=== PATIENT | male | born 1940 | race Caucasian/White ===

== ENCOUNTER 2016-07-30 10:13 | Inpatient (IN) | payer MEDICARE ==
[2016-07-30 10:29] LABS: Glucose,Whole Blood 151 mg/dL (75-99)
[2016-07-30] MEDS ORDERED: SODIUM CHLORIDE 0.9% 1,000 ML IV STA (10:33)
[2016-07-30] MEDS ORDERED: DILTIAZEM 125 MG in SODIUM CHLORIDE 0.9% 100 ML IV ONE (10:34)
[2016-07-30] MEDS ORDERED: DILTIAZEM 5 MG/ML 5 ML VIAL IVP STA (10:34)
--- NOTE | 2016-07-30 10:39 | ED ---
General Adult HPI - General Chief complaint: Neuro Symptoms/Deficit Stated complaint: TIA symptoms Time Seen by Provider: 07/30/16 10:22 Source: patient, family, RN notes reviewed Mode of arrival: ambulatory Limitations: no limitations - History of Present Illness Initial comments: Patient is a pleasant 76-year-old male presenting to the emergency department with concerns for slurred speech. Last known well was around 9:53 PM last night. noticed patient around 7 AM this morning with slurred speech. Patient complains his right side feels funny. No complaints of headache. Patient does have a history of one episode of atrial fibrillation in the past. also feels patient is acting somewhat confused. Patient did have some difficulty with walking and seemed off balance. - Related Data Home Medications Medication Instructions Recorded Confirmed ALPRAZolam [Xanax] 0.5 mg PO QID 09/19/15 07/30/16 Escitalopram [Lexapro] 10 mg PO DAILY 09/19/15 07/30/16 Multivitamins, Thera [Multivitamin 1 tab PO DAILY 09/19/15 07/30/16 (formulary)] risperiDONE 1 mg PO HS 09/19/15 07/30/16 Aspirin 325 mg PO HS 04/04/16 07/30/16 Cholecalciferol [Vitamin D3] 1,000 unit PO DAILY 04/04/16 07/30/16 Allergies Allergy/AdvReac Type Severity Reaction Status Date / Time No Known Allergies Allergy Verified 07/30/16 11:30 Review of Systems ROS Statement: Those systems with pertinent positive or pertinent negative responses have been documented in the HPI. ROS Other: All systems not noted in ROS Statement are negative. Constitutional: Denies: fever Eyes: Denies: eye pain ENT: Denies: ear pain Respiratory: Denies: cough, dyspnea Cardiovascular: Denies: chest pain, palpitations Endocrine: Denies: fatigue Gastrointestinal: Denies: abdominal pain Genitourinary: Denies: dysuria Musculoskeletal: Denies: back pain Skin: Denies: rash Neurological: Reports: weakness, paresthesias, confusion. Denies: headache Psychiatric: Reports: anxiety Past Medical History Past Medical History: Atrial Fibrillation Additional Past Medical History / Comment(s): diverticulitis, dry eyes bilaterally History of Any Multi-Drug Resistant Organisms: None Reported Past Surgical History: No Surgical Hx Reported Additional Past Surgical History / Comment(s): 03/01/16 colonoscopy Past Anesthesia/Blood Transfusion Reactions: No Reported Reaction Past Psychological History: Depression Additional Psychological History / Comment(s): Pt has depression and is on medication which he states is working well. He has no thoughts or plans of suicide. He has had previous attempts at suicide by asphyxia, cutting wrist, jumping in river and overdosing on sleeping pills. He uses no assistive device. He drives. Smoking Status: Former smoker Past Alcohol Use History: Daily Additional Past Alcohol Use History / Comment(s): Pt states he started smoking in 1961 and quit December 2015. He likes to drink 2 beers a day. Past Drug Use History: None Reported - Past Family History Father Family Medical History: Dementia Additional Family Medical History / Comment(s): Father of dementia at the age of 62 yrs. Mother Additional Family Medical History / Comment(s): Mother had heart problems. General Exam Limitations: no limitations General appearance: alert, anxious Head exam: Present: atraumatic Eye exam: Present: normal appearance, PERRL ENT exam: Present: normal oropharynx Neck exam: Present: normal inspection Respiratory exam: Present: normal lung sounds bilaterally Cardiovascular Exam: Present: tachycardia, irregular rhythm GI/Abdominal exam: Present: soft. Absent: tenderness Extremities exam: Present: normal inspection Neurological exam: Present: alert, oriented X3, CN II-XII intact Expanded Patient oriented to: Present: person, place, time Speech: Present: expressive aphasia Cranial nerves: EOM's Intact: Normal Cerebellar function: Finger to Nose: Abnormal Right Sensory exam: Upper Extremity Light Touch: Abnormal Right, Lower Extremity Light Touch: Normal Motor strength exam: RUE: 5, LUE: 5, RLE: 5, LLE: 5 Eye Response: (4) open spontaneously Motor Response: (6) obeys commands Verbal Response: (5) oriented Psychiatric exam: Present: normal affect, normal mood Skin exam: Present: normal color Course Vital Signs 07/30/16 07/30/16 07/30/16 10:17 10:30 10:45 Temperature 96.0 F L Pulse Rate 125 H 152 H 146 H Respiratory 20 26 H 26 H Rate Blood Pressure 163/75 159/107 162/107 O2 Sat by Pulse 98 98 98 Oximetry 07/30/16 07/30/16 07/30/16 11:00 11:15 11:30 Temperature Pulse Rate 140 H 153 H 111 H Respiratory 26 H 26 H 26 H Rate Blood Pressure 175/99 185/84 146/93 O2 Sat by Pulse 99 99 100 Oximetry 07/30/16 07/30/16 07/30/16 12:00 12:30 13:00 Temperature Pulse Rate 107 H 130 H 98 Respiratory 26 H 24 24 Rate Blood Pressure 166/86 159/103 168/82 O2 Sat by Pulse 99 94 L 98 Oximetry 07/30/16 07/30/16 13:30 14:26 Temperature Pulse Rate 108 H 104 H Respiratory 24 22 Rate Blood Pressure 186/81 178/72 O2 Sat by Pulse 98 98 Oximetry - Reevaluation(s) Reevaluation #1: 07/30/16 15:44 Repeat computed tomography scan shows no evidence of hemorrhage. Stable appearing subcutaneous nodule posteriorly. EKG Findings - EKG Comments: EKG Findings:: A. fib with RVR, rate 155. QRS 78. QT 32. QTC 453. Normal axis. Normal QRS. Normal ST-T. Medical Decision Making - Medical Decision Making Patient reevaluated. Case was discussed in detail with Dr. Low, who will admit for Dr. Dominique. Case was also discussed in detail with Dr. Villanueva, who will consult. He recommends no aggressive anticoagulation at this time. - Lab Data Result diagrams: 07/30/16 10:33 07/30/16 10:33 Lab Results 07/30/16 07/30/16 07/30/16 Range/Units 10:27 10:33 10:33 WBC 13.1 H (3.8-10.6) k/uL RBC 5.01 (4.30-5.90) m/uL Hgb 16.0 (13.0-17.5) gm/dL Hct 50.8 (39.0-53.0) % MCV 101.5 H (80.0-100.0) fL MCH 31.9 (25.0-35.0) pg MCHC 31.4 (31.0-37.0) g/dL RDW 13.8 (11.5-15.5) % Plt Count 232 (150-450) k/uL Neutrophils % 87 % Lymphocytes % 6 % Monocytes % 5 % Eosinophils % 0 % Basophils % 0 % Neutrophils # 11.5 H (1.3-7.7) k/uL Lymphocytes # 0.8 L (1.0-4.8) k/uL Monocytes # 0.6 (0-1.0) k/uL Eosinophils # 0.0 (0-0.7) k/uL Basophils # 0.1 (0-0.2) k/uL Hypochromasia Slight Macrocytosis Slight PT (9.0-12.0) sec INR (<1.1) APTT (22.0-30.0) sec Sodium (137-145) mmol/L Potassium (3.5-5.1) mmol/L Chloride (98-107) mmol/L Carbon Dioxide (22-30) mmol/L Anion Gap mmol/L BUN (9-20) mg/dL Creatinine (0.66-1.25) mg/dL Est GFR (MDRD) Af Amer (>60 ml/min/1.73 sqM) Est GFR (MDRD) Non-Af (>60 ml/min/1.73 sqM) Glucose (74-99) mg/dL POC Glucose (mg/dL) 151 H (75-99) mg/dL POC Glu [employer] ID Sharp, Kelsey Calcium (8.4-10.2) mg/dL Total Bilirubin (0.2-1.3) mg/dL AST (17-59) U/L ALT (21-72) U/L Alkaline Phosphatase (38-126) U/L Total Creatine Kinase 38 L (55-170) U/L CK-MB (CK-2) 0.4 (0.0-2.4) ng/mL CK-MB (CK-2) Rel Index 1.1 Troponin I <0.012 (0.000-0.034) ng/mL NT-Pro-B Natriuret Pep pg/mL Total Protein (6.3-8.2) g/dL Albumin (3.5-5.0) g/dL 07/30/16 07/30/16 07/30/16 Range/Units 10:33 10:33 10:33 WBC (3.8-10.6) k/uL RBC (4.30-5.90) m/uL Hgb (13.0-17.5) gm/dL Hct (39.0-53.0) % MCV (80.0-100.0) fL MCH (25.0-35.0) pg MCHC (31.0-37.0) g/dL RDW (11.5-15.5) % Plt Count (150-450) k/uL Neutrophils % % Lymphocytes % % Monocytes % % Eosinophils % % Basophils % % Neutrophils # (1.3-7.7) k/uL Lymphocytes # (1.0-4.8) k/uL Monocytes # (0-1.0) k/uL Eosinophils # (0-0.7) k/uL Basophils # (0-0.2) k/uL Hypochromasia Macrocytosis PT 10.1 (9.0-12.0) sec INR 1.0 (<1.1) APTT 22.0 (22.0-30.0) sec Sodium 149 H (137-145) mmol/L Potassium 5.3 H (3.5-5.1) mmol/L Chloride 115 H (98-107) mmol/L Carbon Dioxide 7 L* (22-30) mmol/L Anion Gap 27 mmol/L BUN 15 (9-20) mg/dL Creatinine 1.50 H (0.66-1.25) mg/dL Est GFR (MDRD) Af Amer 55 (>60 ml/min/1.73 sqM) Est GFR (MDRD) Non-Af 46 (>60 ml/min/1.73 sqM) Glucose 168 H (74-99) mg/dL POC Glucose (mg/dL) (75-99) mg/dL POC Glu [employer] ID Calcium 10.9 H (8.4-10.2) mg/dL Total Bilirubin 0.3 (0.2-1.3) mg/dL AST 18 (17-59) U/L ALT 37 (21-72) U/L Alkaline Phosphatase 97 (38-126) U/L Total Creatine Kinase (55-170) U/L CK-MB (CK-2) (0.0-2.4) ng/mL CK-MB (CK-2) Rel Index Troponin I (0.000-0.034) ng/mL NT-Pro-B Natriuret Pep 94 pg/mL Total Protein 7.9 (6.3-8.2) g/dL Albumin 4.7 (3.5-5.0) g/dL Critical Care Time Critical Care Time: Yes Total Critical Care Time: 36 Disposition Clinical Impression: Atrial fibrillation with RVR, Cerebrovascular accident Disposition: ADMITTED IP TO THIS HOSP Condition: Serious
[2016-07-30 11:03] LABS: Basophils # (A) 0.1 k/uL (0-0.2); Basophils % (A) 0 %; CH 31.5; CHCM 31.3; Eosinophils % (A) 0 %; HCT 50.8 % (39.0-53.0); Hypochromasia Slight; Luc # (Auto) 0.16; Luc % (Auto) 1; Lymphocytes # (A) 0.8 k/uL (1.0-4.8); Lymphocytes % (A) 6 %; MCH 31.9 pg (25.0-35.0); MCHC 31.4 g/dL (31.0-37.0); MCV 101.5 fL (80.0-100.0); Macrocytosis Slight; Mean Platelet Volume 7.5; Monocytes # (A) 0.6 k/uL (0-1.0); Monocytes % (A) 5 %; Neutrophils # (A) 11.5 k/uL (1.3-7.7); Neutrophils % (A) 87 %; RBC 5.01 m/uL (4.30-5.90); RDW 13.8 % (11.5-15.5); WBC 13.1 k/uL (3.8-10.6); WBC (Perox) 12.67
[2016-07-30 11:17] LABS: Calcium 10.9 mg/dL (8.4-10.2); Potassium 5.3 mmol/L (3.5-5.1); Total Bilirubin 0.3 mg/dL (0.2-1.3); Total Protein 7.9 g/dL (6.3-8.2)
--- NOTE | 2016-07-30 11:18 | CT ---
EXAMINATION TYPE: CT brain wo con DATE OF EXAM: 07/30/2016 11:08 AM COMPARISON: 12/28/2012 HISTORY: weakness today. History of CVA CT DLP: 1207 mGycm Automated exposure control for dose reduction was used. FINDINGS: Artifact limits the exam. There is no acute intracranial hemorrhage, mass effect, or midline shift identified. The ventricles and sulci are within normal limits in size. The globes are intact and the visualized sinuses are britni ar. IMPRESSION: Limited exam for hemorrhage due to artifact demonstrates no obvious gross acute intracranial hemorrh age or mass effect.
[2016-07-30 11:25] LABS: Prothrombin Time 10.1 sec (9.0-12.0)
[2016-07-30 11:30] LABS: Creatine Kinase 38 U/L (55-170)
--- NOTE | 2016-07-30 11:39 | XR ---
EXAMINATION TYPE: XR chest 1V portable DATE OF EXAM: 07/30/2016 11:18 AM COMPARISON: Chest x-ray April 04, 2016. HISTORY: Altered mental status and weakness. TECHNIQUE: Single AP portable frontal upright view of the chest is obtained. FINDINGS: There is chronic parenchymal change without suspicious focal air space opacity, pleural ef fusion, or pneumothorax seen. The cardiac silhouette size is upper limits of normal. Atherosclerotic change in aortic knob is redemonstrated. The osseous structures are demineralized. Old fracture def ormity right mid clavicle is noted. There is old fracture posterior left eighth rib redemonstrated. IMPRESSION: No acute pulmonary process.
[2016-07-30 11:44] LABS: Creatine Kinase MB 0.4 ng/mL (0.0-2.4); Troponin I <0.012 ng/mL (0.000-0.034)
[2016-07-30] MEDS ORDERED: LORazepam 2 MG/ML SYRINGE IV STA (12:33)
--- NOTE | 2016-07-30 14:25 | CT ---
EXAMINATION TYPE: CT brain wo con DATE OF EXAM: 07/30/2016 2:19 PM COMPARISON: NONE HISTORY: possible hemorrhage CT DLP: 1012.7 mGycm Automated exposure control for dose reduction was used. FINDINGS: There is no acute intracranial hemorrhage, mass effect, or midline shift identified. There is a 1.3 cm subcutaneous nodule posterior to the craniocervical junction. Stable from previous exam. Atherosclerotic changes are noted. [id number] generalized degenerative change. Periventri cular low-attenuation nonspecific but suggestive of remote microvascular ischemia. IMPRESSION: 1. Degenerative and suspected remote ischemic white matter change. 2. Stable appearing subcutaneous nodule within the soft tissues posteriorly from the previous recent exam. However, this is new from the exam of 8 12/28/2012. Correlate clinically for soft tissue nodule at the craniocervical junction posteriorly.
[2016-07-30] MEDS ORDERED: ASPIRIN 325 MG TAB PO STA (15:46)
[2016-07-30] MEDS ORDERED: SODIUM CHLORIDE 0.9% 1,000 ML IV SCH (16:00)
--- NOTE | 2016-07-30 19:55 | XR ---
EXAMINATION TYPE: XR chest 1V portable DATE OF EXAM: 07/30/2016 7:49 PM COMPARISON: Today HISTORY: Short of breath TECHNIQUE: Single frontal view of the chest is obtained. FINDINGS: There is no heart failure nor confluent pneumonic infiltrate. There are chest leads. Thora cic aorta is atheromatous. There is no pleural effusion. There are no hilar masses. IMPRESSION: No active cardiopulmonary disease. No change.
[2016-07-30] MEDS ORDERED: FUROSEMIDE 10 MG/ML 2 ML VIAL IV ONE (20:33)
[2016-07-30] MEDS ORDERED: LEVOFLOXACIN 500MG-D5W PMX 500 MG in DEXTROSE/WATER 1 100ML.BAG IVPB SCH (21:00)
--- NOTE | 2016-07-30 21:31 | US ---
EXAMINATION TYPE: US carotid duplex BILAT DATE OF EXAM: 07/30/2016 9:16 PM COMPARISON: NONE CLINICAL HISTORY: Stenosis. Slurred speech. Very difficult/limited exam. The patient was confused, un able to follow direction to turn his head for the test. Patient breathing deeply/snoring making the v essels move during the exam EXAM MEASUREMENTS: RIGHT: Peak Systolic Velocity (PSV) cm/sec ----- Right CCA: 103.1 ----- Right ICA: 135.7 ----- Right ECA: 60.7 ICA/CCA ratio: 1.3 RIGHT: End Diastole cm/sec ----- Right CCA: 15.9 ----- Right ICA: 17.5 ----- Right ECA: 7.6 LEFT: Peak Systolic Velocity (PSV) cm/sec ----- Left CCA: 67.7 ----- Left ICA: 93.5 ----- Left ECA: 49.4 ICA/CCA ratio: 1.4 LEFT: End Diastole cm/sec ----- Left CCA: 7.9 ----- Left ICA: 14.4 ----- Left ECA: 6.5 VERTEBRALS (direction of flow): Right Vertebral: Antegrade Left Vertebral: Antegrade TECHNOLOGIST IMPRESSION: Arrythmia noted throughout exam. Moderate amount of plaque visualized in bi lateral bulbs. Elevated velocity noted at the right distal ICA IMPRESSION: There is antegrade flow in the vertebral arteries. The images and measurements suggest 5 0-70% stenosis in the right internal carotid artery there is significant bilateral plaque. There is p robably at least 50% stenosis in the left internal carotid artery. Exam is limited due to the calcifi ed plaque. Criteria for Assigning % of Stenosis / Diameter reduction (Estimation based on the indirect measurements of the internal carotid artery velocities (ICA PSV). 1. Normal (no stenosis)=ICA PSV < 125 cm/s: ratio < 2.0: ICA EDV<40 cm/s. 2. Less than 50% stenosis=ICA PSV < 125 cm/s: ratio < 2.0: ICA EDV<40 cm/s. 3. 50 to 69% stenosis=ICA PSV of 125 to 230 cm/s: ration 2.0 ? 4.0: ICA EDV 40-100 cm/s. 4. Greater than 70% stenosis to near occlusion= ICA PSV > 230 cm/s: ratio > 4.0: ICA EDV > 100 cm/s. 5. Near occlusion= ICA PSV velocities may be low or undetectable: variable ratio and ICA EDV. 6. Total occlusion=unable to detect flow.
[2016-07-30 21:42] LABS: Glucose,Whole Blood 229 mg/dL (75-99)
[2016-07-30 21:42] LABS: ABG PH 7.01 (7.35-7.45)
[2016-07-30 21:43] LABS: ABG Base Excess -25.2 mmol/L; ABG HCO3 4 mmol/L (21-25); ABG PCO2 16 mmHg (35-45); ABG PO2 106 mmHg (83-108); ABG TCO2 4 mmol/L (19-24)
[2016-07-30] MEDS ORDERED: SODIUM BICARB 8.4% 50 ML SYR (1 MEQ/ML) ONE (22:05)
[2016-07-30] MEDS ORDERED: SODIUM BICARB 8.4% 50 ML SYR (1 MEQ/ML) IV STA ×2 (22:06→23:48)
[2016-07-30] MEDS ORDERED: PROPOFOL 50 ML IV ONE (22:16)
[2016-07-30] MEDS: PROPOFOL 500 MG in EMPTY BAG 1 BAG IV SCH (22:30)
[2016-07-30] MEDS ORDERED: PROPOFOL 10 MG/ML 20 ML VIAL IV ONE (22:32)
[2016-07-30] MEDS ORDERED: PHENYLEPHRINE-0.9% NACL SYG 1 MG/10 ML SYRINGE ONE (22:32)
[2016-07-30] MEDS ORDERED: IV VANCOMYCIN PER PHARMACY 1 EACH MISC MISCELLANE PRN (22:40)
--- NOTE | 2016-07-30 22:44 | XR ---
EXAMINATION TYPE: XR chest 1V portable DATE OF EXAM: 07/30/2016 10:36 PM COMPARISON: Today HISTORY: Tube placement TECHNIQUE: Single frontal view of the chest is obtained. FINDINGS: Heart and mediastinum are within normal limits. Lungs are clear of infiltrate. Endotrachea l tube is 2 cm from the livia. There is nasogastric tube that appears in good position. There are ch est leads. IMPRESSION: No active cardiopulmonary disease. Endotracheal tube is somewhat low and could be pulled back 2 cm.
[2016-07-30] MEDS ORDERED: ONDANSETRON 4 MG/2 ML VIAL IVP PRN (22:56)
[2016-07-30] MEDS ORDERED: PIPERACILLIN-TAZOBACTAM 3.375 GM in DEXTROSE/WATER 1 50ML.BAG IVPB ONE (23:00)
[2016-07-30] MEDS ORDERED: PIPERACILLIN-TAZOBACTAM 3.375 GM in DEXTROSE/WATER 1 50ML.BAG IVPB SCH (23:00)
[2016-07-30] MEDS ORDERED: VANCOMYCIN 1,500 MG in SODIUM CHLORIDE 0.9% 250 ML IVPB ONE (23:00)
[2016-07-30] MEDS ORDERED: INSULIN REGULAR 100 UNIT in SODIUM CHLORIDE 0.9% 100 ML IV SCH (23:15)
[2016-07-30 23:21] LABS: Basophils % (A) 0 %; CH 30.6; CHCM 29.9; Eosinophils % (A) 0 %; HCT 48.3 % (39.0-53.0); HDW 2.52; HGB 14.8 gm/dL (13.0-17.5); Hypochromasia Marked; Luc # (Auto) 0.11; Luc % (Auto) 0; Lymphocytes # (A) 0.6 k/uL (1.0-4.8); Lymphocytes % (A) 2 %; MCH 31.5 pg (25.0-35.0); MCHC 30.6 g/dL (31.0-37.0); Macrocytosis Slight; Monocytes # (A) 1.4 k/uL (0-1.0); Monocytes % (A) 5 %; Neutrophils # (A) 25.9 k/uL (1.3-7.7); Neutrophils % (A) 93 %; RBC 4.69 m/uL (4.30-5.90); RDW 13.7 % (11.5-15.5); WBC (Perox) 28.76
[2016-07-30 23:28] LABS: Partial Thromboplastin Time 24.3 sec (22.0-30.0); Prothrombin Time 10.1 sec (9.0-12.0)
[2016-07-30 23:28] LABS: ALT 29 U/L (21-72); AST 29 U/L (17-59); Alcohol <10 mg/dL; Alkaline Phosphatase 84 U/L (38-126); Anion Gap 32 mmol/L; Blood Urea Nitrogen 23 mg/dL (9-20); Calcium 9.8 mg/dL (8.4-10.2); Chloride 112 mmol/L (98-107); Glucose 258 mg/dL (74-99); Non-African American GFR(MDRD) 20 (>60 ml/min/1.73 sqM); Sodium 149 mmol/L (137-145); Total Bilirubin 0.4 mg/dL (0.2-1.3); Total Protein 7.2 g/dL (6.3-8.2)
[2016-07-30 23:31] LABS: ABG Base Excess -21.6 mmol/L; ABG HCO3 8 mmol/L (21-25); ABG PCO2 38 mmHg (35-45); ABG PH <7.00 (7.35-7.45); ABG PO2 337 mmHg (83-108); ABG TCO2 9 mmol/L (19-24)
[2016-07-30 23:35] LABS: Creatine Kinase 48 U/L (55-170)
[2016-07-30 23:49] LABS: Creatine Kinase MB 1.4 ng/mL (0.0-2.4); Troponin I <0.012 ng/mL (0.000-0.034)
[2016-07-30] MEDS: DEXTROSE 5% IN WATER 1,000 ML with SODIUM BICARB (1 MEQ/ML) 150 ML IV SCH (23:54)
[2016-07-30] MEDS: PANTOPRAZOLE 40 MG/10 ML VIAL IVP SCH (23:55)
[2016-07-31] MEDS ORDERED: HEPARIN SODIUM,PORCINE 5,000 UNIT/ML 1 ML VIAL SQ SCH
[2016-07-31 00:19] LABS: Appearance,Urine Clear (Clear); Bilirubin,Urine Negative (Negative); Glucose,Urine (UA) Negative (Negative); Ketones,Urine Negative (Negative); Leukocyte Esterase,Urine Negative (Negative); Nitrite,Urine Negative (Negative); Particle Count 1176; Protein,Urine 1+ (Negative); RBC,Urine 2 /hpf (0-5); Specific Gravity,Urine 1.007 (1.001-1.035); UA Billing (MACRO vs. MICRO) MICRO; Urobilinogen,Urine <2.0 mg/dL (<2.0)
[2016-07-31] MEDS ORDERED: RX INFO: IV CONTRAST WAS GIVEN 1 EACH MISC MISCELLANE PRN (00:22)
[2016-07-31 00:25] LABS: ABG Base Excess -17.9 mmol/L; ABG HCO3 10 mmol/L (21-25); ABG PCO2 36 mmHg (35-45); ABG PH 7.08 (7.35-7.45); ABG PO2 213 mmHg (83-108); ABG TCO2 11 mmol/L (19-24)
[2016-07-31 00:25] LABS: Glucose,Whole Blood 302 mg/dL (75-99)
[2016-07-31 00:28] LABS: Potassium 6.5 mmol/L (3.5-5.1)
[2016-07-31 00:29] LABS: Carbon Dioxide <5 mmol/L (22-30)
[2016-07-31] MEDS: PROPOFOL 500 MG in EMPTY BAG 1 BAG IV SCH ×6 (01:02→22:02)
[2016-07-31] MEDS: IOHEXOL 350 MG/ML 25 ML BOTTLE (ORAL USE) PO PRN ×2 (01:04→01:25)
[2016-07-31 01:37] LABS: Glucose,Whole Blood 283 mg/dL (75-99)
[2016-07-31] MEDS: LACTATED RINGERS 1,000 ML IV SCH ×7 (02:00→04:26)
[2016-07-31 02:08] LABS: Glucose,Whole Blood 254 mg/dL (75-99)
[2016-07-31] MEDS ORDERED: NALOXONE 0.4 MG/ML 1 ML VIAL IV PRN (02:34)
[2016-07-31 03:05] LABS: Glucose,Whole Blood 231 mg/dL (75-99)
--- NOTE | 2016-07-31 03:10 | CT ---
EXAM: CT Abdomen and Pelvis Without Intravenous Contrast. CLINICAL HISTORY: Reason: Possible ischemic bowel TECHNIQUE: Axial computed tomography images of the abdomen and pelvis without intravenous contrast. CTDI is 22.30 mGy and DLP is 1174.80 mGy-cm Coronal and sagittal reformatted images were created and reviewed. COMPARISON: CT abdomen and pelvis 09/17/14 FINDINGS: Lower thorax: Bibasilar lung atelectasis/consolidations and airspace disease may be worrisome for pneumonia. ABDOMEN: Liver: Unremarkable. Gallbladder and bile ducts: Unremarkable. No calcified stones. No ductal dilation. Pancreas: Unremarkable. No ductal dilation. Spleen: Unremarkable. No splenomegaly. Adrenals: Unremarkable. No mass. Kidneys and ureters: Bilateral perinephric stranding and small retroperitoneal fluid. No renal, ureteral, or bladder stone. 5.7 cm left renal cyst, larger than prior study which was 5 cm. Stomach and bowel: Colonic diverticulosis without acute diverticulitis. No bowel obstruction. No free air or abscess. No pneumatosis. No CT evidence of bowel ischemia. Appendix: No findings to suggest acute appendicitis. PELVIS: Bladder: Brody catheter in decompressed urinary bladder. Reproductive: Prominent prostate. ABDOMEN and PELVIS: Intraperitoneal space: See above. Bones/joints: No acute fracture. No dislocation. Soft tissues: Bilateral fat-containing inguinal hernias. Vasculature: Unremarkable. No abdominal aortic aneurysm. Lymph nodes: Unremarkable. No enlarged lymph nodes. IMPRESSION: 1. Bilateral perinephric stranding and small retroperitoneal fluid. No renal obstruction or stones. Consider infection. 2. Colonic diverticulosis without acute diverticulitis. 3. Bibasilar lung atelectasis/consolidation and airspace disease, possible infection. 4. Slightly increased size of left renal cyst. Prominent prostate.
[2016-07-31] MEDS: LEVALBUTEROL NEB (CONC) 1.25 MG/0.5 ML AMP INHALATION PRN ×6 (03:24→23:11)
[2016-07-31] MEDS: IPRATROPIUM 0.5 MG/2.5 ML NEBU INHALATION PRN ×6 (03:24→23:11)
[2016-07-31 03:26] LABS: Basophils % (A) 0 %; CH 30.9; CHCM 30.7; Eosinophils # (A) 0.1 k/uL (0-0.7); Eosinophils % (A) 0 %; HCT 40.7 % (39.0-53.0); HDW 2.54; HGB 12.8 gm/dL (13.0-17.5); Hypochromasia Moderate; Luc # (Auto) 0.05; Luc % (Auto) 0; Lymphocytes # (A) 0.6 k/uL (1.0-4.8); Lymphocytes % (A) 3 %; MCH 31.7 pg (25.0-35.0); MCHC 31.3 g/dL (31.0-37.0); MCV 101.2 fL (80.0-100.0); Macrocytosis Slight; Mean Platelet Volume 6.7; Monocytes # (A) 0.6 k/uL (0-1.0); Monocytes % (A) 4 %; Neutrophils # (A) 15.7 k/uL (1.3-7.7); Neutrophils % (A) 92 %; RBC 4.02 m/uL (4.30-5.90); RDW 13.8 % (11.5-15.5); WBC (Perox) 18.23
[2016-07-31 03:32] LABS: Calcium 8.7 mg/dL (8.4-10.2); Magnesium 2.1 mg/dL (1.6-2.3); Phosphorous 5.1 mg/dL (2.5-4.5); Potassium 4.9 mmol/L (3.5-5.1)
[2016-07-31 04:06] LABS: Glucose,Whole Blood 190 mg/dL (75-99)
[2016-07-31] MEDS ORDERED: FUROSEMIDE 10 MG/ML 4 ML VIAL IV STA (04:21)
[2016-07-31 05:02] LABS: Glucose,Whole Blood 169 mg/dL (75-99)
[2016-07-31 05:52] LABS: ABG HCO3 13 mmol/L (21-25); ABG PCO2 27 mmHg (35-45); ABG PH 7.29 (7.35-7.45); ABG PO2 109 mmHg (83-108); ABG TCO2 13 mmol/L (19-24)
[2016-07-31 05:53] LABS: ABG Base Excess -12.7 mmol/L
[2016-07-31 06:06] LABS: Glucose,Whole Blood 151 mg/dL (75-99)
[2016-07-31 07:08] LABS: Glucose,Whole Blood 149 mg/dL (75-99)
--- NOTE | 2016-07-31 07:11 | XR ---
EXAMINATION TYPE: XR chest 1V portable DATE OF EXAM: 07/31/2016 6:53 AM Comparison: 07/30/2016 Clinical History: 76 year-old male tube placement Findings: Heart is normal size. ET tube satisfactory with tip at the level of the medial clavicular heads. NG t ube courses below the diaphragm. The distal aspect is outside the field of view. There is some interv al increase in retrocardiac opacity and blunting of the left costophrenic angle. Mild interstitial pr ominence is noted. Impression: 1. Satisfactory ET tube. 2. Mild interstitial prominence and some new blunting of the left costophrenic angle could represent trace effusion. Correlate to exclude mild pulmonary vascular congestion. 3. New retrocardiac atelectasis or infiltrate.
--- NOTE | 2016-07-31 07:20 | P.GSCN ---
History of Present Illness Consult date: 07/31/16 Reason for Consult: Sepsis rule out ischemic bowel Requesting physician: Roger Aceves History of present illness: Thank you very much for asking us to see Mr. Cyr. He is a 76-year-old white male was admitted with change in mental status with some mild confusion vision changes weakness and slurred speech. CT of the head showed no significant abnormalities. He was admitted for further management. He however last night had a large or coffee-ground emesis. Developed respiratory failure had to be intubated. NG tube was placed. There continued to have some coffee-ground material in it. Had evidence of acidosis with high lactic acidosis and question of bowel ischemia was entertained. He was also found to have atrial fibrillation with rapid rate CT of the abdomen and pelvis with the oral contrast revealed the no evidence of bowel ischemia no dilated loops of bowel no evidence of ileus. No free air. There was some stranding in both kidneys indicating possible infection. Urinalysis was unremarkable. His abdominal exam when admitted through the emergency room was benign with no tenderness. Continues to have acidosis although this appears to be improving. Does have the oliguria through the night the WBC was elevated to 27,000 last night hemoglobin is 12 g percent. Past history: Positive for the colitis in the past. Had a colonoscopy about a year ago. History of depression. Social history quit smoking several years ago. Drinks about 2 beers a day. at home with his . Systems review. Not obtainable. Patient is intubated. On examination patient is a intubated sedated. PVCs now. Blood pressure has been stable through the night. Not particularly pale. No neck masses. Abdomen is very soft and benign at this time. Of course he is sedated and intubated. No palpable mass. No significant tenderness on deep palpation. No hernias noted. Has hypoactive bowel sounds. WBCs better the this morning. Hemoglobin 12.2 g percent. Urinalysis was normal. Lactic acid level last night was 2.7. ABGs were noted. Impression sepsis. Acidosis. A. fib with rapid prep and ventricular rate improved with Cardizem drip. Coffee-ground emesis probably from acute gastritis. Possible small bowel ischemia although not evident on computed tomography scan now. Recommendation continued close monitoring. Antiulcer regimen. IV antibiotics. We will discuss with Dr. Yuen. Past Medical History Past Medical History: Atrial Fibrillation Additional Past Medical History / Comment(s): diverticulitis, dry eyes bilaterally, ANXIETY/DEPRESSION History of Any Multi-Drug Resistant Organisms: None Reported Past Surgical History: No Surgical Hx Reported Additional Past Surgical History / Comment(s): 03/01/16 colonoscopy Past Anesthesia/Blood Transfusion Reactions: No Reported Reaction Past Psychological History: Depression Additional Psychological History / Comment(s): previousl charting stated" Pt has hx of depression. He has had previous attempts at suicide by asphyxia, cutting wrist, jumping in river and overdosing on sleeping pills" .at time of this admit was unable to obtain depression screen answers from pt (pt had resp distress). pt lives with his in home that has 4 steps into home, no outside services, no medical equipment. pt served in the [employer] and worked at [employer]. Smoking Status: Former smoker Past Alcohol Use History: Daily Additional Past Alcohol Use History / Comment(s): Pt states he started smoking in 1961 and quit December 2015. He likes to drink 2 beers a day. Past Drug Use History: None Reported - Past Family History Father Family Medical History: Dementia Additional Family Medical History / Comment(s): Father of dementia at the age of 62 yrs. Mother Additional Family Medical History / Comment(s): Mother had heart problems. Medications and Allergies Home Medications Medication Instructions Recorded Confirmed Type ALPRAZolam [Xanax] 0.5 mg PO QID 09/19/15 07/30/16 History Escitalopram [Lexapro] 10 mg PO DAILY 09/19/15 07/30/16 History Multivitamins, Thera [Multivitamin 1 tab PO DAILY 09/19/15 07/30/16 History (formulary)] risperiDONE 1 mg PO HS 09/19/15 07/30/16 History Aspirin 325 mg PO HS 04/04/16 07/30/16 History Cholecalciferol [Vitamin D3] 1,000 unit PO DAILY 04/04/16 07/30/16 History Allergies Allergy/AdvReac Type Severity Reaction Status Date / Time No Known Allergies Allergy Verified 07/30/16 11:30 Surgical - Exam Vital Signs Temp Pulse Resp BP Pulse Ox 96.0 F L 125 H 20 163/75 98 07/30/16 10:17 07/30/16 10:17 07/30/16 10:17 07/30/16 10:17 07/30/16 10:17 Results - Labs 07/31/16 03:06 07/31/16 03:06 Abnormal Lab Results - Last 24 Hours (Table) 07/30/16 07/30/16 07/30/16 Range/Units 16:13 21:34 21:39 WBC (3.8-10.6) k/uL RBC (4.30-5.90) m/uL Hgb (13.0-17.5) gm/dL MCV (80.0-100.0) fL MCHC (31.0-37.0) g/dL Neutrophils # (1.3-7.7) k/uL Lymphocytes # (1.0-4.8) k/uL Monocytes # (0-1.0) k/uL D-Dimer 0.99 H (<0.60) mg/L FEU ABG pH 7.01 L* (7.35-7.45) ABG pCO2 16 L* (35-45) mmHg ABG pO2 (83-108) mmHg ABG HCO3 4 L* (21-25) mmol/L ABG Total CO2 4 L (19-24) mmol/L ABG O2 Saturation (94-97) % Sodium (137-145) mmol/L Potassium (3.5-5.1) mmol/L Chloride (98-107) mmol/L Carbon Dioxide (22-30) mmol/L BUN (9-20) mg/dL Creatinine (0.66-1.25) mg/dL Glucose (74-99) mg/dL POC Glucose (mg/dL) 229 H (75-99) mg/dL Plasma Lactic Acid Brandon (0.7-2.0) mmol/L Phosphorus (2.5-4.5) mg/dL Total Creatine Kinase (55-170) U/L Urine Protein (Negative) Urine Blood (Negative) 07/30/16 07/30/16 07/30/16 Range/Units 22:38 22:50 22:50 WBC 28.0 H* (3.8-10.6) k/uL RBC (4.30-5.90) m/uL Hgb (13.0-17.5) gm/dL MCV 103.0 H (80.0-100.0) fL MCHC 30.6 L (31.0-37.0) g/dL Neutrophils # 25.9 H (1.3-7.7) k/uL Lymphocytes # 0.6 L (1.0-4.8) k/uL Monocytes # 1.4 H (0-1.0) k/uL D-Dimer (<0.60) mg/L FEU ABG pH (7.35-7.45) ABG pCO2 (35-45) mmHg ABG pO2 (83-108) mmHg ABG HCO3 (21-25) mmol/L ABG Total CO2 (19-24) mmol/L ABG O2 Saturation (94-97) % Sodium 149 H (137-145) mmol/L Potassium 6.5 H* (3.5-5.1) mmol/L Chloride 112 H (98-107) mmol/L Carbon Dioxide <5 L* (22-30) mmol/L BUN 23 H (9-20) mg/dL Creatinine 3.10 H (0.66-1.25) mg/dL Glucose 258 H (74-99) mg/dL POC Glucose (mg/dL) (75-99) mg/dL Plasma Lactic Acid Brandon 8.1 H* (0.7-2.0) mmol/L Phosphorus (2.5-4.5) mg/dL Total Creatine Kinase (55-170) U/L Urine Protein (Negative) Urine Blood (Negative) 07/30/16 07/30/16 07/30/16 Range/Units 22:50 23:25 23:50 WBC (3.8-10.6) k/uL RBC (4.30-5.90) m/uL Hgb (13.0-17.5) gm/dL MCV (80.0-100.0) fL MCHC (31.0-37.0) g/dL Neutrophils # (1.3-7.7) k/uL Lymphocytes # (1.0-4.8) k/uL Monocytes # (0-1.0) k/uL D-Dimer (<0.60) mg/L FEU ABG pH <7.00 L* (7.35-7.45) ABG pCO2 (35-45) mmHg ABG pO2 337 H (83-108) mmHg ABG HCO3 8 L* (21-25) mmol/L ABG Total CO2 9 L (19-24) mmol/L ABG O2 Saturation 100.0 H (94-97) % Sodium (137-145) mmol/L Potassium (3.5-5.1) mmol/L Chloride (98-107) mmol/L Carbon Dioxide (22-30) mmol/L BUN (9-20) mg/dL Creatinine (0.66-1.25) mg/dL Glucose (74-99) mg/dL POC Glucose (mg/dL) (75-99) mg/dL Plasma Lactic Acid Brandon (0.7-2.0) mmol/L Phosphorus (2.5-4.5) mg/dL Total Creatine Kinase 48 L (55-170) U/L Urine Protein 1+ H (Negative) Urine Blood Trace H (Negative) 07/31/16 07/31/16 07/31/16 Range/Units 00:21 00:23 01:36 WBC (3.8-10.6) k/uL RBC (4.30-5.90) m/uL Hgb (13.0-17.5) gm/dL MCV (80.0-100.0) fL MCHC (31.0-37.0) g/dL Neutrophils # (1.3-7.7) k/uL Lymphocytes # (1.0-4.8) k/uL Monocytes # (0-1.0) k/uL D-Dimer (<0.60) mg/L FEU ABG pH 7.08 L* (7.35-7.45) ABG pCO2 (35-45) mmHg ABG pO2 213 H (83-108) mmHg ABG HCO3 10 L* (21-25) mmol/L ABG Total CO2 11 L (19-24) mmol/L ABG O2 Saturation 99.0 H (94-97) % Sodium (137-145) mmol/L Potassium (3.5-5.1) mmol/L Chloride (98-107) mmol/L Carbon Dioxide (22-30) mmol/L BUN (9-20) mg/dL Creatinine (0.66-1.25) mg/dL Glucose (74-99) mg/dL POC Glucose (mg/dL) 302 H 283 H (75-99) mg/dL Plasma Lactic Acid Brandon (0.7-2.0) mmol/L Phosphorus (2.5-4.5) mg/dL Total Creatine Kinase (55-170) U/L Urine Protein (Negative) Urine Blood (Negative) 07/31/16 07/31/16 07/31/16 Range/Units 02:07 03:04 03:06 WBC (3.8-10.6) k/uL RBC (4.30-5.90) m/uL Hgb (13.0-17.5) gm/dL MCV (80.0-100.0) fL MCHC (31.0-37.0) g/dL Neutrophils # (1.3-7.7) k/uL Lymphocytes # (1.0-4.8) k/uL Monocytes # (0-1.0) k/uL D-Dimer (<0.60) mg/L FEU ABG pH (7.35-7.45) ABG pCO2 (35-45) mmHg ABG pO2 (83-108) mmHg ABG HCO3 (21-25) mmol/L ABG Total CO2 (19-24) mmol/L ABG O2 Saturation (94-97) % Sodium (137-145) mmol/L Potassium (3.5-5.1) mmol/L Chloride (98-107) mmol/L Carbon Dioxide (22-30) mmol/L BUN (9-20) mg/dL Creatinine (0.66-1.25) mg/dL Glucose (74-99) mg/dL POC Glucose (mg/dL) 254 H 231 H (75-99) mg/dL Plasma Lactic Acid Brandon 10.0 H* (0.7-2.0) mmol/L Phosphorus (2.5-4.5) mg/dL Total Creatine Kinase (55-170) U/L Urine Protein (Negative) Urine Blood (Negative) 07/31/16 07/31/16 07/31/16 Range/Units 03:06 03:06 04:05 WBC 17.0 H (3.8-10.6) k/uL RBC 4.02 L (4.30-5.90) m/uL Hgb 12.8 L (13.0-17.5) gm/dL MCV 101.2 H (80.0-100.0) fL MCHC (31.0-37.0) g/dL Neutrophils # 15.7 H (1.3-7.7) k/uL Lymphocytes # 0.6 L (1.0-4.8) k/uL Monocytes # (0-1.0) k/uL D-Dimer (<0.60) mg/L FEU ABG pH (7.35-7.45) ABG pCO2 (35-45) mmHg ABG pO2 (83-108) mmHg ABG HCO3 (21-25) mmol/L ABG Total CO2 (19-24) mmol/L ABG O2 Saturation (94-97) % Sodium 147 H (137-145) mmol/L Potassium (3.5-5.1) mmol/L Chloride 111 H (98-107) mmol/L Carbon Dioxide 7 L* (22-30) mmol/L BUN 27 H (9-20) mg/dL Creatinine 3.20 H (0.66-1.25) mg/dL Glucose 226 H (74-99) mg/dL POC Glucose (mg/dL) 190 H (75-99) mg/dL Plasma Lactic Acid Brandon (0.7-2.0) mmol/L Phosphorus 5.1 H (2.5-4.5) mg/dL Total Creatine Kinase (55-170) U/L Urine Protein (Negative) Urine Blood (Negative) 07/31/16 07/31/16 07/31/16 Range/Units 05:01 05:48 06:04 WBC (3.8-10.6) k/uL RBC (4.30-5.90) m/uL Hgb (13.0-17.5) gm/dL MCV (80.0-100.0) fL MCHC (31.0-37.0) g/dL Neutrophils # (1.3-7.7) k/uL Lymphocytes # (1.0-4.8) k/uL Monocytes # (0-1.0) k/uL D-Dimer (<0.60) mg/L FEU ABG pH 7.29 L (7.35-7.45) ABG pCO2 27 L (35-45) mmHg ABG pO2 109 H (83-108) mmHg ABG HCO3 13 L (21-25) mmol/L ABG Total CO2 13 L (19-24) mmol/L ABG O2 Saturation 98.0 H (94-97) % Sodium (137-145) mmol/L Potassium (3.5-5.1) mmol/L Chloride (98-107) mmol/L Carbon Dioxide (22-30) mmol/L BUN (9-20) mg/dL Creatinine (0.66-1.25) mg/dL Glucose (74-99) mg/dL POC Glucose (mg/dL) 169 H 151 H (75-99) mg/dL Plasma Lactic Acid Brandon (0.7-2.0) mmol/L Phosphorus (2.5-4.5) mg/dL Total Creatine Kinase (55-170) U/L Urine Protein (Negative) Urine Blood (Negative) 07/31/16 Range/Units 07:07 WBC (3.8-10.6) k/uL RBC (4.30-5.90) m/uL Hgb (13.0-17.5) gm/dL MCV (80.0-100.0) fL MCHC (31.0-37.0) g/dL Neutrophils # (1.3-7.7) k/uL Lymphocytes # (1.0-4.8) k/uL Monocytes # (0-1.0) k/uL D-Dimer (<0.60) mg/L FEU ABG pH (7.35-7.45) ABG pCO2 (35-45) mmHg ABG pO2 (83-108) mmHg ABG HCO3 (21-25) mmol/L ABG Total CO2 (19-24) mmol/L ABG O2 Saturation (94-97) % Sodium (137-145) mmol/L Potassium (3.5-5.1) mmol/L Chloride (98-107) mmol/L Carbon Dioxide (22-30) mmol/L BUN (9-20) mg/dL Creatinine (0.66-1.25) mg/dL Glucose (74-99) mg/dL POC Glucose (mg/dL) 149 H (75-99) mg/dL Plasma Lactic Acid Brandon (0.7-2.0) mmol/L Phosphorus (2.5-4.5) mg/dL Total Creatine Kinase (55-170) U/L Urine Protein (Negative) Urine Blood (Negative) Diabetes panel 07/30/16 07/31/16 Range/Units 22:38 03:06 Sodium 149 H 147 H (137-145) mmol/L Potassium 6.5 H* 4.9 (3.5-5.1) mmol/L Chloride 112 H 111 H (98-107) mmol/L Carbon Dioxide <5 L* 7 L* (22-30) mmol/L BUN 23 H 27 H (9-20) mg/dL Creatinine 3.10 H 3.20 H (0.66-1.25) mg/dL Glucose 258 H 226 H (74-99) mg/dL Calcium 9.8 8.7 (8.4-10.2) mg/dL AST 29 (17-59) U/L ALT 29 (21-72) U/L Alkaline Phosphatase 84 (38-126) U/L Total Protein 7.2 (6.3-8.2) g/dL Albumin 4.3 (3.5-5.0) g/dL Calcium panel 07/30/16 07/31/16 Range/Units 22:38 03:06 Calcium 9.8 8.7 (8.4-10.2) mg/dL Phosphorus 5.1 H (2.5-4.5) mg/dL Albumin 4.3 (3.5-5.0) g/dL Pituitary panel 07/30/16 07/31/16 Range/Units 22:38 03:06 Sodium 149 H 147 H (137-145) mmol/L Potassium 6.5 H* 4.9 (3.5-5.1) mmol/L Chloride 112 H 111 H (98-107) mmol/L Carbon Dioxide <5 L* 7 L* (22-30) mmol/L BUN 23 H 27 H (9-20) mg/dL Creatinine 3.10 H 3.20 H (0.66-1.25) mg/dL Glucose 258 H 226 H (74-99) mg/dL Calcium 9.8 8.7 (8.4-10.2) mg/dL Adrenal panel 07/30/16 07/31/16 Range/Units 22:38 03:06 Sodium 149 H 147 H (137-145) mmol/L Potassium 6.5 H* 4.9 (3.5-5.1) mmol/L Chloride 112 H 111 H (98-107) mmol/L Carbon Dioxide <5 L* 7 L* (22-30) mmol/L BUN 23 H 27 H (9-20) mg/dL Creatinine 3.10 H 3.20 H (0.66-1.25) mg/dL Glucose 258 H 226 H (74-99) mg/dL Calcium 9.8 8.7 (8.4-10.2) mg/dL Total Bilirubin 0.4 (0.2-1.3) mg/dL AST 29 (17-59) U/L ALT 29 (21-72) U/L Alkaline Phosphatase 84 (38-126) U/L Total Protein 7.2 (6.3-8.2) g/dL Albumin 4.3 (3.5-5.0) g/dL
[2016-07-31] MEDS ORDERED: PANTOPRAZOLE 40 MG TABLET PO SCH (07:30)
[2016-07-31 08:22] LABS: Hemoglobin A1C 5.3 % (4.2-6.1)
[2016-07-31 08:27] LABS: Glucose,Whole Blood 148 mg/dL (75-99)
[2016-07-31 08:30] LABS: Salicylate <1.0 mg/dL
--- NOTE | 2016-07-31 08:57 | P.CONS ---
History of Present Illness - Reason for Consult Consult date: 07/31/16 sepsis - History of Present Illness this is a 76-year-old male with past history of atrial fibrillation, diverticulitis, anxiety and depression. Patient apparently has had previous attempts at suicide by [address], cutting wrists, jumping and [place] and overdosing on sleeping pills. Patient was brought in to the emergency center due to slurred speech, right side feeling funny, Phalen's off and confusion. Patient was found to be afebrile. Pulse was 125-152 with atrial fibrillation with rapid ventricular response, hypertensive, tachypneic, leukocytosis initially at 13 and then eros to 28 and repeat was 17, acute renal failure with BUN of 23 and creatinine 3.1, severe lactic acidosis with lactic acid of 8.1 with repeat of 10. Electrolyte abnormalities with hypernatremia, hyperchloremia and hyperkalemia. Anion gap was 32. Troponin 2 was negative. Urine drug screen was negative and alcohol level was less than 10. Patient underwent initial chest x-ray that showed no acute process. CAT scan of the brain was done 2 which did show remote ischemic white matter changes, soft tissue nodule. Carotid ultrasound showed 50-70% right internal carotid stenosis and 50% on the left. CAT scan of the abdomen and pelvis without contrast showed bilateral perinephric stranding and small retroperitoneal fluid. No renal obstruction or stones. Consider infection. Diverticulosis without acute diverticulitis. Bibasilar lung atelectasis or consolidation with air space disease and possible infection. Last evening patient had a large coffee ground emesis and developed respiratory failure requiring intubation. He has been oliguric. He has been seen by Dr. Aceves for possible bowel ischemia or acute gastritis. NG tube is in place. Other consultants are neurology, cardiology, business line controller, nephrology. Echocardiogram is pending. Sputum, urine and blood cultures are all status received. At this time, Dr. Allen spoke with the family regarding reason for the severe acidosis and family are going home to check grouch for items that he could have taken before arrival. According to the patient's , he does not talk about depression but just plain does not talk and can go weeks without talking to her in the same home. Review of Systems ROS unobtainable: due to endotracheal tube Past Medical History Past Medical History: Atrial Fibrillation Additional Past Medical History / Comment(s): diverticulitis, dry eyes bilaterally, ANXIETY/DEPRESSION History of Any Multi-Drug Resistant Organisms: None Reported Past Surgical History: No Surgical Hx Reported Additional Past Surgical History / Comment(s): 03/01/16 colonoscopy Past Anesthesia/Blood Transfusion Reactions: No Reported Reaction Past Psychological History: Depression Additional Psychological History / Comment(s): previousl charting stated" Pt has hx of depression. He has had previous attempts at suicide by asphyxia, cutting wrist, jumping [place] and overdosing on sleeping pills" .at time of this admit was unable to obtain depression screen answers from pt (pt had resp distress). pt lives with his in home that has 4 steps into home, no outside services, no medical equipment. pt served in the [employer] and worked at [employer]. Smoking Status: Former smoker Past Alcohol Use History: Daily Additional Past Alcohol Use History / Comment(s): Pt states he started smoking in 1961 and quit December 2015. He likes to drink 2 beers a day. Past Drug Use History: None Reported - Past Family History Father Family Medical History: Dementia Additional Family Medical History / Comment(s): Father of dementia at the age of 62 yrs. Mother Additional Family Medical History / Comment(s): Mother had heart problems. Medications and Allergies Home Medications Medication Instructions Recorded Confirmed Type ALPRAZolam [Xanax] 0.5 mg PO QID 09/19/15 07/30/16 History Escitalopram [Lexapro] 10 mg PO DAILY 09/19/15 07/30/16 History Multivitamins, Thera [Multivitamin 1 tab PO DAILY 09/19/15 07/30/16 History (formulary)] risperiDONE 1 mg PO HS 09/19/15 07/30/16 History Aspirin 325 mg PO HS 04/04/16 07/30/16 History Cholecalciferol [Vitamin D3] 1,000 unit PO DAILY 04/04/16 07/30/16 History Allergies Allergy/AdvReac Type Severity Reaction Status Date / Time No Known Allergies Allergy Verified 07/30/16 11:30 Physical Exam Vitals: Vital Signs Temp Pulse Pulse Resp BP BP Pulse Ox 07/31/16 08:35 74 07/31/16 07:00 76 29 H 119/65 100 07/31/16 06:30 85 30 H 105/62 100 07/31/16 06:00 76 26 H 125/65 98 07/31/16 05:30 79 27 H 122/67 98 07/31/16 05:00 73 24 114/58 99 07/31/16 04:30 71 22 109/60 99 07/31/16 04:00 97.7 F 73 17 107/60 99 07/31/16 03:39 73 07/31/16 03:30 75 21 120/58 100 07/31/16 03:28 75 07/31/16 03:00 78 24 128/58 99 07/31/16 02:30 80 26 H 118/53 100 07/31/16 02:00 77 25 H 115/49 100 07/31/16 01:30 82 23 115/57 99 07/31/16 01:00 88 23 129/58 99 07/31/16 00:30 90 25 H 113/55 99 07/31/16 00:00 97.6 F 95 23 118/58 99 07/30/16 23:30 87 20 149/63 98 07/30/16 23:00 92 22 148/57 99 07/30/16 22:30 80 25 H 103/56 98 07/30/16 22:00 97.5 F L 101 H 32 H 133/59 99 07/30/16 21:30 95 28 H 99 07/30/16 21:25 96 07/30/16 20:00 100 20 07/30/16 19:59 100 20 156/74 95 07/30/16 18:51 97.1 F L 102 H 26 H 160/75 98 07/30/16 17:30 108 H 26 H 154/67 98 07/30/16 16:43 85 24 153/97 97 07/30/16 16:00 88 24 165/71 97 Intake and Output 07/30/16 07/31/16 07/31/16 22:59 06:59 14:59 Intake Total 361.457 8981.039 Output Total 700 1032 Balance -323.331 3440.039 Intake: Amount of Fluid Infused ( 50 ml) Intake, IV Titration 646.656 0450.039 Amount Dextrose 5% in Water 1, 650 000 ml @ 75 mls/hr IV . [id number] [id number] with Sodium Bicarb (1 Meq/ml) 150 ml Rx#:[id number] Diltiazem 125 mg In 42.333 Sodium Chloride 0.9% 100 ml @ 5 MG/HR 5 mls/hr IV .Q24H ONE Rx#:[id number] Insulin Regular 100 unit 31.411 In Sodium Chloride 0.9% 100 ml @ Per Protocol IV .Q0M [facility] Rx#:[id number] Lactated Ringers 1,000 ml 2000 @ 999 mls/hr IV .Q1H1M [facility] Rx#:[id number] Levofloxacin 500Mg-D5w 100 Pmx 500 mg In Dextrose/ Water 1 100ml.bag @ 100 mls/hr IVPB Q24H [facility] Rx#: [id number] Piperacillin-Tazobactam 3 50.0 .375 gm In Dextrose/Water 1 50ml.bag @ 12.5 mls/hr IVPB ONCE ONE Rx#: [id number] Propofol 500 mg In Empty 54.628 Bag 1 bag @ Titrate IV . Q0M [facility] Rx#:[id number] Sodium Chloride 0.9% 1, 100 000 ml @ 100 mls/hr IV . Q10H [facility] Rx#:[id number] Vancomycin 1,500 mg In 250 Sodium Chloride 0.9% 250 ml @ 125 mls/hr IVPB ONCE ONE Rx#:[id number] Output: Gastric Drainage 800 Urine 700 132 Emesis 100 Other: Voiding Method Indwelling Catheter Indwelling Catheter Weight 86.2 kg Gen: This is a 76-year-old male. He is intubated and on mechanical ventilation. He appears comfortable and in no acute distress. HEENT: Head is atraumatic, normocephalic. Pupils equal, round. Sclerae is anicteric. oral mucous membranes are moist. ET tube is placed orally as well as gastric tube. NECK: Supple. No JVD. No lymphadenopathy. No thyromegaly. LUNGS: Clear to auscultation but diminished bilaterally. No intercostal retractions. HEART: irregular rate and rhythm. No murmur. ABDOMEN: Soft. Bowel sounds are present. No masses. No tenderness. Brody catheter in place with small amount of urine output. EXTREMITIES: No pedal edema. SCDs in place bilaterally. NEUROLOGICAL: Patient is sedated. Results Results: Laboratory Results WBC 17.0 k/uL (3.8-10.6) H 07/31/16 03:06 RBC 4.02 m/uL (4.30-5.90) L 07/31/16 03:06 Hgb 12.8 gm/dL (13.0-17.5) L 07/31/16 03:06 Hct 40.7 % (39.0-53.0) 07/31/16 03:06 MCV 101.2 fL (80.0-100.0) H 07/31/16 03:06 MCH 31.7 pg (25.0-35.0) 07/31/16 03:06 MCHC 31.3 g/dL (31.0-37.0) 07/31/16 03:06 RDW 13.8 % (11.5-15.5) 07/31/16 03:06 Plt Count 190 k/uL (150-450) 07/31/16 03:06 Neutrophils % 92 % 07/31/16 03:06 Lymphocytes % 3 % 07/31/16 03:06 Monocytes % 4 % 07/31/16 03:06 Eosinophils % 0 % 07/31/16 03:06 Basophils % 0 % 07/31/16 03:06 Neutrophils # 15.7 k/uL (1.3-7.7) H 07/31/16 03:06 Lymphocytes # 0.6 k/uL (1.0-4.8) L 07/31/16 03:06 Monocytes # 0.6 k/uL (0-1.0) 07/31/16 03:06 Eosinophils # 0.1 k/uL (0-0.7) 07/31/16 03:06 Basophils # 0.0 k/uL (0-0.2) 07/31/16 03:06 Hypochromasia Moderate 07/31/16 03:06 Macrocytosis Slight 07/31/16 03:06 PT 10.1 sec (9.0-12.0) 07/30/16 22:50 INR 1.0 (<1.1) 07/30/16 22:50 APTT 24.3 sec (22.0-30.0) 07/30/16 22:50 D-Dimer 0.99 mg/L FEU (<0.60) H 07/30/16 16:13 Sample Site [facility] 07/31/16 05:48 ABG pH 7.29 (7.35-7.45) L 07/31/16 05:48 ABG pCO2 27 mmHg (35-45) L 07/31/16 05:48 ABG pO2 109 mmHg (83-108) H 07/31/16 05:48 ABG HCO3 13 mmol/L (21-25) L 07/31/16 05:48 ABG Total CO2 13 mmol/L (19-24) L 07/31/16 05:48 ABG O2 Saturation 98.0 % (94-97) H 07/31/16 05:48 ABG Base Excess -12.7 mmol/L 07/31/16 05:48 FiO2 60 % 07/31/16 05:48 Sodium 147 mmol/L (137-145) H 07/31/16 03:06 Potassium 4.9 mmol/L (3.5-5.1) 07/31/16 03:06 Chloride 111 mmol/L (98-107) H 07/31/16 03:06 Carbon Dioxide 7 mmol/L (22-30) L* 07/31/16 03:06 Anion Gap 29 mmol/L 07/31/16 03:06 BUN 27 mg/dL (9-20) H 07/31/16 03:06 Creatinine 3.20 mg/dL (0.66-1.25) H 07/31/16 03:06 Est GFR (MDRD) Af Amer 23 (>60 ml/min/1.73 sqM) 07/31/16 03:06 Est GFR (MDRD) Non-Af 19 (>60 ml/min/1.73 sqM) 07/31/16 03:06 Glucose 226 mg/dL (74-99) H 07/31/16 03:06 POC Glucose (mg/dL) 148 mg/dL (75-99) H 07/31/16 08:22 POC Glu Editorial Writer ID Katalina Segal 07/31/16 08:[address] Glu mg/dL 105 mg/dL 07/31/16 03:06 Hemoglobin A1c 5.3 % (4.2-6.1) 07/31/16 03:06 Plasma Lactic Acid Brandon 10.0 mmol/L (0.7-2.0) H* 07/31/16 03:06 Calcium 8.7 mg/dL (8.4-10.2) 07/31/16 03:06 Phosphorus 5.1 mg/dL (2.5-4.5) H 07/31/16 03:06 Magnesium 2.1 mg/dL (1.6-2.3) 07/31/16 03:06 Total Bilirubin 0.4 mg/dL (0.2-1.3) 07/30/16 22:38 AST 29 U/L (17-59) 07/30/16 22:38 ALT 29 U/L (21-72) 07/30/16 22:38 Alkaline Phosphatase 84 U/L (38-126) 07/30/16 22:38 Total Creatine Kinase 48 U/L (55-170) L 07/30/16 22:50 CK-MB (CK-2) 1.4 ng/mL (0.0-2.4) 07/30/16 22:50 CK-MB (CK-2) Rel Index 2.9 07/30/16 22:50 Troponin I <0.012 ng/mL (0.000-0.034) 07/30/16 22:50 NT-Pro-B Natriuret Pep 94 pg/mL 07/30/16 10:33 Total Protein 7.2 g/dL (6.3-8.2) 07/30/16 22:38 Albumin 4.3 g/dL (3.5-5.0) 07/30/16 22:38 Cortisol 82 ug/dL 07/30/16 22:38 Urine Color Light Yellow 07/30/16 23:50 Urine Appearance Clear (Clear) 07/30/16 23:50 Urine pH 5.0 (5.0-8.0) 07/30/16 23:50 Ur Specific [place] 1.007 (1.001-1.035) 07/30/16 23:50 Urine Protein 1+ (Negative) H 07/30/16 23:50 Urine Glucose (UA) Negative (Negative) 07/30/16 23:50 Urine Ketones Negative (Negative) 07/30/16 23:50 Urine Blood Trace (Negative) H 07/30/16 23:50 Urine Nitrite Negative (Negative) 07/30/16 23:50 Urine Bilirubin Negative (Negative) 07/30/16 23:50 Urine Urobilinogen <2.0 mg/dL (<2.0) 07/30/16 23:50 Ur Leukocyte Esterase Negative (Negative) 07/30/16 23:50 Urine RBC 2 /hpf (0-5) 07/30/16 23:50 Salicylates <1.0 mg/dL 07/31/16 03:06 Urine Opiates Screen Not Detected (NotDetected) 07/30/16 23:50 Ur Oxycodone Screen Not Detected (NotDetected) 07/30/16 23:50 Urine Methadone Screen Not Detected (NotDetected) 07/30/16 23:50 Ur Propoxyphene Screen Not Detected (NotDetected) 07/30/16 23:50 Ur Barbiturates Screen Not Detected (NotDetected) 07/30/16 23:50 U Tricyclic Antidepress Not Detected (NotDetected) 07/30/16 23:50 Ur Phencyclidine Scrn Not Detected (NotDetected) 07/30/16 23:50 Ur Amphetamines Screen Not Detected (NotDetected) 07/30/16 23:50 U Methamphetamines Scrn Not Detected (NotDetected) 07/30/16 23:50 U Benzodiazepines Scrn Not Detected (NotDetected) 07/30/16 23:50 Urine Cocaine Screen Not Detected (NotDetected) 07/30/16 23:50 U Marijuana (THC) Screen Not Detected (NotDetected) 07/30/16 23:50 Serum Alcohol <10 mg/dL 07/30/16 22:38 Blood Type O Positive 07/31/16 03:06 Blood Type Recheck No 07/31/16 03:06 Antibody Screen NEGATIVE 07/31/16 03:06 Spec Expiration Date 08/03/2016230507/31/16 03:06 CBC & Chem 7: 07/31/16 03:06 07/31/16 03:06 Labs: Abnormal Lab Results - Last 24 Hours (Table) 07/30/16 07/30/16 07/30/16 Range/Units 16:13 21:34 21:39 WBC (3.8-10.6) k/uL RBC (4.30-5.90) m/uL Hgb (13.0-17.5) gm/dL MCV (80.0-100.0) fL MCHC (31.0-37.0) g/dL Neutrophils # (1.3-7.7) k/uL Lymphocytes # (1.0-4.8) k/uL Monocytes # (0-1.0) k/uL D-Dimer 0.99 H (<0.60) mg/L FEU ABG pH 7.01 L* (7.35-7.45) ABG pCO2 16 L* (35-45) mmHg ABG pO2 (83-108) mmHg ABG HCO3 4 L* (21-25) mmol/L ABG Total CO2 4 L (19-24) mmol/L ABG O2 Saturation (94-97) % Sodium (137-145) mmol/L Potassium (3.5-5.1) mmol/L Chloride (98-107) mmol/L Carbon Dioxide (22-30) mmol/L BUN (9-20) mg/dL Creatinine (0.66-1.25) mg/dL Glucose (74-99) mg/dL POC Glucose (mg/dL) 229 H (75-99) mg/dL Plasma Lactic Acid Brandon (0.7-2.0) mmol/L Phosphorus (2.5-4.5) mg/dL Total Creatine Kinase (55-170) U/L Urine Protein (Negative) Urine Blood (Negative) 07/30/16 07/30/16 07/30/16 Range/Units 22:38 22:50 22:50 WBC 28.0 H* (3.8-10.6) k/uL RBC (4.30-5.90) m/uL Hgb (13.0-17.5) gm/dL MCV 103.0 H (80.0-100.0) fL MCHC 30.6 L (31.0-37.0) g/dL Neutrophils # 25.9 H (1.3-7.7) k/uL Lymphocytes # 0.6 L (1.0-4.8) k/uL Monocytes # 1.4 H (0-1.0) k/uL D-Dimer (<0.60) mg/L FEU ABG pH (7.35-7.45) ABG pCO2 (35-45) mmHg ABG pO2 (83-108) mmHg ABG HCO3 (21-25) mmol/L ABG Total CO2 (19-24) mmol/L ABG O2 Saturation (94-97) % Sodium 149 H (137-145) mmol/L Potassium 6.5 H* (3.5-5.1) mmol/L Chloride 112 H (98-107) mmol/L Carbon Dioxide <5 L* (22-30) mmol/L BUN 23 H (9-20) mg/dL Creatinine 3.10 H (0.66-1.25) mg/dL Glucose 258 H (74-99) mg/dL POC Glucose (mg/dL) (75-99) mg/dL Plasma Lactic Acid Brandon 8.1 H* (0.7-2.0) mmol/L Phosphorus (2.5-4.5) mg/dL Total Creatine Kinase (55-170) U/L Urine Protein (Negative) Urine Blood (Negative) 07/30/16 07/30/16 07/30/16 Range/Units 22:50 23:25 23:50 WBC (3.8-10.6) k/uL RBC (4.30-5.90) m/uL Hgb (13.0-17.5) gm/dL MCV (80.0-100.0) fL MCHC (31.0-37.0) g/dL Neutrophils # (1.3-7.7) k/uL Lymphocytes # (1.0-4.8) k/uL Monocytes # (0-1.0) k/uL D-Dimer (<0.60) mg/L FEU ABG pH <7.00 L* (7.35-7.45) ABG pCO2 (35-45) mmHg ABG pO2 337 H (83-108) mmHg ABG HCO3 8 L* (21-25) mmol/L ABG Total CO2 9 L (19-24) mmol/L ABG O2 Saturation 100.0 H (94-97) % Sodium (137-145) mmol/L Potassium (3.5-5.1) mmol/L Chloride (98-107) mmol/L Carbon Dioxide (22-30) mmol/L BUN (9-20) mg/dL Creatinine (0.66-1.25) mg/dL Glucose (74-99) mg/dL POC Glucose (mg/dL) (75-99) mg/dL Plasma Lactic Acid Brandon (0.7-2.0) mmol/L Phosphorus (2.5-4.5) mg/dL Total Creatine Kinase 48 L (55-170) U/L Urine Protein 1+ H (Negative) Urine Blood Trace H (Negative) 07/31/16 07/31/16 07/31/16 Range/Units 00:21 00:23 01:36 WBC (3.8-10.6) k/uL RBC (4.30-5.90) m/uL Hgb (13.0-17.5) gm/dL MCV (80.0-100.0) fL MCHC (31.0-37.0) g/dL Neutrophils # (1.3-7.7) k/uL Lymphocytes # (1.0-4.8) k/uL Monocytes # (0-1.0) k/uL D-Dimer (<0.60) mg/L FEU ABG pH 7.08 L* (7.35-7.45) ABG pCO2 (35-45) mmHg ABG pO2 213 H (83-108) mmHg ABG HCO3 10 L* (21-25) mmol/L ABG Total CO2 11 L (19-24) mmol/L ABG O2 Saturation 99.0 H (94-97) % Sodium (137-145) mmol/L Potassium (3.5-5.1) mmol/L Chloride (98-107) mmol/L Carbon Dioxide (22-30) mmol/L BUN (9-20) mg/dL Creatinine (0.66-1.25) mg/dL Glucose (74-99) mg/dL POC Glucose (mg/dL) 302 H 283 H (75-99) mg/dL Plasma Lactic Acid Brandno (0.7-2.0) mmol/L Phosphorus (2.5-4.5) mg/dL Total Creatine Kinase (55-170) U/L Urine Protein (Negative) Urine Blood (Negative) 07/31/16 07/31/16 07/31/16 Range/Units 02:07 03:04 03:06 WBC (3.8-10.6) k/uL RBC (4.30-5.90) m/uL Hgb (13.0-17.5) gm/dL MCV (80.0-100.0) fL MCHC (31.0-37.0) g/dL Neutrophils # (1.3-7.7) k/uL Lymphocytes # (1.0-4.8) k/uL Monocytes # (0-1.0) k/uL D-Dimer (<0.60) mg/L FEU ABG pH (7.35-7.45) ABG pCO2 (35-45) mmHg ABG pO2 (83-108) mmHg ABG HCO3 (21-25) mmol/L ABG Total CO2 (19-24) mmol/L ABG O2 Saturation (94-97) % Sodium (137-145) mmol/L Potassium (3.5-5.1) mmol/L Chloride (98-107) mmol/L Carbon Dioxide (22-30) mmol/L BUN (9-20) mg/dL Creatinine (0.66-1.25) mg/dL Glucose (74-99) mg/dL POC Glucose (mg/dL) 254 H 231 H (75-99) mg/dL Plasma Lactic Acid Brandon 10.0 H* (0.7-2.0) mmol/L Phosphorus (2.5-4.5) mg/dL Total Creatine Kinase (55-170) U/L Urine Protein (Negative) Urine Blood (Negative) 07/31/16 07/31/16 07/31/16 Range/Units 03:06 03:06 04:05 WBC 17.0 H (3.8-10.6) k/uL RBC 4.02 L (4.30-5.90) m/uL Hgb 12.8 L (13.0-17.5) gm/dL MCV 101.2 H (80.0-100.0) fL MCHC (31.0-37.0) g/dL Neutrophils # 15.7 H (1.3-7.7) k/uL Lymphocytes # 0.6 L (1.0-4.8) k/uL Monocytes # (0-1.0) k/uL D-Dimer (<0.60) mg/L FEU ABG pH (7.35-7.45) ABG pCO2 (35-45) mmHg ABG pO2 (83-108) mmHg ABG HCO3 (21-25) mmol/L ABG Total CO2 (19-24) mmol/L ABG O2 Saturation (94-97) % Sodium 147 H (137-145) mmol/L Potassium (3.5-5.1) mmol/L Chloride 111 H (98-107) mmol/L Carbon Dioxide 7 L* (22-30) mmol/L BUN 27 H (9-20) mg/dL Creatinine 3.20 H (0.66-1.25) mg/dL Glucose 226 H (74-99) mg/dL POC Glucose (mg/dL) 190 H (75-99) mg/dL Plasma Lactic Acid Brandon (0.7-2.0) mmol/L Phosphorus 5.1 H (2.5-4.5) mg/dL Total Creatine Kinase (55-170) U/L Urine Protein (Negative) Urine Blood (Negative) 07/31/16 07/31/16 07/31/16 Range/Units 05:01 05:48 06:04 WBC (3.8-10.6) k/uL RBC (4.30-5.90) m/uL Hgb (13.0-17.5) gm/dL MCV (80.0-100.0) fL MCHC (31.0-37.0) g/dL Neutrophils # (1.3-7.7) k/uL Lymphocytes # (1.0-4.8) k/uL Monocytes # (0-1.0) k/uL D-Dimer (<0.60) mg/L FEU ABG pH 7.29 L (7.35-7.45) ABG pCO2 27 L (35-45) mmHg ABG pO2 109 H (83-108) mmHg ABG HCO3 13 L (21-25) mmol/L ABG Total CO2 13 L (19-24) mmol/L ABG O2 Saturation 98.0 H (94-97) % Sodium (137-145) mmol/L Potassium (3.5-5.1) mmol/L Chloride (98-107) mmol/L Carbon Dioxide (22-30) mmol/L BUN (9-20) mg/dL Creatinine (0.66-1.25) mg/dL Glucose (74-99) mg/dL POC Glucose (mg/dL) 169 H 151 H (75-99) mg/dL Plasma Lactic Acid Brandon (0.7-2.0) mmol/L Phosphorus (2.5-4.5) mg/dL Total Creatine Kinase (55-170) U/L Urine Protein (Negative) Urine Blood (Negative) 07/31/16 07/31/16 Range/Units 07:07 08:22 WBC (3.8-10.6) k/uL RBC (4.30-5.90) m/uL Hgb (13.0-17.5) gm/dL MCV (80.0-100.0) fL MCHC (31.0-37.0) g/dL Neutrophils # (1.3-7.7) k/uL Lymphocytes # (1.0-4.8) k/uL Monocytes # (0-1.0) k/uL D-Dimer (<0.60) mg/L FEU ABG pH (7.35-7.45) ABG pCO2 (35-45) mmHg ABG pO2 (83-108) mmHg ABG HCO3 (21-25) mmol/L ABG Total CO2 (19-24) mmol/L ABG O2 Saturation (94-97) % Sodium (137-145) mmol/L Potassium (3.5-5.1) mmol/L Chloride (98-107) mmol/L Carbon Dioxide (22-30) mmol/L BUN (9-20) mg/dL Creatinine (0.66-1.25) mg/dL Glucose (74-99) mg/dL POC Glucose (mg/dL) 149 H 148 H (75-99) mg/dL Plasma Lactic Acid Brandon (0.7-2.0) mmol/L Phosphorus (2.5-4.5) mg/dL Total Creatine Kinase (55-170) U/L Urine Protein (Negative) Urine Blood (Negative) Assessment and Plan Plan: this is a 76-year-old male who presented to the hospital with signs of SIRS and /or sepsis due to aspiration pneumonia due to metabolic encephalopathy but with severe acidosis of unclear etiology. He also presents with acute renal failure, atrial fibrillation with rapid ventricular response, acute GI bleed. There is concern that this is due to patient ingesting substance for suicidal ideation with previous history of the same. He is currently on Levaquin, Zosyn and vancomycin. patient has no history of MRSA and vancomycin will be discontinued for now. Sputum, urine and blood cultures are status received. Continue supportive care. Further recommendations as patient progresses. The above dictated assessment and findings were discussed with Dr. Fitzgerald. The impression and plan of care have been directed as dictated. Lina Marquez nurse practitioner acting as scribe for Dr. Fitzgerald. Time with Patient: Greater than 30
[2016-07-31] MEDS ORDERED: SODIUM CHLORIDE 0.9% 500 ML IV ONE (10:02)
[2016-07-31] MEDS ORDERED: FUROSEMIDE 10 MG/ML 10 ML VIAL IV STA ×2 (10:02→15:53)
[2016-07-31 10:10] LABS: Glucose,Whole Blood 122 mg/dL (75-99)
--- NOTE | 2016-07-31 10:21 | XR ---
EXAMINATION TYPE: XR chest 1V portable DATE OF EXAM: 07/31/2016 10:12 AM Comparison: 07/31/2016 Clinical History: 76 year-old male right IJ central line placement. Findings: ET tube is satisfactory. NG tube courses below the diaphragm. Right IJ CVC tip is in the upper right atrium. Heart remains upper limits of normal in size with mild interstitial prominence and patchy lef t basilar and retrocardiac opacity persisting. Impression: 1. Right IJ CVC tip in the upper right atrium. 2. Stable patchy left basilar and retrocardiac atelectasis or infiltrate. Possible mild pulmonary vas cular congestion possible trace left effusion.
--- NOTE | 2016-07-31 10:42 | P.NPCON ---
History of Present Illness - Reason for Consult acute renal failure - History of Present Illness Reason for consultation: Acute kidney injury History of present illness: Patient is a 76-year-old male seen in renal consultation for acute kidney injury. His baseline creatinine is near 1 from March 2016 and was elevated at 1.5 on admission yesterday. It is up at 3.2 this morning. Patient presented to the hospital with generalized weakness as well as slurred speech. According to the family he hasn't been feeling well the last few days. He was in atrial fibrillation with RVR and was started on a Cardizem drip. Subsequently his heart rate decreased and Cardizem has now been discontinued. He is noted to have coffee-ground emesis for which she has an OG tube in place. He is extremely acidotic with lactic acid at 10 and now down to 5.7. He's also extremely acidotic with bicarb level of less than 5 on admission and a pH of less than 7. There was concern for bowel ischemia however computed tomography scan of the abdomen and pelvis revealed bilateral perinephric stranding as well as diverticulosis. He is currently maintained on a bicarb drip. He is intubated and sedated. Hemodynamically he's been relatively stable with no severe hypotensive episodes. He is oliguric with urine output about 5 mL an hour for the last few hours. Vital signs are stable. General: The patient appeared well nourished and normally developed. Intubated and sedated. HEENT: Head exam is unremarkable. Neck is without jugular venous distension. LUNGS: Diffuse rhonchi. Breath sounds decreased. HEART: Rate and Rhythm are regular. First and second heart sounds normal. No murmurs, rubs or gallops. ABDOMEN: Abdominal exam reveals normal bowel sounds. Non-tender and non- distended. No evidence of peritonitis. EXTREMITITES: No clubbing, cyanosis, or edema. Past Medical History Past Medical History: Atrial Fibrillation Additional Past Medical History / Comment(s): diverticulitis, dry eyes bilaterally, ANXIETY/DEPRESSION History of Any Multi-Drug Resistant Organisms: None Reported Past Surgical History: No Surgical Hx Reported Additional Past Surgical History / Comment(s): 03/01/16 colonoscopy Past Anesthesia/Blood Transfusion Reactions: No Reported Reaction Past Psychological History: Depression Additional Psychological History / Comment(s): previousl charting stated" Pt has hx of depression. He has had previous attempts at suicide by asphyxia, cutting wrist, jumping in river and overdosing on sleeping pills" .at time of this admit was unable to obtain depression screen answers from pt (pt had resp distress). pt lives with his in home that has 4 steps into home, no outside services, no medical equipment. pt served in the [employer] and worked at [employer]. Smoking Status: Former smoker Past Alcohol Use History: Daily Additional Past Alcohol Use History / Comment(s): Pt states he started smoking in 1961 and quit December 2015. He likes to drink 2 beers a day. Past Drug Use History: None Reported - Past Family History Father Family Medical History: Dementia Additional Family Medical History / Comment(s): Father of dementia at the age of 62 yrs. Mother Additional Family Medical History / Comment(s): Mother had heart problems. Medications and Allergies Home Medications Medication Instructions Recorded Confirmed Type ALPRAZolam [Xanax] 0.5 mg PO QID 09/19/15 07/30/16 History Escitalopram [Lexapro] 10 mg PO DAILY 09/19/15 07/30/16 History Multivitamins, Thera [Multivitamin 1 tab PO DAILY 09/19/15 07/30/16 History (formulary)] risperiDONE 1 mg PO HS 09/19/15 07/30/16 History Aspirin 325 mg PO HS 04/04/16 07/30/16 History Cholecalciferol [Vitamin D3] 1,000 unit PO DAILY 04/04/16 07/30/16 History Allergies Allergy/AdvReac Type Severity Reaction Status Date / Time No Known Allergies Allergy Verified 07/30/16 11:30 Physical Exam Vitals: Vital Signs Temp Pulse Pulse Resp BP BP Pulse Ox 07/31/16 08:55 72 07/31/16 08:35 74 07/31/16 07:00 76 29 H 119/65 100 07/31/16 06:30 85 30 H 105/62 100 07/31/16 06:00 76 26 H 125/65 98 07/31/16 05:30 79 27 H 122/67 98 07/31/16 05:00 73 24 114/58 99 07/31/16 04:30 71 22 109/60 99 07/31/16 04:00 97.7 F 73 17 107/60 99 07/31/16 03:39 73 07/31/16 03:30 75 21 120/58 100 07/31/16 03:28 75 07/31/16 03:00 78 24 128/58 99 07/31/16 02:30 80 26 H 118/53 100 07/31/16 02:00 77 25 H 115/49 100 07/31/16 01:30 82 23 115/57 99 07/31/16 01:00 88 23 129/58 99 07/31/16 00:30 90 25 H 113/55 99 07/31/16 00:00 97.6 F 95 23 118/58 99 07/30/16 23:30 87 20 149/63 98 07/30/16 23:00 92 22 148/57 99 07/30/16 22:30 80 25 H 103/56 98 07/30/16 22:00 97.5 F L 101 H 32 H 133/59 99 07/30/16 21:30 95 28 H 99 07/30/16 21:25 96 07/30/16 20:00 100 20 07/30/16 19:59 100 20 156/74 95 07/30/16 18:51 97.1 F L 102 H 26 H 160/75 98 07/30/16 17:30 108 H 26 H 154/67 98 07/30/16 16:43 85 24 153/97 97 07/30/16 16:00 88 24 165/71 97 Intake and Output 07/30/16 07/31/16 07/31/16 22:59 06:59 14:59 Intake Total 065.495 2572.039 50 Output Total 700 1032 Balance -533.253 0326.039 50 Intake: Amount of Fluid Infused ( 50 ml) Intake, IV Titration 610.818 6375.039 50 Amount Dextrose 5% in Water 1, 650 000 ml @ 75 mls/hr IV . [id number] [facility] with Sodium Bicarb (1 Meq/ml) 150 ml Rx#:[id number] Diltiazem 125 mg In 42.333 Sodium Chloride 0.9% 100 ml @ 5 MG/HR 5 mls/hr IV .Q24H [facility] Rx#:[id number] Insulin Regular 100 unit 31.411 In Sodium Chloride 0.9% 100 ml @ Per Protocol IV .Q0M [facility] Rx#:[id number] Lactated Ringers 1,000 ml 2000 @ 999 mls/hr IV .Q1H1M [facility] Rx#:[id number] Levofloxacin 500Mg-D5w 100 Pmx 500 mg In Dextrose/ Water 1 100ml.bag @ 100 mls/hr IVPB Q24H [facility] Rx#: [id number] Piperacillin-Tazobactam 3 50.0 .375 gm In Dextrose/Water 1 50ml.bag @ 12.5 mls/hr IVPB ONCE ONE Rx#: [id number] Propofol 500 mg In Empty 54.628 50 Bag 1 bag @ Titrate IV . Q0M [facility] Rx#:[id number] Sodium Chloride 0.9% 1, 100 000 ml @ 100 mls/hr IV . Q10H [facility] Rx#:[id number] Vancomycin 1,500 mg In 250 Sodium Chloride 0.9% 250 ml @ 125 mls/hr IVPB ONCE ONE Rx#:[id number] Output: Gastric Drainage 800 Urine 700 132 Emesis 100 Other: Voiding Method Indwelling Catheter Indwelling Catheter Weight 86.2 kg Results - Lab Results Most recent lab results ABG pH 7.29 (7.35-7.45) L 07/31/16 05:48 ABG pCO2 27 mmHg (35-45) L 07/31/16 05:48 ABG pO2 109 mmHg (83-108) H 07/31/16 05:48 ABG HCO3 13 mmol/L (21-25) L 07/31/16 05:48 ABG O2 Saturation 98.0 % (94-97) H 07/31/16 05:48 Calcium 8.7 mg/dL (8.4-10.2) 07/31/16 03:06 Phosphorus 5.1 mg/dL (2.5-4.5) H 07/31/16 03:06 Magnesium 2.1 mg/dL (1.6-2.3) 07/31/16 03:06 07/31/16 03:06 07/31/16 03:06 Assessment and Plan Plan: Assessment: #1. Oliguric acute kidney injury secondary to ischemic ATN secondary to hemodynamic instability as well as emesis. Baseline creatinine is 1 and elevated at 3.2 today. Urinalysis is quite benign and there is no evidence of hydronephrosis noted on CAT scan. #2. Severe metabolic acidosis secondary to acute kidney injury and lactic acidosis. Blood sugars are stable. No evidence of alcohol toxicities. #3. Atrial fibrillation. Now rate controlled. #4. Lactic acidosis most likely due to hypoperfusion. No evidence of hypoxia or ischemic bowel findings on CAT scan. #5. Hyperkalemia secondary to acute kidney injury and metabolic acidosis. Improved. #6. Hypernatremia secondary to lack of oral water intake and dehydration. Plan: Increase rate of isotonic sodium bicarbonate drip to be run at 125 mL an hour. Bolus with 0.9 saline as needed to avoid hypotension. Follow-up echocardiogram results. Lasix 80 mg IV once today. Strict I's and O's. Maintain Brody catheter. Follow-up cultures. If no improvement in renal function in the next 24-48 hours, will require renal replacement therapy. Thank you for the consultation. I will continue to follow the patient with you during his hospital stay.
--- NOTE | 2016-07-31 10:44 | P.CONS ---
History of Present Illness - Reason for Consult Consult date: 07/31/16 Coffee-ground emesis Requesting physician: Luis Low - History of Present Illness 76-year-old gentleman patient of Dr. Dominique with a past medical history of multiple suicide attempts, atrial fibrillation, diverticulosis, anxiety, depression, and remote nicotine cigarette dependency. Consultation requested for GI bleed coffee-ground emesis. History obtained from nursing staff cook tortilla and medical records this patient is intubated and sedated. Admitted with reports of confusion slurred speech with increased irregular heart rate/ atrial fibrillation with RVR, acute kidney injury, and leukocytosis. There was concern for possible ischemic bowel secondary to elevated lactic acid and metabolic acidosis. Computed tomography scan abdomen pelvis without IV contrast secondary to elevated creatinine reported no evidence of ischemic bowel. Upon insertion of gastric tube with there was evidence of coffee-ground gastric fluid however no reports of gross hematochezia or melena. Currently sedated not on pressors receiving poly- antimicrobial therapy and intravenous bicarbonate. Lactic acid increased to 10 today. Urine output low. Hemoglobin 12.8. White count 13 increased to 28 currently 17. MCV 101. Platelet 190. INR 1.0. No history of peptic ulcer disease or GI bleeding. 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 Laboratory studies for evaluation of ethylene glycol and salicylate overdose is being evaluated. Review of Systems Unable to obtain secondary to intubated sedated status. Medical records reviewed for ROS. Constitutional: Denies fever, chills, sweats, weight gain, or loss. HEENT: Negative for migraines, blurred vision or loss, earaches, drainage, tinnitus, oral mucosal lesions, dysphagia, or odynophagia. Cardiac: Atrial fibrillation. Respiratory: Negative for shortness of breath, hemoptysis, cough, or sputum production. Gastrointestinal: See HPI for pertinent findings. Genitourinary: Negative for hematuria, urgency, frequency, polyuria, dysuria, or penile discharge. Musculoskeletal: Negative for muscle aches, swelling, arthritis, and arthralgias. Neurologic: Negative for stroke or TIA. Endocrine: Negative for thyroid problems. Skin: Negative for rash or itching. Psychiatric: Anxiety depression suicide attempts. ROS unobtainable: due to endotracheal tube All systems: negative (See HPI) Past Medical History Past Medical History: Atrial Fibrillation Additional Past Medical History / Comment(s): diverticulitis, dry eyes bilaterally, ANXIETY/DEPRESSION History of Any Multi-Drug Resistant Organisms: None Reported Past Surgical History: No Surgical Hx Reported Additional Past Surgical History / Comment(s): 03/01/16 colonoscopy Past Anesthesia/Blood Transfusion Reactions: No Reported Reaction Past Psychological History: Depression Additional Psychological History / Comment(s): previousl charting stated" Pt has hx of depression. He has had previous attempts at suicide by asphyxia, cutting wrist, jumping in river and overdosing on sleeping pills" .at time of this admit was unable to obtain depression screen answers from pt (pt had resp distress). pt lives with his in home that has 4 steps into home, no outside services, no medical equipment. pt served in the [employer] and worked at [employer]. Smoking Status: Former smoker Past Alcohol Use History: Daily Additional Past Alcohol Use History / Comment(s): Pt states he started smoking in 1961 and quit December 2015. He likes to drink 2 beers a day. Past Drug Use History: None Reported - Past Family History Father Family Medical History: Dementia Additional Family Medical History / Comment(s): Father of dementia at the age of 62 yrs. Mother Additional Family Medical History / Comment(s): Mother had heart problems. Medications and Allergies Home Medications Medication Instructions Recorded Confirmed Type ALPRAZolam [Xanax] 0.5 mg PO QID 09/19/15 07/30/16 History Escitalopram [Lexapro] 10 mg PO DAILY 09/19/15 07/30/16 History Multivitamins, Thera [Multivitamin 1 tab PO DAILY 09/19/15 07/30/16 History (formulary)] risperiDONE 1 mg PO HS 09/19/15 07/30/16 History Aspirin 325 mg PO HS 04/04/16 07/30/16 History Cholecalciferol [Vitamin D3] 1,000 unit PO DAILY 04/04/16 07/30/16 History Allergies Allergy/AdvReac Type Severity Reaction Status Date / Time No Known Allergies Allergy Verified 07/30/16 11:30 Physical Exam Vitals: Vital Signs Temp Pulse Pulse Resp BP BP Pulse Ox 07/31/16 08:55 72 07/31/16 08:35 74 07/31/16 07:00 76 29 H 119/65 100 07/31/16 06:30 85 30 H 105/62 100 07/31/16 06:00 76 26 H 125/65 98 07/31/16 05:30 79 27 H 122/67 98 07/31/16 05:00 73 24 114/58 99 07/31/16 04:30 71 22 109/60 99 07/31/16 04:00 97.7 F 73 17 107/60 99 07/31/16 03:39 73 07/31/16 03:30 75 21 120/58 100 07/31/16 03:28 75 07/31/16 03:00 78 24 128/58 99 07/31/16 02:30 80 26 H 118/53 100 07/31/16 02:00 77 25 H 115/49 100 07/31/16 01:30 82 23 115/57 99 07/31/16 01:00 88 23 129/58 99 07/31/16 00:30 90 25 H 113/55 99 07/31/16 00:00 97.6 F 95 23 118/58 99 07/30/16 23:30 87 20 149/63 98 07/30/16 23:00 92 22 148/57 99 07/30/16 22:30 80 25 H 103/56 98 07/30/16 22:00 97.5 F L 101 H 32 H 133/59 99 07/30/16 21:30 95 28 H 99 07/30/16 21:25 96 07/30/16 20:00 100 20 07/30/16 19:59 100 20 156/74 95 07/30/16 18:51 97.1 F L 102 H 26 H 160/75 98 07/30/16 17:30 108 H 26 H 154/67 98 07/30/16 16:43 85 24 153/97 97 07/30/16 16:00 88 24 165/71 97 Intake and Output 07/30/16 07/31/16 07/31/16 22:59 06:59 14:59 Intake Total 791.736 0747.039 50 Output Total 700 1032 Balance -104.268 5949.039 50 Intake: Amount of Fluid Infused ( 50 ml) Intake, IV Titration 145.119 0311.039 50 Amount Dextrose 5% in Water 1, 650 000 ml @ 75 mls/hr IV . [id number] KOKO with Sodium Bicarb (1 Meq/ml) 150 ml Rx#:[id number] Diltiazem 125 mg In 42.333 Sodium Chloride 0.9% 100 ml @ 5 MG/HR 5 mls/hr IV .Q24H ONE Rx#:[id number] Insulin Regular 100 unit 31.411 In Sodium Chloride 0.9% 100 ml @ Per Protocol IV .Q0M [facility] Rx#:[id number] Lactated Ringers 1,000 ml 2000 @ 999 mls/hr IV .Q1H1M [facility] Rx#:[id number] Levofloxacin 500Mg-D5w 100 Pmx 500 mg In Dextrose/ Water 1 100ml.bag @ 100 mls/hr IVPB Q24H [facility] Rx#: [id number] Piperacillin-Tazobactam 3 50.0 .375 gm In Dextrose/Water 1 50ml.bag @ 12.5 mls/hr IVPB ONCE ONE Rx#: [id number] Propofol 500 mg In Empty 54.628 50 Bag 1 bag @ Titrate IV . Q0M [facility] Rx#:[id number] Sodium Chloride 0.9% 1, 100 000 ml @ 100 mls/hr IV . Q10H [facility] Rx#:[id number] Vancomycin 1,500 mg In 250 Sodium Chloride 0.9% 250 ml @ 125 mls/hr IVPB ONCE ONE Rx#:[id number] Output: Gastric Drainage 800 Urine 700 132 Emesis 100 Other: Voiding Method Indwelling Catheter Indwelling Catheter Weight 86.2 kg General appearance: The intubated sedated. HET: Head is normocephalic and atraumatic. Pupils are equal and reactive. Oropharynx is clear without lesions. Gastric tube with dark bilious fluid. Neck: Supple without lymphadenopathy. Trachea midline. Heart: S1 S2. Lungs: No crackles or wheezes are heard. Abdomen: Soft, nontender, nondistended with bowel sounds. No peritoneal signs. No palpable organomegaly or masses. Extremities: Normal skin color and turgor. No cyanosis, rash, ulceration, clubbing, or edema. Radial and pedal pulses are 2/4 bilaterally. Brody with dom urine. Neurological: Sedated. Results CBC & Chem 7: 07/31/16 03:06 07/31/16 03:06 Labs: Abnormal Lab Results - Last 24 Hours (Table) 07/30/16 07/30/16 07/30/16 Range/Units 16:13 21:34 21:39 WBC (3.8-10.6) k/uL RBC (4.30-5.90) m/uL Hgb (13.0-17.5) gm/dL MCV (80.0-100.0) fL MCHC (31.0-37.0) g/dL Neutrophils # (1.3-7.7) k/uL Lymphocytes # (1.0-4.8) k/uL Monocytes # (0-1.0) k/uL D-Dimer 0.99 H (<0.60) mg/L FEU ABG pH 7.01 L* (7.35-7.45) ABG pCO2 16 L* (35-45) mmHg ABG pO2 (83-108) mmHg ABG HCO3 4 L* (21-25) mmol/L ABG Total CO2 4 L (19-24) mmol/L ABG O2 Saturation (94-97) % Sodium (137-145) mmol/L Potassium (3.5-5.1) mmol/L Chloride (98-107) mmol/L Carbon Dioxide (22-30) mmol/L BUN (9-20) mg/dL Creatinine (0.66-1.25) mg/dL Glucose (74-99) mg/dL POC Glucose (mg/dL) 229 H (75-99) mg/dL Osmolality (280-301) mosm/kg Plasma Lactic Acid Brandon (0.7-2.0) mmol/L Phosphorus (2.5-4.5) mg/dL Total Creatine Kinase (55-170) U/L Urine Protein (Negative) Urine Blood (Negative) 07/30/16 07/30/16 07/30/16 Range/Units 22:38 22:50 22:50 WBC 28.0 H* (3.8-10.6) k/uL RBC (4.30-5.90) m/uL Hgb (13.0-17.5) gm/dL MCV 103.0 H (80.0-100.0) fL MCHC 30.6 L (31.0-37.0) g/dL Neutrophils # 25.9 H (1.3-7.7) k/uL Lymphocytes # 0.6 L (1.0-4.8) k/uL Monocytes # 1.4 H (0-1.0) k/uL D-Dimer (<0.60) mg/L FEU ABG pH (7.35-7.45) ABG pCO2 (35-45) mmHg ABG pO2 (83-108) mmHg ABG HCO3 (21-25) mmol/L ABG Total CO2 (19-24) mmol/L ABG O2 Saturation (94-97) % Sodium 149 H (137-145) mmol/L Potassium 6.5 H* (3.5-5.1) mmol/L Chloride 112 H (98-107) mmol/L Carbon Dioxide <5 L* (22-30) mmol/L BUN 23 H (9-20) mg/dL Creatinine 3.10 H (0.66-1.25) mg/dL Glucose 258 H (74-99) mg/dL POC Glucose (mg/dL) (75-99) mg/dL Osmolality (280-301) mosm/kg Plasma Lactic Acid Brandon 8.1 H* (0.7-2.0) mmol/L Phosphorus (2.5-4.5) mg/dL Total Creatine Kinase (55-170) U/L Urine Protein (Negative) Urine Blood (Negative) 07/30/16 07/30/16 07/30/16 Range/Units 22:50 23:25 23:50 WBC (3.8-10.6) k/uL RBC (4.30-5.90) m/uL Hgb (13.0-17.5) gm/dL MCV (80.0-100.0) fL MCHC (31.0-37.0) g/dL Neutrophils # (1.3-7.7) k/uL Lymphocytes # (1.0-4.8) k/uL Monocytes # (0-1.0) k/uL D-Dimer (<0.60) mg/L FEU ABG pH <7.00 L* (7.35-7.45) ABG pCO2 (35-45) mmHg ABG pO2 337 H (83-108) mmHg ABG HCO3 8 L* (21-25) mmol/L ABG Total CO2 9 L (19-24) mmol/L ABG O2 Saturation 100.0 H (94-97) % Sodium (137-145) mmol/L Potassium (3.5-5.1) mmol/L Chloride (98-107) mmol/L Carbon Dioxide (22-30) mmol/L BUN (9-20) mg/dL Creatinine (0.66-1.25) mg/dL Glucose (74-99) mg/dL POC Glucose (mg/dL) (75-99) mg/dL Osmolality (280-301) mosm/kg Plasma Lactic Acid Brandon (0.7-2.0) mmol/L Phosphorus (2.5-4.5) mg/dL Total Creatine Kinase 48 L (55-170) U/L Urine Protein 1+ H (Negative) Urine Blood Trace H (Negative) 07/31/16 07/31/16 07/31/16 Range/Units 00:21 00:23 01:36 WBC (3.8-10.6) k/uL RBC (4.30-5.90) m/uL Hgb (13.0-17.5) gm/dL MCV (80.0-100.0) fL MCHC (31.0-37.0) g/dL Neutrophils # (1.3-7.7) k/uL Lymphocytes # (1.0-4.8) k/uL Monocytes # (0-1.0) k/uL D-Dimer (<0.60) mg/L FEU ABG pH 7.08 L* (7.35-7.45) ABG pCO2 (35-45) mmHg ABG pO2 213 H (83-108) mmHg ABG HCO3 10 L* (21-25) mmol/L ABG Total CO2 11 L (19-24) mmol/L ABG O2 Saturation 99.0 H (94-97) % Sodium (137-145) mmol/L Potassium (3.5-5.1) mmol/L Chloride (98-107) mmol/L Carbon Dioxide (22-30) mmol/L BUN (9-20) mg/dL Creatinine (0.66-1.25) mg/dL Glucose (74-99) mg/dL POC Glucose (mg/dL) 302 H 283 H (75-99) mg/dL Osmolality (280-301) mosm/kg Plasma Lactic Acid Brandon (0.7-2.0) mmol/L Phosphorus (2.5-4.5) mg/dL Total Creatine Kinase (55-170) U/L Urine Protein (Negative) Urine Blood (Negative) 07/31/16 07/31/16 07/31/16 Range/Units 02:07 03:04 03:06 WBC (3.8-10.6) k/uL RBC (4.30-5.90) m/uL Hgb (13.0-17.5) gm/dL MCV (80.0-100.0) fL MCHC (31.0-37.0) g/dL Neutrophils # (1.3-7.7) k/uL Lymphocytes # (1.0-4.8) k/uL Monocytes # (0-1.0) k/uL D-Dimer (<0.60) mg/L FEU ABG pH (7.35-7.45) ABG pCO2 (35-45) mmHg ABG pO2 (83-108) mmHg ABG HCO3 (21-25) mmol/L ABG Total CO2 (19-24) mmol/L ABG O2 Saturation (94-97) % Sodium (137-145) mmol/L Potassium (3.5-5.1) mmol/L Chloride (98-107) mmol/L Carbon Dioxide (22-30) mmol/L BUN (9-20) mg/dL Creatinine (0.66-1.25) mg/dL Glucose (74-99) mg/dL POC Glucose (mg/dL) 254 H 231 H (75-99) mg/dL Osmolality (280-301) mosm/kg Plasma Lactic Acid Brandon 10.0 H* (0.7-2.0) mmol/L Phosphorus (2.5-4.5) mg/dL Total Creatine Kinase (55-170) U/L Urine Protein (Negative) Urine Blood (Negative) 07/31/16 07/31/16 07/31/16 Range/Units 03:06 03:06 03:06 WBC 17.0 H (3.8-10.6) k/uL RBC 4.02 L (4.30-5.90) m/uL Hgb 12.8 L (13.0-17.5) gm/dL MCV 101.2 H (80.0-100.0) fL MCHC (31.0-37.0) g/dL Neutrophils # 15.7 H (1.3-7.7) k/uL Lymphocytes # 0.6 L (1.0-4.8) k/uL Monocytes # (0-1.0) k/uL D-Dimer (<0.60) mg/L FEU ABG pH (7.35-7.45) ABG pCO2 (35-45) mmHg ABG pO2 (83-108) mmHg ABG HCO3 (21-25) mmol/L ABG Total CO2 (19-24) mmol/L ABG O2 Saturation (94-97) % Sodium 147 H (137-145) mmol/L Potassium (3.5-5.1) mmol/L Chloride 111 H (98-107) mmol/L Carbon Dioxide 7 L* (22-30) mmol/L BUN 27 H (9-20) mg/dL Creatinine 3.20 H (0.66-1.25) mg/dL Glucose 226 H (74-99) mg/dL POC Glucose (mg/dL) (75-99) mg/dL Osmolality 320 H (280-301) mosm/kg Plasma Lactic Acid Brandon (0.7-2.0) mmol/L Phosphorus 5.1 H (2.5-4.5) mg/dL Total Creatine Kinase (55-170) U/L Urine Protein (Negative) Urine Blood (Negative) 07/31/16 07/31/16 07/31/16 Range/Units 04:05 05:01 05:48 WBC (3.8-10.6) k/uL RBC (4.30-5.90) m/uL Hgb (13.0-17.5) gm/dL MCV (80.0-100.0) fL MCHC (31.0-37.0) g/dL Neutrophils # (1.3-7.7) k/uL Lymphocytes # (1.0-4.8) k/uL Monocytes # (0-1.0) k/uL D-Dimer (<0.60) mg/L FEU ABG pH 7.29 L (7.35-7.45) ABG pCO2 27 L (35-45) mmHg ABG pO2 109 H (83-108) mmHg ABG HCO3 13 L (21-25) mmol/L ABG Total CO2 13 L (19-24) mmol/L ABG O2 Saturation 98.0 H (94-97) % Sodium (137-145) mmol/L Potassium (3.5-5.1) mmol/L Chloride (98-107) mmol/L Carbon Dioxide (22-30) mmol/L BUN (9-20) mg/dL Creatinine (0.66-1.25) mg/dL Glucose (74-99) mg/dL POC Glucose (mg/dL) 190 H 169 H (75-99) mg/dL Osmolality (280-301) mosm/kg Plasma Lactic Acid Brandon (0.7-2.0) mmol/L Phosphorus (2.5-4.5) mg/dL Total Creatine Kinase (55-170) U/L Urine Protein (Negative) Urine Blood (Negative) 07/31/16 07/31/16 07/31/16 Range/Units 06:04 07:07 08:22 WBC (3.8-10.6) k/uL RBC (4.30-5.90) m/uL Hgb (13.0-17.5) gm/dL MCV (80.0-100.0) fL MCHC (31.0-37.0) g/dL Neutrophils # (1.3-7.7) k/uL Lymphocytes # (1.0-4.8) k/uL Monocytes # (0-1.0) k/uL D-Dimer (<0.60) mg/L FEU ABG pH (7.35-7.45) ABG pCO2 (35-45) mmHg ABG pO2 (83-108) mmHg ABG HCO3 (21-25) mmol/L ABG Total CO2 (19-24) mmol/L ABG O2 Saturation (94-97) % Sodium (137-145) mmol/L Potassium (3.5-5.1) mmol/L Chloride (98-107) mmol/L Carbon Dioxide (22-30) mmol/L BUN (9-20) mg/dL Creatinine (0.66-1.25) mg/dL Glucose (74-99) mg/dL POC Glucose (mg/dL) 151 H 149 H 148 H (75-99) mg/dL Osmolality (280-301) mosm/kg Plasma Lactic Acid Brandon (0.7-2.0) mmol/L Phosphorus (2.5-4.5) mg/dL Total Creatine Kinase (55-170) U/L Urine Protein (Negative) Urine Blood (Negative) 07/31/16 07/31/16 Range/Units 08:25 10:08 WBC (3.8-10.6) k/uL RBC (4.30-5.90) m/uL Hgb (13.0-17.5) gm/dL MCV (80.0-100.0) fL MCHC (31.0-37.0) g/dL Neutrophils # (1.3-7.7) k/uL Lymphocytes # (1.0-4.8) k/uL Monocytes # (0-1.0) k/uL D-Dimer (<0.60) mg/L FEU ABG pH (7.35-7.45) ABG pCO2 (35-45) mmHg ABG pO2 (83-108) mmHg ABG HCO3 (21-25) mmol/L ABG Total CO2 (19-24) mmol/L ABG O2 Saturation (94-97) % Sodium (137-145) mmol/L Potassium (3.5-5.1) mmol/L Chloride (98-107) mmol/L Carbon Dioxide (22-30) mmol/L BUN (9-20) mg/dL Creatinine (0.66-1.25) mg/dL Glucose (74-99) mg/dL POC Glucose (mg/dL) 122 H (75-99) mg/dL Osmolality (280-301) mosm/kg Plasma Lactic Acid Brandon 5.7 H* (0.7-2.0) mmol/L Phosphorus (2.5-4.5) mg/dL Total Creatine Kinase (55-170) U/L Urine Protein (Negative) Urine Blood (Negative) CT scan - abdomen: report reviewed (Reviewed by Dr. Ray) CT scan - pelvis: report reviewed (Reviewed by Dr. Ray) Assessment and Plan Plan: 1. Acute upper GI bleed with coffee-ground gastric fluid possible gastritis possible peptic ulcer disease possible ischemia. 2. Possible Sepsis with leukocytosis, metabolic acidosis possible ischemic bowel. 3. Atrial fibrillation with RVR. 4. History of multiple suicide attempts. 5. Acute kidney injury. 6. Elevated lactic acid. IV Protonix 40 mg twice daily. Case was discussed with Dr. Allen, cook tortilla no plans to proceed with EGD at this time, he agrees. General surgery following closely. Continue to monitor CBC closely and for any signs of active GI bleeding. Will follow with you. Thank you for this kind referral and the opportunity to participate in the care of your patient. This consultation was discussed with Dr. Ray. The impression and plan of care have been directed as dictated.
--- NOTE | 2016-07-31 10:49 | ECHOF ---
Referral Reason:Thrombus MEASUREMENTS -------- HEIGHT: 175.3 cm WEIGHT: 89.4 kg BP: 165/71 RVIDd: 2.5 cm (< 3.3) IVSd: 1.0 cm (0.6 - 1.1) LVIDd: 4.7 cm (3.9 - 5.3) LVPWd: 1.0 cm (0.6 - 1.1) IVSs: 1.6 cm LVIDs: 3.0 cm LVPWs: 1.5 cm LA Diam: 3.3 cm (2.7 - 3.8) Ao Diam: 4.5 cm (2.0 - 3.7) AV Cusp: 1.8 cm (1.5 - 2.6) MV E Gregory: 0.61 m/s MV DecT: 217 ms MV A Gregory: 0.78 m/s MV E/A Ratio: 0.79 FINDINGS -------- Sinus rhythm. This was a technically difficult study with suboptimal views. The left ventricular size is normal. Left ventricular wall thickness is normal. Overall left ventricular systolic function is normal with, an EF between 55 - 60 %. The right ventricle is normal in size and function. The left atrial size is normal. The right atrium was not well visualized. Aortic valve is trileaflet and is mildly thickened. The mitral valve is normal. There is trace mitral regurgitation. The tricuspid valve was not well visualized. The pulmonic valve was not well visualized. 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 There is no pericardial effusion. CONCLUSIONS -------- 1. Sinus rhythm. 2. 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 3. There is no pericardial effusion. 4. This was a technically difficult study with suboptimal views. 5. Left ventricular wall thickness is normal. 6. Overall left ventricular systolic function is normal with, an EF between 55 - 60 %. 7. The left atrial size is normal. 8. Aortic valve is trileaflet and is mildly thickened. 9. There is trace mitral regurgitation. 10. The tricuspid valve was not well visualized. 11. The pulmonic valve was not well visualized. P[employer] C[employer]TER: Awa Vasquez [facility]
[2016-07-31] MEDS: DEXTROSE 5% IN WATER 1,000 ML with SODIUM BICARB (1 MEQ/ML) 150 ML IV SCH ×2 (11:15→21:49)
[2016-07-31] MEDS: PIPERACILLIN-TAZOBACTAM 3.375 GM in DEXTROSE/WATER 1 50ML.BAG IVPB SCH ×2 (11:16→22:50)
--- NOTE | 2016-07-31 11:16 | P.CNPUL ---
History of Present Illness Consult date: 07/31/16 Requesting physician: Luis Low Chief complaint: Mental status change and slurred speech History of present illness: This is a 76-year-old white male with history of multiple medical problems including severe depression, previous multiple suicidal attempts, chronic atrial fibrillation, diverticulosis, anxiety, patient presented to the ER yesterday with mostly symptoms of acute slurred speech and dizziness. His was concerned, and she brought him into the ER. CT of the brain was unremarkable. Echocardiogram was done and results are pending. However shortly after the patient arrived to the cardiac floor, he was noted to have increased shortness of breath, and he was showing significant metabolic acidosis /lactic acidosis based on his ABG. Patient was transferred to the ICU, and a genny You was notified about his ABG, I recommended immediate intubation of the patient. Patient was intubated, placed on mechanical ventilation, and he went on to develop worsening metabolic lactic acidosis. Hence I raised the possibility of ischemic bowel, abdominal sepsis, salicylate overdose, ethylene glycol toxicity, however I was mostly concerned about the possibility of bowel ischemia and abdominal sepsis. Patient had a CT of the abdomen and pelvis yesterday, and this was done with oral contrast, it showed some perinephric stranding, but no evidence of changes in the bowel to suggest ischemia. Upon arrival to the ICU, a nasogastric tube was placed because his abdomen was distended, and there was a significant amount of coffee-ground material suctioned from the stomach. Hemoglobin was noted to be 12.8, 2 g lower compared to admission hemoglobin. His lactic acid was as high as 10 yesterday, but it is 5.7 today. Patient was given multiple fluid boluses he received almost 5 L of fluids overnight. Patient was placed on a sodium bicarb drip, broad-spectrum antibiotics, urine was sent for calcium oxalate crystals, ethylene glycol level was ordered, salicylate level was ordered, however his osmolar gap was noted to be minimal, hence that practically rules out the possibility of ethylene glycol toxicity. In the meantime the patient remains on antibiotics, bronchodilators, sodium bicarb drip, and fluids. He was seen by nephrology on consultation, general surgery on consultation, and he is to be seen by infectious disease on consultation. Cultures at this point remain negative. And workup is still pending. Patient did not demonstrate any hemodynamic instability throughout the whole process, he never demonstrated any hypoxia during this process, urine output is very poor, hoping it will improve as we correct his metabolic acidosis. And I will suggest possibly a Lasix challenge was acidosis improves. Labs this morning were reviewed WBC count is down from 28-17.0. His ABG showed significant improvement with a pO2 of 109 pCO2 of 27 pH of 7.29 remind you his pH was less than 7 before intubation. Bicarb level this morning was 7 BUN is 27 creatinine is 3.20 blood sugar is 226. Measured serum osmolality was 320, calculated serum osmolality was 316. Lactic acid is down this morning to 5.7. Salicylate level was less than 1.0, and drug screen was negative. The urinalysis is relatively unremarkable and no evidence of pyuria or bacteriuria. The echocardiogram was also unremarkable, no evidence of thrombus. CT of the brain was unremarkable carotid Doppler was also unremarkable. Review of Systems ROS unobtainable: due to endotracheal tube Past Medical History Past Medical History: Atrial Fibrillation Additional Past Medical History / Comment(s): diverticulitis, dry eyes bilaterally, ANXIETY/DEPRESSION History of Any Multi-Drug Resistant Organisms: None Reported Past Surgical History: No Surgical Hx Reported Additional Past Surgical History / Comment(s): 03/01/16 colonoscopy Past Anesthesia/Blood Transfusion Reactions: No Reported Reaction Past Psychological History: Depression Additional Psychological History / Comment(s): previousl charting stated" Pt has hx of depression. He has had previous attempts at suicide by asphyxia, cutting wrist, jumping in river and overdosing on sleeping pills" .at time of this admit was unable to obtain depression screen answers from pt (pt had resp distress). pt lives with his in home that has 4 steps into home, no outside services, no medical equipment. pt served in the [employer] and worked at [employer]. Smoking Status: Former smoker Past Alcohol Use History: Daily Additional Past Alcohol Use History / Comment(s): Pt states he started smoking in 1961 and quit December 2015. He likes to drink 2 beers a day. Past Drug Use History: None Reported - Past Family History Father Family Medical History: Dementia Additional Family Medical History / Comment(s): Father of dementia at the age of 62 yrs. Mother Additional Family Medical History / Comment(s): Mother had heart problems. Medications and Allergies Home Medications Medication Instructions Recorded Confirmed Type ALPRAZolam [Xanax] 0.5 mg PO QID 09/19/15 07/30/16 History Escitalopram [Lexapro] 10 mg PO DAILY 09/19/15 07/30/16 History Multivitamins, Thera [Multivitamin 1 tab PO DAILY 09/19/15 07/30/16 History (formulary)] risperiDONE 1 mg PO HS 09/19/15 07/30/16 History Aspirin 325 mg PO HS 04/04/16 07/30/16 History Cholecalciferol [Vitamin D3] 1,000 unit PO DAILY 04/04/16 07/30/16 History Allergies Allergy/AdvReac Type Severity Reaction Status Date / Time No Known Allergies Allergy Verified 07/30/16 11:30 Physical Exam Vitals: Vital Signs Temp Pulse Pulse Resp BP BP Pulse Ox 07/31/16 08:55 72 07/31/16 08:35 74 07/31/16 07:00 76 29 H 119/65 100 07/31/16 06:30 85 30 H 105/62 100 07/31/16 06:00 76 26 H 125/65 98 07/31/16 05:30 79 27 H 122/67 98 07/31/16 05:00 73 24 114/58 99 07/31/16 04:30 71 22 109/60 99 07/31/16 04:00 97.7 F 73 17 107/60 99 07/31/16 03:39 73 07/31/16 03:30 75 21 120/58 100 07/31/16 03:28 75 07/31/16 03:00 78 24 128/58 99 07/31/16 02:30 80 26 H 118/53 100 07/31/16 02:00 77 25 H 115/49 100 07/31/16 01:30 82 23 115/57 99 07/31/16 01:00 88 23 129/58 99 07/31/16 00:30 90 25 H 113/55 99 07/31/16 00:00 97.6 F 95 23 118/58 99 07/30/16 23:30 87 20 149/63 98 07/30/16 23:00 92 22 148/57 99 07/30/16 22:30 80 25 H 103/56 98 07/30/16 22:00 97.5 F L 101 H 32 H 133/59 99 07/30/16 21:30 95 28 H 99 07/30/16 21:25 96 07/30/16 20:00 100 20 07/30/16 19:59 100 20 156/74 95 07/30/16 18:51 97.1 F L 102 H 26 H 160/75 98 07/30/16 17:30 108 H 26 H 154/67 98 07/30/16 16:43 85 24 153/97 97 07/30/16 16:00 88 24 165/71 97 Intake and Output 07/30/16 07/31/16 07/31/16 22:59 06:59 14:59 Intake Total 784.389 9733.039 50 Output Total 700 1032 Balance -689.745 2858.039 50 Intake: Amount of Fluid Infused ( 50 ml) Intake, IV Titration 389.172 0725.039 50 Amount Dextrose 5% in Water 1, 650 000 ml @ 75 mls/hr IV . [id number] [id number] with Sodium Bicarb (1 Meq/ml) 150 ml Rx#:[id number] Diltiazem 125 mg In 42.333 Sodium Chloride 0.9% 100 ml @ 5 MG/HR 5 mls/hr IV .Q24H ONE Rx#:[id number] Insulin Regular 100 unit 31.411 In Sodium Chloride 0.9% 100 ml @ Per Protocol IV .Q0M [facility] Rx#:[id number] Lactated Ringers 1,000 ml 2000 @ 999 mls/hr IV .Q1H1M [facility] Rx#:[id number] Levofloxacin 500Mg-D5w 100 Pmx 500 mg In Dextrose/ Water 1 100ml.bag @ 100 mls/hr IVPB Q24H [facility] Rx#: [id number] Piperacillin-Tazobactam 3 50.0 .375 gm In Dextrose/Water 1 50ml.bag @ 12.5 mls/hr IVPB ONCE ONE Rx#: [id number] Propofol 500 mg In Empty 54.628 50 Bag 1 bag @ Titrate IV . Q0M [facility] Rx#:[id number] Sodium Chloride 0.9% 1, 100 000 ml @ 100 mls/hr IV . Q10H [facility] Rx#:[id number] Vancomycin 1,500 mg In 250 Sodium Chloride 0.9% 250 ml @ 125 mls/hr IVPB ONCE ONE Rx#:[id number] Output: Gastric Drainage 800 Urine 700 132 Emesis 100 Other: Voiding Method Indwelling Catheter Indwelling Catheter Weight 86.2 kg eneral appearance: The intubated sedated. Endotracheal tube is intact. Nasogastric tube is also intact. HET: Head is normocephalic and atraumatic. Pupils are equal and reactive. Oropharynx is clear without lesions. Gastric tube with dark bilious fluid. Neck: Supple without lymphadenopathy. Trachea midline. Heart: S1 S2. Lungs: No crackles or wheezes are heard. Abdomen: Soft, nontender, nondistended with bowel sounds. No peritoneal signs. No palpable organomegaly or masses. Extremities: Normal skin color and turgor. No cyanosis, rash, ulceration, clubbing, or edema. Radial and pedal pulses are 2/4 bilaterally. Brody with dom urine. Neurological: Sedated. Results - Laboratory Findings CBC and BMP: 07/31/16 03:06 07/31/16 03:06 ABG ABG pH 7.29 (7.35-7.45) L 07/31/16 05:48 ABG pCO2 27 mmHg (35-45) L 07/31/16 05:48 ABG pO2 109 mmHg (83-108) H 07/31/16 05:48 ABG O2 Saturation 98.0 % (94-97) H 07/31/16 05:48 PT/INR, D-dimer PT 10.1 sec (9.0-12.0) 07/30/16 22:50 INR 1.0 (<1.1) 07/30/16 22:50 D-Dimer 0.99 mg/L FEU (<0.60) H 07/30/16 16:13 Abnormal lab findings: Abnormal Labs 07/30/16 07/30/16 07/30/16 16:13 21:34 21:39 WBC RBC Hgb MCV MCHC Neutrophils # Lymphocytes # Monocytes # D-Dimer 0.99 H ABG pH 7.01 L* ABG pCO2 16 L* ABG pO2 ABG HCO3 4 L* ABG Total CO2 4 L ABG O2 Saturation Sodium Potassium Chloride Carbon Dioxide BUN Creatinine Glucose POC Glucose (mg/dL) 229 H Osmolality Plasma Lactic Acid Brandon Phosphorus Total Creatine Kinase Urine Protein Urine Blood 07/30/16 07/30/16 07/30/16 22:38 22:50 22:50 WBC 28.0 H* RBC Hgb MCV 103.0 H MCHC 30.6 L Neutrophils # 25.9 H Lymphocytes # 0.6 L Monocytes # 1.4 H D-Dimer ABG pH ABG pCO2 ABG pO2 ABG HCO3 ABG Total CO2 ABG O2 Saturation Sodium 149 H Potassium 6.5 H* Chloride 112 H Carbon Dioxide <5 L* BUN 23 H Creatinine 3.10 H Glucose 258 H POC Glucose (mg/dL) Osmolality Plasma Lactic Acid Brandon 8.1 H* Phosphorus Total Creatine Kinase Urine Protein Urine Blood 07/30/16 07/30/16 07/30/16 22:50 23:25 23:50 WBC RBC Hgb MCV MCHC Neutrophils # Lymphocytes # Monocytes # D-Dimer ABG pH <7.00 L* ABG pCO2 ABG pO2 337 H ABG HCO3 8 L* ABG Total CO2 9 L ABG O2 Saturation 100.0 H Sodium Potassium Chloride Carbon Dioxide BUN Creatinine Glucose POC Glucose (mg/dL) Osmolality Plasma Lactic Acid Brandon Phosphorus Total Creatine Kinase 48 L Urine Protein 1+ H Urine Blood Trace H 07/31/16 07/31/16 07/31/16 00:21 00:23 01:36 WBC RBC Hgb MCV MCHC Neutrophils # Lymphocytes # Monocytes # D-Dimer ABG pH 7.08 L* ABG pCO2 ABG pO2 213 H ABG HCO3 10 L* ABG Total CO2 11 L ABG O2 Saturation 99.0 H Sodium Potassium Chloride Carbon Dioxide BUN Creatinine Glucose POC Glucose (mg/dL) 302 H 283 H Osmolality Plasma Lactic Acid Brandon Phosphorus Total Creatine Kinase Urine Protein Urine Blood 07/31/16 07/31/16 07/31/16 02:07 03:04 03:06 WBC RBC Hgb MCV MCHC Neutrophils # Lymphocytes # Monocytes # D-Dimer ABG pH ABG pCO2 ABG pO2 ABG HCO3 ABG Total CO2 ABG O2 Saturation Sodium Potassium Chloride Carbon Dioxide BUN Creatinine Glucose POC Glucose (mg/dL) 254 H 231 H Osmolality Plasma Lactic Acid Brandon 10.0 H* Phosphorus Total Creatine Kinase Urine Protein Urine Blood 07/31/16 07/31/16 07/31/16 03:06 03:06 03:06 WBC 17.0 H RBC 4.02 L Hgb 12.8 L MCV 101.2 H MCHC Neutrophils # 15.7 H Lymphocytes # 0.6 L Monocytes # D-Dimer ABG pH ABG pCO2 ABG pO2 ABG HCO3 ABG Total CO2 ABG O2 Saturation Sodium 147 H Potassium Chloride 111 H Carbon Dioxide 7 L* BUN 27 H Creatinine 3.20 H Glucose 226 H POC Glucose (mg/dL) Osmolality 320 H Plasma Lactic Acid Brandon Phosphorus 5.1 H Total Creatine Kinase Urine Protein Urine Blood 07/31/16 07/31/16 07/31/16 04:05 05:01 05:48 WBC RBC Hgb MCV MCHC Neutrophils # Lymphocytes # Monocytes # D-Dimer ABG pH 7.29 L ABG pCO2 27 L ABG pO2 109 H ABG HCO3 13 L ABG Total CO2 13 L ABG O2 Saturation 98.0 H Sodium Potassium Chloride Carbon Dioxide BUN Creatinine Glucose POC Glucose (mg/dL) 190 H 169 H Osmolality Plasma Lactic Acid Brandon Phosphorus Total Creatine Kinase Urine Protein Urine Blood 07/31/16 07/31/16 07/31/16 06:04 07:07 08:22 WBC RBC Hgb MCV MCHC Neutrophils # Lymphocytes # Monocytes # D-Dimer ABG pH ABG pCO2 ABG pO2 ABG HCO3 ABG Total CO2 ABG O2 Saturation Sodium Potassium Chloride Carbon Dioxide BUN Creatinine Glucose POC Glucose (mg/dL) 151 H 149 H 148 H Osmolality Plasma Lactic Acid Brandon Phosphorus Total Creatine Kinase Urine Protein Urine Blood 07/31/16 07/31/16 08:25 10:08 WBC RBC Hgb MCV MCHC Neutrophils # Lymphocytes # Monocytes # D-Dimer ABG pH ABG pCO2 ABG pO2 ABG HCO3 ABG Total CO2 ABG O2 Saturation Sodium Potassium Chloride Carbon Dioxide BUN Creatinine Glucose POC Glucose (mg/dL) 122 H Osmolality Plasma Lactic Acid Brandon 5.7 H* Phosphorus Total Creatine Kinase Urine Protein Urine Blood - Diagnostic Findings Chest x-ray: image reviewed Assessment and Plan Plan: Impression: 1 acute respiratory failure secondary to severe metabolic, lactic acidosis, exact etiology is not clear, but still suspect ischemic bowel or abdominal sepsis. Salicylate poisoning and ethylene glycol poisoning is practically ruled out based on the initial studies done. 2 chronic atrial fibrillation, presently rate seems to be well-controlled. 3 acute presentation of TIA/CVA with negative workup upon presentation. 4 severe lactic acidosis, most likely secondary to sepsis or transient bowel ischemia. 5 acute kidney injury secondary to sepsis. This is also associated with oliguria 6 history of depression and previous suicidal attempts. 7 coffee-ground material via nasogastric tube most likely secondary to erosive gastritis and upper GI bleeding. Recommendation: Continue present supportive care measures, mechanical ventilations, empiric antibiotics, sodium bicarb drip, close monitoring of the renal status and decide whether the patient may eventually need to be dialyzed. Blood cultures are pending at the time of my dictation. All workup and different no sputum different consultants were reviewed. Prognosis is definitely poor and guarded. Discussed his condition with all his family members at bedside. We'll address nutritional support in the next 24 hours. Continue GI and DVT prophylaxis. I'm a bit reluctant to start the patient on IV heparin for his atrial fibrillation because of his coffee-ground material noted in the nasogastric tube. However will place the patient on subcu Lovenox. Critical care time is over 1 hour not including the time spent on procedures. Time with Patient: Greater than 30
[2016-07-31] MEDS: PANTOPRAZOLE 40 MG/10 ML VIAL IVP SCH ×2 (11:17→21:50)
[2016-07-31] MEDS: CHLORHEXIDINE GLUCONATE 15 ML CUP MUCOUS MEM SCH ×2 (11:21→21:49)
[2016-07-31 11:35] LABS: Glucose,Whole Blood 116 mg/dL (75-99)
--- NOTE | 2016-07-31 11:48 | HP ---
DATE OF ADMISSION: CHIEF COMPLAINT: Change in mental status and right side weakness. HISTORY OF PRESENT ILLNESS: This 76-year-old gentleman with a past medical history of multiple medical problems including atrial fibrillation, history of diverticulitis, history of depression being followed by Dr. Paula Dominique in the outpatient setting apparently with the family. The family that last night the patient was okay, but this morning patient woke up with slurring of speech and some weakness on the right side. The patient was taken to [facility] and admitted for further evaluation and treatment. The patient was confused and a coherent history could not be taken from the patient. Past history per my discussion with ER physician as well as staff also. The CT scan of the brain was limited because of artifacts but there is no major deficiency noted. A repeat CAT scan of the brain was also done, which showed remote ischemic white matter changes and stable appearing subcutaneous nodule in the soft tissue posteriorly was also noted on the CAT scan. Neurology evaluation in progress. Otherwise, patient also had significant congestion of the lungs. Chest x-ray showed no acute changes. PAST MEDICAL HISTORY: History of atrial fibrillation, history of diverticulitis, history of dry eyes bilaterally, history of depression, not otherwise specified. Medications are: 1. Risperdal 1 mg q.h.s. 2. Multivitamin 1 p.o. daily. 3. Lexapro 10 mg. 4. Vitamin D3, 1000 daily. 5. Aspirin 325 mg q.h.s. 6. Xanax 0.5 mg p.o. q.i.d. ALLERGIES: None. FAMILY HISTORY, SOCIAL HISTORY and REVIEW OF SYSTEMS: Could not be taken at length because of change in mental status. Previous history of smoking, occasional alcohol intake per chart. FAMILY HISTORY: Dementia. PHYSICAL EXAMINATION: Patient is conscious, but confused, short of breath. Pulse is 100, blood pressure 156/74, respirations 20, temperature 97.1, pulse ox 95% on 2 L. HEENT: Conjunctivae normal. Oral mucosa moist. NECK: No jugular venous distention. No carotid bruit. No lymph node enlargement. CARDIOVASCULAR: S1 and S2, muffled. No S3, no S4. RESPIRATORY: Breath sounds diminished at the bases. Bilateral scattered rhonchi and crackles. Expiratory wheezing also present. ABDOMEN: Soft, nontender. No mass palpable. LEGS: No edema, no swelling. NERVOUS SYSTEM: The patient is unable to cooperate with the exam. Diffuse weakness both sides. Eye movements also limited. SKIN: No ulcer, rash or bleeding. LYMPHATICS: No lymphadenopathy of neck, axillae or groin. LABS: WBC 13.1, MCV 101.5. Sodium 149, potassium 5.3, CO2 is 7 and creatinine is 1.5. Calcium is 10.9. Troponin is less than 0.012. ASSESSMENT: 1. Change in mental status, metabolic encephalopathy, rule out acute stroke. 2. Hypernatremia. 3. Severe acidosis. 4. Hyperchloremia. 5. Increased creatinine with possible acute renal failure, possibly secondary dehydration. 6. Chronic obstructive pulmonary disease, acute exacerbation, with acute purulent tracheobronchitis. 7. Rule out aspiration. 8. Increased WBC. 9. Increased MCV. 10. Rule out EtOH. 11. History of atrial fibrillation. 12. History of diverticulitis. 13. History of depression, not otherwise specified. 14. Remote history of nicotine dependence. 15. FULL CODE. RECOMMENDATIONS AND DISCUSSION: This 76-year-old gentleman presented with multiple complex medical issues, we will monitor the patient closely. Continue the current medications. Patient had multiple complex medical issues as listed above. We recommend the patient to be transferred to ICU and consult Dr. Allen. Did receive bronchodilator treatment. Closely follow with Dr. Villanueva and neurovascular check. The patient also had ABG on room air. Otherwise, continue to monitor. Will check EtOH and obtain cultures, empiric antibiotics. Guarded prognosis. Further recommendations to follow. Will also check a lactic acid also. Prognosis once again is extremely guarded. Further recommendations to follow. A copy of this dictation is being forwarded to Dr. Paula Dominique who is the primary physician. [facility], [place]
[2016-07-31] MEDS ORDERED: ASPIRIN 325 MG TAB PO SCH (12:00)
[2016-07-31 12:12] LABS: Glucose,Whole Blood 127 mg/dL (75-99)
[2016-07-31 12:32] LABS: ABG PCO2 26 mmHg (35-45); ABG PH 7.46 (7.35-7.45); ABG PO2 89 mmHg (83-108)
[2016-07-31 12:33] LABS: ABG Base Excess -4.8 mmol/L; ABG HCO3 18 mmol/L (21-25); ABG TCO2 19 mmol/L (19-24)
[2016-07-31 13:21] LABS: Glucose,Whole Blood 112 mg/dL (75-99)
--- NOTE | 2016-07-31 13:22 | CONS ---
DATE OF CONSULTATION: CHIEF COMPLAINT: Atrial fibrillation. Mr. Cyr is a 76-year-old gentleman who is currently intubated on vent and in the ICU that had been consulted for atrial fibrillation. The patient was initially admitted to the sixth floor with mental status changes and slurred speech, has multiple medical problems including depression, suicidal ideation, atrial fibrillation, diverticulosis, and anxiety. He was on the floor and developed shortness of breath and developed metabolic acidosis and had to be intubated and was transferred to ICU. There is now a question of possible GI bleed. Patient was in A. fib with RVR and converted to sinus rhythm after being on intravenous Cardizem which had since been stopped. The patient has a history of paroxysmal atrial fibrillation, but does not take an anticoagulant or any other medications at the moment. Past medical history is significant for atrial fibrillation. Medications include Xanax, Lexapro, risperidone, aspirin, vitamin D3. ALLERGIES: There are no known drug allergies. FAMILY HISTORY: Negative for premature coronary artery disease. SOCIAL HISTORY: Negative for current smoking. Significant for drinking. REVIEW OF SYSTEMS: I am unable to obtain a patient who is intubated on vent. On exam he is in sinus rhythm, heart rate is 80 beats per minute, blood pressure is 120/70, respiratory rate is 18. Chest exam reveals diminished air entry at the bases. Heart exam reveals first and second heart sounds. No gallop. Abdomen is soft. Examination of the extremities did not reveal any edema. Peripheral pulses are palpable. Three sets of cardiac enzymes are negative. Rhythm strip show that he is in sinus rhythm now. BUN and creatinine are elevated at 27 and 3.2. AST, ALT are within normal limits. An echocardiogram showed normal LV function. Initial EKG showed atrial fibrillation with rapid ventricular rate, currently is in sinus rhythm. ASSESSMENT: 1. Paroxysmal atrial fibrillation. 2. Renal failure. 3. History of suicidal ideation. PLAN: Patient is not a candidate for long-term anticoagulation. I am going to put him on amiodarone. I reviewed the echo results and reviewed the rest of his documentation.
[2016-07-31 14:25] LABS: Glucose,Whole Blood 118 mg/dL (75-99)
[2016-07-31] MEDS: AMIODARONE 200 MG TAB PO SCH ×2 (16:00→22:50)
[2016-07-31] MEDS: ENOXAPARIN 30 MG/0.3 ML SYRINGE SQ SCH (16:07)
[2016-07-31 16:38] LABS: Glucose,Whole Blood 142 mg/dL (75-99)
[2016-07-31 18:39] LABS: Calcium 7.7 mg/dL (8.4-10.2); Potassium 4.7 mmol/L (3.5-5.1)
--- NOTE | 2016-07-31 20:02 | P.CON ---
Consult Note - . Consult date: 07/31/16 Assessment/Plan:: this is a 76-year-old male with past history of atrial fibrillation, diverticulitis, anxiety and depression. Patient apparently has had previous attempts at suicide by [address], cutting wrists, jumping and [place] and overdosing on sleeping pills. Patient was brought in to the emergency center due to slurred speech, right side feeling funny, Phalen's off and confusion. Patient was found to be afebrile. Pulse was 125-152 with atrial fibrillation with rapid ventricular response, hypertensive, tachypneic, leukocytosis initially at 13 and then eros to 28 and repeat was 17, acute renal failure with BUN of 23 and creatinine 3.1, severe lactic acidosis with lactic acid of 8.1 with repeat of 10. Electrolyte abnormalities with hypernatremia, hyperchloremia and hyperkalemia. Anion gap was 32. Troponin 2 was negative. Urine drug screen was negative and alcohol level was less than 10. Patient underwent initial chest x-ray that showed no acute process. CAT scan of the brain was done 2 which did show remote ischemic white matter changes, soft tissue nodule. Carotid ultrasound showed 50-70% right internal carotid stenosis and 50% on the left. CAT scan of the abdomen and pelvis without contrast showed bilateral perinephric stranding and small retroperitoneal fluid. No renal obstruction or stones. Consider infection. Diverticulosis without acute diverticulitis. Bibasilar lung atelectasis or consolidation with air space disease and possible infection. Last evening patient had a large coffee ground emesis and developed respiratory failure requiring intubation. He has been oliguric. He has been seen by Dr. Aceves for possible bowel ischemia or acute gastritis. NG tube is in place. Other consultants are neurology, cardiology, audiology technician, nephrology. Echocardiogram is pending. Sputum, urine and blood cultures are all status received. At this time, Dr. Allen spoke with the family regarding reason for the severe acidosis and family are going home to check grouch for items that he could have taken before arrival. According to the patient's , he does not talk about depression but just plain does not talk and can go weeks without talking to her in the same home. Please see the consult note as dictated by nurse practitioner Mrs. Lina Marquez. His others evidence of the patient being intubated sedated and mechanically ventilated. His profound acidosis is starting to improve. Evaluation of the etiology isn't process. Concerns to sepsis as well as the potential of ingesting of agents that may have resulted in acidosis. This is of concern given his history. No substances have been somewhat found to date The patient however now has evidence of respiratory failure and evidence of pneumonia by his imaging studies. Concern that this was an aspiration event in the outpatient setting. In giving his history intravenous antibiotic therapy with Zosyn is being utilized as well as Levaquin until there is further data. He does not have a history of MRSA in counseling no further vancomycin will be given at this time. However with his renal failure the current dose will give us coverage until he has some culture data back in the next short period of time. The profound leukocytosis is multifactorial including the sepsis and the severe acidosis with D margination. Is being monitored As noted multiple cultures are process. Drug screens are negative. Ethylene glycol serum level was negative. Acetone is negative. Calcium oxalate crystals were seen on a concentrated urine specimen. the patient is critically ill and prognosis is poor. I agree with evaluation, assessment and plan as dictated by nurse practitioner Mrs. Lina Marquez.
[2016-07-31] MEDS: INSULIN LISPRO (humaLOG) 300 UNIT/3 ML VIAL SQ SCH ×2 (20:11→22:00)
[2016-07-31 20:15] LABS: Magnesium 1.7 mg/dL (1.6-2.3); Phosphorous 3.2 mg/dL (2.5-4.5)
[2016-07-31] MEDS ORDERED: FOMEPIZOLE 1 GM/ML 1.5 ML VIAL IV ONE (20:28)
[2016-07-31] MEDS ORDERED: FOMEPIZOLE IV ONE (20:45)
[2016-07-31] MEDS ORDERED: SODIUM CHLORIDE 0.9% IV ONE (20:45)
--- NOTE | 2016-07-31 21:09 | PN ---
DATE OF SERVICE: 07/31/2016 This 76-year-old gentleman admitted with change in mental status and weakness on the right side was initially thought to have acute stroke. The patient subsequently developed change in mental status and features of aspiration, acute respiratory failure. The patient was severely acidotic. The patient had features of acute respiratory failure; pH was only 7.11. Patient was mechanically intubated and transferred to ICU. Dr. Allen is following the patient closely. Currently patient is mechanically ventilated and sedated. The vent settings are 500, tidal volume 55% and 18 rate, 5 of PEEP. The patient also has uncontrolled blood sugars. He is on IV insulin drip also. The patient also had atrial fibrillation with rapid ventricular response. Currently the patient has PACs. Multiple consultants, including Dr. Allen, Dr. Aceves, Dr. Fitzgerald, are following the patient closely. Concern about ischemic colitis was also noted. The possibility of poison was also suspected, but the baseline drug screen was negative, even though the patient had multiple episodes of suicide attempts in the past. The patient also had Cardizem drip. He also had coffee-ground emesis. Patient also has an NG tube in place. Dr. Allen has seen the patient. Cardiology is also following the patient closely. Patient also had combination metabolic, lactic acidosis. Salicylate poisoning ethylene glycol poisoning has been ruled out. The patient is being closely monitored at this time. Past medical history reviewed. Review of systems could not be taken; the patient is mechanically ventilated and sedated. CURRENT MEDICATIONS: 1. Cordarone 200 mg p.o. t.i.d. 2. Peridex. 3. Lovenox 30 mg subcutaneously daily. 4. Humalog. 5. Xopenex 1.25 q.i.d. 6. Levaquin 250 mg q.24 hours. 7. Narcan p.r.n. 8. Protonix 40 mg IV daily. 9. Zosyn 3.375 IV b.i.d. 10. Propofol drip. 11. P.r.n. medication. PHYSICAL EXAMINATION: Patient is mechanically ventilated and sedated. Vent settings are noted as before. Pulse is 84, blood pressure 126/48, respiration 20, temperature normal, pulse ox 99% on mechanical ventilation. HEENT: Conjunctivae normal. Oral mucosa moist. NECK: No jugular venous distention. No carotid bruit. No lymph node enlargement. CARDIOVASCULAR SYSTEM: S1, S2 muffled. No S3. No S4. RESPIRATORY SYSTEM: Breath sounds diminished at the bases. Bilateral scattered rhonchi and crackles. ABDOMEN: Soft, nontender. No mass palpable. LEGS: No edema. No swelling. NERVOUS SYSTEM: Higher functions as mentioned earlier. Moves all 4 limbs. No focal motor or sensory deficit. LYMPHATICS: No lymph node palpable in neck, axillae or groin. SKIN: No ulcer, rash, bleeding. LABS: WBC 17, hemoglobin 12.8; pH of 7.4 is improved to pH of 7.46. Otherwise. CO2 has improved to 7 at this time. Patient is receiving D5 water with bicarb drip also. Ethanol is negative; less than 10. ASSESSMENT: 1. Acute metabolic and lactic acidosis with acute hypoxic respiratory failure, possibly secondary to sepsis of undetermined etiology. 2. Rule out aspiration. 3. Chronic obstructive pulmonary disease, acute exacerbation. 4. Change in mental status, metabolic encephalopathy. 5. Possible transient ischemic attack, acute stroke, involving the left hemisphere causing right-sided weakness. 6. Hypernatremia on admission. 7. Severe metabolic acidosis as well as lactic acidosis, present on admission. 8. Hyperchloremia. 9. Increased creatinine with possible acute renal failure, possibly secondary to dehydration and prerenal factors. 10. Increased white count. 11. Increased mean corpuscular volume. 12. History of atrial fibrillation. 13. History of diverticulitis. 14. History of depression not otherwise specified. 15. Remote history of nicotine dependence. 16. FULL CODE. RECOMMENDATIONS AND DISCUSSION: In this 76-year-old gentleman who presented with multiple complex medical issues, we will monitor the patient closely, continue the current medications, continue with symptomatic treatment. Otherwise, continue the broad-spectrum IV antibiotics, monitor fluid/electrolyte balance closely. continue to control the acidosis. Continue with mechanical ventilation per Dr. Allen. The prognosis is guarded because of multiple complex medical issues. Further recommendations to follow. See orders for further details. MTDD
--- NOTE | 2016-07-31 21:17 | OP ---
DATE OF SERVICE: 07/31/2016 SURGEON: DEEDEE PATTON MD PREOPERATIVE DIAGNOSIS: Acute respiratory failure. POSTOPERATIVE DIAGNOSIS: Acute respiratory failure. PROCEDURE: Placement of right radial arterial line. ANESTHESIA: None deployed. DESCRIPTION OF PROCEDURE: The patient was placed in a supine position. The right arm was placed over the table and the wrist was extended. The area of the wrist was prepared in a sterile fashion and drapes were applied. The right radial artery was palpated, cannulated, and a guidewire was placed. A Cook catheter was placed over the guidewire, and the guidewire was removed. Good blood flow and good waveform were noted. No evidence of any immediate complications. Line was secured using 3-0 silk sutures.
--- NOTE | 2016-07-31 21:31 | P.PN ---
Progress Note - Text patient was seen this morning by Dr. Aceves on consultation while covering for me. He was reevaluated this evening. He remains on the ventilator. He has little to no urine output. He is not hypotensive.he appears afebrile. As per Dr. Paul consultation the patient presented to the ER confused and off balance. Questionable stroke on presentation. He denied abdominal pain and apparently his abdominal examination was benign. He was found to be unresponsive. He was intubated and found to be profoundly acidotic. He does have paroxysmal atrial fibrillation. He is not on anticoagulation. A CAT scan of the abdomen and pelvis was performed without IV contrast. No evidence of inflammatory changes of the bowel was noted. The mesenteric vasculature however could not be fully evaluated. He has responded thus far to the treatment of his acidosis. Apparently per the family the patient smelled of gasoline and he has had multiple suicide attempts in the past. They are treating him currently for possible suicide attempt by poisoning. His abdominal examination is soft and nontender however he is on the ventilator and sedatives have been utilized. I discussed the case with the primary service. We'll continue to reevaluate this patient closely. We discussed the options of a CT angiogram or mesenteric angiogram but given his response thus far along with his presentation complaints a small bowel embolic event seems to be less likely. We'll follow closely with you.
--- NOTE | 2016-07-31 21:37 | OP ---
DATE OF SERVICE: 07/31/2016 SURGEON: DEEDEE PATTON MD PREOPERATIVE DIAGNOSIS: Acute respiratory failure. POSTOPERATIVE DIAGNOSIS: Acute respiratory failure. OPERATION: Placement of right internal jugular triple lumen catheter. ANESTHESIA: 2 mL of 1% lidocaine. DESCRIPTION OF PROCEDURE: The patient was placed in a Trendelenburg position. The area of the right cervical region was prepared in a sterile fashion and drapes were applied. The area was locally anesthetized. Using a posterior approach, the needle was inserted at the same site just posterior to the posterior belly of the sternocleidomastoid, and advanced until the right IJ was cannulated. Then a standard needle was used, the right IJ was cannulated again and a guidewire was placed. The needle was removed. Then the area was dilated using a dilator. A triple lumen catheter was inserted over the guidewire, and the guidewire was removed. Good blood flow was noted in the 3 different ports of the triple-lumen catheter. Line was secured using 3-0 silk sutures. No evidence of any immediate complications. Blood loss less than 2 mL. An x-ray was ordered postoperatively.
[2016-07-31] MEDS: LEVOFLOXACIN 250MG-D5W PMX 250 MG in DEXTROSE/WATER 1 50ML.BAG IVPB SCH (21:49)
[2016-07-31] MEDS ORDERED: VANCOMYCIN 1,500 MG in SODIUM CHLORIDE 0.9% 250 ML IVPB SCH (22:00)
[2016-07-31 22:01] LABS: Glucose,Whole Blood 140 mg/dL (75-99)
[2016-07-31] MEDS ORDERED: MAGNESIUM SULFATE-D5W PMX 1 GM in DEXTROSE/WATER 1 100ML.BAG IVPB ONE (22:48)
[2016-07-31] MEDS: LACTATED RINGERS 500 ML IV SCH ×2 (22:51→22:52)
[2016-07-31 23:31] LABS: Ethanol Negative (Negative); Isopropanol Negative (Negative)
[2016-08-01] MEDS: PROPOFOL 500 MG in EMPTY BAG 1 BAG IV SCH ×10 (00:19→22:28)
[2016-08-01] MEDS: DEXTROSE 5% IN WATER 1,000 ML with SODIUM BICARB (1 MEQ/ML) 150 ML IV SCH ×2 (00:20→20:55)
[2016-08-01] MEDS: INSULIN LISPRO (humaLOG) 300 UNIT/3 ML VIAL SQ SCH ×7 (02:11→23:12)
[2016-08-01] MEDS: IPRATROPIUM 0.5 MG/2.5 ML NEBU INHALATION PRN ×4 (03:33→15:44)
[2016-08-01] MEDS: LEVALBUTEROL NEB (CONC) 1.25 MG/0.5 ML AMP INHALATION PRN ×4 (03:33→15:44)
[2016-08-01 03:48] LABS: Glucose,Whole Blood 121 mg/dL (75-99)
[2016-08-01 05:02] LABS: INR 1.2 (<1.1); Partial Thromboplastin Time 25.1 sec (22.0-30.0); Prothrombin Time 11.8 sec (9.0-12.0)
[2016-08-01 05:03] LABS: Phosphorous 4.2 mg/dL (2.5-4.5); Potassium 3.9 mmol/L (3.5-5.1); Total Protein 4.9 g/dL (6.3-8.2)
[2016-08-01 05:04] LABS: Calcium 7.4 mg/dL (8.4-10.2); Total Bilirubin 0.4 mg/dL (0.2-1.3)
[2016-08-01 05:27] LABS: Basophils % (A) 0 %; CHCM 34.7; Eosinophils % (A) 0 %; HCT 32.5 % (39.0-53.0); HDW 2.41; Luc # (Auto) 0.12; Luc % (Auto) 1; Lymphocytes # (A) 0.8 k/uL (1.0-4.8); Lymphocytes % (A) 9 %; MCH 31.4 pg (25.0-35.0); MCHC 33.9 g/dL (31.0-37.0); Monocytes # (A) 0.5 k/uL (0-1.0); Monocytes % (A) 5 %; Neutrophils # (A) 7.1 k/uL (1.3-7.7); Neutrophils % (A) 84 %; RBC 3.51 m/uL (4.30-5.90); RDW 14.3 % (11.5-15.5); WBC 8.5 k/uL (3.8-10.6); WBC (Perox) 8.95
[2016-08-01 05:35] LABS: MCV 92.7 fL (80.0-100.0)
--- NOTE | 2016-08-01 07:10 | XR ---
EXAMINATION TYPE: XR chest 1V portable DATE OF EXAM: 08/01/2016 6:56 AM COMPARISON: Prior chest x-ray 31 July 2016 HISTORY: Intubated TECHNIQUE: Single frontal view of the chest is obtained. FINDINGS: Endotracheal tube, NG tube, right jugular central venous catheter are overlying appropriat e positions. Retrocardiac density, bibasilar patchy density persists, there is no evident pneumothora x. There are overlying cardiac leads. Interstitium mildly increased. Cardiomediastinal silhouette, pu lmonary vascularity and delfino not significantly changed. IMPRESSION: Stable exam. There may be basilar atelectasis, correlate to exclude pneumonia, edema, fo llow-up recommended
[2016-08-01 08:10] LABS: ABG Base Excess 2.3 mmol/L; ABG HCO3 25 mmol/L (21-25); ABG PCO2 33 mmHg (35-45); ABG PO2 95 mmHg (83-108); ABG TCO2 26 mmol/L (19-24)
[2016-08-01 08:57] LABS: Glucose,Whole Blood 133 mg/dL (75-99)
[2016-08-01] MEDS: ENOXAPARIN 30 MG/0.3 ML SYRINGE SQ SCH (08:58)
[2016-08-01] MEDS: PANTOPRAZOLE 40 MG/10 ML VIAL IVP SCH ×2 (08:58→23:03)
[2016-08-01] MEDS: AMIODARONE 200 MG TAB PO SCH ×3 (08:58→22:56)
[2016-08-01] MEDS: CHLORHEXIDINE GLUCONATE 15 ML CUP MUCOUS MEM SCH ×2 (08:58→22:57)
[2016-08-01] MEDS: PIPERACILLIN-TAZOBACTAM 3.375 GM in DEXTROSE/WATER 1 50ML.BAG IVPB SCH ×2 (08:58→21:59)
[2016-08-01] MEDS ORDERED: FOMEPIZOLE 1 GM/ML 1.5 ML VIAL IV SCH (09:00)
[2016-08-01] MEDS ORDERED: FOMEPIZOLE IV SCH (09:00)
[2016-08-01] MEDS ORDERED: SODIUM CHLORIDE 0.9% IV SCH (09:00)
--- NOTE | 2016-08-01 09:50 | CONS ---
DATE OF CONSULTATION: 07/31/2016 CHIEF COMPLAINT: Altered mental status. HISTORY OF PRESENT ILLNESS: Mr. Cyr is a 76-year-old male who is being evaluated today on 07/31/2016 by the neurology service per the request of Dr. Low for altered mental status. The patient was brought into [facility] emergency room yesterday afternoon with a chief complaint of confusion and slurred speech. Initially, there was concerns for a stroke and neurology consultation was obtained. His CT scan of the brain showed no acute intracranial abnormalities, but there was significant motion artifacts. A repeat CT scan of the brain was done, which showed only small vessel ischemic changes. A carotid Doppler was done, which showed 50% to 69% stenosis in the right ICA and approximately 50% stenosis in the left ICA. His CBC showed leukocytosis at 17.0. His basic metabolic profile showed renal failure with a BUN of 39 and creatinine of 4.29 and his bicarb was quite low at 7. He was initially admitted to the medical floor but he quickly deteriorated from a respiratory standpoint and was transferred to the intensive care unit and intubated. He did not have any nuchal rigidity and he continues to have a supple neck. Infectious disease is following the patient and he is currently on antibiotics. There was also concerns for toxic ingestion as the patient has a previous history of suicide attempts. The patient is also being worked up for possible ischemic bowel. He continues to have severe metabolic acidosis, and he is being treated for this as well. Throughout the process, prior to respiratory failure and intubation, the patient did not exhibit any lateralizing weakness. At the time of my evaluation, he is intubated and sedated in the intensive care unit. His lactic acid level was 10 yesterday and is 3.6 today. His urine drug screen and urinalysis were normal. His CBC did show leukocytosis at 17.0 and infectious disease is following the patient as mentioned above, and he is on antibiotics. PAST MEDICAL HISTORY: Atrial fibrillation, diverticulitis, depression with previous suicide attempts at multiple times. SOCIAL HISTORY: The patient drinks alcohol daily. He quit smoking approximately 8 months ago. There is no history of any IV drug use. FAMILY HISTORY: Positive for dementia and heart disease. HOME MEDICATIONS: Reviewed in the chart. ALLERGIES: No known drug allergies. REVIEW OF SYSTEMS: Unable to obtain as the patient is intubated and sedated. PHYSICAL EXAM: Vital signs show a temperature of 98.6, pulse 81, respirations 25, blood pressure 129/42. GENERAL APPEARANCE: The patient is a well-developed, elderly male who is intubated and sedated. HEENT: Normocephalic, atraumatic. No obvious facial asymmetry is seen. Endotracheal tube is intact. Neck is supple with no masses felt. CARDIOVASCULAR: Irregularly irregular rhythm with a normal rate. ABDOMEN: Appears to be mildly distended. EXTREMITIES: Showed trace edema with no clubbing seen. NEUROLOGICAL EXAM: The patient is sedated at this time. He does not respond to any verbal or painful stimuli. Plantar reflex showed downgoing toes bilaterally. No seizure-like activity is seen. No obvious facial asymmetry is noticed on cranial nerve testing. Brainstem reflexes are intact. IMPRESSION: 1. Altered mental status. 2. Respiratory failure. 3. Severe metabolic acidosis. 4. Possible sepsis. 5. Acute renal failure. RECOMMENDATIONS: The patient's initial presentation with altered mental status and dysarthria is not felt to be due to any ischemic events as these were probably early symptoms of his current state with possible sepsis and severe metabolic acidosis and renal failure. Infectious disease is following the patient and he is currently on antibiotic therapy. The patient's neck is pretty supple and I doubt any meningitis. Nephrology is following the patient for his renal failure. It is still unclear on whether we are dealing with any ischemic bowel disease or if the patient did just something as a suicide attempt as he does have history of depression with multiple previous suicide attempts. Continue supportive care. I will order an EEG and will attempt to hold sedation for EEG. Prognosis is guarded. I will continue to follow with you. Further recommendations patience to follow. Thank you for allowing me to participate in the care of your patient. If you have any questions, please feel free to contact me.
--- NOTE | 2016-08-01 10:23 | P.PN ---
Subjective Patient seen in follow-up for acute kidney injury. Renal function continues to worsen with creatinine at 5.5 today. He is oliguric. He received heavy doses of diuretics without any response. He is still intubated and sedated. Metabolic acidosis has resolved and he slightly alkalotic this morning. He does respond to verbal commands. Vital signs are stable. General: The patient appeared well nourished and normally developed. HEENT: Head exam is unremarkable. Neck is without jugular venous distension. LUNGS: Rhonchi at bases Breath sounds decreased. HEART: Rate and Rhythm are regular. First and second heart sounds normal. No murmurs, rubs or gallops. ABDOMEN: Abdominal exam reveals normal bowel sounds. Non-tender and non- distended. No evidence of peritonitis. EXTREMITITES: No clubbing, cyanosis, or edema. Objective - Vital Signs Vital signs: Vital Signs Temp 99.1 F 08/01/16 08:00 Pulse 111 H 08/01/16 08:30 Resp 21 08/01/16 08:00 BP 128/49 08/01/16 08:00 Pulse Ox 98 08/01/16 08:00 Intake & Output 07/31/16 08/01/16 08/01/16 18:59 06:59 18:59 Intake Total 1682.687 372.717 Output Total 192 380 10 Balance 6345.065 0741.687 362.717 Weight 94 kg Intake: IV 100 Dextrose 5% in Water 1, 100 000 ml @ 100 mls/hr IV . [id number] [facility] with Sodium Bicarb (1 Meq/ml) 150 ml Rx#:[id number] Intake, IV Titration 1682.687 272.717 Amount Dextrose 5% in Water 1, 1175 1200 100 000 ml @ 100 mls/hr IV . [id number] [facility] with Sodium Bicarb (1 Meq/ml) 150 ml Rx#:[id number] Fomepizole 1.3 gm In 100 Sodium Chloride 0.9% 100 ml @ 200 mls/hr IV ONCE ONE Rx#:[id number] Levofloxacin 250Mg-D5w 50 Pmx 250 mg In Dextrose/ Water 1 50ml.bag @ 50 mls /hr IVPB Q24H [facility] Rx#: [id number] Magnesium Sulfate-D5w Pmx 100 1 gm In Dextrose/Water 1 100ml.bag @ 100 mls/hr IVPB ONCE ONE Rx#: [id number] Piperacillin-Tazobactam 3 75.0 50 .375 gm In Dextrose/Water 1 50ml.bag @ 12.5 mls/hr IVPB Q12HR [facility] Rx#: [id number] Propofol 500 mg In Empty 113.936 182.687 72.717 Bag 1 bag @ Titrate IV . Q0M [facility] Rx#:[id number] Sodium Chloride 0.9% 1, 140 000 ml @ 100 mls/hr IV . Q10H [facility] Rx#:[id number] Sodium Chloride 0.9% 1, 100 000 ml @ 50 mls/hr IV . Q20H [facility] Rx#:[id number] Sodium Chloride 0.9% 500 500 ml @ 999 mls/hr IV .Q31M ONE Rx#:[id number] Output: Gastric Drainage 150 350 Urine 42 30 10 Other: Voiding Method Indwelling Catheter Indwelling Catheter ABP, PAP, CO, CI - Last Documented Arterial Blood Pressure 173/63 - Labs CBC & Chem 7: 08/01/16 04:40 08/01/16 04:40 Labs: Abnormal Lab Results - Last 24 Hours (Table) 07/30/16 07/31/16 07/31/16 Range/Units 23:50 11:31 12:08 RBC (4.30-5.90) m/uL Hgb (13.0-17.5) gm/dL Hct (39.0-53.0) % Lymphocytes # (1.0-4.8) k/uL ABG pH 7.46 H (7.35-7.45) ABG pCO2 26 L (35-45) mmHg ABG HCO3 18 L (21-25) mmol/L ABG Total CO2 (19-24) mmol/L ABG O2 Saturation 98.0 H (94-97) % BUN (9-20) mg/dL Creatinine (0.66-1.25) mg/dL Glucose (74-99) mg/dL POC Glucose (mg/dL) 116 H (75-99) mg/dL Plasma Lactic Acid Brandon (0.7-2.0) mmol/L Calcium (8.4-10.2) mg/dL Total Protein (6.3-8.2) g/dL Albumin (3.5-5.0) g/dL Urine Protein 1+ H (Negative) Urine Blood Trace H (Negative) 07/31/16 07/31/16 07/31/16 Range/Units 12:09 13:20 14:22 RBC (4.30-5.90) m/uL Hgb (13.0-17.5) gm/dL Hct (39.0-53.0) % Lymphocytes # (1.0-4.8) k/uL ABG pH (7.35-7.45) ABG pCO2 (35-45) mmHg ABG HCO3 (21-25) mmol/L ABG Total CO2 (19-24) mmol/L ABG O2 Saturation (94-97) % BUN (9-20) mg/dL Creatinine (0.66-1.25) mg/dL Glucose (74-99) mg/dL POC Glucose (mg/dL) 127 H 112 H 118 H (75-99) mg/dL Plasma Lactic Acid Brandon (0.7-2.0) mmol/L Calcium (8.4-10.2) mg/dL Total Protein (6.3-8.2) g/dL Albumin (3.5-5.0) g/dL Urine Protein (Negative) Urine Blood (Negative) 07/31/16 07/31/16 07/31/16 Range/Units 16:34 18:19 18:19 RBC (4.30-5.90) m/uL Hgb (13.0-17.5) gm/dL Hct (39.0-53.0) % Lymphocytes # (1.0-4.8) k/uL ABG pH (7.35-7.45) ABG pCO2 (35-45) mmHg ABG HCO3 (21-25) mmol/L ABG Total CO2 (19-24) mmol/L ABG O2 Saturation (94-97) % BUN 39 H (9-20) mg/dL Creatinine 4.29 H (0.66-1.25) mg/dL Glucose 149 H (74-99) mg/dL POC Glucose (mg/dL) 142 H (75-99) mg/dL Plasma Lactic Acid Brandon 3.6 H* (0.7-2.0) mmol/L Calcium 7.7 L (8.4-10.2) mg/dL Total Protein (6.3-8.2) g/dL Albumin (3.5-5.0) g/dL Urine Protein (Negative) Urine Blood (Negative) 07/31/16 07/31/16 08/01/16 Range/Units 21:37 21:59 03:46 RBC (4.30-5.90) m/uL Hgb (13.0-17.5) gm/dL Hct (39.0-53.0) % Lymphocytes # (1.0-4.8) k/uL ABG pH (7.35-7.45) ABG pCO2 (35-45) mmHg ABG HCO3 (21-25) mmol/L ABG Total CO2 (19-24) mmol/L ABG O2 Saturation (94-97) % BUN (9-20) mg/dL Creatinine (0.66-1.25) mg/dL Glucose (74-99) mg/dL POC Glucose (mg/dL) 140 H 121 H (75-99) mg/dL Plasma Lactic Acid Brandon 4.1 H* (0.7-2.0) mmol/L Calcium (8.4-10.2) mg/dL Total Protein (6.3-8.2) g/dL Albumin (3.5-5.0) g/dL Urine Protein (Negative) Urine Blood (Negative) 08/01/16 08/01/16 08/01/16 Range/Units 04:40 04:40 08:04 RBC 3.51 L (4.30-5.90) m/uL Hgb 11.0 L (13.0-17.5) gm/dL Hct 32.5 L (39.0-53.0) % Lymphocytes # 0.8 L (1.0-4.8) k/uL ABG pH 7.50 H (7.35-7.45) ABG pCO2 33 L (35-45) mmHg ABG HCO3 (21-25) mmol/L ABG Total CO2 26 H (19-24) mmol/L ABG O2 Saturation 98.0 H (94-97) % BUN 46 H (9-20) mg/dL Creatinine 5.53 H* (0.66-1.25) mg/dL Glucose 122 H (74-99) mg/dL POC Glucose (mg/dL) (75-99) mg/dL Plasma Lactic Acid Brandon (0.7-2.0) mmol/L Calcium 7.4 L (8.4-10.2) mg/dL Total Protein 4.9 L (6.3-8.2) g/dL Albumin 2.6 L (3.5-5.0) g/dL Urine Protein (Negative) Urine Blood (Negative) 08/01/16 Range/Units 08:54 RBC (4.30-5.90) m/uL Hgb (13.0-17.5) gm/dL Hct (39.0-53.0) % Lymphocytes # (1.0-4.8) k/uL ABG pH (7.35-7.45) ABG pCO2 (35-45) mmHg ABG HCO3 (21-25) mmol/L ABG Total CO2 (19-24) mmol/L ABG O2 Saturation (94-97) % BUN (9-20) mg/dL Creatinine (0.66-1.25) mg/dL Glucose (74-99) mg/dL POC Glucose (mg/dL) 133 H (75-99) mg/dL Plasma Lactic Acid Brandon (0.7-2.0) mmol/L Calcium (8.4-10.2) mg/dL Total Protein (6.3-8.2) g/dL Albumin (3.5-5.0) g/dL Urine Protein (Negative) Urine Blood (Negative) Microbiology - Last 24 Hours (Table) 07/30/16 22:38 Blood Culture - Preliminary Blood No Growth after 24 hours 07/31/16 05:00 Gram Stain - Preliminary Sputum Sputum Culture - Preliminary 07/30/16 23:50 Urine Culture - Preliminary Urine,Catheterized Assessment and Plan Plan: Assessment: #1. Oliguric acute kidney injury secondary to ischemic ATN secondary to hemodynamic instability as well as emesis. Baseline creatinine is 1 and elevated at 5.5 today. Urinalysis is quite benign and there is no evidence of hydronephrosis noted on CAT scan. Alcohol levels noted to be negative. #2. Severe metabolic acidosis secondary to acute kidney injury and lactic acidosis. Blood sugars are stable. No evidence of alcohol toxicities. #3. Atrial fibrillation. Now rate controlled. #4. Lactic acidosis most likely due to hypoperfusion. No evidence of hypoxia or ischemic bowel findings on CAT scan. #5. Hyperkalemia secondary to acute kidney injury and metabolic acidosis. Improved. #6. Hypernatremia secondary to lack of oral water intake and dehydration. Resolved. Plan: Discontinue sodium bicarbonate drip. Start 0.9 saline to be run at 50 mL an hour for maintenance fluids. Tube feeds to be started today. Bolus with 0.9 saline as needed Strict I's and O's. Maintain Brody catheter. Follow-up cultures. Recommend holding off on diuretics for now as it may worsen the tubular injury. Consult vascular surgery for dialysis access - will schedule for first treatment of hemodialysis today.
--- NOTE | 2016-08-01 10:48 | P.PN ---
Subjective Principal diagnosis: sepsis possible ischemic bowel GI bleed renal failure 76-year-old male admitted with confusion, A. fib with RVR, and acidosis requiring intubation. Questionable suicide attempt. History of suicide attempts. Reevaluated today in regards to coffee-ground emesis on admission. Hemoglobin 11.0. Nurse reports no episodes of hematemesis, hematochezia, or melena. NG tube with bilious fluid. Creatinine worsening with minimal urine output. Dialysis catheter insertion scheduled today. Objective - Vital Signs Vital signs: Vital Signs Temp 99.1 F 08/01/16 08:00 Pulse 111 H 08/01/16 08:30 Resp 21 08/01/16 08:00 BP 128/49 08/01/16 08:00 Pulse Ox 98 08/01/16 08:00 Intake & Output 07/31/16 08/01/16 08/01/16 18:59 06:59 18:59 Intake Total 93 1682.687 372.717 Output Total 192 380 10 Balance 1955.581 3042.687 362.717 Weight 94 kg Intake: IV 100 Dextrose 5% in Water 1, 100 000 ml @ 100 mls/hr IV . [id number] [facility] with Sodium Bicarb (1 Meq/ml) 150 ml Rx#:[id number] Intake, IV Titration 1682.687 272.717 Amount Dextrose 5% in Water 1, 1175 1200 100 000 ml @ 100 mls/hr IV . [id number] [facility] with Sodium Bicarb (1 Meq/ml) 150 ml Rx#:[id number] Fomepizole 1.3 gm In 100 Sodium Chloride 0.9% 100 ml @ 200 mls/hr IV ONCE ONE Rx#:[id number] Levofloxacin 250Mg-D5w 50 Pmx 250 mg In Dextrose/ Water 1 50ml.bag @ 50 mls /hr IVPB Q24H [facility] Rx#: [id number] Magnesium Sulfate-D5w Pmx 100 1 gm In Dextrose/Water 1 100ml.bag @ 100 mls/hr IVPB ONCE ONE Rx#: [id number] Piperacillin-Tazobactam 3 75.0 50 .375 gm In Dextrose/Water 1 50ml.bag @ 12.5 mls/hr IVPB Q12HR [facility] Rx#: [id number] Propofol 500 mg In Empty 113.936 182.687 72.717 Bag 1 bag @ Titrate IV . Q0M [facility] Rx#:[id number] Sodium Chloride 0.9% 1, 140 000 ml @ 100 mls/hr IV . Q10H [facility] Rx#:[id number] Sodium Chloride 0.9% 1, 100 000 ml @ 50 mls/hr IV . Q20H [facility] Rx#:[id number] Sodium Chloride 0.9% 500 500 ml @ 999 mls/hr IV .Q31M [facility] Rx#:[id number] Output: Gastric Drainage 150 350 Urine 42 30 10 Other: Voiding Method Indwelling Catheter Indwelling Catheter ABP, PAP, CO, CI - Last Documented Arterial Blood Pressure 173/63 - Exam General appearance: Sedated intubated HET: Head is normocephalic and atraumatic. Pupils are equal and reactive. Oropharynx is clear without lesions. Endotracheal tube intact. Gastric tube with bilious fluid. Neck: Supple without lymphadenopathy. Trachea midline. Heart: S1 S2. Lungs: No crackles or wheezes are heard. Abdomen: Soft, mildly bloated with hypoactive bowel sounds. No peritoneal signs. No palpable organomegaly or masses. Extremities: Normal skin color and turgor. No cyanosis, rash, ulceration, clubbing, or edema. Radial and pedal pulses are 2/4 bilaterally. Brody with minimal dom urine. Neurological: Sedated. - Labs CBC & Chem 7: 08/01/16 04:40 08/01/16 04:40 Labs: Abnormal Lab Results - Last 24 Hours (Table) 07/30/16 07/31/16 07/31/16 Range/Units 23:50 11:31 12:08 RBC (4.30-5.90) m/uL Hgb (13.0-17.5) gm/dL Hct (39.0-53.0) % Lymphocytes # (1.0-4.8) k/uL ABG pH 7.46 H (7.35-7.45) ABG pCO2 26 L (35-45) mmHg ABG HCO3 18 L (21-25) mmol/L ABG Total CO2 (19-24) mmol/L ABG O2 Saturation 98.0 H (94-97) % BUN (9-20) mg/dL Creatinine (0.66-1.25) mg/dL Glucose (74-99) mg/dL POC Glucose (mg/dL) 116 H (75-99) mg/dL Plasma Lactic Acid Brandon (0.7-2.0) mmol/L Calcium (8.4-10.2) mg/dL Total Protein (6.3-8.2) g/dL Albumin (3.5-5.0) g/dL Urine Protein 1+ H (Negative) Urine Blood Trace H (Negative) 07/31/16 07/31/16 07/31/16 Range/Units 12:09 13:20 14:22 RBC (4.30-5.90) m/uL Hgb (13.0-17.5) gm/dL Hct (39.0-53.0) % Lymphocytes # (1.0-4.8) k/uL ABG pH (7.35-7.45) ABG pCO2 (35-45) mmHg ABG HCO3 (21-25) mmol/L ABG Total CO2 (19-24) mmol/L ABG O2 Saturation (94-97) % BUN (9-20) mg/dL Creatinine (0.66-1.25) mg/dL Glucose (74-99) mg/dL POC Glucose (mg/dL) 127 H 112 H 118 H (75-99) mg/dL Plasma Lactic Acid Brandon (0.7-2.0) mmol/L Calcium (8.4-10.2) mg/dL Total Protein (6.3-8.2) g/dL Albumin (3.5-5.0) g/dL Urine Protein (Negative) Urine Blood (Negative) 07/31/16 07/31/16 07/31/16 Range/Units 16:34 18:19 18:19 RBC (4.30-5.90) m/uL Hgb (13.0-17.5) gm/dL Hct (39.0-53.0) % Lymphocytes # (1.0-4.8) k/uL ABG pH (7.35-7.45) ABG pCO2 (35-45) mmHg ABG HCO3 (21-25) mmol/L ABG Total CO2 (19-24) mmol/L ABG O2 Saturation (94-97) % BUN 39 H (9-20) mg/dL Creatinine 4.29 H (0.66-1.25) mg/dL Glucose 149 H (74-99) mg/dL POC Glucose (mg/dL) 142 H (75-99) mg/dL Plasma Lactic Acid Brandon 3.6 H* (0.7-2.0) mmol/L Calcium 7.7 L (8.4-10.2) mg/dL Total Protein (6.3-8.2) g/dL Albumin (3.5-5.0) g/dL Urine Protein (Negative) Urine Blood (Negative) 07/31/16 07/31/16 08/01/16 Range/Units 21:37 21:59 03:46 RBC (4.30-5.90) m/uL Hgb (13.0-17.5) gm/dL Hct (39.0-53.0) % Lymphocytes # (1.0-4.8) k/uL ABG pH (7.35-7.45) ABG pCO2 (35-45) mmHg ABG HCO3 (21-25) mmol/L ABG Total CO2 (19-24) mmol/L ABG O2 Saturation (94-97) % BUN (9-20) mg/dL Creatinine (0.66-1.25) mg/dL Glucose (74-99) mg/dL POC Glucose (mg/dL) 140 H 121 H (75-99) mg/dL Plasma Lactic Acid Brandon 4.1 H* (0.7-2.0) mmol/L Calcium (8.4-10.2) mg/dL Total Protein (6.3-8.2) g/dL Albumin (3.5-5.0) g/dL Urine Protein (Negative) Urine Blood (Negative) 08/01/16 08/01/16 08/01/16 Range/Units 04:40 04:40 08:04 RBC 3.51 L (4.30-5.90) m/uL Hgb 11.0 L (13.0-17.5) gm/dL Hct 32.5 L (39.0-53.0) % Lymphocytes # 0.8 L (1.0-4.8) k/uL ABG pH 7.50 H (7.35-7.45) ABG pCO2 33 L (35-45) mmHg ABG HCO3 (21-25) mmol/L ABG Total CO2 26 H (19-24) mmol/L ABG O2 Saturation 98.0 H (94-97) % BUN 46 H (9-20) mg/dL Creatinine 5.53 H* (0.66-1.25) mg/dL Glucose 122 H (74-99) mg/dL POC Glucose (mg/dL) (75-99) mg/dL Plasma Lactic Acid Brandon (0.7-2.0) mmol/L Calcium 7.4 L (8.4-10.2) mg/dL Total Protein 4.9 L (6.3-8.2) g/dL Albumin 2.6 L (3.5-5.0) g/dL Urine Protein (Negative) Urine Blood (Negative) 08/01/16 Range/Units 08:54 RBC (4.30-5.90) m/uL Hgb (13.0-17.5) gm/dL Hct (39.0-53.0) % Lymphocytes # (1.0-4.8) k/uL ABG pH (7.35-7.45) ABG pCO2 (35-45) mmHg ABG HCO3 (21-25) mmol/L ABG Total CO2 (19-24) mmol/L ABG O2 Saturation (94-97) % BUN (9-20) mg/dL Creatinine (0.66-1.25) mg/dL Glucose (74-99) mg/dL POC Glucose (mg/dL) 133 H (75-99) mg/dL Plasma Lactic Acid Brandon (0.7-2.0) mmol/L Calcium (8.4-10.2) mg/dL Total Protein (6.3-8.2) g/dL Albumin (3.5-5.0) g/dL Urine Protein (Negative) Urine Blood (Negative) Microbiology - Last 24 Hours (Table) 07/30/16 22:38 Blood Culture - Preliminary Blood No Growth after 24 hours 07/31/16 05:00 Gram Stain - Preliminary Sputum Sputum Culture - Preliminary 07/30/16 23:50 Urine Culture - Preliminary Urine,Catheterized Assessment and Plan Plan: 1. Acute upper GI bleed with coffee-ground gastric fluid possible gastritis possible peptic ulcer disease possible ischemia. 2. Possible Sepsis with leukocytosis, metabolic acidosis possible ischemic bowel. 3. Atrial fibrillation with RVR. 4. History of multiple suicide attempts. 5. Acute kidney injury. 6. Elevated lactic acid. Continue IV Protonix 40 mg twice daily. Case was discussed with surgery Dr. Yuen this morning no plans to proceed with EGD at this time. General surgery following closely. Continue to monitor CBC. Supportive measures. We'll follow as needed. Assessment and plan a care discussed with Dr. Ray
[2016-08-01] MEDS: SODIUM CHLORIDE 0.9% 1,000 ML IV SCH (11:02)
[2016-08-01] MEDS ORDERED: PROPOFOL 150 ML IV ONE (11:02)
--- NOTE | 2016-08-01 11:40 | P.PN ---
Subjective Principal diagnosis: Bowel ischemia Patient doing much better on the ventilator at this time. His sedation was held and the patient was arousable. He denied abdominal pain. Urine function is still poor and they are discussing possible dialysis today. His lactic acidosis is much improved. Toxicology workup remains negative at this time. Objective - Vital Signs Vital signs: Vital Signs Temp 100.4 F H 08/01/16 11:00 Pulse 107 H 08/01/16 11:31 Resp 28 H 08/01/16 11:00 BP 144/63 08/01/16 11:00 Pulse Ox 95 08/01/16 11:00 Intake & Output 07/31/16 08/01/16 08/01/16 18:59 06:59 18:59 Intake Total 1682.687 373.789 Output Total 192 380 110 Balance 1515.217 1958.687 263.789 Weight 94 kg 94 kg Intake: IV 100 Dextrose 5% in Water 1, 100 000 ml @ 100 mls/hr IV . [id number] [facility] with Sodium Bicarb (1 Meq/ml) 150 ml Rx#:[id number] Intake, IV Titration 1682.687 273.789 Amount Dextrose 5% in Water 1, 1175 1200 100 000 ml @ 100 mls/hr IV . [id number] [facility] with Sodium Bicarb (1 Meq/ml) 150 ml Rx#:[id number] Fomepizole 1.3 gm In 100 Sodium Chloride 0.9% 100 ml @ 200 mls/hr IV ONCE ONE Rx#:[id number] Levofloxacin 250Mg-D5w 50 Pmx 250 mg In Dextrose/ Water 1 50ml.bag @ 50 mls /hr IVPB Q24H [facility] Rx#: [id number] Magnesium Sulfate-D5w Pmx 100 1 gm In Dextrose/Water 1 100ml.bag @ 100 mls/hr IVPB ONCE ONE Rx#: [id number] Piperacillin-Tazobactam 3 75.0 50 .375 gm In Dextrose/Water 1 50ml.bag @ 12.5 mls/hr IVPB Q12HR [facility] Rx#: [id number] Propofol 500 mg In Empty 113.936 182.687 73.789 Bag 1 bag @ Titrate IV . Q0M [facility] Rx#:[id number] Sodium Chloride 0.9% 1, 140 000 ml @ 100 mls/hr IV . Q10H [facility] Rx#:[id number] Sodium Chloride 0.9% 1, 100 000 ml @ 50 mls/hr IV . Q20H [facility] Rx#:[id number] Sodium Chloride 0.9% 500 500 ml @ 999 mls/hr IV .Q31M [facility] Rx#:[id number] Output: Gastric Drainage 150 350 Urine 42 30 10 Emesis 100 Other: Voiding Method Indwelling Catheter Indwelling Catheter ABP, PAP, CO, CI - Last Documented Arterial Blood Pressure 159/64 - Exam Abdomen: Soft, nondistended, no appreciable tenderness, bowel sounds slightly diminished - Labs CBC & Chem 7: 08/01/16 04:40 08/01/16 04:40 Labs: Abnormal Lab Results - Last 24 Hours (Table) 07/30/16 07/31/16 07/31/16 Range/Units 23:50 12:08 12:09 RBC (4.30-5.90) m/uL Hgb (13.0-17.5) gm/dL Hct (39.0-53.0) % Lymphocytes # (1.0-4.8) k/uL ABG pH 7.46 H (7.35-7.45) ABG pCO2 26 L (35-45) mmHg ABG HCO3 18 L (21-25) mmol/L ABG Total CO2 (19-24) mmol/L ABG O2 Saturation 98.0 H (94-97) % BUN (9-20) mg/dL Creatinine (0.66-1.25) mg/dL Glucose (74-99) mg/dL POC Glucose (mg/dL) 127 H (75-99) mg/dL Plasma Lactic Acid Brandon (0.7-2.0) mmol/L Calcium (8.4-10.2) mg/dL Total Protein (6.3-8.2) g/dL Albumin (3.5-5.0) g/dL Urine Protein 1+ H (Negative) Urine Blood Trace H (Negative) 07/31/16 07/31/16 07/31/16 Range/Units 13:20 14:22 16:34 RBC (4.30-5.90) m/uL Hgb (13.0-17.5) gm/dL Hct (39.0-53.0) % Lymphocytes # (1.0-4.8) k/uL ABG pH (7.35-7.45) ABG pCO2 (35-45) mmHg ABG HCO3 (21-25) mmol/L ABG Total CO2 (19-24) mmol/L ABG O2 Saturation (94-97) % BUN (9-20) mg/dL Creatinine (0.66-1.25) mg/dL Glucose (74-99) mg/dL POC Glucose (mg/dL) 112 H 118 H 142 H (75-99) mg/dL Plasma Lactic Acid Brandon (0.7-2.0) mmol/L Calcium (8.4-10.2) mg/dL Total Protein (6.3-8.2) g/dL Albumin (3.5-5.0) g/dL Urine Protein (Negative) Urine Blood (Negative) 07/31/16 07/31/16 07/31/16 Range/Units 18:19 18:19 21:37 RBC (4.30-5.90) m/uL Hgb (13.0-17.5) gm/dL Hct (39.0-53.0) % Lymphocytes # (1.0-4.8) k/uL ABG pH (7.35-7.45) ABG pCO2 (35-45) mmHg ABG HCO3 (21-25) mmol/L ABG Total CO2 (19-24) mmol/L ABG O2 Saturation (94-97) % BUN 39 H (9-20) mg/dL Creatinine 4.29 H (0.66-1.25) mg/dL Glucose 149 H (74-99) mg/dL POC Glucose (mg/dL) (75-99) mg/dL Plasma Lactic Acid Brandon 3.6 H* 4.1 H* (0.7-2.0) mmol/L Calcium 7.7 L (8.4-10.2) mg/dL Total Protein (6.3-8.2) g/dL Albumin (3.5-5.0) g/dL Urine Protein (Negative) Urine Blood (Negative) 07/31/16 08/01/16 08/01/16 Range/Units 21:59 03:46 04:40 RBC 3.51 L (4.30-5.90) m/uL Hgb 11.0 L (13.0-17.5) gm/dL Hct 32.5 L (39.0-53.0) % Lymphocytes # 0.8 L (1.0-4.8) k/uL ABG pH (7.35-7.45) ABG pCO2 (35-45) mmHg ABG HCO3 (21-25) mmol/L ABG Total CO2 (19-24) mmol/L ABG O2 Saturation (94-97) % BUN (9-20) mg/dL Creatinine (0.66-1.25) mg/dL Glucose (74-99) mg/dL POC Glucose (mg/dL) 140 H 121 H (75-99) mg/dL Plasma Lactic Acid Brandon (0.7-2.0) mmol/L Calcium (8.4-10.2) mg/dL Total Protein (6.3-8.2) g/dL Albumin (3.5-5.0) g/dL Urine Protein (Negative) Urine Blood (Negative) 08/01/16 08/01/16 08/01/16 Range/Units 04:40 08:04 08:54 RBC (4.30-5.90) m/uL Hgb (13.0-17.5) gm/dL Hct (39.0-53.0) % Lymphocytes # (1.0-4.8) k/uL ABG pH 7.50 H (7.35-7.45) ABG pCO2 33 L (35-45) mmHg ABG HCO3 (21-25) mmol/L ABG Total CO2 26 H (19-24) mmol/L ABG O2 Saturation 98.0 H (94-97) % BUN 46 H (9-20) mg/dL Creatinine 5.53 H* (0.66-1.25) mg/dL Glucose 122 H (74-99) mg/dL POC Glucose (mg/dL) 133 H (75-99) mg/dL Plasma Lactic Acid Brandon (0.7-2.0) mmol/L Calcium 7.4 L (8.4-10.2) mg/dL Total Protein 4.9 L (6.3-8.2) g/dL Albumin 2.6 L (3.5-5.0) g/dL Urine Protein (Negative) Urine Blood (Negative) [facility] - Last 24 Hours (Table) 07/30/16 22:38 Blood Culture - Preliminary Blood No Growth after 24 hours 07/31/16 05:00 Gram Stain - Preliminary Sputum Sputum Culture - Preliminary 07/30/16 23:50 Urine Culture - Preliminary Urine,Catheterized Assessment and Plan (1) Ischemia, bowel Narrative/Plan: Case discussed with pulmonary. Agree that shower emboli may be a reasonable explanation for the patient's presentation. Clinically the patient seems to have responded quite well. His abdominal exam is benign. We discussed the options of a mesenteric angiogram but with the kidney function would like to avoid any nephrotoxicity. Also discussed the options of a diagnostic laparoscopy however given the patient's rapid improvement Will continue to follow his abdomen with clinical exam. We'll follow closely with you. Status: Acute
--- NOTE | 2016-08-01 12:25 | P.PN ---
Subjective Principal diagnosis: Acute respiratory failure and acute metabolic lactic acidosis. This is a 76-year-old white male with history of multiple medical problems including severe depression, previous multiple suicidal attempts, chronic atrial fibrillation, diverticulosis, anxiety, patient presented to the ER yesterday with mostly symptoms of acute slurred speech and dizziness. His was concerned, and she brought him into the ER. CT of the brain was unremarkable. Echocardiogram was done and results are pending. However shortly after the patient arrived to the cardiac floor, he was noted to have increased shortness of breath, and he was showing significant metabolic acidosis /lactic acidosis based on his ABG. Patient was transferred to the ICU, and a genny You was notified about his ABG, I recommended immediate intubation of the patient. Patient was intubated, placed on mechanical ventilation, and he went on to develop worsening metabolic lactic acidosis. Hence I raised the possibility of ischemic bowel, abdominal sepsis, salicylate overdose, ethylene glycol toxicity, however I was mostly concerned about the possibility of bowel ischemia and abdominal sepsis. Patient had a CT of the abdomen and pelvis yesterday, and this was done with oral contrast, it showed some perinephric stranding, but no evidence of changes in the bowel to suggest ischemia. Upon arrival to the ICU, a nasogastric tube was placed because his abdomen was distended, and there was a significant amount of coffee-ground material suctioned from the stomach. Hemoglobin was noted to be 12.8, 2 g lower compared to admission hemoglobin. His lactic acid was as high as 10 yesterday, but it is 5.7 today. Patient was given multiple fluid boluses he received almost 5 L of fluids overnight. Patient was placed on a sodium bicarb drip, broad-spectrum antibiotics, urine was sent for calcium oxalate crystals, ethylene glycol level was ordered, salicylate level was ordered, however his osmolar gap was noted to be minimal, hence that practically rules out the possibility of ethylene glycol toxicity. In the meantime the patient remains on antibiotics, bronchodilators, sodium bicarb drip, and fluids. He was seen by nephrology on consultation, general surgery on consultation, and he is to be seen by infectious disease on consultation. Cultures at this point remain negative. And workup is still pending. Patient did not demonstrate any hemodynamic instability throughout the whole process, he never demonstrated any hypoxia during this process, urine output is very poor, hoping it will improve as we correct his metabolic acidosis. And I will suggest possibly a Lasix challenge was acidosis improves. Labs this morning were reviewed WBC count is down from 28-17.0. His ABG showed significant improvement with a pO2 of 109 pCO2 of 27 pH of 7.29 remind you his pH was less than 7 before intubation. Bicarb level this morning was 7 BUN is 27 creatinine is 3.20 blood sugar is 226. Measured serum osmolality was 320, calculated serum osmolality was 316. Lactic acid is down this morning to 5.7. Salicylate level was less than 1.0, and drug screen was negative. The urinalysis is relatively unremarkable and no evidence of pyuria or bacteriuria. The echocardiogram was also unremarkable, no evidence of thrombus. CT of the brain was unremarkable carotid Doppler was also unremarkable. Patient was reevaluated today on 08/01/2016, he remains hemodynamically stable, not requiring any pressors. Remains on mechanical ventilation, his rate was cut down to 14, tidal volume remains at 500, FiO2 is down to 50%. PEEP is at 5. ABG this morning showed a pO2 of 95 pCO2 of 33 pH of 7.50 hence the patient will be off bicarb drip today. And this was discontinued. CBC is relatively unremarkable hemoglobin is 11.0. His renal profile shows significant worsening with a BUN up to 46 and creatinine is 5.53. Patient remains oliguric and no response to Lasix challenges. Hence he is being considered for dialysis as per nephrology on the case. Briefly, the patient was given a sedation holiday, and he seemed to be very appropriate, and no focal neurologic deficit was noted while he was off propofol. I plan to eventually weaned and extubated the patient, however I would like his renal status to be addressed prior to any extubation trial since the patient is oliguric. Cultures remain negative. Sputum only showed some Jerilyn. But cultures are negative so far. I am still convinced that the patient must have had an episode of ischemic bowel related to his atrial fibrillation, may have also showered his kidneys with small tiny emboli. Patient is now on Lovenox, at a modified dose because of his renal status and because of his episode of upper GI bleeding. Could not fully heparinize the patient. Objective - Vital Signs Vital signs: Vital Signs Temp 100.4 F H 08/01/16 11:00 Pulse 112 H 08/01/16 12:00 Resp 26 H 08/01/16 12:00 BP 129/54 08/01/16 12:00 Pulse Ox 97 08/01/16 12:00 Intake & Output 07/31/16 08/01/16 08/01/16 18:59 06:59 18:59 Intake Total 1682.687 473.789 Output Total 192 380 110 Balance 5877.333 9166.687 363.789 Weight 94 kg 94 kg Intake: IV 100 Dextrose 5% in Water 1, 100 000 ml @ 100 mls/hr IV . [id number] [facility] with Sodium Bicarb (1 Meq/ml) 150 ml Rx#:[id number] Intake, IV Titration 1682.687 373.789 Amount Dextrose 5% in Water 1, 1175 1200 100 000 ml @ 100 mls/hr IV . [id number] [facility] with Sodium Bicarb (1 Meq/ml) 150 ml Rx#:[id number] Fomepizole 1.3 gm In 100 Sodium Chloride 0.9% 100 ml @ 200 mls/hr IV ONCE ONE Rx#:[id number] Levofloxacin 250Mg-D5w 50 Pmx 250 mg In Dextrose/ Water 1 50ml.bag @ 50 mls /hr IVPB Q24H [facility] Rx#: [id number] Magnesium Sulfate-D5w Pmx 100 1 gm In Dextrose/Water 1 100ml.bag @ 100 mls/hr IVPB ONCE ONE Rx#: [id number] Piperacillin-Tazobactam 3 75.0 50 .375 gm In Dextrose/Water 1 50ml.bag @ 12.5 mls/hr IVPB Q12HR [facility] Rx#: [id number] Propofol 500 mg In Empty 113.936 182.687 73.789 Bag 1 bag @ Titrate IV . Q0M [facility] Rx#:[id number] Sodium Chloride 0.9% 1, 140 000 ml @ 100 mls/hr IV . Q10H [facility] Rx#:[id number] Sodium Chloride 0.9% 1, 200 000 ml @ 50 mls/hr IV . Q20H [facility] Rx#:[id number] Sodium Chloride 0.9% 500 500 ml @ 999 mls/hr IV .Q31M [facility] Rx#:[id number] Output: Gastric Drainage 150 350 Urine 42 30 10 Emesis 100 Other: Voiding Method Indwelling Catheter Indwelling Catheter Indwelling Catheter ABP, PAP, CO, CI - Last Documented Arterial Blood Pressure 156/63 - Exam eneral appearance: The intubated sedated. Endotracheal tube is intact. Nasogastric tube is also intact. HET: Head is normocephalic and atraumatic. Pupils are equal and reactive. Oropharynx is clear without lesions. Gastric tube with dark bilious fluid. Neck: Supple without lymphadenopathy. Trachea midline. Heart: S1 S2. Lungs: No crackles or wheezes are heard. Abdomen: Soft, nontender, nondistended with bowel sounds. No peritoneal signs. No palpable organomegaly or masses. Extremities: Normal skin color and turgor. No cyanosis, rash, ulceration, clubbing, or edema. Radial and pedal pulses are 2/4 bilaterally. Brody with dom urine. Neurological: Sedated., But when the sedation was placed on hold, patient was neurologically intact and appropriate according to the nurse taking care of him. - Labs CBC & Chem 7: 08/01/16 04:40 08/01/16 04:40 Labs: Abnormal Lab Results - Last 24 Hours (Table) 07/31/16 07/31/16 07/31/16 Range/Units 12:08 13:20 14:22 RBC (4.30-5.90) m/uL Hgb (13.0-17.5) gm/dL Hct (39.0-53.0) % Lymphocytes # (1.0-4.8) k/uL ABG pH 7.46 H (7.35-7.45) ABG pCO2 26 L (35-45) mmHg ABG HCO3 18 L (21-25) mmol/L ABG Total CO2 (19-24) mmol/L ABG O2 Saturation 98.0 H (94-97) % BUN (9-20) mg/dL Creatinine (0.66-1.25) mg/dL Glucose (74-99) mg/dL POC Glucose (mg/dL) 112 H 118 H (75-99) mg/dL Plasma Lactic Acid Brandon (0.7-2.0) mmol/L Calcium (8.4-10.2) mg/dL Total Protein (6.3-8.2) g/dL Albumin (3.5-5.0) g/dL 07/31/16 07/31/16 07/31/16 Range/Units 16:34 18:19 18:19 RBC (4.30-5.90) m/uL Hgb (13.0-17.5) gm/dL Hct (39.0-53.0) % Lymphocytes # (1.0-4.8) k/uL ABG pH (7.35-7.45) ABG pCO2 (35-45) mmHg ABG HCO3 (21-25) mmol/L ABG Total CO2 (19-24) mmol/L ABG O2 Saturation (94-97) % BUN 39 H (9-20) mg/dL Creatinine 4.29 H (0.66-1.25) mg/dL Glucose 149 H (74-99) mg/dL POC Glucose (mg/dL) 142 H (75-99) mg/dL Plasma Lactic Acid Brandon 3.6 H* (0.7-2.0) mmol/L Calcium 7.7 L (8.4-10.2) mg/dL Total Protein (6.3-8.2) g/dL Albumin (3.5-5.0) g/dL 07/31/16 07/31/16 08/01/16 Range/Units 21:37 21:59 03:46 RBC (4.30-5.90) m/uL Hgb (13.0-17.5) gm/dL Hct (39.0-53.0) % Lymphocytes # (1.0-4.8) k/uL ABG pH (7.35-7.45) ABG pCO2 (35-45) mmHg ABG HCO3 (21-25) mmol/L ABG Total CO2 (19-24) mmol/L ABG O2 Saturation (94-97) % BUN (9-20) mg/dL Creatinine (0.66-1.25) mg/dL Glucose (74-99) mg/dL POC Glucose (mg/dL) 140 H 121 H (75-99) mg/dL Plasma Lactic Acid Brandon 4.1 H* (0.7-2.0) mmol/L Calcium (8.4-10.2) mg/dL Total Protein (6.3-8.2) g/dL Albumin (3.5-5.0) g/dL 0308/01/16 08/01/16 Range/Units 04:40 04:40 08:04 RBC 3.51 L (4.30-5.90) m/uL Hgb 11.0 L (13.0-17.5) gm/dL Hct 32.5 L (39.0-53.0) % Lymphocytes # 0.8 L (1.0-4.8) k/uL ABG pH 7.50 H (7.35-7.45) ABG pCO2 33 L (35-45) mmHg ABG HCO3 (21-25) mmol/L ABG Total CO2 26 H (19-24) mmol/L ABG O2 Saturation 98.0 H (94-97) % BUN 46 H (9-20) mg/dL Creatinine 5.53 H* (0.66-1.25) mg/dL Glucose 122 H (74-99) mg/dL POC Glucose (mg/dL) (75-99) mg/dL Plasma Lactic Acid Brandon (0.7-2.0) mmol/L Calcium 7.4 L (8.4-10.2) mg/dL Total Protein 4.9 L (6.3-8.2) g/dL Albumin 2.6 L (3.5-5.0) g/dL 08/01/16 Range/Units 08:54 RBC (4.30-5.90) m/uL Hgb (13.0-17.5) gm/dL Hct (39.0-53.0) % Lymphocytes # (1.0-4.8) k/uL ABG pH (7.35-7.45) ABG pCO2 (35-45) mmHg ABG HCO3 (21-25) mmol/L ABG Total CO2 (19-24) mmol/L ABG O2 Saturation (94-97) % BUN (9-20) mg/dL Creatinine (0.66-1.25) mg/dL Glucose (74-99) mg/dL POC Glucose (mg/dL) 133 H (75-99) mg/dL Plasma Lactic Acid Brandon (0.7-2.0) mmol/L Calcium (8.4-10.2) mg/dL Total Protein (6.3-8.2) g/dL Albumin (3.5-5.0) g/dL Microbiology - Last 24 Hours (Table) 07/31/16 05:00 Gram Stain - Preliminary Sputum Sputum Culture - Preliminary Jerilyn albicans 07/30/16 22:38 Blood Culture - Preliminary Blood No Growth after 24 hours 07/30/16 23:50 Urine Culture - Preliminary Urine,Catheterized Assessment and Plan Plan: Impression: 1 acute respiratory failure secondary to severe metabolic, lactic acidosis, exact etiology is not clear, but still suspect ischemic bowel or abdominal sepsis. Salicylate poisoning and ethylene glycol poisoning is practically ruled out based on the initial studies done. 2 chronic atrial fibrillation, presently rate seems to be well-controlled. 3 acute presentation of TIA/CVA with negative workup upon presentation. 4 severe lactic acidosis, most likely secondary to sepsis or transient bowel ischemia. 5 acute kidney injury secondary to sepsis. This is also associated with oliguria 6 history of depression and previous suicidal attempts. 7 coffee-ground material via nasogastric tube most likely secondary to erosive gastritis and upper GI bleeding. Recommendation: Continue present supportive care measures, mechanical ventilations, empiric antibiotics, sodium bicarb drip, close monitoring of the renal status. Patient would likely be dialyzed. Blood cultures are negative so far. All workup and different no sputum different consultants were reviewed. Prognosis is definitely poor and guarded. Discussed his condition with all his family members at bedside. We'll address nutritional support today via enteral feeding. Continue GI and DVT prophylaxis. I'm a bit reluctant to start the patient on IV heparin for his atrial fibrillation because of his coffee-ground material noted in the nasogastric tube. However will place the patient on subcu Lovenox. Critical care time is 40 minutes Time with Patient: Greater than 30
[2016-08-01 12:48] LABS: Glucose,Whole Blood 133 mg/dL (75-99)
--- NOTE | 2016-08-01 14:02 | PN ---
Dirk is a 76-year-old gentleman who is admitted to intensive care unit because of mental status changes and slurred speech. He remains in sinus rhythm and is free of symptoms. He is not a candidate for anticoagulation. On exam today he is intubated on vent. Vital signs are stable. Chest exam reveals diminished air entry at the bases. Heart exam reveals first and second heart sounds. No gallop. Exam of extremities reveals trace edema. Labs show a BUN of 56, creatinine of 5.5. Patient will have a dialysis catheter placed. ASSESSMENT: 1. Paroxysmal atrial fibrillation. 2. End-stage renal disease. PLAN: Patient will continue with the current care including amiodarone.
[2016-08-01] MEDS: METOPROLOL TARTRATE 25 MG TAB PO SCH ×2 (14:38→21:57)
[2016-08-01 16:33] LABS: Glucose,Whole Blood 103 mg/dL (75-99)
--- NOTE | 2016-08-01 17:07 | P.PN ---
Subjective Principal diagnosis: Metabolic encephalopathy This is 76-year-old male continue be evaluated by the neurology service for altered mental status. He was brought to [facility] emergency room after a complaint of confusion and slurred speech.. Patient is so CT of the brain showed no acute intracranial abnormalities. A repeat CT was done and showed some small vessel ischemic changes. The, there was no acute abnormality. Carotid Doppler showed 50-69% stenosis in the right internal carotid artery and 50% stenosis of the left internal carotid artery. He was initially admitted to the medical floor but his respiratory condition deteriorated quickly. He is currently in the intensive care unit intubated and sedated. There was some concern over toxic ingestion due to the patient's previous history of suicide attempts. He is currently being evaluated for ischemic bowel disease. He has severe metabolic acidosis. Dialysis has been ordered. Earlier today he was taken off sedation and did fairly well but because of some extreme agitation in some respiratory problems he was recently dated and remains intubated. Thus far as blood in urine culture show no infectious process. There was some jerilyn found in sputum. Objective - Vital Signs Vital signs: Vital Signs Temp 100 F H 08/01/16 14:00 Pulse 98 08/01/16 16:07 Resp 23 08/01/16 15:00 BP 137/51 08/01/16 15:00 Pulse Ox 97 08/01/16 15:00 Intake & Output 07/31/16 08/01/16 08/01/16 18:59 06:59 18:59 Intake Total 1682.687 783.789 Output Total 192 380 125 Balance 4742.521 4168.687 658.789 Weight 94 kg 94 kg Intake: IV 100 Dextrose 5% in Water 1, 100 000 ml @ 100 mls/hr IV . [id number] [facility] with Sodium Bicarb (1 Meq/ml) 150 ml Rx#:[id number] Intake, IV Titration 1682.687 623.789 Amount Dextrose 5% in Water 1, 1175 1200 100 000 ml @ 100 mls/hr IV . [id number] [facility] with Sodium Bicarb (1 Meq/ml) 150 ml Rx#:[id number] Fomepizole 1.3 gm In 100 Sodium Chloride 0.9% 100 ml @ 200 mls/hr IV ONCE ONE Rx#:[id number] Levofloxacin 250Mg-D5w 50 Pmx 250 mg In Dextrose/ Water 1 50ml.bag @ 50 mls /hr IVPB Q24H [facility] Rx#: [id number] Magnesium Sulfate-D5w Pmx 100 1 gm In Dextrose/Water 1 100ml.bag @ 100 mls/hr IVPB ONCE ONE Rx#: [id number] Piperacillin-Tazobactam 3 75.0 50 .375 gm In Dextrose/Water 1 50ml.bag @ 12.5 mls/hr IVPB Q12HR [facility] Rx#: [id number] Propofol 500 mg In Empty 113.936 182.687 123.789 Bag 1 bag @ Titrate IV . Q0M [facility] Rx#:[id number] Sodium Chloride 0.9% 1, 140 000 ml @ 100 mls/hr IV . Q10H [facility] Rx#:[id number] Sodium Chloride 0.9% 1, 400 000 ml @ 50 mls/hr IV . Q20H [facility] Rx#:[id number] Sodium Chloride 0.9% 500 500 ml @ 999 mls/hr IV .Q31M [facility] Rx#:[id number] Tube Feeding 30 Other 30 Output: Gastric Drainage 150 350 Urine 42 30 25 Emesis 100 Other: Voiding Method Indwelling Catheter Indwelling Catheter Indwelling Catheter ABP, PAP, CO, CI - Last Documented Arterial Blood Pressure 134/68 - Constitutional Constitutional Comment(s): Intubated and sedated General appearance: Present: obese - EENT Eyes: Absent: abnormal pupil, ptosis - Neck Neck: Absent: rigidity - Respiratory Respiratory: negative: prolonged expiration, prolonged inspiration - Cardiovascular Rhythm: regular - Gastrointestinal General gastrointestinal: Absent: distended - Neurologic Neurologic Comment(s): The patient is sedated in his ICU bed. Smaller amount of spontaneous movement. No lateralizing weakness was noticed. Plantar reflexes are downgoing bilaterally. No tremor or seizure-like activity seen. There is no obvious facial asymmetry. Brainstem reflexes are intact. - Labs CBC & Chem 7: 08/01/16 04:40 08/01/16 04:40 Labs: Abnormal Lab Results - Last 24 Hours (Table) 07/31/16 07/31/16 07/31/16 Range/Units 18:19 18:19 21:37 RBC (4.30-5.90) m/uL Hgb (13.0-17.5) gm/dL Hct (39.0-53.0) % Lymphocytes # (1.0-4.8) k/uL ABG pH (7.35-7.45) ABG pCO2 (35-45) mmHg ABG Total CO2 (19-24) mmol/L ABG O2 Saturation (94-97) % BUN 39 H (9-20) mg/dL Creatinine 4.29 H (0.66-1.25) mg/dL Glucose 149 H (74-99) mg/dL POC Glucose (mg/dL) (75-99) mg/dL Plasma Lactic Acid Brandon 3.6 H* 4.1 H* (0.7-2.0) mmol/L Calcium 7.7 L (8.4-10.2) mg/dL Total Protein (6.3-8.2) g/dL Albumin (3.5-5.0) g/dL 07/31/16 08/01/16 08/01/16 Range/Units 21:59 03:46 04:40 RBC 3.51 L (4.30-5.90) m/uL Hgb 11.0 L (13.0-17.5) gm/dL Hct 32.5 L (39.0-53.0) % Lymphocytes # 0.8 L (1.0-4.8) k/uL ABG pH (7.35-7.45) ABG pCO2 (35-45) mmHg ABG Total CO2 (19-24) mmol/L ABG O2 Saturation (94-97) % BUN (9-20) mg/dL Creatinine (0.66-1.25) mg/dL Glucose (74-99) mg/dL POC Glucose (mg/dL) 140 H 121 H (75-99) mg/dL Plasma Lactic Acid Brandon (0.7-2.0) mmol/L Calcium (8.4-10.2) mg/dL Total Protein (6.3-8.2) g/dL Albumin (3.5-5.0) g/dL 08/01/16 08/01/16 08/01/16 Range/Units 04:40 08:04 08:54 RBC (4.30-5.90) m/uL Hgb (13.0-17.5) gm/dL Hct (39.0-53.0) % Lymphocytes # (1.0-4.8) k/uL ABG pH 7.50 H (7.35-7.45) ABG pCO2 33 L (35-45) mmHg ABG Total CO2 26 H (19-24) mmol/L ABG O2 Saturation 98.0 H (94-97) % BUN 46 H (9-20) mg/dL Creatinine 5.53 H* (0.66-1.25) mg/dL Glucose 122 H (74-99) mg/dL POC Glucose (mg/dL) 133 H (75-99) mg/dL Plasma Lactic Acid Brandon (0.7-2.0) mmol/L Calcium 7.4 L (8.4-10.2) mg/dL Total Protein 4.9 L (6.3-8.2) g/dL Albumin 2.6 L (3.5-5.0) g/dL 08/01/16 08/01/16 Range/Units 12:47 16:21 RBC (4.30-5.90) m/uL Hgb (13.0-17.5) gm/dL Hct (39.0-53.0) % Lymphocytes # (1.0-4.8) k/uL ABG pH (7.35-7.45) ABG pCO2 (35-45) mmHg ABG Total CO2 (19-24) mmol/L ABG O2 Saturation (94-97) % BUN (9-20) mg/dL Creatinine (0.66-1.25) mg/dL Glucose (74-99) mg/dL POC Glucose (mg/dL) 133 H 103 H (75-99) mg/dL Plasma Lactic Acid Brandon (0.7-2.0) mmol/L Calcium (8.4-10.2) mg/dL Total Protein (6.3-8.2) g/dL Albumin (3.5-5.0) g/dL Microbiology - Last 24 Hours (Table) 07/30/16 23:50 Urine Culture - Final Urine,Catheterized 07/31/16 05:00 Gram Stain - Preliminary Sputum Sputum Culture - Preliminary Jerilyn albicans 07/30/16 22:38 Blood Culture - Preliminary Blood No Growth after 24 hours Assessment and Plan (1) Respiratory failure Status: Acute (2) Acute metabolic encephalopathy Status: Acute (3) Acute renal failure Status: Acute Plan: There is no reason to believe that his initial presentation is due to any ischemic event.continue supportive care and neurological checks. An EEG was done off sedation and we will make further recommendations based on the results. We will continue to follow and evaluate. Continue to evaluate and treat his underlying renal failure.
[2016-08-01 20:52] LABS: Glucose,Whole Blood 90 mg/dL (75-99)
[2016-08-01] MEDS ORDERED: HEPARIN SODIUM,PORCINE 5,000 UNIT/ML 1 ML VIAL ONE (21:00)
[2016-08-01] MEDS: LEVOFLOXACIN 250MG-D5W PMX 250 MG in DEXTROSE/WATER 1 50ML.BAG IVPB SCH (21:59)
--- NOTE | 2016-08-01 22:41 | PN ---
DATE OF SERVICE: 08/01/2016 76-year-old gentleman who was admitted with multiple medical problems and change in mental status and severe acidosis. The patient admitted with possible sepsis, at this time. The cultures are negative so far. Sputum cultures showing Jerilyn albicans. Otherwise negative so far. Acidosis improving because of mechanical ventilation, bicarb drip at this time. The patient is suspected to have mesenteric ischemia at one point but; however, seems to be unlikely per Dr. Yuen's determinations. Otherwise, pH 7.50. The patient is mechanically intubated. Patient also had worsening renal failure, 5.53, dialysis being initiated for the severe acute renal failure, multifactorial in nature. Past medical history reviewed. Review of systems could not be taken, the patient is mechanically intubated. Current Medications are reviewed and include: 1. Cordarone 200 mg p.o. b.i.d. 2. Peridex 15 mL p.o. b.i.d. 3. Lovenox . 4. Humalog scale. 5. Atrovent q.i.d. p.r.n. 6. Xopenex q.i.d. 7. Levaquin 250 mg daily. 8. Lopressor 25 mg p.o. b.i.d. 9. Narcan 0.2 q.2 p.r.n. 10. Zofran 4 mg IV q6h. 11. Protonix 40 mg IV b.i.d. 12. Zosyn 3.375 IV b.i.d. 13. Propofol drip. PHYSICAL EXAMINATION: The patient is a mechanically sedated. Pulse 120, blood pressure 130/71. Respiratory rate 20. Temperature 98.3, pulse ox 97% on 50% mechanical ventilation. HEENT: Conjunctivae normal. NECK: No jugular venous distention. CARDIOVASCULAR SYSTEM: S1, S2 muffled. RESPIRATORY: Breath sounds diminished at the bases. Bilateral scattered rhonchi and crackles. ABDOMEN: Soft, nontender. LEGS: No edema. No swelling. CENTRAL NERVOUS SYSTEM: No focal deficits. Labs are WBC 8.1, Hemoglobin 11. ABGs noted. Creatinine is 5.53. ASSESSMENT: 1. Acute metabolic and lactic acidosis with acute hypoxic respiratory failure, possibly secondary from sepsis undetermined etiology. 2. Rule out aspiration. 3. Chronic obstructive pulmonary disease, acute exacerbation. 4. Change in mental status, toxic metabolic encephalopathy, acute, multifactorial. 5. Acute renal failure with acute tubular necrosis, multifactorial. 6. Possible transient ischemic attack, acute stroke involving the left hemisphere, causing right sided weakness, present on admission. 7. Hypernatremia present on admission. 8. History of severe metabolic acidosis, as well as lactic acidosis present on admission. 9. Hyperchloremia. 10. Increased WBC. 11. Increased MCV. 12. History of atrial fibrillation paroxysmal. 13. History of diverticulitis. 14. History of depression, not otherwise specified. 15. Remote history nicotine dependence. 16. FULL CODE. RECOMMENDATIONS AND DISCUSSION: Recommend to continue the current medications, continue with monitoring, continue symptomatic treatment, continue with empiric antibiotics. Follow cultures further. The patient's antibiotics. Repeat labs. Closely follow with multiple consultants. We will continue mechanical ventilation per Dr. Allen. Discussed with Dr. Yuen and hold off surgical procedure by Dr. Yuen for now and continue to monitor. Otherwise, I would also initiate hemodialysis. Prognosis is extremely guarded because of multiple complex medical issues. Discussed with staff. Further recommendations to follow. MTDD
--- NOTE | 2016-08-01 22:45 | P.PN ---
Subjective Principal diagnosis: Sepsis this is a 76-year-old male with past history of atrial fibrillation, diverticulitis, anxiety and depression. Patient apparently has had previous attempts at suicide by [address], cutting wrists, jumping and [place] and overdosing on sleeping pills. Patient was brought in to the emergency center due to slurred speech, right side feeling funny, Phalen's off and confusion. Patient was found to be afebrile. Pulse was 125-152 with atrial fibrillation with rapid ventricular response, hypertensive, tachypneic, leukocytosis initially at 13 and then eros to 28 and repeat was 17, acute renal failure with BUN of 23 and creatinine 3.1, severe lactic acidosis with lactic acid of 8.1 with repeat of 10. Electrolyte abnormalities with hypernatremia, hyperchloremia and hyperkalemia. Anion gap was 32. Troponin 2 was negative. Urine drug screen was negative and alcohol level was less than 10. Patient underwent initial chest x-ray that showed no acute process. CAT scan of the brain was done 2 which did show remote ischemic white matter changes, soft tissue nodule. Carotid ultrasound showed 50-70% right internal carotid stenosis and 50% on the left. CAT scan of the abdomen and pelvis without contrast showed bilateral perinephric stranding and small retroperitoneal fluid. No renal obstruction or stones. Consider infection. Diverticulosis without acute diverticulitis. Bibasilar lung atelectasis or consolidation with air space disease and possible infection. Last evening patient had a large coffee ground emesis and developed respiratory failure requiring intubation. He has been oliguric. He has been seen by Dr. Aceves for possible bowel ischemia or acute gastritis. NG tube is in place. Other consultants are neurology, cardiology, microelectronics assembler, nephrology. Echocardiogram is pending. Sputum, urine and blood cultures are all status received. At this time, Dr. Allen spoke with the family regarding reason for the severe acidosis and family are going home to check grouch for items that he could have taken before arrival. According to the patient's , he does not talk about depression but just plain does not talk and can go weeks without talking to her in the same home. Patient is not receiving hemodialysis. Tolerating that well. Not having significant hypotension. Acidosis is improved. Objective - Vital Signs Vital signs: Vital Signs Temp 100.6 F H 08/01/16 17:00 Pulse 92 08/01/16 19:00 Resp 23 08/01/16 18:00 BP 137/51 08/01/16 15:00 Pulse Ox 97 08/01/16 19:00 Intake & Output 08/01/16 08/01/16 08/02/16 06:59 18:59 06:59 Intake Total 1682.687 993.789 70 Output Total 380 130 Balance 1302.687 863.789 70 Weight 94 kg 94 kg Intake: IV 100 Dextrose 5% in Water 1, 100 000 ml @ 100 mls/hr IV . [id number] [facility] with Sodium Bicarb (1 Meq/ml) 150 ml Rx#:[id number] Intake, IV Titration 1682.687 773.789 50 Amount Dextrose 5% in Water 1, 1200 100 000 ml @ 100 mls/hr IV . [id number] [facility] with Sodium Bicarb (1 Meq/ml) 150 ml Rx#:[id number] Fomepizole 1.3 gm In 100 Sodium Chloride 0.9% 100 ml @ 200 mls/hr IV ONCE ONE Rx#:[id number] Levofloxacin 250Mg-D5w 50 Pmx 250 mg In Dextrose/ Water 1 50ml.bag @ 50 mls /hr IVPB Q24H [facility] Rx#: [id number] Magnesium Sulfate-D5w Pmx 100 1 gm In Dextrose/Water 1 100ml.bag @ 100 mls/hr IVPB ONCE ONE Rx#: [id number] Piperacillin-Tazobactam 3 50 .375 gm In Dextrose/Water 1 50ml.bag @ 12.5 mls/hr IVPB Q12HR [facility] Rx#: [id number] Propofol 500 mg In Empty 182.687 173.789 Bag 1 bag @ Titrate IV . Q0M [facility] Rx#:[id number] Sodium Chloride 0.9% 1, 500 50 000 ml @ 50 mls/hr IV . Q20H [facility] Rx#:[id number] Tube Feeding 60 20 Other 60 Output: Gastric Drainage 350 Urine 30 30 Emesis 100 Other: Voiding Method Indwelling Catheter Indwelling Catheter ABP, PAP, CO, CI - Last Documented Arterial Blood Pressure 130/49 - Exam Gen: This is a 76-year-old male. He is intubated and on mechanical ventilation. He appears comfortable and in no acute distress. Receiving hemodialysis without hypotension HEENT: Head is atraumatic, normocephalic. Pupils equal, round. Sclerae is anicteric. oral mucous membranes are moist. ET tube is placed orally as well as gastric tube. NECK: Supple. No JVD. No lymphadenopathy. No thyromegaly. LUNGS: Clear to auscultation but diminished bilaterally. No intercostal retractions. HEART: irregular rate and rhythm. No murmur. ABDOMEN: Soft. Bowel sounds are present. No masses. No tenderness. Brody catheter in place with small amount of urine output. EXTREMITIES: No pedal edema. SCDs in place bilaterally. NEUROLOGICAL: Patient is sedated. - Labs CBC & Chem 7: 08/01/16 04:40 08/01/16 04:40 Labs: Abnormal Lab Results - Last 24 Hours (Table) 08/01/16 08/01/16 08/01/16 Range/Units 03:46 04:40 04:40 RBC 3.51 L (4.30-5.90) m/uL Hgb 11.0 L (13.0-17.5) gm/dL Hct 32.5 L (39.0-53.0) % Lymphocytes # 0.8 L (1.0-4.8) k/uL ABG pH (7.35-7.45) ABG pCO2 (35-45) mmHg ABG Total CO2 (19-24) mmol/L ABG O2 Saturation (94-97) % BUN 46 H (9-20) mg/dL Creatinine 5.53 H* (0.66-1.25) mg/dL Glucose 122 H (74-99) mg/dL POC Glucose (mg/dL) 121 H (75-99) mg/dL Calcium 7.4 L (8.4-10.2) mg/dL Total Protein 4.9 L (6.3-8.2) g/dL Albumin 2.6 L (3.5-5.0) g/dL 08/01/16 08/01/16 08/01/16 Range/Units 08:04 08:54 12:47 RBC (4.30-5.90) m/uL Hgb (13.0-17.5) gm/dL Hct (39.0-53.0) % Lymphocytes # (1.0-4.8) k/uL ABG pH 7.50 H (7.35-7.45) ABG pCO2 33 L (35-45) mmHg ABG Total CO2 26 H (19-24) mmol/L ABG O2 Saturation 98.0 H (94-97) % BUN (9-20) mg/dL Creatinine (0.66-1.25) mg/dL Glucose (74-99) mg/dL POC Glucose (mg/dL) 133 H 133 H (75-99) mg/dL Calcium (8.4-10.2) mg/dL Total Protein (6.3-8.2) g/dL Albumin (3.5-5.0) g/dL 08/01/16 Range/Units 16:21 RBC (4.30-5.90) m/uL Hgb (13.0-17.5) gm/dL Hct (39.0-53.0) % Lymphocytes # (1.0-4.8) k/uL ABG pH (7.35-7.45) ABG pCO2 (35-45) mmHg ABG Total CO2 (19-24) mmol/L ABG O2 Saturation (94-97) % BUN (9-20) mg/dL Creatinine (0.66-1.25) mg/dL Glucose (74-99) mg/dL POC Glucose (mg/dL) 103 H (75-99) mg/dL Calcium (8.4-10.2) mg/dL Total Protein (6.3-8.2) g/dL Albumin (3.5-5.0) g/dL Microbiology - Last 24 Hours (Table) 07/30/16 23:50 Urine Culture - Final Urine,Catheterized 07/31/16 05:00 Gram Stain - Preliminary Sputum Sputum Culture - Preliminary Jerilyn albicans 07/30/16 22:38 Blood Culture - Preliminary Blood No Growth after 24 hours Laboratory Results WBC 8.5 k/uL (3.8-10.6) 08/01/16 04:40 RBC 3.51 m/uL (4.30-5.90) L 08/01/16 04:40 Hgb 11.0 gm/dL (13.0-17.5) L 08/01/16 04:40 Hct 32.5 % (39.0-53.0) L 08/01/16 04:40 MCV 92.7 fL (80.0-100.0) D 08/01/16 04:40 MCH 31.4 pg (25.0-35.0) 08/01/16 04:40 MCHC 33.9 g/dL (31.0-37.0) 08/01/16 04:40 RDW 14.3 % (11.5-15.5) 08/01/16 04:40 Plt Count 150 k/uL (150-450) 08/01/16 04:40 Neutrophils % 84 % 08/01/16 04:40 Lymphocytes % 9 % 08/01/16 04:40 Monocytes % 5 % 08/01/16 04:40 Eosinophils % 0 % 08/01/16 04:40 Basophils % 0 % 08/01/16 04:40 Neutrophils # 7.1 k/uL (1.3-7.7) 08/01/16 04:40 Lymphocytes # 0.8 k/uL (1.0-4.8) L 08/01/16 04:40 Monocytes # 0.5 k/uL (0-1.0) 08/01/16 04:40 Eosinophils # 0.0 k/uL (0-0.7) 08/01/16 04:40 Basophils # 0.0 k/uL (0-0.2) 08/01/16 04:40 Hypochromasia Moderate 07/31/16 03:06 Macrocytosis Slight 07/31/16 03:06 PT 11.8 sec (9.0-12.0) 08/01/16 04:40 INR 1.2 (<1.1) 08/01/16 04:40 APTT 25.1 sec (22.0-30.0) 08/01/16 04:40 D-Dimer 0.99 mg/L FEU (<0.60) H 07/30/16 16:13 Sample Site [place] 08/01/16 08:04 ABG pH 7.50 (7.35-7.45) H 08/01/16 08:04 ABG pCO2 33 mmHg (35-45) L 08/01/16 08:04 ABG pO2 95 mmHg (83-108) 08/01/16 08:04 ABG HCO3 25 mmol/L (21-25) 08/01/16 08:04 ABG Total CO2 26 mmol/L (19-24) H 08/01/16 08:04 ABG O2 Saturation 98.0 % (94-97) H 08/01/16 08:04 ABG Base Excess 2.3 mmol/L 08/01/16 08:04 FiO2 55 % 08/01/16 08:04 Sodium 141 mmol/L (137-145) 08/01/16 04:40 Potassium 3.9 mmol/L (3.5-5.1) 08/01/16 04:40 Chloride 101 mmol/L (98-107) 08/01/16 04:40 Carbon Dioxide 26 mmol/L (22-30) 08/01/16 04:40 Anion Gap 14 mmol/L 08/01/16 04:40 BUN 46 mg/dL (9-20) H 08/01/16 04:40 Creatinine 5.53 mg/dL (0.66-1.25) H* 08/01/16 04:40 Est GFR (MDRD) Af Amer 12 (>60 ml/min/1.73 sqM) 08/01/16 04:40 Est GFR (MDRD) Non-Af 10 (>60 ml/min/1.73 sqM) 08/01/16 04:40 Glucose 122 mg/dL (74-99) H 08/01/16 04:40 POC Glucose (mg/dL) 90 mg/dL (75-99) 08/01/16 20:49 POC Glu Music Therapy Teacher Cleo Antunez 08/01/16 20:[address] Glu mg/dL 105 mg/dL 07/31/16 03:06 Hemoglobin A1c 5.3 % (4.2-6.1) 07/31/16 03:06 Osmolality 320 mosm/kg (280-301) H 07/31/16 03:06 Plasma Lactic Acid Brandon 4.1 mmol/L (0.7-2.0) H* 07/31/16 21:37 Calcium 7.4 mg/dL (8.4-10.2) L 08/01/16 04:40 Phosphorus 4.2 mg/dL (2.5-4.5) 08/01/16 04:40 Magnesium 2.0 mg/dL (1.6-2.3) 08/01/16 04:40 Total Bilirubin 0.4 mg/dL (0.2-1.3) 08/01/16 04:40 AST 24 U/L (17-59) 08/01/16 04:40 ALT 29 U/L (21-72) 08/01/16 04:40 Alkaline Phosphatase 49 U/L (38-126) 08/01/16 04:40 Total Creatine Kinase 48 U/L (55-170) L 07/30/16 22:50 CK-MB (CK-2) 1.4 ng/mL (0.0-2.4) 07/30/16 22:50 CK-MB (CK-2) Rel Index 2.9 07/30/16 22:50 Troponin I 0.027 ng/mL (0.000-0.034) 07/31/16 08:25 NT-Pro-B Natriuret Pep 94 pg/mL 07/30/16 10:33 Total Protein 4.9 g/dL (6.3-8.2) L 08/01/16 04:40 Albumin 2.6 g/dL (3.5-5.0) L 08/01/16 04:40 Cortisol 82 ug/dL 07/30/16 22:38 Urine Color Light Yellow 07/30/16 23:50 Urine Appearance Clear (Clear) 07/30/16 23:50 Urine pH 5.0 (5.0-8.0) 07/30/16 23:50 Ur Specific [place] 1.007 (1.001-1.035) 07/30/16 23:50 Urine Protein 1+ (Negative) H 07/30/16 23:50 Urine Glucose (UA) Negative (Negative) 07/30/16 23:50 Urine Ketones Negative (Negative) 07/30/16 23:50 Urine Blood Trace (Negative) H 07/30/16 23:50 Urine Nitrite Negative (Negative) 07/30/16 23:50 Urine Bilirubin Negative (Negative) 07/30/16 23:50 Urine Urobilinogen <2.0 mg/dL (<2.0) 07/30/16 23:50 Ur Leukocyte Esterase Negative (Negative) 07/30/16 23:50 Urine RBC 2 /hpf (0-5) 07/30/16 23:50 Calcium Oxalate Crystal /hpf (None) 07/30/16 23:50 Salicylates <1.0 mg/dL 07/31/16 03:06 Urine Opiates Screen Not Detected (NotDetected) 07/30/16 23:50 Ur Oxycodone Screen Not Detected (NotDetected) 07/30/16 23:50 Urine Methadone Screen Not Detected (NotDetected) 07/30/16 23:50 Ur Propoxyphene Screen Not Detected (NotDetected) 07/30/16 23:50 Ur Barbiturates Screen Not Detected (NotDetected) 07/30/16 23:50 U Tricyclic Antidepress Not Detected (NotDetected) 07/30/16 23:50 Ur Phencyclidine Scrn Not Detected (NotDetected) 07/30/16 23:50 Ur Amphetamines Screen Not Detected (NotDetected) 07/30/16 23:50 U Methamphetamines Scrn Not Detected (NotDetected) 07/30/16 23:50 U Benzodiazepines Scrn Not Detected (NotDetected) 07/30/16 23:50 Urine Cocaine Screen Not Detected (NotDetected) 07/30/16 23:50 U Marijuana (THC) Screen Not Detected (NotDetected) 07/30/16 23:50 Ethylene Glycol Negative mg/dL (Negative) 07/31/16 08:25 Serum Alcohol <10 mg/dL 07/30/16 22:38 Ethyl Alcohol Screen Negative mg/dL (Negative) 07/31/16 18:45 Methyl Alcohol, Qual Negative mg/dL (Negative) 07/31/16 18:45 Isopropyl Alc, Qual Negative mg/dL (Negative) 07/31/16 18:45 Acetone, Qual Negative mg/dL (Negative) 07/31/16 18:45 Blood Type O Positive 07/31/16 03:06 Blood Type Recheck No 07/31/16 03:06 Antibody Screen NEGATIVE 07/31/16 03:06 Spec Expiration Date 08/03/2016230507/31/16 03:06 Microbiology 07/30/16 23:50 Urine,Catheterized Urine Culture - Final 07/31/16 05:00 Sputum Gram Stain - Preliminary 07/31/16 05:00 Sputum Sputum Culture - Preliminary Jerilyn albicans 07/30/16 22:38 Blood Blood Culture - Preliminary No Growth after 24 hours Assessment and Plan (1) Ischemia, bowel Narrative/Plan: 76-year-old male presents to Hospital with altered mental status. A profound acidosis that is now improved. Is receiving dialysis today for his acute renal failure. Etiology of the profound acidosis is thought to be organ dysfunction to his bowel with transient ischemic event that is improved. No evidence of any bloody stools are noted at this time. Patient has had some improvement but does have the acute renal failure receiving renal replacement therapy at this time Antibiotic therapy has been directed for treatment of ischemic colitis and potential pneumonia while cultures are process. The sputum for Jerilyn reveals evidence of oropharyngeal contamination. Status: Acute (2) Acute renal failure Status: Acute (3) Metabolic acidosis Status: Acute
[2016-08-01 23:10] LABS: Glucose,Whole Blood 96 mg/dL (75-99)
[2016-08-02] MEDS: PROPOFOL 500 MG in EMPTY BAG 1 BAG IV SCH ×5 (00:33→07:32)
[2016-08-02 04:21] LABS: Glucose,Whole Blood 108 mg/dL (75-99)
[2016-08-02] MEDS: INSULIN LISPRO (humaLOG) 300 UNIT/3 ML VIAL SQ SCH ×5 (04:25→20:40)
[2016-08-02 04:52] LABS: Basophils % (A) 0 %; CH 32.3; CHCM 34.9; Eosinophils # (A) 0.1 k/uL (0-0.7); Eosinophils % (A) 1 %; HCT 31.7 % (39.0-53.0); HGB 10.8 gm/dL (13.0-17.5); Luc # (Auto) 0.11; Luc % (Auto) 1; Lymphocytes # (A) 0.7 k/uL (1.0-4.8); Lymphocytes % (A) 8 %; MCH 31.7 pg (25.0-35.0); MCV 93.2 fL (80.0-100.0); Mean Platelet Volume 8.3; Monocytes # (A) 0.4 k/uL (0-1.0); Monocytes % (A) 4 %; Neutrophils % (A) 85 %; RBC 3.41 m/uL (4.30-5.90); RDW 14.3 % (11.5-15.5); WBC 8.2 k/uL (3.8-10.6); WBC (Perox) 8.63
[2016-08-02 05:04] LABS: INR 1.1 (<1.1); Partial Thromboplastin Time 27.3 sec (22.0-30.0)
[2016-08-02 05:16] LABS: Calcium 7.7 mg/dL (8.4-10.2); Magnesium 2.1 mg/dL (1.6-2.3); Phosphorous 5.2 mg/dL (2.5-4.5); Potassium 4.6 mmol/L (3.5-5.1); Total Bilirubin 0.5 mg/dL (0.2-1.3); Total Protein 4.8 g/dL (6.3-8.2)
[2016-08-02] MEDS: SODIUM CHLORIDE 0.9% 1,000 ML IV SCH (06:45)
[2016-08-02] MEDS: IPRATROPIUM 0.5 MG/2.5 ML NEBU INHALATION PRN ×3 (07:20→14:59)
[2016-08-02] MEDS: LEVALBUTEROL NEB (CONC) 1.25 MG/0.5 ML AMP INHALATION PRN ×3 (07:20→14:59)
--- NOTE | 2016-08-02 07:46 | XR ---
EXAMINATION TYPE: XR chest 1V portable DATE OF EXAM: 08/02/2016 6:53 AM CLINICAL HISTORY: Difficulty breathing progress study. TECHNIQUE: Single AP portable upright view of the chest is obtained. COMPARISON: Chest x-ray from one day earlier FINDINGS: An endotracheal tube, orogastric tube, and right internal jugular central venous catheter is stable in appearance. There is persistent cardiomegaly with tiny bilateral pleural effusions and a therosclerotic thoracic aorta. There is some patchy bibasilar atelectasis and/or infiltrate. Upper kashif ngs remain clear without pneumothorax. Osseous structures are intact. IMPRESSION: Overall stable findings, cardiomegaly with tiny bilateral pleural effusions and associa arelis patchy bibasilar atelectasis and/or infiltrate all redemonstrated.
[2016-08-02 08:27] LABS: Glucose,Whole Blood 103 mg/dL (75-99)
[2016-08-02] MEDS: PANTOPRAZOLE 40 MG/10 ML VIAL IVP SCH ×2 (08:29→20:41)
[2016-08-02] MEDS: AMIODARONE 200 MG TAB PO SCH ×2 (08:29→17:20)
[2016-08-02] MEDS: METOPROLOL TARTRATE 25 MG TAB PO SCH (08:29)
[2016-08-02] MEDS: ENOXAPARIN 30 MG/0.3 ML SYRINGE SQ SCH (08:29)
[2016-08-02] MEDS: CHLORHEXIDINE GLUCONATE 15 ML CUP MUCOUS MEM SCH ×2 (08:29→20:40)
[2016-08-02 08:51] LABS: ABG PCO2 27 mmHg (35-45); ABG PH 7.51 (7.35-7.45)
[2016-08-02 08:52] LABS: ABG Base Excess -1.1 mmol/L; ABG HCO3 22 mmol/L (21-25); ABG PO2 83 mmHg (83-108); ABG TCO2 22 mmol/L (19-24)
--- NOTE | 2016-08-02 10:57 | EEG ---
DATE OF SERVICE: 08/01/2016 REASON FOR TESTING: Altered mental status. AGE: 76Y DESCRIPTION OF THE EXAMINATION: This EEG was performed using a 21-channel digital electroencephalograph, following the international 10 - 20 system. DESCRIPTION OF THE RECORDING: From the beginning of the tracing, and with the patient's eyes closed, the background rhythm was mostly consisting of 5 to 6 Hz theta frequency in the posterior occipital leads. No obvious asymmetry is seen. Photic stimulation was performed with no driving response seen. No pathological waves were elicited. Hyperventilation was not performed. No movement artifacts are seen. No epileptiform discharges were noticed. His EKG lead showed an irregularly irregular rhythm with a tachycardic rate. INTERPRETATION: This awake EEG is abnormal due to the presence of generalized slowing of the background rhythm, mostly in the theta range. This is consistent with moderate encephalopathy. No epileptiform discharges were seen. Of note, his EKG lead showed an irregularly irregular rhythm. Clinical correlation is recommended.
[2016-08-02] MEDS: PIPERACILLIN-TAZOBACTAM 3.375 GM in DEXTROSE/WATER 1 50ML.BAG IVPB SCH ×2 (11:01→20:40)
--- NOTE | 2016-08-02 11:10 | P.PN ---
Subjective Patient seen in follow-up for acute kidney injury. His baseline creatinine is near 1 and was elevated at 1.5 on admission. It was up to 5.5 yesterday and he underwent first treatment of hemodialysis yesterday as well. He remains oliguric. He received heavy doses of diuretics without any response. He is still intubated and sedated. Metabolic acidosis has resolved and he slightly alkalotic this morning. He does respond to verbal commands. Vital signs are stable. General: The patient appeared well nourished and normally developed. HEENT: Head exam is unremarkable. Neck is without jugular venous distension. LUNGS: Rhonchi at bases Breath sounds decreased. HEART: Rate and Rhythm are regular. First and second heart sounds normal. No murmurs, rubs or gallops. ABDOMEN: Abdominal exam reveals normal bowel sounds. Non-tender and non- distended. No evidence of peritonitis. EXTREMITITES: No clubbing, cyanosis, or edema. Objective - Vital Signs Vital signs: Vital Signs Temp 99.4 F 08/02/16 08:00 Pulse 93 08/02/16 11:06 Resp 20 08/02/16 08:00 BP 137/51 08/01/16 15:00 Pulse Ox 95 08/02/16 08:00 Intake & Output 08/01/16 08/02/16 08/02/16 18:59 06:59 18:59 Intake Total 996.541 7790.096 206.795 Output Total 130 5 0 Balance 253.872 0070.096 206.795 Weight 94 kg Intake: IV 100 Dextrose 5% in Water 1, 100 000 ml @ 100 mls/hr IV . [id number] [facility] with Sodium Bicarb (1 Meq/ml) 150 ml Rx#:[id number] Intake, IV Titration 773.789 946.096 166.795 Amount Dextrose 5% in Water 1, 100 000 ml @ 100 mls/hr IV . [id number] [facility] with Sodium Bicarb (1 Meq/ml) 150 ml Rx#:[id number] Levofloxacin 250Mg-D5w 50 Pmx 250 mg In Dextrose/ Water 1 50ml.bag @ 50 mls /hr IVPB Q24H [facility] Rx#: [id number] Piperacillin-Tazobactam 3 50 .375 gm In Dextrose/Water 1 50ml.bag @ 12.5 mls/hr IVPB Q12HR [facility] Rx#: [id number] Propofol 500 mg In Empty 173.789 246.096 16.795 Bag 1 bag @ Titrate IV . Q0M [facility] Rx#:[id number] Sodium Chloride 0.9% 1, 500 600 150 000 ml @ 50 mls/hr IV . Q20H [facility] Rx#:[id number] Tube Feeding 60 290 40 Other 60 120 Output: Urine 30 5 0 Emesis 100 Other: Voiding Method Indwelling Catheter Indwelling Catheter Indwelling Catheter # Bowel Movements 0 ABP, PAP, CO, CI - Last Documented Arterial Blood Pressure 121/50 - Labs CBC & Chem 7: 08/02/16 04:15 08/02/16 04:15 Labs: Abnormal Lab Results - Last 24 Hours (Table) 08/01/16 08/01/16 08/02/16 Range/Units 12:47 16:21 04:15 RBC 3.41 L (4.30-5.90) m/uL Hgb 10.8 L (13.0-17.5) gm/dL Hct 31.7 L (39.0-53.0) % Plt Count 137 L (150-450) k/uL Lymphocytes # 0.7 L (1.0-4.8) k/uL ABG pH (7.35-7.45) ABG pCO2 (35-45) mmHg BUN (9-20) mg/dL Creatinine (0.66-1.25) mg/dL Glucose (74-99) mg/dL POC Glucose (mg/dL) 133 H 103 H (75-99) mg/dL Calcium (8.4-10.2) mg/dL Phosphorus (2.5-4.5) mg/dL Total Protein (6.3-8.2) g/dL Albumin (3.5-5.0) g/dL 08/02/16 08/02/16 08/02/16 Range/Units 04:15 04:20 08:10 RBC (4.30-5.90) m/uL Hgb (13.0-17.5) gm/dL Hct (39.0-53.0) % Plt Count (150-450) k/uL Lymphocytes # (1.0-4.8) k/uL ABG pH 7.51 H (7.35-7.45) ABG pCO2 27 L (35-45) mmHg BUN 47 H (9-20) mg/dL Creatinine 6.00 H* (0.66-1.25) mg/dL Glucose 105 H (74-99) mg/dL POC Glucose (mg/dL) 108 H (75-99) mg/dL Calcium 7.7 L (8.4-10.2) mg/dL Phosphorus 5.2 H (2.5-4.5) mg/dL Total Protein 4.8 L (6.3-8.2) g/dL Albumin 2.5 L (3.5-5.0) g/dL 08/02/16 Range/Units 08:26 RBC (4.30-5.90) m/uL Hgb (13.0-17.5) gm/dL Hct (39.0-53.0) % Plt Count (150-450) k/uL Lymphocytes # (1.0-4.8) k/uL ABG pH (7.35-7.45) ABG pCO2 (35-45) mmHg BUN (9-20) mg/dL Creatinine (0.66-1.25) mg/dL Glucose (74-99) mg/dL POC Glucose (mg/dL) 103 H (75-99) mg/dL Calcium (8.4-10.2) mg/dL Phosphorus (2.5-4.5) mg/dL Total Protein (6.3-8.2) g/dL Albumin (3.5-5.0) g/dL Microbiology - Last 24 Hours (Table) 07/31/16 05:00 Gram Stain - Final Sputum Sputum Culture - Final Jerilyn albicans 07/30/16 22:38 Blood Culture - Preliminary Blood No Growth after 48 hours 07/30/16 23:50 Urine Culture - Final Urine,Catheterized Assessment and Plan Plan: Assessment: #1. Oliguric acute kidney injury secondary to ischemic ATN secondary to hemodynamic instability as well as emesis. Baseline creatinine is 1 and elevated at 5.5 as of yesterday. Urinalysis is quite benign and there is no evidence of hydronephrosis noted on CAT scan. Alcohol levels noted to be negative. Underwent first treatment of hemodialysis on 08/01. #2. Severe metabolic acidosis secondary to acute kidney injury and lactic acidosis. Blood sugars are stable. No evidence of alcohol toxicities. #3. Atrial fibrillation. Now rate controlled. #4. Lactic acidosis most likely due to hypoperfusion. No evidence of hypoxia or ischemic bowel findings on CAT scan. #5. Hyperkalemia secondary to acute kidney injury and metabolic acidosis. Improved. #6. Hypernatremia secondary to lack of oral water intake and dehydration. Resolved. Plan: Continue 0.9 saline to be run at 50 mL an hour for maintenance fluids. Weaning trial today. Strict I's and O's. Maintain Brody catheter. Follow-up cultures. Recommend holding off on diuretics for now as it may worsen the tubular injury. Hemodialysis today - this will be his second treatment.
--- NOTE | 2016-08-02 12:30 | P.PN ---
Subjective Principal diagnosis: Acute respiratory failure and acute metabolic lactic acidosis. This is a 76-year-old white male with history of multiple medical problems including severe depression, previous multiple suicidal attempts, chronic atrial fibrillation, diverticulosis, anxiety, patient presented to the ER yesterday with mostly symptoms of acute slurred speech and dizziness. His was concerned, and she brought him into the ER. CT of the brain was unremarkable. Echocardiogram was done and results are pending. However shortly after the patient arrived to the cardiac floor, he was noted to have increased shortness of breath, and he was showing significant metabolic acidosis /lactic acidosis based on his ABG. Patient was transferred to the ICU, and a genny You was notified about his ABG, I recommended immediate intubation of the patient. Patient was intubated, placed on mechanical ventilation, and he went on to develop worsening metabolic lactic acidosis. Hence I raised the possibility of ischemic bowel, abdominal sepsis, salicylate overdose, ethylene glycol toxicity, however I was mostly concerned about the possibility of bowel ischemia and abdominal sepsis. Patient had a CT of the abdomen and pelvis yesterday, and this was done with oral contrast, it showed some perinephric stranding, but no evidence of changes in the bowel to suggest ischemia. Upon arrival to the ICU, a nasogastric tube was placed because his abdomen was distended, and there was a significant amount of coffee-ground material suctioned from the stomach. Hemoglobin was noted to be 12.8, 2 g lower compared to admission hemoglobin. His lactic acid was as high as 10 yesterday, but it is 5.7 today. Patient was given multiple fluid boluses he received almost 5 L of fluids overnight. Patient was placed on a sodium bicarb drip, broad-spectrum antibiotics, urine was sent for calcium oxalate crystals, ethylene glycol level was ordered, salicylate level was ordered, however his osmolar gap was noted to be minimal, hence that practically rules out the possibility of ethylene glycol toxicity. In the meantime the patient remains on antibiotics, bronchodilators, sodium bicarb drip, and fluids. He was seen by nephrology on consultation, general surgery on consultation, and he is to be seen by infectious disease on consultation. Cultures at this point remain negative. And workup is still pending. Patient did not demonstrate any hemodynamic instability throughout the whole process, he never demonstrated any hypoxia during this process, urine output is very poor, hoping it will improve as we correct his metabolic acidosis. And I will suggest possibly a Lasix challenge was acidosis improves. Labs this morning were reviewed WBC count is down from 28-17.0. His ABG showed significant improvement with a pO2 of 109 pCO2 of 27 pH of 7.29 remind you his pH was less than 7 before intubation. Bicarb level this morning was 7 BUN is 27 creatinine is 3.20 blood sugar is 226. Measured serum osmolality was 320, calculated serum osmolality was 316. Lactic acid is down this morning to 5.7. Salicylate level was less than 1.0, and drug screen was negative. The urinalysis is relatively unremarkable and no evidence of pyuria or bacteriuria. The echocardiogram was also unremarkable, no evidence of thrombus. CT of the brain was unremarkable carotid Doppler was also unremarkable. Patient was reevaluated today on 08/01/2016, he remains hemodynamically stable, not requiring any pressors. Remains on mechanical ventilation, his rate was cut down to 14, tidal volume remains at 500, FiO2 is down to 50%. PEEP is at 5. ABG this morning showed a pO2 of 95 pCO2 of 33 pH of 7.50 hence the patient will be off bicarb drip today. And this was discontinued. CBC is relatively unremarkable hemoglobin is 11.0. His renal profile shows significant worsening with a BUN up to 46 and creatinine is 5.53. Patient remains oliguric and no response to Lasix challenges. Hence he is being considered for dialysis as per nephrology on the case. Briefly, the patient was given a sedation holiday, and he seemed to be very appropriate, and no focal neurologic deficit was noted while he was off propofol. I plan to eventually weaned and extubated the patient, however I would like his renal status to be addressed prior to any extubation trial since the patient is oliguric. Cultures remain negative. Sputum only showed some Jerilyn. But cultures are negative so far. I am still convinced that the patient must have had an episode of ischemic bowel related to his atrial fibrillation, may have also showered his kidneys with small tiny emboli. Patient is now on Lovenox, at a modified dose because of his renal status and because of his episode of upper GI bleeding. Could not fully heparinize the patient. Reevaluated today on 08/02/2016, patient remains on mechanical ventilation, hemodynamically stable, not requiring any pressors, ventilator settings remained the same, he is on 50% FiO2 with a PEEP of 5,ABG showed a pO2 of 83 pCO2 of 27 pH of 7.51. Chest x-ray showed minimal interstitial edema and atelectasis. CBC is relatively unremarkable, hemoglobin is 10.8.renal profile is worsening BUN is 47 creatinine is 6.0, patient received one hemodialysis yesterday.only 500 mL of fluid were removed. Patient remains sedated on propofol, however I plan to discontinue propofol, wake of the patient, given a weaning trial, and possibly extubate. Objective - Vital Signs Vital signs: Vital Signs Temp 99.4 F 08/02/16 08:00 Pulse 96 08/02/16 11:37 Resp 35 H 08/02/16 11:00 BP 137/51 08/01/16 15:00 Pulse Ox 94 L 08/02/16 11:00 Intake & Output 08/01/16 08/02/16 08/02/16 18:59 06:59 18:59 Intake Total 300.677 5160.096 326.795 Output Total 130 5 0 Balance 012.337 5870.096 326.795 Weight 94 kg Intake: IV 100 Dextrose 5% in Water 1, 100 000 ml @ 100 mls/hr IV . [id number] [facility] with Sodium Bicarb (1 Meq/ml) 150 ml Rx#:[id number] Intake, IV Titration 773.789 946.096 266.795 Amount Dextrose 5% in Water 1, 100 000 ml @ 100 mls/hr IV . [id number] [facility] with Sodium Bicarb (1 Meq/ml) 150 ml Rx#:[id number] Levofloxacin 250Mg-D5w 50 Pmx 250 mg In Dextrose/ Water 1 50ml.bag @ 50 mls /hr IVPB Q24H [facility] Rx#: [id number] Piperacillin-Tazobactam 3 50 .375 gm In Dextrose/Water 1 50ml.bag @ 12.5 mls/hr IVPB Q12HR [facility] Rx#: [id number] Propofol 500 mg In Empty 173.789 246.096 16.795 Bag 1 bag @ Titrate IV . Q0M [facility] Rx#:[id number] Sodium Chloride 0.9% 1, 500 600 250 000 ml @ 50 mls/hr IV . Q20H [facility] Rx#:[id number] Tube Feeding 60 290 60 Other 60 120 Output: Urine 30 5 0 Emesis 100 Other: Voiding Method Indwelling Catheter Indwelling Catheter Indwelling Catheter # Bowel Movements 0 ABP, PAP, CO, CI - Last Documented Arterial Blood Pressure 120/53 - Exam eneral appearance: The intubated sedated. Endotracheal tube is intact. Nasogastric tube is also intact. HET: Head is normocephalic and atraumatic. Pupils are equal and reactive. Oropharynx is clear without lesions. Gastric tube with dark bilious fluid. Neck: Supple without lymphadenopathy. Trachea midline. Heart: S1 S2. Lungs: No crackles or wheezes are heard. Abdomen: Soft, nontender, nondistended with bowel sounds. No peritoneal signs. No palpable organomegaly or masses. Extremities: Normal skin color and turgor. No cyanosis, rash, ulceration, clubbing, or edema. Radial and pedal pulses are 2/4 bilaterally. Brody with dom urine. Neurological: Sedated., on propofol drip. - Labs CBC & Chem 7: 08/02/16 04:15 08/02/16 04:15 Labs: Abnormal Lab Results - Last 24 Hours (Table) 08/01/16 08/01/16 08/02/16 Range/Units 12:47 16:21 04:15 RBC 3.41 L (4.30-5.90) m/uL Hgb 10.8 L (13.0-17.5) gm/dL Hct 31.7 L (39.0-53.0) % Plt Count 137 L (150-450) k/uL Lymphocytes # 0.7 L (1.0-4.8) k/uL ABG pH (7.35-7.45) ABG pCO2 (35-45) mmHg BUN (9-20) mg/dL Creatinine (0.66-1.25) mg/dL Glucose (74-99) mg/dL POC Glucose (mg/dL) 133 H 103 H (75-99) mg/dL Calcium (8.4-10.2) mg/dL Phosphorus (2.5-4.5) mg/dL Total Protein (6.3-8.2) g/dL Albumin (3.5-5.0) g/dL 08/02/16 08/02/16 08/02/16 Range/Units 04:15 04:20 08:10 RBC (4.30-5.90) m/uL Hgb (13.0-17.5) gm/dL Hct (39.0-53.0) % Plt Count (150-450) k/uL Lymphocytes # (1.0-4.8) k/uL ABG pH 7.51 H (7.35-7.45) ABG pCO2 27 L (35-45) mmHg BUN 47 H (9-20) mg/dL Creatinine 6.00 H* (0.66-1.25) mg/dL Glucose 105 H (74-99) mg/dL POC Glucose (mg/dL) 108 H (75-99) mg/dL Calcium 7.7 L (8.4-10.2) mg/dL Phosphorus 5.2 H (2.5-4.5) mg/dL Total Protein 4.8 L (6.3-8.2) g/dL Albumin 2.5 L (3.5-5.0) g/dL 08/02/16 Range/Units 08:26 RBC (4.30-5.90) m/uL Hgb (13.0-17.5) gm/dL Hct (39.0-53.0) % Plt Count (150-450) k/uL Lymphocytes # (1.0-4.8) k/uL ABG pH (7.35-7.45) ABG pCO2 (35-45) mmHg BUN (9-20) mg/dL Creatinine (0.66-1.25) mg/dL Glucose (74-99) mg/dL POC Glucose (mg/dL) 103 H (75-99) mg/dL Calcium (8.4-10.2) mg/dL Phosphorus (2.5-4.5) mg/dL Total Protein (6.3-8.2) g/dL Albumin (3.5-5.0) g/dL Microbiology - Last 24 Hours (Table) 07/31/16 05:00 Gram Stain - Final Sputum Sputum Culture - Final Jerilyn albicans 07/30/16 22:38 Blood Culture - Preliminary Blood No Growth after 48 hours 07/30/16 23:50 Urine Culture - Final Urine,Catheterized Assessment and Plan Plan: Impression: 1 acute respiratory failure secondary to severe metabolic, lactic acidosis, exact etiology is not clear, but still suspect ischemic bowel or abdominal sepsis. Salicylate poisoning and ethylene glycol poisoning is practically ruled out based on the initial studies done. 2 chronic atrial fibrillation, presently rate seems to be well-controlled. 3 acute presentation of TIA/CVA with negative workup upon presentation. 4 severe lactic acidosis, most likely secondary to sepsis or transient bowel ischemia. 5 acute kidney injury secondary to sepsis. This is also associated with oliguria 6 history of depression and previous suicidal attempts. 7 coffee-ground material via nasogastric tube most likely secondary to erosive gastritis and upper GI bleeding. Recommendation: Continue present supportive care measures, mechanical ventilations, empiric antibiotics, close monitoring of the renal status. patient will be dialyzed again today according to the salvage inspector on the case, I plan to discontinue propofol, given the patient a weaning trial, and if tolerated will likely extubate today. Discussed his condition with family at bedside. I believe the is considering re-discussing the CODE STATUS and making him DO NOT RESUSCITATE, but no decision has been made at this point yet. Critical care time is 35 minutes. Time with Patient: Greater than 30
[2016-08-02 12:36] LABS: Glucose,Whole Blood 99 mg/dL (75-99)
--- NOTE | 2016-08-02 14:32 | P.PN ---
Subjective Principal diagnosis: Metabolic encephalopathy This is 76-year-old male continue be evaluated by the neurology service for altered mental status. He was brought to [facility] emergency room after a complaint of confusion and slurred speech.. Patients CT of the brain showed no acute intracranial abnormalities. A repeat CT was done and showed some small vessel ischemic changes. There was no acute abnormality. Carotid Doppler showed 50-69% stenosis in the right internal carotid artery and 50% stenosis of the left internal carotid artery. He was initially admitted to the medical floor but his respiratory condition deteriorated quickly. He is currently in the intensive care unit , and has just been extubated. There was some concern over toxic ingestion due to the patient's previous history of suicide attempts. He is currently being evaluated for ischemic bowel disease. He has severe metabolic acidosis. Dialysis has been ordered, and he is undergoing his second treatment at the time my evaluation. Earlier today he was taken off sedation and is doing fairly well. Thus far as blood in urine culture show no infectious process. There was some jerilyn found in sputum, which was from oral contamination. Objective - Vital Signs Vital signs: Vital Signs Temp 99.4 F 08/02/16 08:00 Pulse 155 H 08/02/16 13:00 Resp 35 H 08/02/16 11:00 BP 137/51 08/01/16 15:00 Pulse Ox 95 08/02/16 13:00 Intake & Output 08/01/16 08/02/16 08/02/16 18:59 06:59 18:59 Intake Total 830.313 2846.096 526.795 Output Total 130 5 10 Balance 316.253 6257.096 516.795 Weight 94 kg Intake: IV 100 Dextrose 5% in Water 1, 100 000 ml @ 100 mls/hr IV . [id number] [facility] with Sodium Bicarb (1 Meq/ml) 150 ml Rx#:[id number] Intake, IV Titration 773.789 946.096 466.795 Amount Dextrose 5% in Water 1, 100 000 ml @ 100 mls/hr IV . [id number] [facility] with Sodium Bicarb (1 Meq/ml) 150 ml Rx#:[id number] Levofloxacin 250Mg-D5w 50 Pmx 250 mg In Dextrose/ Water 1 50ml.bag @ 50 mls /hr IVPB Q24H [facility] Rx#: [id number] Piperacillin-Tazobactam 3 50 50.0 .375 gm In Dextrose/Water 1 50ml.bag @ 12.5 mls/hr IVPB Q12HR [facility] Rx#: [id number] Propofol 500 mg In Empty 173.789 246.096 16.795 Bag 1 bag @ Titrate IV . Q0M [facility] Rx#:[id number] Sodium Chloride 0.9% 1, 500 600 400 000 ml @ 50 mls/hr IV . Q20H [facility] Rx#:[id number] Tube Feeding 60 290 60 Other 60 120 Output: Urine 30 5 10 Emesis 100 Other: Voiding Method Indwelling Catheter Indwelling Catheter Indwelling Catheter # Bowel Movements 0 ABP, PAP, CO, CI - Last Documented Arterial Blood Pressure 134/62 - Constitutional General appearance: Present: average body habitus, mild distress - EENT Eyes: Present: EOMI, PERRLA. Absent: abnormal pupil, ptosis - Neck Neck: Present: normal ROM. Absent: rigidity - Respiratory Details: Labored and sonorous Respiratory: bilateral: prolonged expiration - Cardiovascular Rhythm: regular - Gastrointestinal General gastrointestinal: Absent: distended - Neurologic Neurologic Comment(s): The patient was awake and oriented to self, but exam was difficult due to his agitation. There is no lateralizing weakness seen. There is no facial asymmetry. There is no dysarthria. No tremors or seizure-like activities are seen. - Labs CBC & Chem 7: 08/02/16 04:15 08/02/16 04:15 Labs: Abnormal Lab Results - Last 24 Hours (Table) 08/01/16 08/02/16 08/02/16 Range/Units 16:21 04:15 04:15 RBC 3.41 L (4.30-5.90) m/uL Hgb 10.8 L (13.0-17.5) gm/dL Hct 31.7 L (39.0-53.0) % Plt Count 137 L (150-450) k/uL Lymphocytes # 0.7 L (1.0-4.8) k/uL ABG pH (7.35-7.45) ABG pCO2 (35-45) mmHg BUN 47 H (9-20) mg/dL Creatinine 6.00 H* (0.66-1.25) mg/dL Glucose 105 H (74-99) mg/dL POC Glucose (mg/dL) 103 H (75-99) mg/dL Calcium 7.7 L (8.4-10.2) mg/dL Phosphorus 5.2 H (2.5-4.5) mg/dL Total Protein 4.8 L (6.3-8.2) g/dL Albumin 2.5 L (3.5-5.0) g/dL 08/02/16 08/02/16 08/02/16 Range/Units 04:20 08:10 08:26 RBC (4.30-5.90) m/uL Hgb (13.0-17.5) gm/dL Hct (39.0-53.0) % Plt Count (150-450) k/uL Lymphocytes # (1.0-4.8) k/uL ABG pH 7.51 H (7.35-7.45) ABG pCO2 27 L (35-45) mmHg BUN (9-20) mg/dL Creatinine (0.66-1.25) mg/dL Glucose (74-99) mg/dL POC Glucose (mg/dL) 108 H 103 H (75-99) mg/dL Calcium (8.4-10.2) mg/dL Phosphorus (2.5-4.5) mg/dL Total Protein (6.3-8.2) g/dL Albumin (3.5-5.0) g/dL Microbiology - Last 24 Hours (Table) 07/31/16 05:00 Gram Stain - Final Sputum Sputum Culture - Final Jerilyn albicans 07/30/16 22:38 Blood Culture - Preliminary Blood No Growth after 48 hours 07/30/16 23:50 Urine Culture - Final Urine,Catheterized Assessment and Plan (1) Respiratory failure Status: Acute (2) Acute metabolic encephalopathy Status: Acute (3) Acute renal failure Status: Acute Plan: There is no reason to believe that his initial presentation is due to any ischemic event.continue supportive care and neurological checks. An EEG was done off sedation and was consistent with moderate encephalopathy. We will continue to follow and evaluate. Continue to evaluate and treat his underlying renal failure. Continue neurological checks. If any focal neurological symptoms arise, we will consider repeating a CT of the brain. I have performed a history and physical on the above patient. I have reviewed the above note, and agree.
[2016-08-02] MEDS ORDERED: HEPARIN SODIUM,PORCINE 5,000 UNIT/ML 1 ML VIAL ONE (15:20)
[2016-08-02 15:41] LABS: Glucose,Whole Blood 80 mg/dL (75-99)
--- NOTE | 2016-08-02 16:16 | P.PN ---
Subjective Principal diagnosis: Bowel ischemia Patient was extubated earlier today. He denies abdominal pain presently. He remains somewhat short of breath and tachycardic. I did ask him if he knew what started this illness for him and whether he ingested anything at home but may have started this and he stated no. He did have a low-grade fever of 100.6. White blood cell count is normal. Acidosis resolved. He was tolerating tube feeds prior to extubation. Objective - Vital Signs Vital signs: Vital Signs Temp 99.4 F 08/02/16 08:00 Pulse 143 H 08/02/16 15:11 Resp 35 H 08/02/16 11:00 BP 137/51 08/01/16 15:00 Pulse Ox 95 08/02/16 13:00 Intake & Output 08/01/16 08/02/16 08/02/16 18:59 06:59 18:59 Intake Total 607.664 4248.096 526.795 Output Total 130 5 10 Balance 846.474 3446.096 516.795 Weight 94 kg Intake: IV 100 Dextrose 5% in Water 1, 100 000 ml @ 100 mls/hr IV . [id number] [facility] with Sodium Bicarb (1 Meq/ml) 150 ml Rx#:[id number] Intake, IV Titration 773.789 946.096 466.795 Amount Dextrose 5% in Water 1, 100 000 ml @ 100 mls/hr IV . [id number] [facility] with Sodium Bicarb (1 Meq/ml) 150 ml Rx#:[id number] Levofloxacin 250Mg-D5w 50 Pmx 250 mg In Dextrose/ Water 1 50ml.bag @ 50 mls /hr IVPB Q24H [facility] Rx#: [id number] Piperacillin-Tazobactam 3 50 50.0 .375 gm In Dextrose/Water 1 50ml.bag @ 12.5 mls/hr IVPB Q12HR [facility] Rx#: [id number] Propofol 500 mg In Empty 173.789 246.096 16.795 Bag 1 bag @ Titrate IV . Q0M [facility] Rx#:[id number] Sodium Chloride 0.9% 1, 500 600 400 000 ml @ 50 mls/hr IV . Q20H [facility] Rx#:[id number] Tube Feeding 60 290 60 Other 60 120 Output: Urine 30 5 10 Emesis 100 Other: Voiding Method Indwelling Catheter Indwelling Catheter Indwelling Catheter # Bowel Movements 0 ABP, PAP, CO, CI - Last Documented Arterial Blood Pressure 134/62 - Exam Abdomen: Soft, minimally distended, nontender - Labs CBC & Chem 7: 08/02/16 04:15 08/02/16 04:15 Labs: Abnormal Lab Results - Last 24 Hours (Table) 08/01/16 08/02/16 08/02/16 Range/Units 16:21 04:15 04:15 RBC 3.41 L (4.30-5.90) m/uL Hgb 10.8 L (13.0-17.5) gm/dL Hct 31.7 L (39.0-53.0) % Plt Count 137 L (150-450) k/uL Lymphocytes # 0.7 L (1.0-4.8) k/uL ABG pH (7.35-7.45) ABG pCO2 (35-45) mmHg BUN 47 H (9-20) mg/dL Creatinine 6.00 H* (0.66-1.25) mg/dL Glucose 105 H (74-99) mg/dL POC Glucose (mg/dL) 103 H (75-99) mg/dL Calcium 7.7 L (8.4-10.2) mg/dL Phosphorus 5.2 H (2.5-4.5) mg/dL Total Protein 4.8 L (6.3-8.2) g/dL Albumin 2.5 L (3.5-5.0) g/dL 08/02/16 08/02/16 08/02/16 Range/Units 04:20 08:10 08:26 RBC (4.30-5.90) m/uL Hgb (13.0-17.5) gm/dL Hct (39.0-53.0) % Plt Count (150-450) k/uL Lymphocytes # (1.0-4.8) k/uL ABG pH 7.51 H (7.35-7.45) ABG pCO2 27 L (35-45) mmHg BUN (9-20) mg/dL Creatinine (0.66-1.25) mg/dL Glucose (74-99) mg/dL POC Glucose (mg/dL) 108 H 103 H (75-99) mg/dL Calcium (8.4-10.2) mg/dL Phosphorus (2.5-4.5) mg/dL Total Protein (6.3-8.2) g/dL Albumin (3.5-5.0) g/dL Microbiology - Last 24 Hours (Table) 07/31/16 05:00 Gram Stain - Final Sputum Sputum Culture - Final Jerilyn albicans 07/30/16 22:38 Blood Culture - Preliminary Blood No Growth after 48 hours 07/30/16 23:50 Urine Culture - Final Urine,Catheterized Assessment and Plan (1) Ischemia, bowel Narrative/Plan: Resume diet as the patient's respiratory status is improved. Patient's examination remains benign. Continue anticoagulation and workup for possible embolic disease. Status: Acute
[2016-08-02] MEDS: DILTIAZEM 125 MG in SODIUM CHLORIDE 0.9% 100 ML IV SCH (19:57)
--- NOTE | 2016-08-02 20:12 | PN ---
DATE OF SERVICE: 08/02/2016 This 76-year-old gentleman admitted with multiple medical problems, including acute metabolic lactic acidosis, acute hypoxic respiratory failure, also had possible aspiration. Patient with COPD. Patient with change in mental status and significant history of alcohol, also. The patient was closely monitored. The creatinine was into 6. Hemodialysis being initiated at this time. Patient's mechanical weaning parameters are being sought by Dr. Allen. PAST MEDICAL HISTORY: Reviewed. Review of systems could not be obtained, as the patient is mechanically ventilated and sedated. Current medications are reviewed and include: 1. Cordarone 200 mg p.o. daily. 2. Peridex 15 mL p.r.n. 3. Cardizem drip. 4. Lovenox 30 mg subcu. 5. Humalog. 6. Atrovent. 7. Xopenex 1.5 q.i.d. 8. Levaquin 250 mg daily. 9. Lopressor 25 mg p.o. b.i.d. 10. Narcan. 11. Zofran 4 mg IV every 6 hours. 12. Protonix 40 mg b.i.d. 13. Zosyn 3.375 IV b.i.d. 14. Propofol solution. PHYSICAL EXAM: Patient is mechanically ventilated and sedated. Pulse 155, blood pressure 130/60, respirations 20, temperature normal, pulse ox 95% on 100% nonrebreather. HEENT: Conjunctivae normal. Oral mucosa moist. NECK: No jugular venous distension. No carotid bruits. No lymph node enlargement. CARDIOVASCULAR SYSTEM: S1, S2 muffled. No S3. No S4. RESPIRATORY: Breath sounds diminished at the bases. A few scattered rhonchi. No crackles. ABDOMEN: Soft, nontender. LEGS: No edema. No swelling. NERVOUS SYSTEM: No focal deficits. LABS: Hemoglobin os 10.8. ABG: pH of 7.5. ASSESSMENT: 1. Acute metabolic and lactic acidosis with acute hypoxic respiratory failure, possibly secondary to sepsis from undetermined etiology. 2. Rule out aspiration. 3. Chronic obstructive pulmonary disease acute exacerbation. 4. Change in mental status, toxic metabolic encephalopathy; acute, multifactorial. 5. Acute renal failure with acute tubular necrosis, multifactorial, on hemodialysis, new onset. 6. Possible transient ischemic attack, acute stroke involving the left hemisphere, causing right-sided weakness, present on admission. 7. Hypernatremia, present on admission. 8. History of severe metabolic acidosis as well as lactic acidosis, present on admission. 9. Hyperchloremia. 10. Increased WBC. 11. Increased MCV. 12. History of atrial fibrillation, paroxysmal. 13. History of diverticulitis. 14. History of depression, not otherwise specified. 15. Remote history nicotine dependence. 16. FULL CODE. 17. Metabolic alkalosis currently. RECOMMENDATIONS AND DISCUSSION: Recommend to continue the current medications, continue with monitoring, symptomatic treatment. Otherwise, continue with empiric antibiotics, bronchodilators. Closely monitor with multiple consultants. Guarded prognosis. Further weaning per Dr. Allen. Further recommendations to follow.
[2016-08-02] MEDS: LEVOFLOXACIN 250MG-D5W PMX 250 MG in DEXTROSE/WATER 1 50ML.BAG IVPB SCH (20:40)
[2016-08-02 20:41] LABS: Glucose,Whole Blood 84 mg/dL (75-99)
--- NOTE | 2016-08-02 22:13 | P.PN ---
Subjective Principal diagnosis: Sepsis this is a 76-year-old male with past history of atrial fibrillation, diverticulitis, anxiety and depression. Patient apparently has had previous attempts at suicide by [address] Chin, cutting wrists, jumping and [place] and overdosing on sleeping pills. Patient was brought in to the emergency center due to slurred speech, right side feeling funny, Phalen's off and confusion. Patient was found to be afebrile. Pulse was 125-152 with atrial fibrillation with rapid ventricular response, hypertensive, tachypneic, leukocytosis initially at 13 and then eros to 28 and repeat was 17, acute renal failure with BUN of 23 and creatinine 3.1, severe lactic acidosis with lactic acid of 8.1 with repeat of 10. Electrolyte abnormalities with hypernatremia, hyperchloremia and hyperkalemia. Anion gap was 32. Troponin 2 was negative. Urine drug screen was negative and alcohol level was less than 10. Patient underwent initial chest x-ray that showed no acute process. CAT scan of the brain was done 2 which did show remote ischemic white matter changes, soft tissue nodule. Carotid ultrasound showed 50-70% right internal carotid stenosis and 50% on the left. CAT scan of the abdomen and pelvis without contrast showed bilateral perinephric stranding and small retroperitoneal fluid. No renal obstruction or stones. Consider infection. Diverticulosis without acute diverticulitis. Bibasilar lung atelectasis or consolidation with air space disease and possible infection. Last evening patient had a large coffee ground emesis and developed respiratory failure requiring intubation. He has been oliguric. He has been seen by Dr. Aceves for possible bowel ischemia or acute gastritis. NG tube is in place. Other consultants are neurology, cardiology, raveler, nephrology. Echocardiogram is pending. Sputum, urine and blood cultures are all status received. At this time, Dr. Allen spoke with the family regarding reason for the severe acidosis and family are going home to check grouch for items that he could have taken before arrival. According to the patient's , he does not talk about depression but just plain does not talk and can go weeks without talking to her in the same home. Patient has hemodialysis. Tolerating that well. Not having significant hypotension. Acidosis is improved. With the patient's improvement he has been extubated this afternoon. Appears to be tolerating that well. Has been able to swallow a few sips of water without difficulty. Objective - Vital Signs Vital signs: Vital Signs Temp 98.9 F 08/02/16 16:00 Pulse 93 08/02/16 19:00 Resp 35 H 08/02/16 11:00 BP 137/51 08/01/16 15:00 Pulse Ox 92 L 08/02/16 19:00 Intake & Output 08/02/16 08/02/16 08/03/16 06:59 18:59 06:59 Intake Total 1356.096 726.795 55 Output Total 5 10 0 Balance 1351.096 716.795 55 Intake: Intake, IV Titration 946.096 666.795 55 Amount Diltiazem 125 mg In 5 Sodium Chloride 0.9% 100 ml @ Titrate IV .Q0M [facility] Rx#:[id number] Levofloxacin 250Mg-D5w 50 Pmx 250 mg In Dextrose/ Water 1 50ml.bag @ 50 mls /hr IVPB Q24H [facility] Rx#: [id number] Piperacillin-Tazobactam 3 50 50.0 .375 gm In Dextrose/Water 1 50ml.bag @ 12.5 mls/hr IVPB Q12HR [facility] Rx#: [id number] Propofol 500 mg In Empty 246.096 16.795 Bag 1 bag @ Titrate IV . Q0M [facility] Rx#:[id number] Sodium Chloride 0.9% 1, 600 600 50 000 ml @ 50 mls/hr IV . Q20H [facility] Rx#:[id number] Tube Feeding 290 60 Other 120 Output: Urine 5 10 0 Other: Voiding Method Indwelling Catheter Indwelling Catheter # Bowel Movements 0 ABP, PAP, CO, CI - Last Documented Arterial Blood Pressure 108/40 - Exam Gen: This is a 76-year-old male. He has been extubated seems to be comfortable HEENT: Head is atraumatic, normocephalic. Pupils equal, round. Sclerae is anicteric. oral mucous membranes are moist. No oral lesions are seen NECK: Supple. No JVD. No lymphadenopathy. No thyromegaly. LUNGS: Clear to auscultation but diminished bilaterally. No intercostal retractions. HEART: irregular rate and rhythm. No murmur. ABDOMEN: Soft. Bowel sounds are present. No masses. No tenderness. Brody catheter in place with small amount of urine output. EXTREMITIES: No pedal edema. SCDs in place bilaterally. NEUROLOGICAL: Patient is awake but not he had a good historian. Did asked for some water and swallow without difficulties - Labs CBC & Chem 7: 08/02/16 04:15 08/02/16 04:15 Labs: Abnormal Lab Results - Last 24 Hours (Table) 08/02/16 08/02/16 08/02/16 Range/Units 04:15 04:15 04:20 RBC 3.41 L (4.30-5.90) m/uL Hgb 10.8 L (13.0-17.5) gm/dL Hct 31.7 L (39.0-53.0) % Plt Count 137 L (150-450) k/uL Lymphocytes # 0.7 L (1.0-4.8) k/uL ABG pH (7.35-7.45) ABG pCO2 (35-45) mmHg BUN 47 H (9-20) mg/dL Creatinine 6.00 H* (0.66-1.25) mg/dL Glucose 105 H (74-99) mg/dL POC Glucose (mg/dL) 108 H (75-99) mg/dL Calcium 7.7 L (8.4-10.2) mg/dL Phosphorus 5.2 H (2.5-4.5) mg/dL Total Protein 4.8 L (6.3-8.2) g/dL Albumin 2.5 L (3.5-5.0) g/dL 08/02/16 08/02/16 Range/Units 08:10 08:26 RBC (4.30-5.90) m/uL Hgb (13.0-17.5) gm/dL Hct (39.0-53.0) % Plt Count (150-450) k/uL Lymphocytes # (1.0-4.8) k/uL ABG pH 7.51 H (7.35-7.45) ABG pCO2 27 L (35-45) mmHg BUN (9-20) mg/dL Creatinine (0.66-1.25) mg/dL Glucose (74-99) mg/dL POC Glucose (mg/dL) 103 H (75-99) mg/dL Calcium (8.4-10.2) mg/dL Phosphorus (2.5-4.5) mg/dL Total Protein (6.3-8.2) g/dL Albumin (3.5-5.0) g/dL Microbiology - Last 24 Hours (Table) 07/31/16 05:00 Gram Stain - Final Sputum Sputum Culture - Final Jerilyn albicans 07/30/16 22:38 Blood Culture - Preliminary Blood No Growth after 48 hours Laboratory Results WBC 8.2 k/uL (3.8-10.6) 08/02/16 04:15 RBC 3.41 m/uL (4.30-5.90) L 08/02/16 04:15 Hgb 10.8 gm/dL (13.0-17.5) L 08/02/16 04:15 Hct 31.7 % (39.0-53.0) L 08/02/16 04:15 MCV 93.2 fL (80.0-100.0) 08/02/16 04:15 MCH 31.7 pg (25.0-35.0) 08/02/16 04:15 MCHC 34.0 g/dL (31.0-37.0) 08/02/16 04:15 RDW 14.3 % (11.5-15.5) 08/02/16 04:15 Plt Count 137 k/uL (150-450) L 08/02/16 04:15 Neutrophils % 85 % 08/02/16 04:15 Lymphocytes % 8 % 08/02/16 04:15 Monocytes % 4 % 08/02/16 04:15 Eosinophils % 1 % 08/02/16 04:15 Basophils % 0 % 08/02/16 04:15 Neutrophils # 7.0 k/uL (1.3-7.7) 08/02/16 04:15 Lymphocytes # 0.7 k/uL (1.0-4.8) L 08/02/16 04:15 Monocytes # 0.4 k/uL (0-1.0) 08/02/16 04:15 Eosinophils # 0.1 k/uL (0-0.7) 08/02/16 04:15 Basophils # 0.0 k/uL (0-0.2) 08/02/16 04:15 Hypochromasia Moderate 07/31/16 03:06 Macrocytosis Slight 07/31/16 03:06 PT 11.0 sec (9.0-12.0) 08/02/16 04:15 INR 1.1 (<1.1) 08/02/16 04:15 APTT 27.3 sec (22.0-30.0) 08/02/16 04:15 D-Dimer 0.99 mg/L FEU (<0.60) H 07/30/16 16:13 Sample Site JEAN-PIERRE 08/02/16 08:10 ABG pH 7.51 (7.35-7.45) H 08/02/16 08:10 ABG pCO2 27 mmHg (35-45) L 08/02/16 08:10 ABG pO2 83 mmHg (83-108) 08/02/16 08:10 ABG HCO3 22 mmol/L (21-25) 08/02/16 08:10 ABG Total CO2 22 mmol/L (19-24) 08/02/16 08:10 ABG O2 Saturation 97.0 % (94-97) 08/02/16 08:10 ABG Base Excess -1.1 mmol/L 08/02/16 08:10 FiO2 50 % 08/02/16 08:10 Sodium 139 mmol/L (137-145) 08/02/16 04:15 Potassium 4.6 mmol/L (3.5-5.1) 08/02/16 04:15 Chloride 100 mmol/L (98-107) 08/02/16 04:15 Carbon Dioxide 25 mmol/L (22-30) 08/02/16 04:15 Anion Gap 14 mmol/L 08/02/16 04:15 BUN 47 mg/dL (9-20) H 08/02/16 04:15 Creatinine 6.00 mg/dL (0.66-1.25) H* 08/02/16 04:15 Est GFR (MDRD) Af Amer 11 (>60 ml/min/1.73 sqM) 08/02/16 04:15 Est GFR (MDRD) Non-Af 9 (>60 ml/min/1.73 sqM) 08/02/16 04:15 Glucose 105 mg/dL (74-99) H 08/02/16 04:15 POC Glucose (mg/dL) 84 mg/dL (75-99) 08/02/16 20:39 POC Glu Photographic Reproduction Technician ID Leona Duarte 08/02/16 20:[address] Glu mg/dL 105 mg/dL 07/31/16 03:06 Hemoglobin A1c 5.3 % (4.2-6.1) 07/31/16 03:06 Osmolality 320 mosm/kg (280-301) H 07/31/16 03:06 Plasma Lactic Acid Brandon 4.1 mmol/L (0.7-2.0) H* 07/31/16 21:37 Calcium 7.7 mg/dL (8.4-10.2) L 08/02/16 04:15 Phosphorus 5.2 mg/dL (2.5-4.5) H 08/02/16 04:15 Magnesium 2.1 mg/dL (1.6-2.3) 08/02/16 04:15 Total Bilirubin 0.5 mg/dL (0.2-1.3) 08/02/16 04:15 AST 18 U/L (17-59) 08/02/16 04:15 ALT 31 U/L (21-72) 08/02/16 04:15 Alkaline Phosphatase 60 U/L (38-126) 08/02/16 04:15 Total Creatine Kinase 48 U/L (55-170) L 07/30/16 22:50 CK-MB (CK-2) 1.4 ng/mL (0.0-2.4) 07/30/16 22:50 CK-MB (CK-2) Rel Index 2.9 07/30/16 22:50 Troponin I 0.027 ng/mL (0.000-0.034) 07/31/16 08:25 NT-Pro-B Natriuret Pep 94 pg/mL 07/30/16 10:33 Total Protein 4.8 g/dL (6.3-8.2) L 08/02/16 04:15 Albumin 2.5 g/dL (3.5-5.0) L 08/02/16 04:15 Cortisol 82 ug/dL 07/30/16 22:38 Urine Color Light Yellow 07/30/16 23:50 Urine Appearance Clear (Clear) 07/30/16 23:50 Urine pH 5.0 (5.0-8.0) 07/30/16 23:50 Ur Specific [place] 1.007 (1.001-1.035) 07/30/16 23:50 Urine Protein 1+ (Negative) H 07/30/16 23:50 Urine Glucose (UA) Negative (Negative) 07/30/16 23:50 Urine Ketones Negative (Negative) 07/30/16 23:50 Urine Blood Trace (Negative) H 07/30/16 23:50 Urine Nitrite Negative (Negative) 07/30/16 23:50 Urine Bilirubin Negative (Negative) 07/30/16 23:50 Urine Urobilinogen <2.0 mg/dL (<2.0) 07/30/16 23:50 Ur Leukocyte Esterase Negative (Negative) 07/30/16 23:50 Urine RBC 2 /hpf (0-5) 07/30/16 23:50 Calcium Oxalate Crystal /hpf (None) 07/30/16 23:50 Salicylates <1.0 mg/dL 07/31/16 03:06 Urine Opiates Screen Not Detected (NotDetected) 07/30/16 23:50 Ur Oxycodone Screen Not Detected (NotDetected) 07/30/16 23:50 Urine Methadone Screen Not Detected (NotDetected) 07/30/16 23:50 Ur Propoxyphene Screen Not Detected (NotDetected) 07/30/16 23:50 Ur Barbiturates Screen Not Detected (NotDetected) 07/30/16 23:50 U Tricyclic Antidepress Not Detected (NotDetected) 07/30/16 23:50 Ur Phencyclidine Scrn Not Detected (NotDetected) 07/30/16 23:50 Ur Amphetamines Screen Not Detected (NotDetected) 07/30/16 23:50 U Methamphetamines Scrn Not Detected (NotDetected) 07/30/16 23:50 U Benzodiazepines Scrn Not Detected (NotDetected) 07/30/16 23:50 Urine Cocaine Screen Not Detected (NotDetected) 07/30/16 23:50 U Marijuana (THC) Screen Not Detected (NotDetected) 07/30/16 23:50 Ethylene Glycol Negative mg/dL (Negative) 07/31/16 08:25 Serum Alcohol <10 mg/dL 07/30/16 22:38 Ethyl Alcohol Screen Negative mg/dL (Negative) 07/31/16 18:45 Methyl Alcohol, Qual Negative mg/dL (Negative) 07/31/16 18:45 Isopropyl Alc, Qual Negative mg/dL (Negative) 07/31/16 18:45 Acetone, Qual Negative mg/dL (Negative) 07/31/16 18:45 Blood Type O Positive 07/31/16 03:06 Blood Type Recheck No 07/31/16 03:06 Antibody Screen NEGATIVE 07/31/16 03:06 Spec Expiration Date 08/03/2016 - 2306 07/31/16 03:06 Microbiology 07/31/16 05:00 Sputum Gram Stain - Final 07/31/16 05:00 Sputum Sputum Culture - Final Jerilyn albicans 07/30/16 22:38 Blood Blood Culture - Preliminary No Growth after 48 hours 07/30/16 23:50 Urine,Catheterized Urine Culture - Final Assessment and Plan (1) Ischemia, bowel Narrative/Plan: 76-year-old male presents to Hospital with altered mental status. A profound acidosis that is now improved. Is receiving dialysis for his acute renal failure. Etiology of the profound acidosis is thought to be organ dysfunction to his bowel with transient ischemic event that is improved. No evidence of any bloody stools are noted at this time. Patient has had improvement but does have the acute renal failure receiving renal replacement therapy . Antibiotic therapy has been directed for treatment of ischemic colitis and potential pneumonia with Zosyn and levofloxacin while cultures are process. The sputum for Jerilyn reveals evidence of oropharyngeal contamination. Patient is extubated and showing some improvement. However does have the ongoing renal failure with ongoing renal replacement therapy. Patient had extensive leukocytosis at admission that is now normalized as his acidosis and respiratory failure have improved. Status: Acute (2) Acute renal failure Status: Acute (3) Metabolic acidosis Status: Acute
[2016-08-03] MEDS: METOPROLOL TARTRATE 25 MG TAB PO SCH ×3 (00:44→21:14)
[2016-08-03 00:49] LABS: Glucose,Whole Blood 78 mg/dL (75-99)
[2016-08-03] MEDS: AMIODARONE 200 MG TAB PO SCH ×4 (01:00→21:14)
[2016-08-03] MEDS: INSULIN LISPRO (humaLOG) 300 UNIT/3 ML VIAL SQ SCH ×6 (01:02→20:46)
[2016-08-03 05:32] LABS: Basophils % (A) 0 %; CH 31.9; CHCM 34.3; Eosinophils # (A) 0.1 k/uL (0-0.7); Eosinophils % (A) 0 %; HCT 30.9 % (39.0-53.0); HDW 2.26; HGB 10.7 gm/dL (13.0-17.5); Luc # (Auto) 0.18; Luc % (Auto) 2; Lymphocytes # (A) 0.5 k/uL (1.0-4.8); Lymphocytes % (A) 4 %; MCH 32.6 pg (25.0-35.0); MCHC 34.8 g/dL (31.0-37.0); MCV 93.5 fL (80.0-100.0); Mean Platelet Volume 7.5; Monocytes # (A) 0.5 k/uL (0-1.0); Monocytes % (A) 5 %; Neutrophils # (A) 9.8 k/uL (1.3-7.7); Neutrophils % (A) 89 %; RDW 14.1 % (11.5-15.5); WBC (Perox) 11.33
[2016-08-03 05:45] LABS: INR 1.1 (<1.1); Partial Thromboplastin Time 27.8 sec (22.0-30.0); Prothrombin Time 11.1 sec (9.0-12.0)
[2016-08-03 05:51] LABS: ALT 26 U/L (21-72); AST 20 U/L (17-59); Alkaline Phosphatase 60 U/L (38-126); Anion Gap 17 mmol/L; Blood Urea Nitrogen 53 mg/dL (9-20); Calcium 7.9 mg/dL (8.4-10.2); Carbon Dioxide 19 mmol/L (22-30); Chloride 101 mmol/L (98-107); Glucose 69 mg/dL (74-99); Magnesium 2.3 mg/dL (1.6-2.3); Phosphorous 6.1 mg/dL (2.5-4.5); Potassium 4.9 mmol/L (3.5-5.1); Sodium 137 mmol/L (137-145); Total Bilirubin 1.1 mg/dL (0.2-1.3); Total Protein 4.9 g/dL (6.3-8.2)
[2016-08-03 06:22] LABS: Hepatitis B Surface Ag Index 0.08
[2016-08-03 06:39] LABS: Non-African American GFR(MDRD) 10 (>60 ml/min/1.73 sqM)
[2016-08-03 06:40] LABS: Glucose,Whole Blood 83 mg/dL (75-99)
[2016-08-03 06:40] LABS: Hepatitis B Surface Antibody Negative (Negative)
[2016-08-03] MEDS: SODIUM CHLORIDE 0.9% 1,000 ML IV SCH (06:58)
[2016-08-03] MEDS: LEVALBUTEROL NEB (CONC) 1.25 MG/0.5 ML AMP INHALATION PRN ×3 (07:48→19:18)
[2016-08-03] MEDS: IPRATROPIUM 0.5 MG/2.5 ML NEBU INHALATION PRN ×3 (07:48→19:18)
[2016-08-03 08:00] LABS: Glucose,Whole Blood 77 mg/dL (75-99)
--- NOTE | 2016-08-03 08:31 | XR ---
EXAMINATION TYPE: XR chest 1V portable DATE OF EXAM: 08/03/2016 6:23 AM HISTORY: Tube placement. REFERENCE: EXAMINATION TYPE: XR chest 1V portable COMPARISON: Previous study dated 08/02/2016. FINDINGS: The patient has been extubated. The patient is NG tube is been removed. A right internal j ugular catheter remains in place. Its tip is in the right atrium. Heart size is upper limits of normal. There is vascular congestion and subtle edema. There is a left effusion. IMPRESSION: 1. CHANGES CONSISTENT WITH MILD HEART FAILURE. 2. SMALL LEFT-SIDED EFFUSION..
[2016-08-03] MEDS ORDERED: FUROSEMIDE 10 MG/ML 10 ML VIAL IV STA (08:53)
--- NOTE | 2016-08-03 09:14 | P.PN ---
Subjective Patient seen in follow-up for acute kidney injury. His baseline creatinine is near 1 and was elevated at 1.5 on admission. It peaked at 6 this admission and he has so far undergone 2 treatments of hemodialysis. He remains oliguric. He was extubated on August 02. He is currently wearing an oxygen mask. Denies active chest pain or shortness of breath. Oral intake is to be started today. Vital signs are stable. General: The patient appeared well nourished and normally developed. HEENT: Head exam is unremarkable. Neck is without jugular venous distension. LUNGS: Rhonchi at bases Breath sounds decreased. HEART: Rate and Rhythm are regular. First and second heart sounds normal. No murmurs, rubs or gallops. ABDOMEN: Abdominal exam reveals normal bowel sounds. Non-tender and non- distended. No evidence of peritonitis. EXTREMITITES: No clubbing, cyanosis, or edema. Objective - Vital Signs Vital signs: Vital Signs Temp 99.0 F 08/03/16 08:00 Pulse 87 08/03/16 08:05 Resp 23 08/03/16 06:00 BP 137/51 08/01/16 15:00 Pulse Ox 94 L 08/03/16 08:00 Intake & Output 08/02/16 08/03/16 08/03/16 18:59 06:59 18:59 Intake Total 392.063 2673 55 Output Total 10 40 0 Balance 034.498 7479 55 Weight 95.8 kg Intake: Intake, IV Titration 666.795 710 55 Amount Diltiazem 125 mg In 60 5 Sodium Chloride 0.9% 100 ml @ Titrate IV .Q0M [facility] Rx#:[id number] Piperacillin-Tazobactam 3 50.0 50 .375 gm In Dextrose/Water 1 50ml.bag @ 12.5 mls/hr IVPB Q12HR [facility] Rx#: [id number] Propofol 500 mg In Empty 16.795 Bag 1 bag @ Titrate IV . Q0M [facility] Rx#:[id number] Sodium Chloride 0.9% 1, 600 600 50 000 ml @ 50 mls/hr IV . Q20H [facility] Rx#:[id number] Oral 840 Tube Feeding 60 Output: Urine 10 40 0 Other: Voiding Method Indwelling Catheter Indwelling Catheter ABP, PAP, CO, CI - Last Documented Arterial Blood Pressure 132/44 - Labs CBC & Chem 7: 08/03/16 04:45 08/03/16 04:45 Labs: Abnormal Lab Results - Last 24 Hours (Table) 08/03/16 08/03/16 Range/Units 04:45 04:45 WBC 11.0 H (3.8-10.6) k/uL RBC 3.30 L (4.30-5.90) m/uL Hgb 10.7 L (13.0-17.5) gm/dL Hct 30.9 L (39.0-53.0) % Plt Count 146 L (150-450) k/uL Neutrophils # 9.8 H (1.3-7.7) k/uL Lymphocytes # 0.5 L (1.0-4.8) k/uL Carbon Dioxide 19 L (22-30) mmol/L BUN 53 H (9-20) mg/dL Creatinine 5.61 H* (0.66-1.25) mg/dL Glucose 69 L (74-99) mg/dL Calcium 7.9 L (8.4-10.2) mg/dL Phosphorus 6.1 H (2.5-4.5) mg/dL Total Protein 4.9 L (6.3-8.2) g/dL Albumin 2.5 L (3.5-5.0) g/dL Microbiology - Last 24 Hours (Table) 07/30/16 22:38 Blood Culture - Preliminary Blood No Growth after 72 hours 07/31/16 05:00 Gram Stain - Final Sputum Sputum Culture - Final Jerilyn albicans Assessment and Plan Plan: Assessment: #1. Oliguric acute kidney injury secondary to ischemic ATN secondary to hemodynamic instability as well as emesis. Baseline creatinine is 1. Currently hemodialysis dependent. Urinalysis is quite benign and there is no evidence of hydronephrosis noted on CAT scan. Alcohol levels noted to be negative. Underwent secondtreatment of hemodialysis on 08/02. #2. Severe metabolic acidosis secondary to acute kidney injury and lactic acidosis. Blood sugars are stable. No evidence of alcohol toxicities. #3. Atrial fibrillation. He underwent into RVR last night and is currently maintained on a Cardizem drip. #4. Lactic acidosis most likely due to hypoperfusion. No evidence of hypoxia or ischemic bowel findings on CAT scan. #5. Hyperkalemia secondary to acute kidney injury and metabolic acidosis. Improved. #6. Hypernatremia secondary to lack of oral water intake and dehydration. Resolved. Plan: Continue 0.9 saline to be run at 50 mL an hour for maintenance fluids. Strict I's and O's. Maintain Brody catheter. Lasix 80 mg IV once today. Follow-up cultures. Hemodialysis today - this will be his third treatment. Will monitor renal function over the weekend for any recovery.
[2016-08-03] MEDS: PANTOPRAZOLE 40 MG/10 ML VIAL IVP SCH ×2 (10:08→20:45)
[2016-08-03] MEDS: ENOXAPARIN 30 MG/0.3 ML SYRINGE SQ SCH (10:08)
[2016-08-03] MEDS: PIPERACILLIN-TAZOBACTAM 3.375 GM in DEXTROSE/WATER 1 50ML.BAG IVPB SCH ×2 (10:11→22:17)
[2016-08-03] MEDS: CHLORHEXIDINE GLUCONATE 15 ML CUP MUCOUS MEM SCH (10:17)
--- NOTE | 2016-08-03 10:53 | P.PN ---
Subjective Principal diagnosis: Acute respiratory failure and acute metabolic lactic acidosis. This is a 76-year-old white male with history of multiple medical problems including severe depression, previous multiple suicidal attempts, chronic atrial fibrillation, diverticulosis, anxiety, patient presented to the ER yesterday with mostly symptoms of acute slurred speech and dizziness. His was concerned, and she brought him into the ER. CT of the brain was unremarkable. Echocardiogram was done and results are pending. However shortly after the patient arrived to the cardiac floor, he was noted to have increased shortness of breath, and he was showing significant metabolic acidosis /lactic acidosis based on his ABG. Patient was transferred to the ICU, and a genny You was notified about his ABG, I recommended immediate intubation of the patient. Patient was intubated, placed on mechanical ventilation, and he went on to develop worsening metabolic lactic acidosis. Hence I raised the possibility of ischemic bowel, abdominal sepsis, salicylate overdose, ethylene glycol toxicity, however I was mostly concerned about the possibility of bowel ischemia and abdominal sepsis. Patient had a CT of the abdomen and pelvis yesterday, and this was done with oral contrast, it showed some perinephric stranding, but no evidence of changes in the bowel to suggest ischemia. Upon arrival to the ICU, a nasogastric tube was placed because his abdomen was distended, and there was a significant amount of coffee-ground material suctioned from the stomach. Hemoglobin was noted to be 12.8, 2 g lower compared to admission hemoglobin. His lactic acid was as high as 10 yesterday, but it is 5.7 today. Patient was given multiple fluid boluses he received almost 5 L of fluids overnight. Patient was placed on a sodium bicarb drip, broad-spectrum antibiotics, urine was sent for calcium oxalate crystals, ethylene glycol level was ordered, salicylate level was ordered, however his osmolar gap was noted to be minimal, hence that practically rules out the possibility of ethylene glycol toxicity. In the meantime the patient remains on antibiotics, bronchodilators, sodium bicarb drip, and fluids. He was seen by nephrology on consultation, general surgery on consultation, and he is to be seen by infectious disease on consultation. Cultures at this point remain negative. And workup is still pending. Patient did not demonstrate any hemodynamic instability throughout the whole process, he never demonstrated any hypoxia during this process, urine output is very poor, hoping it will improve as we correct his metabolic acidosis. And I will suggest possibly a Lasix challenge was acidosis improves. Labs this morning were reviewed WBC count is down from 28-17.0. His ABG showed significant improvement with a pO2 of 109 pCO2 of 27 pH of 7.29 remind you his pH was less than 7 before intubation. Bicarb level this morning was 7 BUN is 27 creatinine is 3.20 blood sugar is 226. Measured serum osmolality was 320, calculated serum osmolality was 316. Lactic acid is down this morning to 5.7. Salicylate level was less than 1.0, and drug screen was negative. The urinalysis is relatively unremarkable and no evidence of pyuria or bacteriuria. The echocardiogram was also unremarkable, no evidence of thrombus. CT of the brain was unremarkable carotid Doppler was also unremarkable. Patient was reevaluated today on 08/01/2016, he remains hemodynamically stable, not requiring any pressors. Remains on mechanical ventilation, his rate was cut down to 14, tidal volume remains at 500, FiO2 is down to 50%. PEEP is at 5. ABG this morning showed a pO2 of 95 pCO2 of 33 pH of 7.50 hence the patient will be off bicarb drip today. And this was discontinued. CBC is relatively unremarkable hemoglobin is 11.0. His renal profile shows significant worsening with a BUN up to 46 and creatinine is 5.53. Patient remains oliguric and no response to Lasix challenges. Hence he is being considered for dialysis as per nephrology on the case. Briefly, the patient was given a sedation holiday, and he seemed to be very appropriate, and no focal neurologic deficit was noted while he was off propofol. I plan to eventually weaned and extubated the patient, however I would like his renal status to be addressed prior to any extubation trial since the patient is oliguric. Cultures remain negative. Sputum only showed some Jerilyn. But cultures are negative so far. I am still convinced that the patient must have had an episode of ischemic bowel related to his atrial fibrillation, may have also showered his kidneys with small tiny emboli. Patient is now on Lovenox, at a modified dose because of his renal status and because of his episode of upper GI bleeding. Could not fully heparinize the patient. Reevaluated today on 08/02/2016, patient remains on mechanical ventilation, hemodynamically stable, not requiring any pressors, ventilator settings remained the same, he is on 50% FiO2 with a PEEP of 5,ABG showed a pO2 of 83 pCO2 of 27 pH of 7.51. Chest x-ray showed minimal interstitial edema and atelectasis. CBC is relatively unremarkable, hemoglobin is 10.8.renal profile is worsening BUN is 47 creatinine is 6.0, patient received one hemodialysis yesterday.only 500 mL of fluid were removed. Patient remains sedated on propofol, however I plan to discontinue propofol, wake of the patient, given a weaning trial, and possibly extubate. Patient was reevaluated today on 08/03/2016, he was extubated yesterday uneventfully, however he remains on a nonrebreather mask, and O2 saturation is marginal. His chest x-ray showed mild congestive changes hence the patient will likely be dialyzed and ultrafiltrate it today. Patient is awake, alert, knows where he is, but he is confused to time. And date. Chest x-ray as noted above.labs WBC count is 11 hemoglobin 10.7 electrolytes are normal bicarb is 19 BUN is 53 creatinine is 5.61. Objective - Vital Signs Vital signs: Vital Signs Temp 99.0 F 08/03/16 08:00 Pulse 87 08/03/16 08:05 Resp 23 08/03/16 06:00 BP 137/51 08/01/16 15:00 Pulse Ox 94 L 08/03/16 08:00 Intake & Output 08/02/16 08/03/16 08/03/16 18:59 06:59 18:59 Intake Total 327.024 8879 220 Output Total 10 40 0 Balance 576.203 5432 220 Weight 95.8 kg 95.8 kg Intake: Intake, IV Titration 666.795 710 220 Amount Diltiazem 125 mg In 60 20 Sodium Chloride 0.9% 100 ml @ Titrate IV .Q0M [facility] Rx#:[id number] Piperacillin-Tazobactam 3 50.0 50 .375 gm In Dextrose/Water 1 50ml.bag @ 12.5 mls/hr IVPB Q12HR [facility] Rx#: [id number] Propofol 500 mg In Empty 16.795 Bag 1 bag @ Titrate IV . Q0M [facility] Rx#:[id number] Sodium Chloride 0.9% 1, 600 600 200 000 ml @ 50 mls/hr IV . Q20H [facility] Rx#:[id number] Oral 840 Tube Feeding 60 Output: Urine 10 40 0 Other: Voiding Method Indwelling Catheter Indwelling Catheter Indwelling Catheter ABP, PAP, CO, CI - Last Documented Arterial Blood Pressure 132/44 - Exam eneral appearance: 76-year-old white male in no distress on a nonrebreather mask. HET: Head is normocephalic and atraumatic. Pupils are equal and reactive. Oropharynx is clear without lesions. Neck: Supple without lymphadenopathy. Trachea midline. Heart: S1 S2. Lungs: No crackles or wheezes are heard. Abdomen: Soft, nontender, nondistended with bowel sounds. No peritoneal signs. No palpable organomegaly or masses. Extremities: Normal skin color and turgor. No cyanosis, rash, ulceration, clubbing, or edema. Radial and pedal pulses are 2/4 bilaterally. Brody with dom urine. Neurological:awake alert, moves all extremities fine, confused only todate and time., oriented to place - Labs CBC & Chem 7: 08/03/16 04:45 08/03/16 04:45 Labs: Abnormal Lab Results - Last 24 Hours (Table) 08/03/16 08/03/16 Range/Units 04:45 04:45 WBC 11.0 H (3.8-10.6) k/uL RBC 3.30 L (4.30-5.90) m/uL Hgb 10.7 L (13.0-17.5) gm/dL Hct 30.9 L (39.0-53.0) % Plt Count 146 L (150-450) k/uL Neutrophils # 9.8 H (1.3-7.7) k/uL Lymphocytes # 0.5 L (1.0-4.8) k/uL Carbon Dioxide 19 L (22-30) mmol/L BUN 53 H (9-20) mg/dL Creatinine 5.61 H* (0.66-1.25) mg/dL Glucose 69 L (74-99) mg/dL Calcium 7.9 L (8.4-10.2) mg/dL Phosphorus 6.1 H (2.5-4.5) mg/dL Total Protein 4.9 L (6.3-8.2) g/dL Albumin 2.5 L (3.5-5.0) g/dL Microbiology - Last 24 Hours (Table) 07/30/16 22:38 Blood Culture - Preliminary Blood No Growth after 72 hours 07/31/16 05:00 Gram Stain - Final Sputum Sputum Culture - Final Jerilyn albicans Assessment and Plan Plan: Impression: 1 acute respiratory failure secondary to severe metabolic, lactic acidosis, exact etiology is not clear, but still suspect ischemic bowel or abdominal sepsis. Salicylate poisoning and ethylene glycol poisoning is practically ruled out based on the initial studies done. 2 chronic atrial fibrillation, presently rate seems to be well-controlled. 3 acute presentation of TIA/CVA with negative workup upon presentation. 4 severe lactic acidosis, most likely secondary to sepsis or transient bowel ischemia. 5 acute kidney injury secondary to sepsis. This is also associated with oliguria 6 history of depression and previous suicidal attempts. 7 coffee-ground material via nasogastric tube most likely secondary to erosive gastritis , patient is presently on Lovenox subcu. Recommendation: Continue present supportive care measures,patient was extubated yesterday uneventfully, he will have dialysis and ultrafiltration today, he will remain on non-rebreather mask, continue present treatment plan, we'll keep in the ICU for today, and follow closely. CODE STATUS remains DO NOT RESUSCITATE.Critical care time is 35 minutes. Time with Patient: Greater than 30
[2016-08-03 12:10] LABS: Glucose,Whole Blood 80 mg/dL (75-99)
--- NOTE | 2016-08-03 15:43 | P.PN ---
Subjective Principal diagnosis: Metabolic encephalopathy This is 76-year-old male continue be evaluated by the neurology service for altered mental status. He was brought to [facility] emergency room after a complaint of confusion and slurred speech.. Patients CT of the brain showed no acute intracranial abnormalities. A repeat CT was done and showed some small vessel ischemic changes. There was no acute abnormality. Carotid Doppler showed 50-69% stenosis in the right internal carotid artery and 50% stenosis of the left internal carotid artery. He was initially admitted to the medical floor but his respiratory condition deteriorated quickly. He is currently in the intensive care unit , and has been extubated. There was some concern over toxic ingestion due to the patient's previous history of suicide attempts. He is currently being evaluated for ischemic bowel disease. He has severe metabolic acidosis. Dialysis continues, and he is undergoing his third treatment at the time my evaluation. Thus far as blood in urine culture show no infectious process. There was some crista found in sputum, which was from oral contamination. Objective - Vital Signs Vital signs: Vital Signs Temp 99.9 F H 08/03/16 12:00 Pulse 73 08/03/16 15:00 Resp 22 08/03/16 11:00 BP 137/51 08/01/16 15:00 Pulse Ox 91 L 08/03/16 15:00 Intake & Output 08/02/16 08/03/16 08/03/16 18:59 06:59 18:59 Intake Total 496.424 7397 435.0 Output Total 10 40 10 Balance 184.882 6160 425.0 Weight 95.8 kg 95.8 kg Intake: Intake, IV Titration 666.795 710 435.0 Amount Diltiazem 125 mg In 60 35 Sodium Chloride 0.9% 100 ml @ Titrate IV .Q0M [facility] Rx#:[id number] Piperacillin-Tazobactam 3 50.0 50 50.0 .375 gm In Dextrose/Water 1 50ml.bag @ 12.5 mls/hr IVPB Q12HR [facility] Rx#: [id number] Propofol 500 mg In Empty 16.795 Bag 1 bag @ Titrate IV . Q0M [facility] Rx#:[id number] Sodium Chloride 0.9% 1, 600 600 350 000 ml @ 50 mls/hr IV . Q20H [facility] Rx#:[id number] Oral 840 Tube Feeding 60 Output: Urine 10 40 10 Other: Voiding Method Indwelling Catheter Indwelling Catheter Indwelling Catheter ABP, PAP, CO, CI - Last Documented Arterial Blood Pressure 155/47 - Constitutional General appearance: Present: no acute distress - EENT Eyes: Present: EOMI, PERRLA. Absent: abnormal pupil, ptosis ENT: Present: hearing grossly normal - Neck Neck: Present: normal ROM. Absent: rigidity - Respiratory Respiratory: negative: prolonged expiration, prolonged inspiration - Cardiovascular Rhythm: regular - Gastrointestinal General gastrointestinal: Absent: distended, tenderness - Neurologic Neurologic Comment(s): Is alert where and oriented to person and place but not time. There is no facial asymmetry seen. There is generalized weakness that seems to be more pronounced on the left. Speech seems normal. No tremors or seizure-like activities are seen. - Labs CBC & Chem 7: 08/03/16 04:45 08/03/16 04:45 Labs: Abnormal Lab Results - Last 24 Hours (Table) 08/03/16 08/03/16 Range/Units 04:45 04:45 WBC 11.0 H (3.8-10.6) k/uL RBC 3.30 L (4.30-5.90) m/uL Hgb 10.7 L (13.0-17.5) gm/dL Hct 30.9 L (39.0-53.0) % Plt Count 146 L (150-450) k/uL Neutrophils # 9.8 H (1.3-7.7) k/uL Lymphocytes # 0.5 L (1.0-4.8) k/uL Carbon Dioxide 19 L (22-30) mmol/L BUN 53 H (9-20) mg/dL Creatinine 5.61 H* (0.66-1.25) mg/dL Glucose 69 L (74-99) mg/dL Calcium 7.9 L (8.4-10.2) mg/dL Phosphorus 6.1 H (2.5-4.5) mg/dL Total Protein 4.9 L (6.3-8.2) g/dL Albumin 2.5 L (3.5-5.0) g/dL Microbiology - Last 24 Hours (Table) 07/30/16 22:38 Blood Culture - Preliminary Blood No Growth after 72 hours Assessment and Plan (1) Respiratory failure Status: Acute (2) Acute metabolic encephalopathy Status: Acute (3) Acute renal failure Status: Acute (4) Left-sided weakness Status: Acute Plan: There is no reason to believe that his initial presentation is due to any ischemic event. An EEG was done off sedation and was consistent with moderate encephalopathy. This would account for his continued altered mental status. Now that he is off sedation and there is a question of some generalized weakness that seems worse on the left-hand side, we will repeat a CT of the brain. Because there was some bilateral stenosis on his carotid Doppler, I would like to repeat a CTA of the neck. We will get clearance from nephrology before proceeding. Continue neurological checks. We will continue to follow and evaluate. Continue to evaluate and treat his underlying renal failure. Continue neurological checks. We will continue to follow and make evaluations based on the above studies. I have performed a history and physical on the above patient. I have reviewed the above note, and agree.
--- NOTE | 2016-08-03 15:56 | CONS ---
DATE OF CONSULTATION: Dirk was seen in the intensive care unit. The patient has been intubated. Patient has a history of atrial fibrillation, history of diverticulosis, history of depression and history of slurring speech. The patient has been intubated. I was consulted. Patient has a high BUN and creatinine. SOCIAL HISTORY: The patient has history of smoking. No known allergies. On examination, patient was seen intubated. Neck is supple. Chest has a crackle bilaterally. ABDOMEN: Protuberant. No peritoneal sign noted. Femoral pulses are present. IMPRESSION: Acute chronic renal failure. PLAN: Placement of dialysis catheter. Risks and complications discussed.
[2016-08-03] MEDS ORDERED: HEPARIN SODIUM,PORCINE 5,000 UNIT/ML 1 ML VIAL ONE (16:00)
[2016-08-03 16:28] LABS: Glucose,Whole Blood 69 mg/dL (75-99)
[2016-08-03 17:06] LABS: Glucose,Whole Blood 74 mg/dL (75-99)
--- NOTE | 2016-08-03 17:06 | P.PN ---
Subjective Principal diagnosis: Bowel ischemia Patient remains somewhat confused. He is being dialyzed currently. Denies abdominal pain. He is tolerating his diet thus far. Objective - Vital Signs Vital signs: Vital Signs Temp 99.9 F H 08/03/16 12:00 Pulse 73 08/03/16 15:00 Resp 22 08/03/16 11:00 BP 137/51 08/01/16 15:00 Pulse Ox 91 L 08/03/16 15:00 Intake & Output 08/02/16 08/03/16 08/03/16 18:59 06:59 18:59 Intake Total 315.238 4440 435.0 Output Total 10 40 10 Balance 948.057 3323 425.0 Weight 95.8 kg 95.8 kg Intake: Intake, IV Titration 666.795 710 435.0 Amount Diltiazem 125 mg In 60 35 Sodium Chloride 0.9% 100 ml @ Titrate IV .Q0M [facility] Rx#:[id number] Piperacillin-Tazobactam 3 50.0 50 50.0 .375 gm In Dextrose/Water 1 50ml.bag @ 12.5 mls/hr IVPB Q12HR [facility] Rx#: [id number] Propofol 500 mg In Empty 16.795 Bag 1 bag @ Titrate IV . Q0M [facility] Rx#:[id number] Sodium Chloride 0.9% 1, 600 600 350 000 ml @ 50 mls/hr IV . Q20H [facility] Rx#:[id number] Oral 840 Tube Feeding 60 Output: Urine 10 40 10 Other: Voiding Method Indwelling Catheter Indwelling Catheter Indwelling Catheter ABP, PAP, CO, CI - Last Documented Arterial Blood Pressure 155/47 - Exam Abdomen: Soft, nontender, nondistended - Labs CBC & Chem 7: 08/03/16 04:45 08/03/16 04:45 Labs: Abnormal Lab Results - Last 24 Hours (Table) 08/03/16 08/03/16 08/03/16 Range/Units 04:45 04:45 16:08 WBC 11.0 H (3.8-10.6) k/uL RBC 3.30 L (4.30-5.90) m/uL Hgb 10.7 L (13.0-17.5) gm/dL Hct 30.9 L (39.0-53.0) % Plt Count 146 L (150-450) k/uL Neutrophils # 9.8 H (1.3-7.7) k/uL Lymphocytes # 0.5 L (1.0-4.8) k/uL Carbon Dioxide 19 L (22-30) mmol/L BUN 53 H (9-20) mg/dL Creatinine 5.61 H* (0.66-1.25) mg/dL Glucose 69 L (74-99) mg/dL POC Glucose (mg/dL) 69 L (75-99) mg/dL Calcium 7.9 L (8.4-10.2) mg/dL Phosphorus 6.1 H (2.5-4.5) mg/dL Total Protein 4.9 L (6.3-8.2) g/dL Albumin 2.5 L (3.5-5.0) g/dL Microbiology - Last 24 Hours (Table) 07/30/16 22:38 Blood Culture - Preliminary Blood No Growth after 72 hours Assessment and Plan (1) Ischemia, bowel Narrative/Plan: Continue diet as tolerated. We'll sign off at this point. Please contact if the patient has any complaints of abdominal pain. Status: Acute
--- NOTE | 2016-08-03 18:01 | P.PN ---
Subjective Principal diagnosis: Sepsis this is a 76-year-old male with past history of atrial fibrillation, diverticulitis, anxiety and depression. Patient apparently has had previous attempts at suicide by [address], cutting wrists, jumping and [place] and overdosing on sleeping pills. Patient was brought in to the emergency center due to slurred speech, right side feeling funny, Phalen's off and confusion. Patient was found to be afebrile. Pulse was 125-152 with atrial fibrillation with rapid ventricular response, hypertensive, tachypneic, leukocytosis initially at 13 and then eros to 28 and repeat was 17, acute renal failure with BUN of 23 and creatinine 3.1, severe lactic acidosis with lactic acid of 8.1 with repeat of 10. Electrolyte abnormalities with hypernatremia, hyperchloremia and hyperkalemia. Anion gap was 32. Troponin 2 was negative. Urine drug screen was negative and alcohol level was less than 10. Patient underwent initial chest x-ray that showed no acute process. CAT scan of the brain was done 2 which did show remote ischemic white matter changes, soft tissue nodule. Carotid ultrasound showed 50-70% right internal carotid stenosis and 50% on the left. CAT scan of the abdomen and pelvis without contrast showed bilateral perinephric stranding and small retroperitoneal fluid. No renal obstruction or stones. Consider infection. Diverticulosis without acute diverticulitis. Bibasilar lung atelectasis or consolidation with air space disease and possible infection. Last evening patient had a large coffee ground emesis and developed respiratory failure requiring intubation. He has been oliguric. He has been seen by Dr. Aceves for possible bowel ischemia or acute gastritis. NG tube is in place. Other consultants are neurology, cardiology, sap project manager, nephrology. Echocardiogram is pending. Sputum, urine and blood cultures are all status received. At this time, Dr. Allen spoke with the family regarding reason for the severe acidosis and family are going home to check grouch for items that he could have taken before arrival. According to the patient's , he does not talk about depression but just plain does not talk and can go weeks without talking to her in the same home. Patient has hemodialysis. Tolerating that well. Not having significant hypotension. Acidosis is improved. Showing ongoing improvement. Tolerating hemodialysis. Doing well with extubation but still seems to be uncomfortable. Mental status is poor. Objective - Vital Signs Vital signs: Vital Signs Temp 99.9 F H 08/03/16 12:00 Pulse 73 08/03/16 15:00 Resp 22 08/03/16 11:00 BP 137/51 08/01/16 15:00 Pulse Ox 91 L 08/03/16 15:00 Intake & Output 08/02/16 08/03/16 08/03/16 18:59 06:59 18:59 Intake Total 187.248 9703 435.0 Output Total 10 40 10 Balance 187.877 8962 425.0 Weight 95.8 kg 95.8 kg Intake: Intake, IV Titration 666.795 710 435.0 Amount Diltiazem 125 mg In 60 35 Sodium Chloride 0.9% 100 ml @ Titrate IV .Q0M [facility] Rx#:[id number] Piperacillin-Tazobactam 3 50.0 50 50.0 .375 gm In Dextrose/Water 1 50ml.bag @ 12.5 mls/hr IVPB Q12HR [facility] Rx#: [id number] Propofol 500 mg In Empty 16.795 Bag 1 bag @ Titrate IV . Q0M [facility] Rx#:[id number] Sodium Chloride 0.9% 1, 600 600 350 000 ml @ 50 mls/hr IV . Q20H [facility] Rx#:[id number] Oral 840 Tube Feeding 60 Output: Urine 10 40 10 Other: Voiding Method Indwelling Catheter Indwelling Catheter Indwelling Catheter ABP, PAP, CO, CI - Last Documented Arterial Blood Pressure 155/47 - Exam Gen: This is a 76-year-old male. He has been extubated seems to be comfortable HEENT: Head is atraumatic, normocephalic. Pupils equal, round. Sclerae is anicteric. oral mucous membranes are moist. No oral lesions are seen NECK: Supple. No JVD. No lymphadenopathy. No thyromegaly. LUNGS: Clear to auscultation but diminished bilaterally. No intercostal retractions. HEART: irregular rate and rhythm. No murmur. ABDOMEN: Soft. Bowel sounds are present. No masses. No tenderness. Brody catheter in place with small amount of urine output. EXTREMITIES: No pedal edema. SCDs in place bilaterally. NEUROLOGICAL: Patient is awake but not he had a good historian. Answers questions with only a simple 1 word answer. Appears irritable - Labs CBC & Chem 7: 08/03/16 04:45 08/03/16 04:45 Labs: Abnormal Lab Results - Last 24 Hours (Table) 08/03/16 08/03/16 08/03/16 Range/Units 04:45 04:45 16:08 WBC 11.0 H (3.8-10.6) k/uL RBC 3.30 L (4.30-5.90) m/uL Hgb 10.7 L (13.0-17.5) gm/dL Hct 30.9 L (39.0-53.0) % Plt Count 146 L (150-450) k/uL Neutrophils # 9.8 H (1.3-7.7) k/uL Lymphocytes # 0.5 L (1.0-4.8) k/uL Carbon Dioxide 19 L (22-30) mmol/L BUN 53 H (9-20) mg/dL Creatinine 5.61 H* (0.66-1.25) mg/dL Glucose 69 L (74-99) mg/dL POC Glucose (mg/dL) 69 L (75-99) mg/dL Calcium 7.9 L (8.4-10.2) mg/dL Phosphorus 6.1 H (2.5-4.5) mg/dL Total Protein 4.9 L (6.3-8.2) g/dL Albumin 2.5 L (3.5-5.0) g/dL 08/03/16 Range/Units 17:05 WBC (3.8-10.6) k/uL RBC (4.30-5.90) m/uL Hgb (13.0-17.5) gm/dL Hct (39.0-53.0) % Plt Count (150-450) k/uL Neutrophils # (1.3-7.7) k/uL Lymphocytes # (1.0-4.8) k/uL Carbon Dioxide (22-30) mmol/L BUN (9-20) mg/dL Creatinine (0.66-1.25) mg/dL Glucose (74-99) mg/dL POC Glucose (mg/dL) 74 L (75-99) mg/dL Calcium (8.4-10.2) mg/dL Phosphorus (2.5-4.5) mg/dL Total Protein (6.3-8.2) g/dL Albumin (3.5-5.0) g/dL Microbiology - Last 24 Hours (Table) 07/30/16 22:38 Blood Culture - Preliminary Blood No Growth after 72 hours Laboratory Results WBC 11.0 k/uL (3.8-10.6) H 08/03/16 04:45 RBC 3.30 m/uL (4.30-5.90) L 08/03/16 04:45 Hgb 10.7 gm/dL (13.0-17.5) L 08/03/16 04:45 Hct 30.9 % (39.0-53.0) L 08/03/16 04:45 MCV 93.5 fL (80.0-100.0) 08/03/16 04:45 MCH 32.6 pg (25.0-35.0) 08/03/16 04:45 MCHC 34.8 g/dL (31.0-37.0) 08/03/16 04:45 RDW 14.1 % (11.5-15.5) 08/03/16 04:45 Plt Count 146 k/uL (150-450) L 08/03/16 04:45 Neutrophils % 89 % 08/03/16 04:45 Lymphocytes % 4 % 08/03/16 04:45 Monocytes % 5 % 08/03/16 04:45 Eosinophils % 0 % 08/03/16 04:45 Basophils % 0 % 08/03/16 04:45 Neutrophils # 9.8 k/uL (1.3-7.7) H 08/03/16 04:45 Lymphocytes # 0.5 k/uL (1.0-4.8) L 08/03/16 04:45 Monocytes # 0.5 k/uL (0-1.0) 08/03/16 04:45 Eosinophils # 0.1 k/uL (0-0.7) 08/03/16 04:45 Basophils # 0.0 k/uL (0-0.2) 08/03/16 04:45 Hypochromasia Moderate 07/31/16 03:06 Macrocytosis Slight 07/31/16 03:06 PT 11.1 sec (9.0-12.0) 08/03/16 04:45 INR 1.1 (<1.1) 08/03/16 04:45 APTT 27.8 sec (22.0-30.0) 08/03/16 04:45 D-Dimer 0.99 mg/L FEU (<0.60) H 07/30/16 16:13 Sample Site JEAN-PIERRE 08/02/16 08:10 ABG pH 7.51 (7.35-7.45) H 08/02/16 08:10 ABG pCO2 27 mmHg (35-45) L 08/02/16 08:10 ABG pO2 83 mmHg (83-108) 08/02/16 08:10 ABG HCO3 22 mmol/L (21-25) 08/02/16 08:10 ABG Total CO2 22 mmol/L (19-24) 08/02/16 08:10 ABG O2 Saturation 97.0 % (94-97) 08/02/16 08:10 ABG Base Excess -1.1 mmol/L 08/02/16 08:10 FiO2 50 % 08/02/16 08:10 Sodium 137 mmol/L (137-145) 08/03/16 04:45 Potassium 4.9 mmol/L (3.5-5.1) 08/03/16 04:45 Chloride 101 mmol/L (98-107) 08/03/16 04:45 Carbon Dioxide 19 mmol/L (22-30) L 08/03/16 04:45 Anion Gap 17 mmol/L 08/03/16 04:45 BUN 53 mg/dL (9-20) H 08/03/16 04:45 Creatinine 5.61 mg/dL (0.66-1.25) H* 08/03/16 04:45 Est GFR (MDRD) Af Amer 12 (>60 ml/min/1.73 sqM) 08/03/16 04:45 Est GFR (MDRD) Non-Af 10 (>60 ml/min/1.73 sqM) 08/03/16 04:45 Glucose 69 mg/dL (74-99) L 08/03/16 04:45 POC Glucose (mg/dL) 74 mg/dL (75-99) L 08/03/16 17:05 POC Glu Gas Dispatcher Suzanne Moreno 08/03/16 17:[address] Glu mg/dL 105 mg/dL 07/31/16 03:06 Hemoglobin A1c 5.3 % (4.2-6.1) 07/31/16 03:06 Osmolality 320 mosm/kg (280-301) H 07/31/16 03:06 Plasma Lactic Acid [place] 4.1 mmol/L (0.7-2.0) H* 07/31/16 21:37 Calcium 7.9 mg/dL (8.4-10.2) L 08/03/16 04:45 Phosphorus 6.1 mg/dL (2.5-4.5) H 08/03/16 04:45 Magnesium 2.3 mg/dL (1.6-2.3) 08/03/16 04:45 Total Bilirubin 1.1 mg/dL (0.2-1.3) 08/03/16 04:45 AST 20 U/L (17-59) 08/03/16 04:45 ALT 26 U/L (21-72) 08/03/16 04:45 Alkaline Phosphatase 60 U/L (38-126) 08/03/16 04:45 Total Creatine Kinase 48 U/L (55-170) L 07/30/16 22:50 CK-MB (CK-2) 1.4 ng/mL (0.0-2.4) 07/30/16 22:50 CK-MB (CK-2) Rel Index 2.9 07/30/16 22:50 Troponin I 0.027 ng/mL (0.000-0.034) 07/31/16 08:25 NT-Pro-B Natriuret Pep 94 pg/mL 07/30/16 10:33 Total Protein 4.9 g/dL (6.3-8.2) L 08/03/16 04:45 Albumin 2.5 g/dL (3.5-5.0) L 08/03/16 04:45 Cortisol 82 ug/dL 07/30/16 22:38 Urine Color Light Yellow 07/30/16 23:50 Urine Appearance Clear (Clear) 07/30/16 23:50 Urine pH 5.0 (5.0-8.0) 07/30/16 23:50 Ur Specific [place] 1.007 (1.001-1.035) 07/30/16 23:50 Urine Protein 1+ (Negative) H 07/30/16 23:50 Urine Glucose (UA) Negative (Negative) 07/30/16 23:50 Urine Ketones Negative (Negative) 07/30/16 23:50 Urine Blood Trace (Negative) H 07/30/16 23:50 Urine Nitrite Negative (Negative) 07/30/16 23:50 Urine Bilirubin Negative (Negative) 07/30/16 23:50 Urine Urobilinogen <2.0 mg/dL (<2.0) 07/30/16 23:50 Ur Leukocyte Esterase Negative (Negative) 07/30/16 23:50 Urine RBC 2 /hpf (0-5) 07/30/16 23:50 Calcium Oxalate Crystal /hpf (None) 07/30/16 23:50 Salicylates <1.0 mg/dL 07/31/16 03:06 Urine Opiates Screen Not Detected (NotDetected) 07/30/16 23:50 Ur Oxycodone Screen Not Detected (NotDetected) 07/30/16 23:50 Urine Methadone Screen Not Detected (NotDetected) 07/30/16 23:50 Ur Propoxyphene Screen Not Detected (NotDetected) 07/30/16 23:50 Ur Barbiturates Screen Not Detected (NotDetected) 07/30/16 23:50 U Tricyclic Antidepress Not Detected (NotDetected) 07/30/16 23:50 Ur Phencyclidine Scrn Not Detected (NotDetected) 07/30/16 23:50 Ur Amphetamines Screen Not Detected (NotDetected) 07/30/16 23:50 U Methamphetamines Scrn Not Detected (NotDetected) 07/30/16 23:50 U Benzodiazepines Scrn Not Detected (NotDetected) 07/30/16 23:50 Urine Cocaine Screen Not Detected (NotDetected) 07/30/16 23:50 U Marijuana (THC) Screen Not Detected (NotDetected) 07/30/16 23:50 Ethylene Glycol Negative mg/dL (Negative) 07/31/16 08:25 Serum Alcohol <10 mg/dL 07/30/16 22:38 Ethyl Alcohol Screen Negative mg/dL (Negative) 07/31/16 18:45 Methyl Alcohol, Qual Negative mg/dL (Negative) 07/31/16 18:45 Isopropyl Alc, Qual Negative mg/dL (Negative) 07/31/16 18:45 Acetone, Qual Negative mg/dL (Negative) 07/31/16 18:45 Hep Bs Antigen Negative 08/03/16 04:45 Hep Bs Antibody Negative (Negative) 08/03/16 04:45 Hep B Core Total Ab Non-Reactive (Non-Reactive) 08/03/16 04:45 Blood Type O Positive 07/31/16 03:06 Blood Type Recheck No 07/31/16 03:06 Antibody Screen NEGATIVE 07/31/16 03:06 Spec Expiration Date 08/03/2016 - 230507/31/16 03:06 Microbiology 07/30/16 22:38 Blood Blood Culture - Preliminary No Growth after 72 hours 07/31/16 05:00 Sputum Gram Stain - Final 07/31/16 05:00 Sputum Sputum Culture - Final Jerilyn albicans 07/30/16 23:50 Urine,Catheterized Urine Culture - Final Assessment and Plan (1) Ischemia, bowel Narrative/Plan: 76-year-old male presents to Hospital with altered mental status. A profound acidosis that is now improved. Is receiving dialysis for his acute renal failure. Etiology of the profound acidosis is thought to be organ dysfunction to his bowel with transient ischemic event that is improved. No evidence of any bloody stools are noted at this time. Patient has had improvement but does have the acute renal failure receiving renal replacement therapy . Antibiotic therapy has been directed for treatment of ischemic colitis and potential pneumonia with Zosyn and levofloxacin while cultures are process. The sputum for Jerilyn reveals evidence of oropharyngeal contamination. Patient is extubated and showing some improvement. However does have the ongoing renal failure with ongoing renal replacement therapy. Patient had extensive leukocytosis at admission that is now improved as his acidosis and respiratory failure have improved. Chest x-ray shows evidence of some mild volume overload but no fe pneumonia. Status: Acute (2) Acute renal failure Status: Acute (3) Metabolic acidosis Status: Acute
[2016-08-03] MEDS: DILTIAZEM 125 MG in SODIUM CHLORIDE 0.9% 100 ML IV SCH (18:40)
--- NOTE | 2016-08-03 19:19 | PN ---
DATE OF SERVICE: 08/03/2016 This 76-year-old gentleman, admitted with acute respiratory failure and severe acidosis, is being closely monitored. Patient is extubated. Patient is still confused but much more alert at this time. Patient also has minimal weakness on the left side. Multiple consultants are following the patient closely. Carotid Doppler showed 50% to 60% stenosis of the right and 50% stenosis of the left. The patient is undergoing hemodialysis at this time, new onset. Past medical history reviewed. Review of systems could not be taken; the patient is still confused. Current medications are reviewed and include: 1. Cordarone 200 mg p.o. t.i.d. 2. Diltiazem. 3. Lovenox 30 mg p.o. daily. 4. Humalog scale. 5. Atrovent. 6. Xopenex 1.25 q.i.d. 7. Levaquin 250 mg IV q.24 hours. 8. Lopressor 25 mg p.o. b.i.d. 9. Narcan 0.2 q.2 p.r.n. 10. Zofran. 11. Protonix 40 mg b.i.d. 12. Zosyn 3.375 IV b.i.d. 13. Propofol 500 mg p.r.n. PHYSICAL EXAM: Patient is alert and oriented x3. Pulse is 88, blood pressure 140/70, respiration 18, temperature 99.9, pulse ox 89% on 4 L. HEENT: Conjunctivae normal. NECK: No jugular venous distention. CARDIOVASCULAR SYSTEM: S1, S2 muffled. No S3. No S4. RESPIRATORY SYSTEM: Breath sounds diminished at the bases. A few scattered rhonchi and crackles. ABDOMEN: Soft, nontender. LEGS: No edema. No swelling. NERVOUS SYSTEM: Higher functions as mentioned earlier. Some weakness on the left side present. SKIN: No ulcer, rash, bleeding. LABS: WBC 11, hemoglobin 10.7, platelets 146. Creatinine is 5.61. ASSESSMENT: 1. Acute metabolic and lactic acidosis with acute hypoxic respiratory failure, possibly secondary to sepsis of undetermined etiology, possibly aspiration pneumonia. 2. Chronic obstructive pulmonary disease, acute exacerbation. 3. Change in mental status, toxic metabolic encephalopathy, acute, multifactorial. 4. Acute renal failure with acute tubular necrosis, multifactorial, on hemodialysis, new onset. 5. Possible history of transient ischemic attack or acute stroke involving the right hemisphere causing left-sided weakness. 6. Hypernatremia, present on admission. 7. History of severe metabolic acidosis as well as lactic acidosis, present on admission. 8. Hyperchloremia. 9. Increased white count. 10. Increased mean corpuscular volume. 11. History of atrial fibrillation, paroxysmal. 12. History of diverticulitis. 13. History of depression not otherwise specified. 14. Remote history of nicotine dependence and metabolic alkalosis recently. 15. Bilateral carotid stenosis, right more than left. 16. FULL CODE. RECOMMENDATIONS AND DISCUSSION: In this 76-year-old gentleman who presented with multiple complex medical issues, we will monitor the patient closely. Otherwise, closely monitor with multiple consultants. Continue the hemodialysis and avoid nephrotoxic agents. Antiplatelet agents. PT, OT evaluation. Guarded prognosis because of multiple complex medical issues. Sensorium is slightly improved, but the patient is still confused. Further recommendations to follow.
[2016-08-03] MEDS: LEVOFLOXACIN 250MG-D5W PMX 250 MG in DEXTROSE/WATER 1 50ML.BAG IVPB SCH (20:44)
[2016-08-03 20:51] LABS: Glucose,Whole Blood 76 mg/dL (75-99)
--- NOTE | 2016-08-03 21:47 | SLS ---
PREOPERATIVE DIAGNOSIS: Acute chronic renal failure. PROCEDURE: Placement of a dialysis catheter, right femoral approach. Patient was seen in the intensive care unit. Right groin was prepped and draped in the usual sterile manner. 1% lidocaine infiltrated in the groin area. Micropuncture introduced in the right common femoral vein. Micropuncture guide was passed and 4 Maltese dilator was advanced on top of the guidewire. After that, we placed a regular guidewire. We passed the guidewire without any difficulty and dilator was advanced on the top of the guidewire. Then we placed a 20 cm dialysis catheter on top of the Glidewire. The guidewire was removed, flushed with heparin saline, hep-locked and secured with 3-0 nylon. Dressing applied. The patient tolerated the procedure well.
[2016-08-04] MEDS: INSULIN LISPRO (humaLOG) 300 UNIT/3 ML VIAL SQ SCH ×6 (00:29→19:47)
[2016-08-04 00:36] LABS: Glucose,Whole Blood 82 mg/dL (75-99)
[2016-08-04] MEDS: SODIUM CHLORIDE 0.9% 1,000 ML IV SCH ×2 (03:00→19:47)
[2016-08-04 04:12] LABS: Glucose,Whole Blood 76 mg/dL (75-99)
[2016-08-04 04:19] LABS: Basophils % (A) 0 %; CH 32.1; CHCM 34.7; Eosinophils # (A) 0.2 k/uL (0-0.7); Eosinophils % (A) 1 %; HCT 31.2 % (39.0-53.0); HDW 2.36; HGB 10.5 gm/dL (13.0-17.5); Luc # (Auto) 0.26; Luc % (Auto) 2; Lymphocytes # (A) 0.5 k/uL (1.0-4.8); Lymphocytes % (A) 3 %; MCH 31.5 pg (25.0-35.0); MCHC 33.8 g/dL (31.0-37.0); MCV 93.1 fL (80.0-100.0); Mean Platelet Volume 9.4; Monocytes # (A) 0.8 k/uL (0-1.0); Monocytes % (A) 6 %; Neutrophils % (A) 88 %; RBC 3.35 m/uL (4.30-5.90); RDW 14.1 % (11.5-15.5); WBC 14.7 k/uL (3.8-10.6)
[2016-08-04 05:08] LABS: Magnesium 2.5 mg/dL (1.6-2.3); Phosphorous 6.3 mg/dL (2.5-4.5); Potassium 4.7 mmol/L (3.5-5.1)
[2016-08-04] MEDS: PIPERACILLIN-TAZOBACTAM 3.375 GM in DEXTROSE/WATER 1 50ML.BAG IVPB SCH ×2 (07:52→20:12)
[2016-08-04] MEDS: ENOXAPARIN 30 MG/0.3 ML SYRINGE SQ SCH (07:53)
[2016-08-04] MEDS: AMIODARONE 200 MG TAB PO SCH ×3 (07:53→21:01)
[2016-08-04] MEDS: PANTOPRAZOLE 40 MG/10 ML VIAL IVP SCH ×2 (07:53→20:12)
[2016-08-04] MEDS: METOPROLOL TARTRATE 25 MG TAB PO SCH ×2 (07:53→18:04)
[2016-08-04 07:57] LABS: Glucose,Whole Blood 76 mg/dL (75-99)
[2016-08-04] MEDS: IPRATROPIUM 0.5 MG/2.5 ML NEBU INHALATION PRN ×2 (08:43→16:36)
[2016-08-04] MEDS: LEVALBUTEROL NEB (CONC) 1.25 MG/0.5 ML AMP INHALATION PRN ×2 (08:43→16:36)
--- NOTE | 2016-08-04 09:19 | P.PN ---
Subjective This is a 76-year-old male seen in consultation earlier and has severe dialysis dependent acute kidney injury. He has been dialyzed 3 days in a row last dialysis yesterday 08/03/2016. 1.5 L were taken off. The cause of this acute kidney injury and ATN is not very clear. He will had severe lactic acidosis with a pH of 7 and the lactic acid of 10. Workup has not shown any bowel ischemia. He came in with obtundation. He was also in atrial fibrillation. Currently on Cardizem drip for control of his atrophy ablation as well as on a milder 1. He remains awake alert but very weak and not eating well. No nausea vomiting. He denies any shortness of breath and is obviously wheezing is on oxygen. He is moving all his extremities on command. But is profoundly weak. No urine output. While signs are stable. Objective - Vital Signs Vital signs: Vital Signs Temp 98.8 F 08/04/16 04:00 Pulse 86 08/04/16 08:54 Resp 28 H 08/04/16 07:00 BP 137/51 08/01/16 15:00 Pulse Ox 92 L 08/04/16 07:00 Intake & Output 08/03/16 08/04/16 08/04/16 18:59 06:59 18:59 Intake Total 798.583 450.0 110 Output Total 20 25 5 Balance 778.583 425.0 105 Weight 95.8 kg Intake: IV 110 Diltiazem 125 mg In 10 Sodium Chloride 0.9% 100 ml @ Titrate IV .Q0M [facility] Rx#:[id number] Sodium Chloride 0.9% 1, 100 000 ml @ 50 mls/hr IV . Q20H [facility] Rx#:[id number] Intake, IV Titration 798.583 450.0 Amount Diltiazem 125 mg In 148.583 Sodium Chloride 0.9% 100 ml @ Titrate IV .Q0M [facility] Rx#:[id number] Levofloxacin 250Mg-D5w 50 Pmx 250 mg In Dextrose/ Water 1 50ml.bag @ 50 mls /hr IVPB Q24H [facility] Rx#: [id number] Piperacillin-Tazobactam 3 12.5 .375 gm In Dextrose/Water 1 50ml.bag @ 12.5 mls/hr IVPB ONCE ONE Rx#: [id number] Piperacillin-Tazobactam 3 50.0 37.5 .375 gm In Dextrose/Water 1 50ml.bag @ 12.5 mls/hr IVPB Q12HR [facility] Rx#: [id number] Sodium Chloride 0.9% 1, 600 350 000 ml @ 50 mls/hr IV . Q20H [facility] Rx#:[id number] Output: Urine 20 25 5 Other: Voiding Method Indwelling Catheter Indwelling Catheter ABP, PAP, CO, CI - Last Documented Arterial Blood Pressure 124/41 On examination his weak tired sleepy but arousable. A chin exam no JVP neck is supple no facial asymmetry pupils are equal. Lungs are significant and occasional coarse crackle less than optimal air entry. Heart sounds are unremarkable for any murmur rub gallop he is in atrial fibrillation. Abdomen soft nontender no organomegaly ascites masses Extremity exam was trace edema Neurologically awake alert oriented 3 but generalized weakness. - Labs CBC & Chem 7: 08/04/16 04:10 08/04/16 04:10 Labs: Abnormal Lab Results - Last 24 Hours (Table) 08/03/16 08/03/16 08/04/16 Range/Units 16:08 17:05 04:10 WBC 14.7 H (3.8-10.6) k/uL RBC 3.35 L (4.30-5.90) m/uL Hgb 10.5 L (13.0-17.5) gm/dL Hct 31.2 L (39.0-53.0) % Neutrophils # 13.0 H (1.3-7.7) k/uL Lymphocytes # 0.5 L (1.0-4.8) k/uL Carbon Dioxide (22-30) mmol/L BUN (9-20) mg/dL Creatinine (0.66-1.25) mg/dL Glucose (74-99) mg/dL POC Glucose (mg/dL) 69 L 74 L (75-99) mg/dL Calcium (8.4-10.2) mg/dL Phosphorus (2.5-4.5) mg/dL Magnesium (1.6-2.3) mg/dL 08/04/16 Range/Units 04:10 WBC (3.8-10.6) k/uL RBC (4.30-5.90) m/uL Hgb (13.0-17.5) gm/dL Hct (39.0-53.0) % Neutrophils # (1.3-7.7) k/uL Lymphocytes # (1.0-4.8) k/uL Carbon Dioxide 18 L (22-30) mmol/L BUN 53 H (9-20) mg/dL Creatinine 5.10 H* (0.66-1.25) mg/dL Glucose 70 L (74-99) mg/dL POC Glucose (mg/dL) (75-99) mg/dL Calcium 8.0 L (8.4-10.2) mg/dL Phosphorus 6.3 H (2.5-4.5) mg/dL Magnesium 2.5 H (1.6-2.3) mg/dL Microbiology - Last 24 Hours (Table) 07/30/16 22:38 Blood Culture - Preliminary Blood No Growth after 96 hours Assessment and Plan Plan: Impression. 1. Acute tubular necrosis secondary to unclear cause, on dialysis. 3 dialysis in a row on 322, 323 and 08/03/2016. Yesterday 1.5 L were ultrafiltered. 2. Gap metabolic acidosis with delta Mentioned that the bicarb equal. Etiology is to seem to be from acute kidney injury currently. Previous lactic acidosis is resolved. 3. All workup for alcohol and drug screen were negative including methanol and ethylene glycol. There is some history of previous suicide attempt. 4. Atrial fibrillation on Amiodarone and on Cardizem controlled 5. Encephalopathy resolved. Cause was possibly related to acute kidney injury. Plan- Will hold off dialysis for right now. Maintain current medication. If he has shortness of breath may be related to secretions and atelectasis rather than any congestive heart failure. Maintain blood pressure so that renal recovery may occur. Will watch electrolytes BUN/creatinine and watch him status before proceeding with dialysis or the weekend.
--- NOTE | 2016-08-04 11:16 | P.PN ---
Subjective Principal diagnosis: Acute respiratory failure and acute metabolic lactic acidosis. This is a 76-year-old white male with history of multiple medical problems including severe depression, previous multiple suicidal attempts, chronic atrial fibrillation, diverticulosis, anxiety, patient presented to the ER yesterday with mostly symptoms of acute slurred speech and dizziness. His was concerned, and she brought him into the ER. CT of the brain was unremarkable. Echocardiogram was done and results are pending. However shortly after the patient arrived to the cardiac floor, he was noted to have increased shortness of breath, and he was showing significant metabolic acidosis /lactic acidosis based on his ABG. Patient was transferred to the ICU, and a genny You was notified about his ABG, I recommended immediate intubation of the patient. Patient was intubated, placed on mechanical ventilation, and he went on to develop worsening metabolic lactic acidosis. Hence I raised the possibility of ischemic bowel, abdominal sepsis, salicylate overdose, ethylene glycol toxicity, however I was mostly concerned about the possibility of bowel ischemia and abdominal sepsis. Patient had a CT of the abdomen and pelvis yesterday, and this was done with oral contrast, it showed some perinephric stranding, but no evidence of changes in the bowel to suggest ischemia. Upon arrival to the ICU, a nasogastric tube was placed because his abdomen was distended, and there was a significant amount of coffee-ground material suctioned from the stomach. Hemoglobin was noted to be 12.8, 2 g lower compared to admission hemoglobin. His lactic acid was as high as 10 yesterday, but it is 5.7 today. Patient was given multiple fluid boluses he received almost 5 L of fluids overnight. Patient was placed on a sodium bicarb drip, broad-spectrum antibiotics, urine was sent for calcium oxalate crystals, ethylene glycol level was ordered, salicylate level was ordered, however his osmolar gap was noted to be minimal, hence that practically rules out the possibility of ethylene glycol toxicity. In the meantime the patient remains on antibiotics, bronchodilators, sodium bicarb drip, and fluids. He was seen by nephrology on consultation, general surgery on consultation, and he is to be seen by infectious disease on consultation. Cultures at this point remain negative. And workup is still pending. Patient did not demonstrate any hemodynamic instability throughout the whole process, he never demonstrated any hypoxia during this process, urine output is very poor, hoping it will improve as we correct his metabolic acidosis. And I will suggest possibly a Lasix challenge was acidosis improves. Labs this morning were reviewed WBC count is down from 28-17.0. His ABG showed significant improvement with a pO2 of 109 pCO2 of 27 pH of 7.29 remind you his pH was less than 7 before intubation. Bicarb level this morning was 7 BUN is 27 creatinine is 3.20 blood sugar is 226. Measured serum osmolality was 320, calculated serum osmolality was 316. Lactic acid is down this morning to 5.7. Salicylate level was less than 1.0, and drug screen was negative. The urinalysis is relatively unremarkable and no evidence of pyuria or bacteriuria. The echocardiogram was also unremarkable, no evidence of thrombus. CT of the brain was unremarkable carotid Doppler was also unremarkable. Patient was reevaluated today on 08/01/2016, he remains hemodynamically stable, not requiring any pressors. Remains on mechanical ventilation, his rate was cut down to 14, tidal volume remains at 500, FiO2 is down to 50%. PEEP is at 5. ABG this morning showed a pO2 of 95 pCO2 of 33 pH of 7.50 hence the patient will be off bicarb drip today. And this was discontinued. CBC is relatively unremarkable hemoglobin is 11.0. His renal profile shows significant worsening with a BUN up to 46 and creatinine is 5.53. Patient remains oliguric and no response to Lasix challenges. Hence he is being considered for dialysis as per nephrology on the case. Briefly, the patient was given a sedation holiday, and he seemed to be very appropriate, and no focal neurologic deficit was noted while he was off propofol. I plan to eventually weaned and extubated the patient, however I would like his renal status to be addressed prior to any extubation trial since the patient is oliguric. Cultures remain negative. Sputum only showed some Jerilyn. But cultures are negative so far. I am still convinced that the patient must have had an episode of ischemic bowel related to his atrial fibrillation, may have also showered his kidneys with small tiny emboli. Patient is now on Lovenox, at a modified dose because of his renal status and because of his episode of upper GI bleeding. Could not fully heparinize the patient. Reevaluated today on 08/02/2016, patient remains on mechanical ventilation, hemodynamically stable, not requiring any pressors, ventilator settings remained the same, he is on 50% FiO2 with a PEEP of 5,ABG showed a pO2 of 83 pCO2 of 27 pH of 7.51. Chest x-ray showed minimal interstitial edema and atelectasis. CBC is relatively unremarkable, hemoglobin is 10.8.renal profile is worsening BUN is 47 creatinine is 6.0, patient received one hemodialysis yesterday.only 500 mL of fluid were removed. Patient remains sedated on propofol, however I plan to discontinue propofol, wake of the patient, given a weaning trial, and possibly extubate. Patient was reevaluated today on 08/03/2016, he was extubated yesterday uneventfully, however he remains on a nonrebreather mask, and O2 saturation is marginal. His chest x-ray showed mild congestive changes hence the patient will likely be dialyzed and ultrafiltrate it today. Patient is awake, alert, knows where he is, but he is confused to time. And date. Chest x-ray as noted above.labs WBC count is 11 hemoglobin 10.7 electrolytes are normal bicarb is 19 BUN is 53 creatinine is 5.61. Reevaluated today on 08/04/2016, patient is doing relatively well, tolerated extubation well over the last 2 days, he is presently on nasal cannula, and yesterday he underwent dialysis were in 1.5 L of fluids were removed. WBC count is 14.7 today hemoglobin is 10.5 BUN is 53 creatinine is 5.10. Patient seems to have on iron gap metabolic acidosis most likely secondary to his renal failure at this point. Blood cultures remain negative so far. Objective - Vital Signs Vital signs: Vital Signs Temp 98.8 F 08/04/16 04:00 Pulse 86 08/04/16 08:54 Resp 28 H 08/04/16 07:00 BP 137/51 08/01/16 15:00 Pulse Ox 92 L 08/04/16 07:00 Intake & Output 08/03/16 08/04/16 08/04/16 18:59 06:59 18:59 Intake Total 798.583 450.0 110 Output Total 20 25 5 Balance 778.583 425.0 105 Weight 95.8 kg Intake: IV 110 Diltiazem 125 mg In 10 Sodium Chloride 0.9% 100 ml @ Titrate IV .Q0M [facility] Rx#:[id number] Sodium Chloride 0.9% 1, 100 000 ml @ 50 mls/hr IV . Q20H [facility] Rx#:[id number] Intake, IV Titration 798.583 450.0 Amount Diltiazem 125 mg In 148.583 Sodium Chloride 0.9% 100 ml @ Titrate IV .Q0M [facility] Rx#:[id number] Levofloxacin 250Mg-D5w 50 Pmx 250 mg In Dextrose/ Water 1 50ml.bag @ 50 mls /hr IVPB Q24H [facility] Rx#: [id number] Piperacillin-Tazobactam 3 12.5 .375 gm In Dextrose/Water 1 50ml.bag @ 12.5 mls/hr IVPB ONCE ONE Rx#: [id number] Piperacillin-Tazobactam 3 50.0 37.5 .375 gm In Dextrose/Water 1 50ml.bag @ 12.5 mls/hr IVPB Q12HR [facility] Rx#: [id number] Sodium Chloride 0.9% 1, 600 350 000 ml @ 50 mls/hr IV . Q20H [facility] Rx#:[id number] Output: Urine 20 25 5 Other: Voiding Method Indwelling Catheter Indwelling Catheter Indwelling Catheter ABP, PAP, CO, CI - Last Documented Arterial Blood Pressure 124/41 - Exam eneral appearance: 76-year-old white male in no distress on 4 L nasal cannula HET: Head is normocephalic and atraumatic. Pupils are equal and reactive. Oropharynx is clear without lesions. Neck: Supple without lymphadenopathy. Trachea midline. Heart: S1 S2. Lungs: No crackles or wheezes are heard. Abdomen: Soft, nontender, nondistended with bowel sounds. No peritoneal signs. No palpable organomegaly or masses. Extremities: Normal skin color and turgor. No cyanosis, rash, ulceration, clubbing, trace edema. Radial and pedal pulses are 2/4 bilaterally. Brody with dom urine. Neurological:awake alert, moves all extremities fine, confused only todate and time., oriented to place - Labs CBC & Chem 7: 08/04/16 04:10 08/04/16 04:10 Labs: Abnormal Lab Results - Last 24 Hours (Table) 08/03/16 08/03/16 08/04/16 Range/Units 16:08 17:05 04:10 WBC 14.7 H (3.8-10.6) k/uL RBC 3.35 L (4.30-5.90) m/uL Hgb 10.5 L (13.0-17.5) gm/dL Hct 31.2 L (39.0-53.0) % Neutrophils # 13.0 H (1.3-7.7) k/uL Lymphocytes # 0.5 L (1.0-4.8) k/uL Carbon Dioxide (22-30) mmol/L BUN (9-20) mg/dL Creatinine (0.66-1.25) mg/dL Glucose (74-99) mg/dL POC Glucose (mg/dL) 69 L 74 L (75-99) mg/dL Calcium (8.4-10.2) mg/dL Phosphorus (2.5-4.5) mg/dL Magnesium (1.6-2.3) mg/dL 08/04/16 Range/Units 04:10 WBC (3.8-10.6) k/uL RBC (4.30-5.90) m/uL Hgb (13.0-17.5) gm/dL Hct (39.0-53.0) % Neutrophils # (1.3-7.7) k/uL Lymphocytes # (1.0-4.8) k/uL Carbon Dioxide 18 L (22-30) mmol/L BUN 53 H (9-20) mg/dL Creatinine 5.10 H* (0.66-1.25) mg/dL Glucose 70 L (74-99) mg/dL POC Glucose (mg/dL) (75-99) mg/dL Calcium 8.0 L (8.4-10.2) mg/dL Phosphorus 6.3 H (2.5-4.5) mg/dL Magnesium 2.5 H (1.6-2.3) mg/dL Microbiology - Last 24 Hours (Table) 07/30/16 22:38 Blood Culture - Preliminary Blood No Growth after 96 hours Assessment and Plan Plan: Impression: 1 acute respiratory failure secondary to severe metabolic, lactic acidosis, exact etiology is not clear, but still suspect ischemic bowel or abdominal sepsis. Salicylate poisoning and ethylene glycol poisoning is practically ruled out based on the initial studies done. 2 chronic atrial fibrillation, presently rate seems to be well-controlled. 3 acute presentation of TIA/CVA with negative workup upon presentation. 4 severe lactic acidosis, most likely secondary to sepsis or transient bowel ischemia. 5 acute kidney injury secondary to sepsis. This is also associated with oliguria 6 history of depression and previous suicidal attempts. 7 coffee-ground material via nasogastric tube most likely secondary to erosive gastritis , patient is presently on Lovenox subcu. Recommendation: Continue present supportive care measures,patient was extubated 2 days ago and seems to be well tolerated, continue dialysis and ultrafiltration as per nephrology on the case, patient will remain in the ICU today, possibly transferred to a monitored bed in the next 24 hours. Time with Patient: Less than 30
[2016-08-04 12:20] LABS: Glucose,Whole Blood 89 mg/dL (75-99)
--- NOTE | 2016-08-04 12:56 | CT ---
EXAMINATION TYPE: CT brain wo con DATE OF EXAM: 08/04/2016 12:38 PM COMPARISON: 07/30/2016 HISTORY: Altered mental status CT DLP: 1111.7 mGycm Automated exposure control for dose reduction was used. FINDINGS: There is cerebral cortical atrophy. There is no mass effect nor midline shift. There is mild hypodens ity around the frontal horns of the lateral ventricles. There is no sign of intracranial hemorrhage. Calvarium is intact. There is suggestion of hypodensity as well in the central christiane. IMPRESSION: Cerebral atrophy and chronic small vessel ischemia. Possible pontine infarct. This could be new pritesh red to last exam. No hemorrhage.
--- NOTE | 2016-08-04 15:04 | P.PN ---
Subjective Principal diagnosis: Metabolic encephalopathy, stroke This is 76-year-old male continue be evaluated by the neurology service for altered mental status. He was brought to [facility] emergency room after a complaint of confusion and slurred speech.. Patients initial CT of the brain showed no acute intracranial abnormalities. A recent repeat CT was done and showed a possible pontine infarct. Carotid Doppler showed 50-69% stenosis in the right internal carotid artery and 50% stenosis of the left internal carotid artery. He was initially admitted to the medical floor but his respiratory condition deteriorated quickly. He is currently in the intensive care unit , and has been extubated. There was some concern over toxic ingestion due to the patient's previous history of suicide attempts. He is currently being evaluated for ischemic bowel disease. He has severe metabolic acidosis. Dialysis was performed 3. Thus far as blood in urine culture show no infectious process. There was some crista found in sputum, which was from oral contamination. Objective - Vital Signs Vital signs: Vital Signs Temp 98 F 08/04/16 12:00 Pulse 74 08/04/16 14:00 Resp 33 H 08/04/16 14:00 BP 137/51 08/01/16 15:00 Pulse Ox 93 L 08/04/16 14:00 Intake & Output 08/03/16 08/04/16 08/04/16 18:59 06:59 18:59 Intake Total 798.583 450.0 440 Output Total 20 25 10 Balance 778.583 425.0 430 Weight 95.8 kg Intake: IV 440 Diltiazem 125 mg In 40 Sodium Chloride 0.9% 100 ml @ Titrate IV .Q0M [facility] Rx#:[id number] Sodium Chloride 0.9% 1, 400 000 ml @ 50 mls/hr IV . Q20H [facility] Rx#:[id number] Intake, IV Titration 798.583 450.0 Amount Diltiazem 125 mg In 148.583 Sodium Chloride 0.9% 100 ml @ Titrate IV .Q0M [facility] Rx#:[id number] Levofloxacin 250Mg-D5w 50 Pmx 250 mg In Dextrose/ Water 1 50ml.bag @ 50 mls /hr IVPB Q24H [facility] Rx#: [id number] Piperacillin-Tazobactam 3 12.5 .375 gm In Dextrose/Water 1 50ml.bag @ 12.5 mls/hr IVPB ONCE ONE Rx#: [id number] Piperacillin-Tazobactam 3 50.0 37.5 .375 gm In Dextrose/Water 1 50ml.bag @ 12.5 mls/hr IVPB Q12HR [facility] Rx#: [id number] Sodium Chloride 0.9% 1, 600 350 000 ml @ 50 mls/hr IV . Q20H [facility] Rx#:[id number] Output: Urine 20 25 10 Other: Voiding Method Indwelling Catheter Indwelling Catheter Indwelling Catheter ABP, PAP, CO, CI - Last Documented Arterial Blood Pressure 149/58 - Constitutional General appearance: Present: no acute distress, obese - EENT Eyes: Present: EOMI, PERRLA. Absent: abnormal pupil, ptosis - Neck Neck: Present: normal ROM. Absent: rigidity - Respiratory Respiratory: negative: prolonged expiration, prolonged inspiration - Cardiovascular Rhythm: regular - Gastrointestinal General gastrointestinal: Absent: distended, tenderness - Neurologic Neurologic Comment(s): The patient is still drowsy but arousable. He answers questions appropriately. He is oriented to person and partially place but not to time. There is no facial asymmetry noted. There is still generalized weakness, but his effort is poor. He is not following commands very well because of his drowsiness. - Labs CBC & Chem 7: 08/04/16 04:10 08/04/16 04:10 Labs: Abnormal Lab Results - Last 24 Hours (Table) 08/03/16 08/03/16 08/04/16 Range/Units 16:08 17:05 04:10 WBC 14.7 H (3.8-10.6) k/uL RBC 3.35 L (4.30-5.90) m/uL Hgb 10.5 L (13.0-17.5) gm/dL Hct 31.2 L (39.0-53.0) % Neutrophils # 13.0 H (1.3-7.7) k/uL Lymphocytes # 0.5 L (1.0-4.8) k/uL Carbon Dioxide (22-30) mmol/L BUN (9-20) mg/dL Creatinine (0.66-1.25) mg/dL Glucose (74-99) mg/dL POC Glucose (mg/dL) 69 L 74 L (75-99) mg/dL Calcium (8.4-10.2) mg/dL Phosphorus (2.5-4.5) mg/dL Magnesium (1.6-2.3) mg/dL 08/04/16 Range/Units 04:10 WBC (3.8-10.6) k/uL RBC (4.30-5.90) m/uL Hgb (13.0-17.5) gm/dL Hct (39.0-53.0) % Neutrophils # (1.3-7.7) k/uL Lymphocytes # (1.0-4.8) k/uL Carbon Dioxide 18 L (22-30) mmol/L BUN 53 H (9-20) mg/dL Creatinine 5.10 H* (0.66-1.25) mg/dL Glucose 70 L (74-99) mg/dL POC Glucose (mg/dL) (75-99) mg/dL Calcium 8.0 L (8.4-10.2) mg/dL Phosphorus 6.3 H (2.5-4.5) mg/dL Magnesium 2.5 H (1.6-2.3) mg/dL Microbiology - Last 24 Hours (Table) 07/30/16 22:38 Blood Culture - Preliminary Blood No Growth after 96 hours Assessment and Plan (1) Respiratory failure Status: Acute (2) Acute metabolic encephalopathy Status: Acute (3) Acute renal failure Status: Acute (4) Left-sided weakness Status: Acute (5) CVA (cerebral vascular accident) Status: Acute Plan: There is evidence of a pontine stroke on his most recent study. Would recommend adding low dose antiplatelet. We will check a fasting lipid panel and serum homocysteine level. An EEG was done off sedation and was consistent with moderate encephalopathy. Continue evaluation and input from pulmonology, cardiology, nephrology. Continue neurological checks. We will continue to follow and evaluate. We will continue to follow and make evaluations based on the above studies. I have performed a history and physical on the above patient. I have reviewed the above note, and agree.
[2016-08-04 15:28] LABS: Calcium 7.9 mg/dL (8.4-10.2); Potassium 5.1 mmol/L (3.5-5.1)
[2016-08-04 16:05] LABS: Glucose,Whole Blood 79 mg/dL (75-99)
[2016-08-04 19:46] LABS: Glucose,Whole Blood 102 mg/dL (75-99)
[2016-08-04] MEDS: LEVOFLOXACIN 250MG-D5W PMX 250 MG in DEXTROSE/WATER 1 50ML.BAG IVPB SCH (19:47)
--- NOTE | 2016-08-04 21:09 | PN ---
DATE OF SERVICE: 08/04/2016 This 76-year-old gentleman who was admitted with possible stroke and severe acidosis also had acute metabolic and lactic acidosis of undetermined etiology. The patient also has significant acidosis, which is improving at this time. Patient also had renal failure. The patient also receiving new onset hemodialysis. Otherwise, CO2 is 18 and creatinine is 5.10. Glucose is 70. The patient also had a CAT scan of the brain which showed cerebral atrophy and as well as possibly pontine infarct also. Hypodensity around the frontal horns of the lateral ventricles and hypodensity in the central christiane as well noted. The past medical history reviewed. REVIEW OF SYSTEMS: Could not be taken, the patient is still confused, but arousable. Current medications are reviewed and include: 1. Cordarone 200 mg p.o. t.i.d. 2. Lovenox 30 mg subcu daily. 3. Humalog to scale. 4. Atrovent updrafts q.i.d. 5. Xopenex 1.5 q.i.d. 6. Levaquin 500 mg daily. 7. Lopressor 25 mg p.o. b.i.d. 8. Narcan 0.2 q2h p.r.n. 9. Zofran 4 mg q6h p.r.n. 10. Protonix 40 mg b.i.d. 11. Zosyn 3.37 IV b.i.d. 12. Propofol drip. 13. Sodium chloride. PHYSICAL EXAMINATION: Patient is alert and oriented x3. Pulse 64, blood pressure 156/54, respiratory rate 21, temperature 98.6, pulse ox 97% on 4 liters. HEENT: Conjunctivae normal. NECK: No jugular venous distention. CARDIOVASCULAR: S1, S2 muffled. RESPIRATORY: Breath sounds diminished at the bases. Bilateral scattered rhonchi and crackles. ABDOMEN: Soft, nontender. No mass palpable. LEGS: No edema. No swelling. CENTRAL NERVOUS SYSTEM: Diffusely weak, left more than the right. WBC is 14.3, hemoglobin 10.7. Creatinine is noted. ASSESSMENT: 1. Acute metabolic and lactic acidosis with acute hypoxic respiratory failure possibly secondary to sepsis undetermined etiology possibly aspiration pneumonia. 2. Change in mental status possibly acute pontine infarct with bilateral weakness, left more than right. 3. Chronic obstructive pulmonary disease, acute exacerbation. 4. Change in mental status and acute metabolic encephalopathy, multifactorial. 5. Acute renal failure, with acute tubular necrosis, multifactorial. New onset hemodialysis. 6. Hypernatremia present on admission. 7. History of severe metabolic acidosis as well as lactic acidosis present on admission. 8. Hyperchloremia. 9. Increased WBC. 10. History of increased MCV. 11. History of atrial fibrillation paroxysmal. 12. History of diverticulitis. 13. History of depression, not otherwise specified. 14. Remote history of nicotine dependence and metabolic acidosis previously. 15. Bilateral carotid artery stenosis, right more than the left. 16. FULL CODE. RECOMMENDATIONS AND DISCUSSION: This 76 -year-old gentleman who presented with multiple complex medical issues recommend to continue current medications, continue with monitoring, symptomatic treatment. The creatinine is still elevated to 6, the patient also had abnormalities and features of CT scan also showed a possibility of pontine stroke. I would recommend to follow the patient closely with neurologist, Dr. Villanueva is already on the case and multiple consultants are following the patient. Dr. Allen input appreciated. The prognosis extremely guarded because of multiple complex medical issues. Further recommendations to follow. Low-dose antiplatelet agents have been added the patient the current regimen. EEG also has been done. MTDD
[2016-08-04 23:40] LABS: Glucose,Whole Blood 86 mg/dL (75-99)
[2016-08-05] MEDS: INSULIN LISPRO (humaLOG) 300 UNIT/3 ML VIAL SQ SCH ×6 (01:40→20:26)
[2016-08-05 04:28] LABS: Glucose,Whole Blood 109 mg/dL (75-99)
[2016-08-05 04:40] LABS: Basophils % (A) 0 %; CH 31.5; CHCM 34.2; Eosinophils # (A) 0.3 k/uL (0-0.7); Eosinophils % (A) 2 %; HCT 30.7 % (39.0-53.0); HDW 2.37; HGB 10.7 gm/dL (13.0-17.5); Luc # (Auto) 0.29; Luc % (Auto) 2; Lymphocytes # (A) 0.4 k/uL (1.0-4.8); Lymphocytes % (A) 3 %; MCH 32.2 pg (25.0-35.0); MCHC 34.8 g/dL (31.0-37.0); MCV 92.5 fL (80.0-100.0); Mean Platelet Volume 8.9; Monocytes # (A) 0.8 k/uL (0-1.0); Monocytes % (A) 6 %; Neutrophils % (A) 85 %; RBC 3.32 m/uL (4.30-5.90); WBC 12.9 k/uL (3.8-10.6); WBC (Perox) 14.05
[2016-08-05 04:50] LABS: Calcium 7.8 mg/dL (8.4-10.2); Magnesium 2.9 mg/dL (1.6-2.3); Potassium 4.9 mmol/L (3.5-5.1)
[2016-08-05 05:07] LABS: Phosphorous 8.3 mg/dL (2.5-4.5)
[2016-08-05] MEDS: ENOXAPARIN 30 MG/0.3 ML SYRINGE SQ SCH (07:50)
[2016-08-05] MEDS: METOPROLOL TARTRATE 25 MG TAB PO SCH (07:50)
[2016-08-05] MEDS: AMIODARONE 200 MG TAB PO SCH ×3 (07:51→21:23)
[2016-08-05] MEDS: PANTOPRAZOLE 40 MG/10 ML VIAL IVP SCH ×2 (07:51→20:25)
[2016-08-05] MEDS: PIPERACILLIN-TAZOBACTAM 3.375 GM in DEXTROSE/WATER 1 50ML.BAG IVPB SCH ×2 (07:52→20:25)
[2016-08-05 07:56] LABS: Glucose,Whole Blood 98 mg/dL (75-99)
--- NOTE | 2016-08-05 08:04 | XR ---
EXAMINATION TYPE: XR chest 1V DATE OF EXAM: 08/05/2016 6:30 AM COMPARISON: 08/03/2016 HISTORY: Short of breath TECHNIQUE: Single frontal view of the chest is obtained. FINDINGS: There is pulmonary edema. There is blunting of costophrenic angles. There is a right centr al venous catheter with the tip in the right atrium. There are chest leads. Thoracic aorta is atherom atous. IMPRESSION: Congestive heart failure with pulmonary edema and pleural effusions. No change compared to yesterday.
[2016-08-05] MEDS: IPRATROPIUM 0.5 MG/2.5 ML NEBU INHALATION PRN ×3 (08:33→17:06)
[2016-08-05] MEDS: LEVALBUTEROL NEB (CONC) 1.25 MG/0.5 ML AMP INHALATION PRN ×3 (08:33→17:06)
--- NOTE | 2016-08-05 09:04 | P.PN ---
Subjective This is a 76-year-old male seen in consultation earlier and has severe dialysis dependent acute kidney injury, secondary to acute tubular necrosis. He is in uric.. He has been dialyzed 3 days in a row last dialysis was day before yesterday 08/03/2016. 1.5 L were taken off. The cause of this acute kidney injury and ATN is not very clear. He did not have any hypotensive episodes this documented, and when he came in had severe lactic acidosis with a pH of 7 and the lactic acid of 10. Workup has not shown any bowel ischemia. He came in with obtundation. He was also in atrial fibrillation. Currently off Cardizem drip which was discontinued yesterday and was used for control of his atrial fibrillation. He remains awake alert but very weak and not eating well. No nausea vomiting. He denies any shortness of breath and is on oxygen. He is moving all his extremities on command. But is profoundly weak. No urine output. Vital signs are stable. No loose stools no abdominal pain. Brody catheter has been removed as he had hardly any urine output. Currently on nasal cannula oxygen Objective - Vital Signs Vital signs: Vital Signs Temp 98.2 F 08/05/16 08:00 Pulse 90 08/05/16 08:44 Resp 22 08/05/16 08:00 BP 136/85 08/05/16 08:00 Pulse Ox 94 L 08/05/16 08:00 Intake & Output 08/04/16 08/05/16 08/05/16 18:59 06:59 18:59 Intake Total 690 550 100 Output Total 10 0 Balance 680 550 100 Weight 97.2 kg Intake: IV 690 550 100 Diltiazem 125 mg In 40 Sodium Chloride 0.9% 100 ml @ Titrate IV .Q0M [facility] Rx#:[id number] Sodium Chloride 0.9% 1, 650 550 100 000 ml @ 50 mls/hr IV . Q20H [facility] Rx#:[id number] Output: Urine 10 0 Other: Voiding Method Bedpan Incontinent Incontinent # Bowel Movements 1 ABP, PAP, CO, CI - Last Documented Arterial Blood Pressure 160/71 On examination is awake alert oriented 3. No asterixis. HEENT exam no JVP neck is supple no facial asymmetry Lungs are clear to auscultation with good air entry bilaterally no dullness percussion. Heart sounds are unremarkable no murmur rub gallop Abdomen is soft nontender no organomegaly status masses Extremity exam was no edema Neurologically awake alert oriented. No asterixis. No focal motor deficit. - Labs CBC & Chem 7: 08/05/16 04:30 08/05/16 04:30 Labs: Abnormal Lab Results - Last 24 Hours (Table) 08/04/16 08/04/16 08/05/16 Range/Units 15:00 19:44 04:24 WBC (3.8-10.6) k/uL RBC (4.30-5.90) m/uL Hgb (13.0-17.5) gm/dL Hct (39.0-53.0) % Neutrophils # (1.3-7.7) k/uL Lymphocytes # (1.0-4.8) k/uL Carbon Dioxide 16 L (22-30) mmol/L BUN 72 H (9-20) mg/dL Creatinine 6.00 H* (0.66-1.25) mg/dL Glucose (74-99) mg/dL POC Glucose (mg/dL) 102 H 109 H (75-99) mg/dL Calcium 7.9 L (8.4-10.2) mg/dL Phosphorus (2.5-4.5) mg/dL Magnesium (1.6-2.3) mg/dL HDL Cholesterol 19 L (40-60) mg/dL 08/05/16 08/05/16 Range/Units 04:30 04:30 WBC 12.9 H (3.8-10.6) k/uL RBC 3.32 L (4.30-5.90) m/uL Hgb 10.7 L (13.0-17.5) gm/dL Hct 30.7 L (39.0-53.0) % Neutrophils # 11.0 H (1.3-7.7) k/uL Lymphocytes # 0.4 L (1.0-4.8) k/uL Carbon Dioxide 17 L (22-30) mmol/L BUN 91 H* (9-20) mg/dL Creatinine 7.00 H* (0.66-1.25) mg/dL Glucose 103 H (74-99) mg/dL POC Glucose (mg/dL) (75-99) mg/dL Calcium 7.8 L (8.4-10.2) mg/dL Phosphorus 8.3 H* (2.5-4.5) mg/dL Magnesium 2.9 H (1.6-2.3) mg/dL HDL Cholesterol (40-60) mg/dL Microbiology - Last 24 Hours (Table) 07/30/16 22:38 Blood Culture - Preliminary Blood No Growth after 120 hours Assessment and Plan Plan: Impression. 1. Acute tubular necrosis secondary to unclear cause, on dialysis. 3 dialysis in a row on 08/01, 08/02 and 08/03/2016. Last dialysis day before Yesterday 1.5 L were ultrafiltered. No urine output currently. 2. Gap metabolic acidosis with delta anion gap and delta bicarb equal. Etiology is to seem to be from acute kidney injury currently. Previous lactic acidosis is resolved. 3. All workup for alcohol and drug screen were negative including methanol and ethylene glycol. There is some history of previous suicide attempt. 4. Atrial fibrillation on Amiodarone and on Cardizem controlled 5. Encephalopathy resolved. Cause was possibly related to acute kidney injury. Plan- Discontinue IV normal saline. We will dialyze him tomorrow. No need for urgent dialysis today. Maintain current medication. If he has shortness of breath may be related to secretions and atelectasis rather than any congestive heart failure. Maintain blood pressure so that renal recovery may occur. Will watch electrolytes BUN/creatinine and watch him for recovery of renal function
--- NOTE | 2016-08-05 11:37 | P.PN ---
Subjective Principal diagnosis: Acute respiratory failure and acute metabolic lactic acidosis. This is a 76-year-old white male with history of multiple medical problems including severe depression, previous multiple suicidal attempts, chronic atrial fibrillation, diverticulosis, anxiety, patient presented to the ER yesterday with mostly symptoms of acute slurred speech and dizziness. His was concerned, and she brought him into the ER. CT of the brain was unremarkable. Echocardiogram was done and results are pending. However shortly after the patient arrived to the cardiac floor, he was noted to have increased shortness of breath, and he was showing significant metabolic acidosis /lactic acidosis based on his ABG. Patient was transferred to the ICU, and a genny You was notified about his ABG, I recommended immediate intubation of the patient. Patient was intubated, placed on mechanical ventilation, and he went on to develop worsening metabolic lactic acidosis. Hence I raised the possibility of ischemic bowel, abdominal sepsis, salicylate overdose, ethylene glycol toxicity, however I was mostly concerned about the possibility of bowel ischemia and abdominal sepsis. Patient had a CT of the abdomen and pelvis yesterday, and this was done with oral contrast, it showed some perinephric stranding, but no evidence of changes in the bowel to suggest ischemia. Upon arrival to the ICU, a nasogastric tube was placed because his abdomen was distended, and there was a significant amount of coffee-ground material suctioned from the stomach. Hemoglobin was noted to be 12.8, 2 g lower compared to admission hemoglobin. His lactic acid was as high as 10 yesterday, but it is 5.7 today. Patient was given multiple fluid boluses he received almost 5 L of fluids overnight. Patient was placed on a sodium bicarb drip, broad-spectrum antibiotics, urine was sent for calcium oxalate crystals, ethylene glycol level was ordered, salicylate level was ordered, however his osmolar gap was noted to be minimal, hence that practically rules out the possibility of ethylene glycol toxicity. In the meantime the patient remains on antibiotics, bronchodilators, sodium bicarb drip, and fluids. He was seen by nephrology on consultation, general surgery on consultation, and he is to be seen by infectious disease on consultation. Cultures at this point remain negative. And workup is still pending. Patient did not demonstrate any hemodynamic instability throughout the whole process, he never demonstrated any hypoxia during this process, urine output is very poor, hoping it will improve as we correct his metabolic acidosis. And I will suggest possibly a Lasix challenge was acidosis improves. Labs this morning were reviewed WBC count is down from 28-17.0. His ABG showed significant improvement with a pO2 of 109 pCO2 of 27 pH of 7.29 remind you his pH was less than 7 before intubation. Bicarb level this morning was 7 BUN is 27 creatinine is 3.20 blood sugar is 226. Measured serum osmolality was 320, calculated serum osmolality was 316. Lactic acid is down this morning to 5.7. Salicylate level was less than 1.0, and drug screen was negative. The urinalysis is relatively unremarkable and no evidence of pyuria or bacteriuria. The echocardiogram was also unremarkable, no evidence of thrombus. CT of the brain was unremarkable carotid Doppler was also unremarkable. Patient was reevaluated today on 08/01/2016, he remains hemodynamically stable, not requiring any pressors. Remains on mechanical ventilation, his rate was cut down to 14, tidal volume remains at 500, FiO2 is down to 50%. PEEP is at 5. ABG this morning showed a pO2 of 95 pCO2 of 33 pH of 7.50 hence the patient will be off bicarb drip today. And this was discontinued. CBC is relatively unremarkable hemoglobin is 11.0. His renal profile shows significant worsening with a BUN up to 46 and creatinine is 5.53. Patient remains oliguric and no response to Lasix challenges. Hence he is being considered for dialysis as per nephrology on the case. Briefly, the patient was given a sedation holiday, and he seemed to be very appropriate, and no focal neurologic deficit was noted while he was off propofol. I plan to eventually weaned and extubated the patient, however I would like his renal status to be addressed prior to any extubation trial since the patient is oliguric. Cultures remain negative. Sputum only showed some Jerilyn. But cultures are negative so far. I am still convinced that the patient must have had an episode of ischemic bowel related to his atrial fibrillation, may have also showered his kidneys with small tiny emboli. Patient is now on Lovenox, at a modified dose because of his renal status and because of his episode of upper GI bleeding. Could not fully heparinize the patient. Reevaluated today on 08/02/2016, patient remains on mechanical ventilation, hemodynamically stable, not requiring any pressors, ventilator settings remained the same, he is on 50% FiO2 with a PEEP of 5,ABG showed a pO2 of 83 pCO2 of 27 pH of 7.51. Chest x-ray showed minimal interstitial edema and atelectasis. CBC is relatively unremarkable, hemoglobin is 10.8.renal profile is worsening BUN is 47 creatinine is 6.0, patient received one hemodialysis yesterday.only 500 mL of fluid were removed. Patient remains sedated on propofol, however I plan to discontinue propofol, wake of the patient, given a weaning trial, and possibly extubate. Patient was reevaluated today on 08/03/2016, he was extubated yesterday uneventfully, however he remains on a nonrebreather mask, and O2 saturation is marginal. His chest x-ray showed mild congestive changes hence the patient will likely be dialyzed and ultrafiltrate it today. Patient is awake, alert, knows where he is, but he is confused to time. And date. Chest x-ray as noted above.labs WBC count is 11 hemoglobin 10.7 electrolytes are normal bicarb is 19 BUN is 53 creatinine is 5.61. Reevaluated today on 08/04/2016, patient is doing relatively well, tolerated extubation well over the last 2 days, he is presently on nasal cannula, and yesterday he underwent dialysis were in 1.5 L of fluids were removed. WBC count is 14.7 today hemoglobin is 10.5 BUN is 53 creatinine is 5.10. Patient seems to have on iron gap metabolic acidosis most likely secondary to his renal failure at this point. Blood cultures remain negative so far. Patient was reevaluated today on 08/05/2016 basically about the same, presently on nasal cannula, patient is not in any form of distress. Chest x-ray showed evidence of interstitial edema, nephrology is not planning dialysis today but he will likely have dialysis and ultrafiltration tomorrow. CT of the chest which was ordered yesterday by neurology showed a new pontine infarct which was not present on his initial CT when he presented with mental status change. Neurology is recommending adding a low-dose antiplatelet, and at this point I have no objection to this. Patient did have 1 episode of coffee-ground material via nasogastric tube, there is a relative contraindication to anticoagulation therapy, but I believe at this point the benefits outweigh the risks. Patient is on a relatively small dose of Lovenox at this point. I think adding antiplatelet therapy or adding eliquis is not a bad idea at this point. And I have no objection to this. I will go ahead and start the patient on eliquis 2.5 mg twice a day, and I will discontinue Lovenox. Objective - Vital Signs Vital signs: Vital Signs Temp 98.2 F 08/05/16 08:00 Pulse 65 08/05/16 11:00 Resp 21 08/05/16 11:00 BP 147/69 08/05/16 11:00 Pulse Ox 94 L 08/05/16 11:00 Intake & Output 08/04/16 08/05/16 08/05/16 18:59 06:59 18:59 Intake Total 690 550 137.5 Output Total 10 0 Balance 680 550 137.5 Weight 97.2 kg Intake: IV 690 550 137.5 Diltiazem 125 mg In 40 Sodium Chloride 0.9% 100 ml @ Titrate IV .Q0M [facility] Rx#:[id number] Piperacillin-Tazobactam 3 37.5 .375 gm In Dextrose/Water 1 50ml.bag @ 12.5 mls/hr IVPB Q12HR [facility] Rx#: [id number] Sodium Chloride 0.9% 1, 650 550 100 000 ml @ 50 mls/hr IV . Q20H [facility] Rx#:[id number] Output: Urine 10 0 Other: Voiding Method Bedpan Incontinent Incontinent # Bowel Movements 1 ABP, PAP, CO, CI - Last Documented Arterial Blood Pressure 150/58 - Exam eneral appearance: 76-year-old white male in no distress on 4 L nasal cannula HET: Head is normocephalic and atraumatic. Pupils are equal and reactive. Oropharynx is clear without lesions. Neck: Supple without lymphadenopathy. Trachea midline. Heart: S1 S2. Lungs: No crackles or wheezes are heard. Abdomen: Soft, nontender, nondistended with bowel sounds. No peritoneal signs. No palpable organomegaly or masses. Extremities: Normal skin color and turgor. No cyanosis, rash, ulceration, clubbing, trace edema. Radial and pedal pulses are 2/4 bilaterally. Brody with dom urine. Neurological:awake alert, moves all extremities fine, confused only todate and time., oriented to place - Labs CBC & Chem 7: 08/05/16 04:30 08/05/16 04:30 Labs: Abnormal Lab Results - Last 24 Hours (Table) 08/04/16 08/04/16 08/05/16 Range/Units 15:00 19:44 04:24 WBC (3.8-10.6) k/uL RBC (4.30-5.90) m/uL Hgb (13.0-17.5) gm/dL Hct (39.0-53.0) % Neutrophils # (1.3-7.7) k/uL Lymphocytes # (1.0-4.8) k/uL Carbon Dioxide 16 L (22-30) mmol/L BUN 72 H (9-20) mg/dL Creatinine 6.00 H* (0.66-1.25) mg/dL Glucose (74-99) mg/dL POC Glucose (mg/dL) 102 H 109 H (75-99) mg/dL Calcium 7.9 L (8.4-10.2) mg/dL Phosphorus (2.5-4.5) mg/dL Magnesium (1.6-2.3) mg/dL HDL Cholesterol 19 L (40-60) mg/dL 08/05/16 08/05/16 Range/Units 04:30 04:30 WBC 12.9 H (3.8-10.6) k/uL RBC 3.32 L (4.30-5.90) m/uL Hgb 10.7 L (13.0-17.5) gm/dL Hct 30.7 L (39.0-53.0) % Neutrophils # 11.0 H (1.3-7.7) k/uL Lymphocytes # 0.4 L (1.0-4.8) k/uL Carbon Dioxide 17 L (22-30) mmol/L BUN 91 H* (9-20) mg/dL Creatinine 7.00 H* (0.66-1.25) mg/dL Glucose 103 H (74-99) mg/dL POC Glucose (mg/dL) (75-99) mg/dL Calcium 7.8 L (8.4-10.2) mg/dL Phosphorus 8.3 H* (2.5-4.5) mg/dL Magnesium 2.9 H (1.6-2.3) mg/dL HDL Cholesterol (40-60) mg/dL Microbiology - Last 24 Hours (Table) 03/20/17 22:38 Blood Culture - Preliminary Blood No Growth after 120 hours Assessment and Plan Plan: Impression: 1 acute respiratory failure secondary to severe metabolic, lactic acidosis, exact etiology is not clear, but still suspect ischemic bowel or abdominal sepsis. Salicylate poisoning and ethylene glycol poisoning is practically ruled out based on the initial studies done. 2 chronic atrial fibrillation, presently rate seems to be well- controlled.eliquis was added 3 acute presentation of TIA/CVA with negative workup upon presentation. Follow- up CT of the brain showed pontine infarct which is relatively new 4 severe lactic acidosis, most likely secondary to sepsis or transient bowel ischemia. 5 acute kidney injury secondary to sepsis. This is also associated with oliguria 6 history of depression and previous suicidal attempts. 7 coffee-ground material via nasogastric tube most likely secondary to erosive gastritis , patient is presently on Lovenox subcu. 8 acute pontine infarct Recommendation: Continue present treatment plan, I will start the patient on anticoagulation therapy, I will discontinue Lovenox, we'll watch him one more day in the ICU, and likely transfer to a cardiac floor in the morning. Nephrology is still following, and I believe he is going to be dialyzed in a.m. Time with Patient: Less than 30
[2016-08-05 12:14] LABS: Glucose,Whole Blood 152 mg/dL (75-99)
--- NOTE | 2016-08-05 12:32 | P.PN ---
Subjective Principal diagnosis: Metabolic encephalopathy, pontine stroke This is 76-year-old male continues to be evaluated by the neurology service. He was brought to [facility] emergency room after a complaint of confusion and slurred speech.. Patients initial CT of the brain showed no acute intracranial abnormalities. A recent repeat CT was done and showed a possible pontine infarct. Carotid Doppler showed 50-69% stenosis in the right internal carotid artery and 50% stenosis of the left internal carotid artery. He was initially admitted to the medical floor but his respiratory condition deteriorated quickly. He is currently in the intensive care unit , and has been extubated. There was some concern over toxic ingestion due to the patient' s previous history of suicide attempts, but this was ruled out. He is currently being evaluated for ischemic bowel disease. He has severe metabolic acidosis. Dialysis is being performed. Workup and treatment continues for his chronic atrial fibrillation, severe metabolic abnormalities, and acute kidney injury. Objective - Vital Signs Vital signs: Vital Signs Temp 98.2 F 08/05/16 08:00 Pulse 65 08/05/16 11:00 Resp 21 08/05/16 11:00 BP 147/69 08/05/16 11:00 Pulse Ox 94 L 08/05/16 11:00 Intake & Output 08/04/16 08/05/16 08/05/16 18:59 06:59 18:59 Intake Total 690 550 137.5 Output Total 10 0 Balance 680 550 137.5 Weight 97.2 kg Intake: IV 690 550 137.5 Diltiazem 125 mg In 40 Sodium Chloride 0.9% 100 ml @ Titrate IV .Q0M [facility] Rx#:[id number] Piperacillin-Tazobactam 3 37.5 .375 gm In Dextrose/Water 1 50ml.bag @ 12.5 mls/hr IVPB Q12HR [facility] Rx#: [id number] Sodium Chloride 0.9% 1, 650 550 100 000 ml @ 50 mls/hr IV . Q20H [facility] Rx#:[id number] Output: Urine 10 0 Other: Voiding Method Bedpan Incontinent Incontinent # Bowel Movements 1 ABP, PAP, CO, CI - Last Documented Arterial Blood Pressure 150/58 - Constitutional General appearance: Present: no acute distress, obese - EENT Eyes: Present: EOMI, PERRLA. Absent: abnormal pupil, ptosis ENT: Present: hard of hearing - Neck Neck: Absent: normal ROM, rigidity - Respiratory Respiratory: negative: prolonged expiration, prolonged inspiration - Cardiovascular Rhythm: irregularly irregular - Gastrointestinal General gastrointestinal: Present: distended. Absent: tenderness - Neurologic Neurologic Comment(s): Patient is alert and aware and oriented 2. Speech is mildly dysarthric. He gives a limited responses to questions. Follows commands. Generalized weakness remains on testing, but he is not a very cooperative patient. It seems there is still some left upper extremity weakness by comparison. There is no facial asymmetry. No tremors or seizure-like activities are seen. - Labs CBC & Chem 7: 08/05/16 04:30 08/05/16 04:30 Labs: Abnormal Lab Results - Last 24 Hours (Table) 08/04/16 08/04/16 08/05/16 Range/Units 15:00 19:44 04:24 WBC (3.8-10.6) k/uL RBC (4.30-5.90) m/uL Hgb (13.0-17.5) gm/dL Hct (39.0-53.0) % Neutrophils # (1.3-7.7) k/uL Lymphocytes # (1.0-4.8) k/uL Carbon Dioxide 16 L (22-30) mmol/L BUN 72 H (9-20) mg/dL Creatinine 6.00 H* (0.66-1.25) mg/dL Glucose (74-99) mg/dL POC Glucose (mg/dL) 102 H 109 H (75-99) mg/dL Calcium 7.9 L (8.4-10.2) mg/dL Phosphorus (2.5-4.5) mg/dL Magnesium (1.6-2.3) mg/dL HDL Cholesterol 19 L (40-60) mg/dL 08/05/16 08/05/16 08/05/16 Range/Units 04:30 04:30 12:13 WBC 12.9 H (3.8-10.6) k/uL RBC 3.32 L (4.30-5.90) m/uL Hgb 10.7 L (13.0-17.5) gm/dL Hct 30.7 L (39.0-53.0) % Neutrophils # 11.0 H (1.3-7.7) k/uL Lymphocytes # 0.4 L (1.0-4.8) k/uL Carbon Dioxide 17 L (22-30) mmol/L BUN 91 H* (9-20) mg/dL Creatinine 7.00 H* (0.66-1.25) mg/dL Glucose 103 H (74-99) mg/dL POC Glucose (mg/dL) 152 H (75-99) mg/dL Calcium 7.8 L (8.4-10.2) mg/dL Phosphorus 8.3 H* (2.5-4.5) mg/dL Magnesium 2.9 H (1.6-2.3) mg/dL HDL Cholesterol (40-60) mg/dL Microbiology - Last 24 Hours (Table) 07/30/16 22:38 Blood Culture - Preliminary Blood No Growth after 120 hours Assessment and Plan (1) Respiratory failure Status: Acute (2) Acute metabolic encephalopathy Status: Acute (3) Acute renal failure Status: Acute (4) Left-sided weakness Status: Acute (5) CVA (cerebral vascular accident) Status: Acute Plan: There is evidence of a pontine stroke on his most recent study. Continue low dose antiplatelet. We will check a fasting lipid panel and serum homocysteine level. An EEG was done off sedation and was consistent with moderate encephalopathy. Continue evaluation and input from pulmonology, cardiology, nephrology. Continue neurological checks. We can be consulted on as-needed basis for any new neurological symptoms. Once she is transferred from the ICU recommend starting physical and occupational therapy as well as speech therapy. I have performed a history and physical on the above patient. I have reviewed the above note, and agree.
[2016-08-05] MEDS: APIXABAN 2.5 MG TABLET PO SCH ×2 (14:14→21:23)
[2016-08-05 15:44] LABS: Glucose,Whole Blood 123 mg/dL (75-99)
--- NOTE | 2016-08-05 17:09 | P.PN ---
Subjective Principal diagnosis: Sepsis this is a 76-year-old male with past history of atrial fibrillation, diverticulitis, anxiety and depression. Patient apparently has had previous attempts at suicide by [address], cutting wrists, jumping and [place] and overdosing on sleeping pills. Patient was brought in to the emergency center due to slurred speech, right side feeling funny, Phalen's off and confusion. Patient was found to be afebrile. Pulse was 125-152 with atrial fibrillation with rapid ventricular response, hypertensive, tachypneic, leukocytosis initially at 13 and then eros to 28 and repeat was 17, acute renal failure with BUN of 23 and creatinine 3.1, severe lactic acidosis with lactic acid of 8.1 with repeat of 10. Electrolyte abnormalities with hypernatremia, hyperchloremia and hyperkalemia. Anion gap was 32. Troponin 2 was negative. Urine drug screen was negative and alcohol level was less than 10. Patient underwent initial chest x-ray that showed no acute process. CAT scan of the brain was done 2 which did show remote ischemic white matter changes, soft tissue nodule. Carotid ultrasound showed 50-70% right internal carotid stenosis and 50% on the left. CAT scan of the abdomen and pelvis without contrast showed bilateral perinephric stranding and small retroperitoneal fluid. No renal obstruction or stones. Consider infection. Diverticulosis without acute diverticulitis. Bibasilar lung atelectasis or consolidation with air space disease and possible infection. Last evening patient had a large coffee ground emesis and developed respiratory failure requiring intubation. He has been oliguric. He has been seen by Dr. Aceves for possible bowel ischemia or acute gastritis. NG tube is in place. Other consultants are neurology, cardiology, portfolio management marketing, nephrology. Echocardiogram is pending. Sputum, urine and blood cultures are all status received. At this time, Dr. Allen spoke with the family regarding reason for the severe acidosis and family are going home to check grouch for items that he could have taken before arrival. According to the patient's , he does not talk about depression but just plain does not talk and can go weeks without talking to her in the same home. Patient has hemodialysis. Tolerating that well. Not having significant hypotension. Acidosis is improved. Showing ongoing improvement. Tolerating hemodialysis. Doing well with extubation but still seems to be uncomfortable. Mental status is poor. Answers questions and simple 1 word terms only. Objective - Vital Signs Vital signs: Vital Signs Temp 98.2 F 08/05/16 12:00 Pulse 126 H 08/05/16 15:00 Resp 30 H 08/05/16 15:00 BP 140/74 08/05/16 15:00 Pulse Ox 92 L 08/05/16 15:00 Intake & Output 08/04/16 08/05/16 08/05/16 18:59 06:59 18:59 Intake Total 690 550 177.5 Output Total 10 0 Balance 680 550 177.5 Weight 97.2 kg Intake: IV 690 550 177.5 Diltiazem 125 mg In 40 Sodium Chloride 0.9% 100 ml @ Titrate IV .Q0M [facility] Rx#:[id number] Piperacillin-Tazobactam 3 37.5 .375 gm In Dextrose/Water 1 50ml.bag @ 12.5 mls/hr IVPB Q12HR [facility] Rx#: [id number] Sodium Chloride 0.9% 1, 650 550 140 000 ml @ 50 mls/hr IV . Q20H [facility] Rx#:[id number] Output: Urine 10 0 Other: Voiding Method Bedpan Incontinent Incontinent # Bowel Movements 1 ABP, PAP, CO, CI - Last Documented Arterial Blood Pressure 150/58 - Exam Gen: This is a 76-year-old male. He has been extubated seems to be comfortable HEENT: Head is atraumatic, normocephalic. Pupils equal, round. Sclerae is anicteric. oral mucous membranes are moist. No oral lesions are seen NECK: Supple. No JVD. No lymphadenopathy. No thyromegaly. LUNGS: Clear to auscultation but diminished bilaterally. No intercostal retractions. HEART: irregular rate and rhythm. No murmur. ABDOMEN: Soft. Bowel sounds are present. No masses. No tenderness. Brody catheter in place with small amount of urine output. EXTREMITIES: No pedal edema. SCDs in place bilaterally. NEUROLOGICAL: Patient is awake but not he had a good historian. Answers questions with only a simple 1 word answer. Appears slightly less irritable - Labs CBC & Chem 7: 08/05/16 04:30 08/05/16 04:30 Labs: Abnormal Lab Results - Last 24 Hours (Table) 08/04/16 08/05/16 08/05/16 Range/Units 19:44 04:24 04:30 WBC 12.9 H (3.8-10.6) k/uL RBC 3.32 L (4.30-5.90) m/uL Hgb 10.7 L (13.0-17.5) gm/dL Hct 30.7 L (39.0-53.0) % Neutrophils # 11.0 H (1.3-7.7) k/uL Lymphocytes # 0.4 L (1.0-4.8) k/uL Carbon Dioxide (22-30) mmol/L BUN (9-20) mg/dL Creatinine (0.66-1.25) mg/dL Glucose (74-99) mg/dL POC Glucose (mg/dL) 102 H 109 H (75-99) mg/dL Calcium (8.4-10.2) mg/dL Phosphorus (2.5-4.5) mg/dL Magnesium (1.6-2.3) mg/dL 08/05/16 08/05/16 08/05/16 Range/Units 04:30 12:13 15:41 WBC (3.8-10.6) k/uL RBC (4.30-5.90) m/uL Hgb (13.0-17.5) gm/dL Hct (39.0-53.0) % Neutrophils # (1.3-7.7) k/uL Lymphocytes # (1.0-4.8) k/uL Carbon Dioxide 17 L (22-30) mmol/L BUN 91 H* (9-20) mg/dL Creatinine 7.00 H* (0.66-1.25) mg/dL Glucose 103 H (74-99) mg/dL POC Glucose (mg/dL) 152 H 123 H (75-99) mg/dL Calcium 7.8 L (8.4-10.2) mg/dL Phosphorus 8.3 H* (2.5-4.5) mg/dL Magnesium 2.9 H (1.6-2.3) mg/dL Microbiology - Last 24 Hours (Table) 07/30/16 22:38 Blood Culture - Preliminary Blood No Growth after 120 hours Laboratory Results WBC 12.9 k/uL (3.8-10.6) H 08/05/16 04:30 RBC 3.32 m/uL (4.30-5.90) L 08/05/16 04:30 Hgb 10.7 gm/dL (13.0-17.5) L 08/05/16 04:30 Hct 30.7 % (39.0-53.0) L 08/05/16 04:30 MCV 92.5 fL (80.0-100.0) 08/05/16 04:30 MCH 32.2 pg (25.0-35.0) 08/05/16 04:30 MCHC 34.8 g/dL (31.0-37.0) 08/05/16 04:30 RDW 14.0 % (11.5-15.5) 08/05/16 04:30 Plt Count 152 k/uL (150-450) 08/05/16 04:30 Neutrophils % 85 % 08/05/16 04:30 Lymphocytes % 3 % 08/05/16 04:30 Monocytes % 6 % 08/05/16 04:30 Eosinophils % 2 % 08/05/16 04:30 Basophils % 0 % 08/05/16 04:30 Neutrophils # 11.0 k/uL (1.3-7.7) H 08/05/16 04:30 Lymphocytes # 0.4 k/uL (1.0-4.8) L 08/05/16 04:30 Monocytes # 0.8 k/uL (0-1.0) 08/05/16 04:30 Eosinophils # 0.3 k/uL (0-0.7) 08/05/16 04:30 Basophils # 0.0 k/uL (0-0.2) 08/05/16 04:30 Hypochromasia Moderate 07/31/16 03:06 Macrocytosis Slight 07/31/16 03:06 PT 11.1 sec (9.0-12.0) 08/03/16 04:45 INR 1.1 (<1.1) 08/03/16 04:45 APTT 27.8 sec (22.0-30.0) 08/03/16 04:45 D-Dimer 0.99 mg/L FEU (<0.60) H 07/30/16 16:13 Sample Site GATTMAN 08/02/16 08:10 ABG pH 7.51 (7.35-7.45) H 08/02/16 08:10 ABG pCO2 27 mmHg (35-45) L 08/02/16 08:10 ABG pO2 83 mmHg (83-108) 08/02/16 08:10 ABG HCO3 22 mmol/L (21-25) 08/02/16 08:10 ABG Total CO2 22 mmol/L (19-24) 08/02/16 08:10 ABG O2 Saturation 97.0 % (94-97) 08/02/16 08:10 ABG Base Excess -1.1 mmol/L 08/02/16 08:10 FiO2 50 % 08/02/16 08:10 Sodium 141 mmol/L (137-145) 08/05/16 04:30 Potassium 4.9 mmol/L (3.5-5.1) 08/05/16 04:30 Chloride 104 mmol/L (98-107) 08/05/16 04:30 Carbon Dioxide 17 mmol/L (22-30) L 08/05/16 04:30 Anion Gap 20 mmol/L 08/05/16 04:30 BUN 91 mg/dL (9-20) H* 08/05/16 04:30 Creatinine 7.00 mg/dL (0.66-1.25) H* 08/05/16 04:30 Est GFR (MDRD) Af Amer 9 (>60 ml/min/1.73 sqM) 08/05/16 04:30 Est GFR (MDRD) Non-Af 8 (>60 ml/min/1.73 sqM) 08/05/16 04:30 Glucose 103 mg/dL (74-99) H 08/05/16 04:30 POC Glucose (mg/dL) 123 mg/dL (75-99) H 08/05/16 15:41 POC Glu Repair Specialist ID Elizabeth Coon 08/05/16 15:[address] Glu mg/dL 105 mg/dL 07/31/16 03:06 Hemoglobin A1c 5.3 % (4.2-6.1) 07/31/16 03:06 Osmolality 320 mosm/kg (280-301) H 07/31/16 03:06 Plasma Lactic Acid Brandon 4.1 mmol/L (0.7-2.0) H* 07/31/16 21:37 Calcium 7.8 mg/dL (8.4-10.2) L 08/05/16 04:30 Phosphorus 8.3 mg/dL (2.5-4.5) H* 08/05/16 04:30 Magnesium 2.9 mg/dL (1.6-2.3) H 08/05/16 04:30 Total Bilirubin 1.1 mg/dL (0.2-1.3) 08/03/16 04:45 AST 20 U/L (17-59) 08/03/16 04:45 ALT 26 U/L (21-72) 08/03/16 04:45 Alkaline Phosphatase 60 U/L (38-126) 08/03/16 04:45 Total Creatine Kinase 48 U/L (55-170) L 07/30/16 22:50 CK-MB (CK-2) 1.4 ng/mL (0.0-2.4) 07/30/16 22:50 CK-MB (CK-2) Rel Index 2.9 07/30/16 22:50 Troponin I 0.027 ng/mL (0.000-0.034) 07/31/16 08:25 NT-Pro-B Natriuret Pep 94 pg/mL 07/30/16 10:33 Total Protein 4.9 g/dL (6.3-8.2) L 08/03/16 04:45 Albumin 2.5 g/dL (3.5-5.0) L 08/03/16 04:45 Triglycerides 97 mg/dL (<150) 08/04/16 15:00 Cholesterol 98 mg/dL (<200) 08/04/16 15:00 LDL Cholesterol, Calc 60 mg/dL (0-99) 08/04/16 15:00 HDL Cholesterol 19 mg/dL (40-60) L 08/04/16 15:00 Cortisol 82 ug/dL 07/30/16 22:38 Urine Color Light Yellow 07/30/16 23:50 Urine Appearance Clear (Clear) 07/30/16 23:50 Urine pH 5.0 (5.0-8.0) 07/30/16 23:50 Ur Specific [place] 1.007 (1.001-1.035) 07/30/16 23:50 Urine Protein 1+ (Negative) H 07/30/16 23:50 Urine Glucose (UA) Negative (Negative) 07/30/16 23:50 Urine Ketones Negative (Negative) 07/30/16 23:50 Urine Blood Trace (Negative) H 07/30/16 23:50 Urine Nitrite Negative (Negative) 07/30/16 23:50 Urine Bilirubin Negative (Negative) 07/30/16 23:50 Urine Urobilinogen <2.0 mg/dL (<2.0) 07/30/16 23:50 Ur Leukocyte Esterase Negative (Negative) 07/30/16 23:50 Urine RBC 2 /hpf (0-5) 07/30/16 23:50 Calcium Oxalate Crystal /hpf (None) 07/30/16 23:50 Salicylates <1.0 mg/dL 07/31/16 03:06 Urine Opiates Screen Not Detected (NotDetected) 07/30/16 23:50 Ur Oxycodone Screen Not Detected (NotDetected) 07/30/16 23:50 Urine Methadone Screen Not Detected (NotDetected) 07/30/16 23:50 Ur Propoxyphene Screen Not Detected (NotDetected) 07/30/16 23:50 Ur Barbiturates Screen Not Detected (NotDetected) 07/30/16 23:50 U Tricyclic Antidepress Not Detected (NotDetected) 07/30/16 23:50 Ur Phencyclidine Scrn Not Detected (NotDetected) 07/30/16 23:50 Ur Amphetamines Screen Not Detected (NotDetected) 07/30/16 23:50 U Methamphetamines Scrn Not Detected (NotDetected) 07/30/16 23:50 U Benzodiazepines Scrn Not Detected (NotDetected) 07/30/16 23:50 Urine Cocaine Screen Not Detected (NotDetected) 07/30/16 23:50 U Marijuana (THC) Screen Not Detected (NotDetected) 07/30/16 23:50 Ethylene Glycol Negative mg/dL (Negative) 07/31/16 08:25 Serum Alcohol <10 mg/dL 07/30/16 22:38 Ethyl Alcohol Screen Negative mg/dL (Negative) 07/31/16 18:45 Methyl Alcohol, Qual Negative mg/dL (Negative) 07/31/16 18:45 Isopropyl Alc, Qual Negative mg/dL (Negative) 07/31/16 18:45 Acetone, Qual Negative mg/dL (Negative) 07/31/16 18:45 Hep Bs Antigen Negative 08/03/16 04:45 Hep Bs Antibody Negative (Negative) 08/03/16 04:45 Hep B Core Total Ab Non-Reactive (Non-Reactive) 08/03/16 04:45 Blood Type O Positive 07/31/16 03:06 Blood Type Recheck No 07/31/16 03:06 Antibody Screen NEGATIVE 07/31/16 03:06 Spec Expiration Date 08/03/2016 - 2306 07/31/16 03:06 Microbiology 07/30/16 22:38 Blood Blood Culture - Preliminary No Growth after 120 hours 07/31/16 05:00 Sputum Gram Stain - Final 07/31/16 05:00 Sputum Sputum Culture - Final Jerilyn albicans 07/30/16 23:50 Urine,Catheterized Urine Culture - Final Assessment and Plan (1) Ischemia, bowel Narrative/Plan: 76-year-old male presents to Hospital with altered mental status. A profound acidosis that is now improved. Is receiving dialysis for his acute renal failure. Etiology of the profound acidosis is thought to be organ dysfunction to his bowel with transient ischemic event that is improved. No evidence of any bloody stools are noted at this time. Patient has had improvement but does have the acute renal failure receiving renal replacement therapy . Antibiotic therapy has been directed for treatment of ischemic colitis and potential pneumonia with Zosyn and levofloxacin while cultures are process. The sputum for Jerilyn reveals evidence of oropharyngeal contamination. Patient is extubated and showing improvement. However does have the ongoing renal failure with ongoing renal replacement therapy. X-ray continue to show ongoing volume overload but no new pulmonic infiltrations are seen. Patient had extensive leukocytosis at admission that is now improved as his acidosis and respiratory failure have improved. Status: Acute (2) Acute renal failure Status: Acute (3) Metabolic acidosis Status: Acute
[2016-08-05] MEDS: SODIUM CHLORIDE 0.9% 1,000 ML IV SCH (18:14)
[2016-08-05] MEDS: METOPROLOL TARTRATE 50 MG TAB PO SCH (18:14)
--- NOTE | 2016-08-05 18:39 | PN ---
DATE OF SERVICE: 08/05/2016 This 76-year-old gentleman who was admitted with acute metabolic and lactic acidosis, with acute respiratory failure, also has sepsis, the patient also had worsening renal failure, on hemodialysis, the patient was confused. The patient also had possibly on pontine infarct also. Multiple consultants are following the patient including neurology. Past medical history reviewed. Review of systems could not be taken, the patient is still confused. Current medications are reviewed and include: 1. Cordarone 20 mg. 2. Eliquis 2.5 mg. 3. Humalog. 4. Atrovent. 5. Xopenex. 6. Levaquin daily. 7. Lopressor. 8. Narcan. 9. Zofran. 10. Protonix. 11. Zosyn. PHYSICAL EXAMINATION: The patient is confused. Pulse 103, blood pressure 161/81, respiratory rate 20, temperature normal. Pulse ox 93% on room air. HEENT: Conjunctivae normal. Oral mucosa moist. NECK: No jugular venous distention. No carotid bruit. No lymph node enlargement. CARDIOVASCULAR: S1, S2 muffled. No S3, no S4. RESPIRATORY: Breath sounds diminished at the bases. A few scattered rhonchi and crackles. ABDOMEN: Soft. Nontender. LEGS: No edema. No swelling. CENTRAL NERVOUS SYSTEM: The patient is not fully aware or awake for complete cooperation, somewhat cooperates. Facial deviations difficult to make. Otherwise, upper limit of some weakness in the left upper limb about Grade III to IV. Otherwise, skin is normal. LYMPHATICS: No lymph nodes palpable in axillae or groin. Joints: No active deformity. LABS: WBC 12.8, hemoglobin 10.7 and creatinine is 7. ASSESSMENT: 1. Acute metabolic and lactic acidosis with acute hypoxic respiratory failure possible secondary to sepsis, undetermined etiology, possible aspiration pneumonia. 2. Change in mental status possibly acute pontine infarct with bilateral weakness left more than the right with metabolic toxic encephalopathy. 3. Chronic obstructive pulmonary disease, acute exacerbation. 4. Acute renal failure, possibly acute tubular necrosis, multifactorial, new onset hemodialysis. 5. Hypernatremia. Hyponatremia. 6. Severe metabolic acidosis as well as lactic acidosis, present on admission. 7. Hyperchloremia. 8. Increased WBC. 9. Increased MCV. 10. Atrial fibrillation, paroxysmal. 11. History of diverticulitis. 12. History of depression, not otherwise specified. 13. Remote history of nicotine dependence, metabolic acidosis previously. 14. Bilateral right more than the left. 15. FULL CODE. RECOMMENDATIONS AND DISCUSSION: Recommend to continue current medications, continue with monitoring, symptomatic treatment. Continue with fluid and electrolytes balance. Continue with hemodialysis. I would also recommend antiplatelet agents. Follow closely with neurology. We will check lipids. The lipids have already been checked, within normal limits. Hepatitis panel is negative. Guarded prognosis because of multiple complex medical issues. Further recommendations to follow. MTDD
[2016-08-05 20:06] LABS: Glucose,Whole Blood 127 mg/dL (75-99)
[2016-08-05] MEDS: LEVOFLOXACIN 250MG-D5W PMX 250 MG in DEXTROSE/WATER 1 50ML.BAG IVPB SCH (20:25)
[2016-08-05] MEDS: TEMAZEPAM 7.5 MG CAP PO PRN (22:04)
[2016-08-06 00:07] LABS: Glucose,Whole Blood 104 mg/dL (75-99)
[2016-08-06] MEDS: INSULIN LISPRO (humaLOG) 300 UNIT/3 ML VIAL SQ SCH ×7 (01:25→21:38)
[2016-08-06 05:02] LABS: Glucose,Whole Blood 87 mg/dL (75-99)
[2016-08-06 05:24] LABS: Basophils % (A) 0 %; CH 31.3; Eosinophils # (A) 0.2 k/uL (0-0.7); Eosinophils % (A) 2 %; HCT 31.6 % (39.0-53.0); HDW 2.36; HGB 10.6 gm/dL (13.0-17.5); Luc # (Auto) 0.37; Luc % (Auto) 3; Lymphocytes # (A) 0.7 k/uL (1.0-4.8); Lymphocytes % (A) 5 %; MCHC 33.5 g/dL (31.0-37.0); MCV 92.7 fL (80.0-100.0); Mean Platelet Volume 8.7; Monocytes # (A) 0.8 k/uL (0-1.0); Monocytes % (A) 6 %; Neutrophils % (A) 84 %; RBC 3.41 m/uL (4.30-5.90); RDW 14.3 % (11.5-15.5); WBC 13.1 k/uL (3.8-10.6); WBC (Perox) 13.76
[2016-08-06 06:23] LABS: Calcium 8.3 mg/dL (8.4-10.2); Magnesium 3.2 mg/dL (1.6-2.3); Potassium 5.1 mmol/L (3.5-5.1); Total Bilirubin 0.8 mg/dL (0.2-1.3); Total Protein 4.9 g/dL (6.3-8.2)
[2016-08-06 06:29] LABS: Phosphorous 10.1 mg/dL (2.5-4.5)
--- NOTE | 2016-08-06 06:54 | XR ---
EXAMINATION TYPE: XR chest 1V DATE OF EXAM: 08/06/2016 6:38 AM HISTORY: SOB. REFERENCE: Previous study dated 08/05/2016. FINDINGS: The right internal jugular catheter remains in place, unchanged in appearance. There is vascular congestion and pulmonary edema. Heart is mildly enlarged. There are bilateral effus ions, greater on the left than the right. IMPRESSION: CONTINUING CHANGES OF CONGESTIVE HEART FAILURE.
[2016-08-06 08:09] LABS: Glucose,Whole Blood 100 mg/dL (75-99)
[2016-08-06] MEDS: APIXABAN 2.5 MG TABLET PO SCH ×2 (08:20→20:21)
[2016-08-06] MEDS: PANTOPRAZOLE 40 MG/10 ML VIAL IVP SCH ×2 (08:20→20:21)
[2016-08-06] MEDS: AMIODARONE 200 MG TAB PO SCH ×3 (08:21→22:02)
[2016-08-06] MEDS: ASPIRIN 81 MG CHEW PO SCH (08:21)
[2016-08-06] MEDS: METOPROLOL TARTRATE 50 MG TAB PO SCH ×2 (08:21→20:21)
[2016-08-06] MEDS: PIPERACILLIN-TAZOBACTAM 3.375 GM in DEXTROSE/WATER 1 50ML.BAG IVPB SCH ×2 (08:22→22:02)
--- NOTE | 2016-08-06 09:24 | P.PN ---
Subjective Patient seen in follow-up for acute kidney injury. His baseline creatinine is near 1 and was elevated at 1.5 on admission. It peaked at 6 this admission and he has so far undergone 3 treatments of hemodialysis. He remains oliguric. He was extubated on August 02. He is currently sitting up in chair. Denies active chest pain or shortness of breath. Oral intake is fair. He remains oliguric. Vital signs are stable. General: The patient appeared well nourished and normally developed. HEENT: Head exam is unremarkable. Neck is without jugular venous distension. LUNGS: Rhonchi at bases Breath sounds decreased. HEART: Rate and Rhythm are regular. First and second heart sounds normal. No murmurs, rubs or gallops. ABDOMEN: Abdominal exam reveals normal bowel sounds. Non-tender and non- distended. No evidence of peritonitis. EXTREMITITES: No clubbing, cyanosis, or edema. Objective - Vital Signs Vital signs: Vital Signs Temp 98.8 F 08/06/16 00:00 Pulse 69 08/06/16 08:00 Resp 20 08/06/16 08:00 BP 149/66 08/06/16 08:00 Pulse Ox 95 08/06/16 08:00 Intake & Output 08/05/16 08/06/16 08/06/16 18:59 06:59 18:59 Intake Total 177.5 510.0 170 Output Total 0 0 0 Balance 177.5 510.0 170 Weight 97.2 kg Intake: IV 177.5 50.0 Piperacillin-Tazobactam 3 37.5 50.0 .375 gm In Dextrose/Water 1 50ml.bag @ 12.5 mls/hr IVPB Q12HR [facility] Rx#: [id number] Sodium Chloride 0.9% 1, 140 000 ml @ 50 mls/hr IV . Q20H [facility] Rx#:[id number] Intake, IV Titration 400 50 Amount Levofloxacin 250Mg-D5w 50 Pmx 250 mg In Dextrose/ Water 1 50ml.bag @ 50 mls /hr IVPB Q24H [facility] Rx#: [id number] Sodium Chloride 0.9% 1, 350 50 000 ml @ 50 mls/hr IV . Q20H [facility] Rx#:[id number] Oral 60 120 Output: Urine 0 0 0 Other: Voiding Method Incontinent Incontinent Incontinent # Bowel Movements 2 2 ABP, PAP, CO, CI - Last Documented Arterial Blood Pressure 150/58 - Labs CBC & Chem 7: 08/06/16 05:00 08/06/16 05:00 Labs: Abnormal Lab Results - Last 24 Hours (Table) 08/05/16 08/05/16 08/05/16 Range/Units 12:13 15:41 20:04 WBC (3.8-10.6) k/uL RBC (4.30-5.90) m/uL Hgb (13.0-17.5) gm/dL Hct (39.0-53.0) % Neutrophils # (1.3-7.7) k/uL Lymphocytes # (1.0-4.8) k/uL Carbon Dioxide (22-30) mmol/L BUN (9-20) mg/dL Creatinine (0.66-1.25) mg/dL POC Glucose (mg/dL) 152 H 123 H 127 H (75-99) mg/dL Calcium (8.4-10.2) mg/dL Phosphorus (2.5-4.5) mg/dL Magnesium (1.6-2.3) mg/dL Total Protein (6.3-8.2) g/dL Albumin (3.5-5.0) g/dL 08/06/16 08/06/16 08/06/16 Range/Units 00:03 05:00 05:00 WBC 13.1 H (3.8-10.6) k/uL RBC 3.41 L (4.30-5.90) m/uL Hgb 10.6 L (13.0-17.5) gm/dL Hct 31.6 L (39.0-53.0) % Neutrophils # 11.0 H (1.3-7.7) k/uL Lymphocytes # 0.7 L (1.0-4.8) k/uL Carbon Dioxide 14 L (22-30) mmol/L BUN 118 H* (9-20) mg/dL Creatinine 9.10 H* (0.66-1.25) mg/dL POC Glucose (mg/dL) 104 H (75-99) mg/dL Calcium 8.3 L (8.4-10.2) mg/dL Phosphorus 10.1 H* (2.5-4.5) mg/dL Magnesium 3.2 H (1.6-2.3) mg/dL Total Protein 4.9 L (6.3-8.2) g/dL Albumin 2.5 L (3.5-5.0) g/dL 08/06/16 Range/Units 08:06 WBC (3.8-10.6) k/uL RBC (4.30-5.90) m/uL Hgb (13.0-17.5) gm/dL Hct (39.0-53.0) % Neutrophils # (1.3-7.7) k/uL Lymphocytes # (1.0-4.8) k/uL Carbon Dioxide (22-30) mmol/L BUN (9-20) mg/dL Creatinine (0.66-1.25) mg/dL POC Glucose (mg/dL) 100 H (75-99) mg/dL Calcium (8.4-10.2) mg/dL Phosphorus (2.5-4.5) mg/dL Magnesium (1.6-2.3) mg/dL Total Protein (6.3-8.2) g/dL Albumin (3.5-5.0) g/dL Microbiology - Last 24 Hours (Table) 07/30/16 22:38 Blood Culture - Final Blood No Growth after 144 hours Assessment and Plan Plan: Assessment: #1. Oliguric acute kidney injury secondary to ischemic ATN secondary to hemodynamic instability as well as emesis. Baseline creatinine is 1. Currently hemodialysis dependent. Urinalysis is quite benign and there is no evidence of hydronephrosis noted on CAT scan. Alcohol levels noted to be negative. #2. Severe metabolic acidosis secondary to acute kidney injury and lactic acidosis. Blood sugars are stable. No evidence of alcohol toxicities. #3. Atrial fibrillation. Now rate controlled. #4. Lactic acidosis most likely due to hypoperfusion. No evidence of hypoxia or ischemic bowel findings on CAT scan. #5. Hyperkalemia secondary to acute kidney injury and metabolic acidosis. Improved. #6. Hypernatremia secondary to lack of oral water intake and dehydration. Resolved. #7. Hyperphosphatemia secondary to acute kidney injury. Plan: Hemodialysis today with goal 2 L ultrafiltration. Start Renvela with meals. No evidence of renal recovery at this time. Will discontinue femoral catheter and request vascular surgery to place a long-term access for hemodialysis. Encourage oral intake. Avoid nephrotoxic agents and hypotensive episodes.
[2016-08-06 09:45] VITALS: BMI 31.6
--- NOTE | 2016-08-06 10:33 | P.PN ---
Subjective Principal diagnosis: Acute respiratory failure with acute metabolic lactic acidosis. This is a 76-year-old white male with history of multiple medical problems including severe depression, previous multiple suicidal attempts, chronic atrial fibrillation, diverticulosis, anxiety, patient presented to the ER yesterday with mostly symptoms of acute slurred speech and dizziness. His was concerned, and she brought him into the ER. CT of the brain was unremarkable. Echocardiogram was done and results are pending. However shortly after the patient arrived to the cardiac floor, he was noted to have increased shortness of breath, and he was showing significant metabolic acidosis /lactic acidosis based on his ABG. Patient was transferred to the ICU, and a genny You was notified about his ABG, I recommended immediate intubation of the patient. Patient was intubated, placed on mechanical ventilation, and he went on to develop worsening metabolic lactic acidosis. Hence I raised the possibility of ischemic bowel, abdominal sepsis, salicylate overdose, ethylene glycol toxicity, however I was mostly concerned about the possibility of bowel ischemia and abdominal sepsis. Patient had a CT of the abdomen and pelvis yesterday, and this was done with oral contrast, it showed some perinephric stranding, but no evidence of changes in the bowel to suggest ischemia. Upon arrival to the ICU, a nasogastric tube was placed because his abdomen was distended, and there was a significant amount of coffee-ground material suctioned from the stomach. Hemoglobin was noted to be 12.8, 2 g lower compared to admission hemoglobin. His lactic acid was as high as 10 yesterday, but it is 5.7 today. Patient was given multiple fluid boluses he received almost 5 L of fluids overnight. Patient was placed on a sodium bicarb drip, broad-spectrum antibiotics, urine was sent for calcium oxalate crystals, ethylene glycol level was ordered, salicylate level was ordered, however his osmolar gap was noted to be minimal, hence that practically rules out the possibility of ethylene glycol toxicity. In the meantime the patient remains on antibiotics, bronchodilators, sodium bicarb drip, and fluids. He was seen by nephrology on consultation, general surgery on consultation, and he is to be seen by infectious disease on consultation. Cultures at this point remain negative. And workup is still pending. Patient did not demonstrate any hemodynamic instability throughout the whole process, he never demonstrated any hypoxia during this process, urine output is very poor, hoping it will improve as we correct his metabolic acidosis. And I will suggest possibly a Lasix challenge was acidosis improves. Labs this morning were reviewed WBC count is down from 28-17.0. His ABG showed significant improvement with a pO2 of 109 pCO2 of 27 pH of 7.29 remind you his pH was less than 7 before intubation. Bicarb level this morning was 7 BUN is 27 creatinine is 3.20 blood sugar is 226. Measured serum osmolality was 320, calculated serum osmolality was 316. Lactic acid is down this morning to 5.7. Salicylate level was less than 1.0, and drug screen was negative. The urinalysis is relatively unremarkable and no evidence of pyuria or bacteriuria. The echocardiogram was also unremarkable, no evidence of thrombus. CT of the brain was unremarkable carotid Doppler was also unremarkable. Patient was reevaluated today on 08/01/2016, he remains hemodynamically stable, not requiring any pressors. Remains on mechanical ventilation, his rate was cut down to 14, tidal volume remains at 500, FiO2 is down to 50%. PEEP is at 5. ABG this morning showed a pO2 of 95 pCO2 of 33 pH of 7.50 hence the patient will be off bicarb drip today. And this was discontinued. CBC is relatively unremarkable hemoglobin is 11.0. His renal profile shows significant worsening with a BUN up to 46 and creatinine is 5.53. Patient remains oliguric and no response to Lasix challenges. Hence he is being considered for dialysis as per nephrology on the case. Briefly, the patient was given a sedation holiday, and he seemed to be very appropriate, and no focal neurologic deficit was noted while he was off propofol. I plan to eventually weaned and extubated the patient, however I would like his renal status to be addressed prior to any extubation trial since the patient is oliguric. Cultures remain negative. Sputum only showed some Jerilyn. But cultures are negative so far. I am still convinced that the patient must have had an episode of ischemic bowel related to his atrial fibrillation, may have also showered his kidneys with small tiny emboli. Patient is now on Lovenox, at a modified dose because of his renal status and because of his episode of upper GI bleeding. Could not fully heparinize the patient. Reevaluated today on 08/02/2016, patient remains on mechanical ventilation, hemodynamically stable, not requiring any pressors, ventilator settings remained the same, he is on 50% FiO2 with a PEEP of 5,ABG showed a pO2 of 83 pCO2 of 27 pH of 7.51. Chest x-ray showed minimal interstitial edema and atelectasis. CBC is relatively unremarkable, hemoglobin is 10.8.renal profile is worsening BUN is 47 creatinine is 6.0, patient received one hemodialysis yesterday.only 500 mL of fluid were removed. Patient remains sedated on propofol, however I plan to discontinue propofol, wake of the patient, given a weaning trial, and possibly extubate. Patient was reevaluated today on 08/03/2016, he was extubated yesterday uneventfully, however he remains on a nonrebreather mask, and O2 saturation is marginal. His chest x-ray showed mild congestive changes hence the patient will likely be dialyzed and ultrafiltrate it today. Patient is awake, alert, knows where he is, but he is confused to time. And date. Chest x-ray as noted above.labs WBC count is 11 hemoglobin 10.7 electrolytes are normal bicarb is 19 BUN is 53 creatinine is 5.61. Reevaluated today on 08/04/2016, patient is doing relatively well, tolerated extubation well over the last 2 days, he is presently on nasal cannula, and yesterday he underwent dialysis were in 1.5 L of fluids were removed. WBC count is 14.7 today hemoglobin is 10.5 BUN is 53 creatinine is 5.10. Patient seems to have on iron gap metabolic acidosis most likely secondary to his renal failure at this point. Blood cultures remain negative so far. Patient was reevaluated today on 08/05/2016 basically about the same, presently on nasal cannula, patient is not in any form of distress. Chest x-ray showed evidence of interstitial edema, nephrology is not planning dialysis today but he will likely have dialysis and ultrafiltration tomorrow. CT of the chest which was ordered yesterday by neurology showed a new pontine infarct which was not present on his initial CT when he presented with mental status change. Neurology is recommending adding a low-dose antiplatelet, and at this point I have no objection to this. Patient did have 1 episode of coffee-ground material via nasogastric tube, there is a relative contraindication to anticoagulation therapy, but I believe at this point the benefits outweigh the risks. Patient is on a relatively small dose of Lovenox at this point. I think adding antiplatelet therapy or adding eliquis is not a bad idea at this point. And I have no objection to this. I will go ahead and start the patient on eliquis 2.5 mg twice a day, and I will discontinue Lovenox. The patient was seen again today in follow-up 08/06/2016. He is awake and alert sitting up in the chair at the bedside. He is somewhat disoriented to place and time and is requesting to go home. He pulled out his IV. He was found to have a new pontine infarct and was initiated on Eliquis yesterday. The patient has improved as far as his pulmonary status is concerned. Today's chest x-ray kidneys to show some bilateral infiltrates and effusions with some mild congestive heart failure. He is maintaining good O2 saturations in the 90s on room air. He has a 0.9 at 50 MLS per hour. He is receiving hemodialysis and the plan is for Hemo-Cath insertion. Objective - Vital Signs Vital signs: Vital Signs Temp 98.8 F 08/06/16 00:00 Pulse 76 08/06/16 09:00 Resp 30 H 08/06/16 09:00 BP 155/64 08/06/16 09:00 Pulse Ox 95 08/06/16 08:00 Intake & Output 08/05/16 08/06/16 08/06/16 18:59 06:59 18:59 Intake Total 177.5 510.0 220 Output Total 0 0 0 Balance 177.5 510.0 220 Weight 97.2 kg Intake: IV 177.5 50.0 50 Piperacillin-Tazobactam 3 37.5 50.0 50 .375 gm In Dextrose/Water 1 50ml.bag @ 12.5 mls/hr IVPB Q12HR [facility] Rx#: [id number] Sodium Chloride 0.9% 1, 140 000 ml @ 50 mls/hr IV . Q20H [facility] Rx#:[id number] Intake, IV Titration 400 50 Amount Levofloxacin 250Mg-D5w 50 Pmx 250 mg In Dextrose/ Water 1 50ml.bag @ 50 mls /hr IVPB Q24H [facility] Rx#: [id number] Sodium Chloride 0.9% 1, 350 50 000 ml @ 50 mls/hr IV . Q20H [facility] Rx#:[id number] Oral 60 120 Output: Urine 0 0 0 Other: Voiding Method Incontinent Incontinent Incontinent # Bowel Movements 2 2 ABP, PAP, CO, CI - Last Documented Arterial Blood Pressure 150/58 - Exam GENERAL EXAM: Alert, comfortable in no apparent distress. HEAD: Normocephalic. EYES: Normal reaction of pupils, equal size. NOSE: Clear with pink turbinates. THROAT: No erythema or exudates. NECK: No masses, no JVD. CHEST: No chest wall deformity. LUNGS: Equal air entry with crackles in the bilateral posterior bases. Diminished. CVS: S1 and S2 normal with no audible murmurs, regular rhythm. ABDOMEN: No hepatosplenomegaly, normal bowel sounds, no guarding or rigidity. Extremities: There is trace peripheral edema. No clubbing, no cyanosis. Peripheral pulses are intact. - Labs CBC & Chem 7: 08/06/16 05:00 08/06/16 05:00 Labs: Abnormal Lab Results - Last 24 Hours (Table) 08/05/16 08/05/16 08/05/16 Range/Units 12:13 15:41 20:04 WBC (3.8-10.6) k/uL RBC (4.30-5.90) m/uL Hgb (13.0-17.5) gm/dL Hct (39.0-53.0) % Neutrophils # (1.3-7.7) k/uL Lymphocytes # (1.0-4.8) k/uL Carbon Dioxide (22-30) mmol/L BUN (9-20) mg/dL Creatinine (0.66-1.25) mg/dL POC Glucose (mg/dL) 152 H 123 H 127 H (75-99) mg/dL Calcium (8.4-10.2) mg/dL Phosphorus (2.5-4.5) mg/dL Magnesium (1.6-2.3) mg/dL Total Protein (6.3-8.2) g/dL Albumin (3.5-5.0) g/dL 08/06/16 08/06/16 08/06/16 Range/Units 00:03 05:00 05:00 WBC 13.1 H (3.8-10.6) k/uL RBC 3.41 L (4.30-5.90) m/uL Hgb 10.6 L (13.0-17.5) gm/dL Hct 31.6 L (39.0-53.0) % Neutrophils # 11.0 H (1.3-7.7) k/uL Lymphocytes # 0.7 L (1.0-4.8) k/uL Carbon Dioxide 14 L (22-30) mmol/L BUN 118 H* (9-20) mg/dL Creatinine 9.10 H* (0.66-1.25) mg/dL POC Glucose (mg/dL) 104 H (75-99) mg/dL Calcium 8.3 L (8.4-10.2) mg/dL Phosphorus 10.1 H* (2.5-4.5) mg/dL Magnesium 3.2 H (1.6-2.3) mg/dL Total Protein 4.9 L (6.3-8.2) g/dL Albumin 2.5 L (3.5-5.0) g/dL 08/06/16 Range/Units 08:06 WBC (3.8-10.6) k/uL RBC (4.30-5.90) m/uL Hgb (13.0-17.5) gm/dL Hct (39.0-53.0) % Neutrophils # (1.3-7.7) k/uL Lymphocytes # (1.0-4.8) k/uL Carbon Dioxide (22-30) mmol/L BUN (9-20) mg/dL Creatinine (0.66-1.25) mg/dL POC Glucose (mg/dL) 100 H (75-99) mg/dL Calcium (8.4-10.2) mg/dL Phosphorus (2.5-4.5) mg/dL Magnesium (1.6-2.3) mg/dL Total Protein (6.3-8.2) g/dL Albumin (3.5-5.0) g/dL Microbiology - Last 24 Hours (Table) 07/30/16 22:38 Blood Culture - Final Blood No Growth after 144 hours Assessment and Plan Plan: Impression: 1 acute respiratory failure secondary to severe metabolic, lactic acidosis, exact etiology is not clear, but still suspect ischemic bowel or abdominal sepsis. Salicylate poisoning and ethylene glycol poisoning is practically ruled out based on the initial studies done. 2 chronic atrial fibrillation, presently rate seems to be well- controlled.eliquis was added 3 acute presentation of TIA/CVA with negative workup upon presentation. Follow- up CT of the brain showed pontine infarct which is relatively new 4 severe lactic acidosis, most likely secondary to sepsis or transient bowel ischemia. 5 acute kidney injury secondary to sepsis. This is also associated with oliguria 6 history of depression and previous suicidal attempts. 7 coffee-ground material via nasogastric tube most likely secondary to erosive gastritis , patient is presently on Lovenox subcu. 8 acute pontine infarct Plan: The patient was seen and evaluated by Dr. Whitfield. His chest x-ray and labs were reviewed. The patient is stable from the pulmonary and critical care standpoint and could be transferred out to the regular medical floor today. He would benefit from a sitter / based on his confusion. Dialysis per nephrology. We'll continue to follow.
[2016-08-06] MEDS ORDERED: IPRATROPIUM-ALBUTEROL 3 ML NEB INHALATION PRN (12:00)
[2016-08-06 12:09] LABS: Glucose,Whole Blood 102 mg/dL (75-99)
[2016-08-06] MEDS: FOLIC ACID 1 MG TAB PO SCH (13:39)
[2016-08-06] MEDS: MULTIVITAMINS, THERA 1 EACH TAB PO SCH (13:39)
[2016-08-06] MEDS: THIAMINE 100 MG TAB PO SCH (13:40)
[2016-08-06] MEDS: SEVELAMER 800 MG TAB PO SCH ×2 (13:41→18:05)
[2016-08-06] MEDS ORDERED: METOCLOPRAMIDE 5 MG/ML 2 ML VIAL IVP PRN (18:05)
--- NOTE | 2016-08-06 19:40 | P.PN ---
Subjective Principal diagnosis: Sepsis this is a 76-year-old male with past history of atrial fibrillation, diverticulitis, anxiety and depression. Patient apparently has had previous attempts at suicide by [address], cutting wrists, jumping and [place] and overdosing on sleeping pills. Patient was brought in to the emergency center due to slurred speech, right side feeling funny, Phalen's off and confusion. Patient was found to be afebrile. Pulse was 125-152 with atrial fibrillation with rapid ventricular response, hypertensive, tachypneic, leukocytosis initially at 13 and then eros to 28 and repeat was 17, acute renal failure with BUN of 23 and creatinine 3.1, severe lactic acidosis with lactic acid of 8.1 with repeat of 10. Electrolyte abnormalities with hypernatremia, hyperchloremia and hyperkalemia. Anion gap was 32. Troponin 2 was negative. Urine drug screen was negative and alcohol level was less than 10. Patient underwent initial chest x-ray that showed no acute process. CAT scan of the brain was done 2 which did show remote ischemic white matter changes, soft tissue nodule. Carotid ultrasound showed 50-70% right internal carotid stenosis and 50% on the left. CAT scan of the abdomen and pelvis without contrast showed bilateral perinephric stranding and small retroperitoneal fluid. No renal obstruction or stones. Consider infection. Diverticulosis without acute diverticulitis. Bibasilar lung atelectasis or consolidation with air space disease and possible infection. Last evening patient had a large coffee ground emesis and developed respiratory failure requiring intubation. He has been oliguric. He has been seen by Dr. Aceves for possible bowel ischemia or acute gastritis. NG tube is in place. Other consultants are neurology, cardiology, marine tower operator, nephrology. Echocardiogram is pending. Sputum, urine and blood cultures are all status received. At this time, Dr. Allen spoke with the family regarding reason for the severe acidosis and family are going home to check grouch for items that he could have taken before arrival. According to the patient's , he does not talk about depression but just plain does not talk and can go weeks without talking to her in the same home. Patient has hemodialysis. Tolerating that well. Not having significant hypotension. Acidosis is improved. Showing ongoing improvement. Tolerating hemodialysis. Doing well with extubation but still seems to be uncomfortable. Mental status is poor. Answers questions and simple 1 word terms only. Objective - Vital Signs Vital signs: Vital Signs Temp 98.4 F 08/06/16 15:00 Pulse 78 08/06/16 18:00 Resp 22 08/06/16 18:00 BP 151/69 08/06/16 18:00 Pulse Ox 95 08/06/16 08:00 Intake & Output 08/06/16 08/06/16 08/07/16 06:59 18:59 06:59 Intake Total 510.0 340 Output Total 0 0 Balance 510.0 340 Weight 97.2 kg Intake: IV 50.0 50 Piperacillin-Tazobactam 3 50.0 50 .375 gm In Dextrose/Water 1 50ml.bag @ 12.5 mls/hr IVPB Q12HR [facility] Rx#: [id number] Intake, IV Titration 400 50 Amount Levofloxacin 250Mg-D5w 50 Pmx 250 mg In Dextrose/ Water 1 50ml.bag @ 50 mls /hr IVPB Q24H [facility] Rx#: [id number] Sodium Chloride 0.9% 1, 350 50 000 ml @ 50 mls/hr IV . Q20H [facility] Rx#:[id number] Oral 60 240 Output: Urine 0 0 Other: Voiding Method Incontinent Incontinent # Bowel Movements 2 2 ABP, PAP, CO, CI - Last Documented Arterial Blood Pressure 150/58 - Exam Gen: This is a 76-year-old male. He has been extubated seems to be comfortable HEENT: Head is atraumatic, normocephalic. Pupils equal, round. Sclerae is anicteric. oral mucous membranes are moist. No oral lesions are seen NECK: Supple. No JVD. No lymphadenopathy. No thyromegaly. LUNGS: Clear to auscultation but diminished bilaterally. No intercostal retractions. HEART: irregular rate and rhythm. No murmur. ABDOMEN: Soft. Bowel sounds are present. No masses. No tenderness. Brody catheter in place with small amount of urine output. EXTREMITIES: No pedal edema. SCDs in place bilaterally. NEUROLOGICAL: Patient is awake but not he had a good historian. Answers questions with only a simple 1 word answer. Appears slightly less irritable - Labs CBC & Chem 7: 08/06/16 05:00 08/06/16 05:00 Labs: Abnormal Lab Results - Last 24 Hours (Table) 08/05/16 08/06/16 08/06/16 Range/Units 20:04 00:03 05:00 WBC 13.1 H (3.8-10.6) k/uL RBC 3.41 L (4.30-5.90) m/uL Hgb 10.6 L (13.0-17.5) gm/dL Hct 31.6 L (39.0-53.0) % Neutrophils # 11.0 H (1.3-7.7) k/uL Lymphocytes # 0.7 L (1.0-4.8) k/uL Carbon Dioxide (22-30) mmol/L BUN (9-20) mg/dL Creatinine (0.66-1.25) mg/dL POC Glucose (mg/dL) 127 H 104 H (75-99) mg/dL Calcium (8.4-10.2) mg/dL Phosphorus (2.5-4.5) mg/dL Magnesium (1.6-2.3) mg/dL Total Protein (6.3-8.2) g/dL Albumin (3.5-5.0) g/dL 08/06/16 08/06/16 08/06/16 Range/Units 05:00 08:06 12:07 WBC (3.8-10.6) k/uL RBC (4.30-5.90) m/uL Hgb (13.0-17.5) gm/dL Hct (39.0-53.0) % Neutrophils # (1.3-7.7) k/uL Lymphocytes # (1.0-4.8) k/uL Carbon Dioxide 14 L (22-30) mmol/L BUN 118 H* (9-20) mg/dL Creatinine 9.10 H* (0.66-1.25) mg/dL POC Glucose (mg/dL) 100 H 102 H (75-99) mg/dL Calcium 8.3 L (8.4-10.2) mg/dL Phosphorus 10.1 H* (2.5-4.5) mg/dL Magnesium 3.2 H (1.6-2.3) mg/dL Total Protein 4.9 L (6.3-8.2) g/dL Albumin 2.5 L (3.5-5.0) g/dL Microbiology - Last 24 Hours (Table) 07/30/16 22:38 Blood Culture - Final Blood No Growth after 144 hours Laboratory Results WBC 13.1 k/uL (3.8-10.6) H 08/06/16 05:00 RBC 3.41 m/uL (4.30-5.90) L 08/06/16 05:00 Hgb 10.6 gm/dL (13.0-17.5) L 08/06/16 05:00 Hct 31.6 % (39.0-53.0) L 08/06/16 05:00 MCV 92.7 fL (80.0-100.0) 08/06/16 05:00 MCH 31.0 pg (25.0-35.0) 08/06/16 05:00 MCHC 33.5 g/dL (31.0-37.0) 08/06/16 05:00 RDW 14.3 % (11.5-15.5) 08/06/16 05:00 Plt Count 165 k/uL (150-450) 08/06/16 05:00 Neutrophils % 84 % 08/06/16 05:00 Lymphocytes % 5 % 08/06/16 05:00 Monocytes % 6 % 08/06/16 05:00 Eosinophils % 2 % 08/06/16 05:00 Basophils % 0 % 08/06/16 05:00 Neutrophils # 11.0 k/uL (1.3-7.7) H 08/06/16 05:00 Lymphocytes # 0.7 k/uL (1.0-4.8) L 08/06/16 05:00 Monocytes # 0.8 k/uL (0-1.0) 08/06/16 05:00 Eosinophils # 0.2 k/uL (0-0.7) 08/06/16 05:00 Basophils # 0.0 k/uL (0-0.2) 08/06/16 05:00 Hypochromasia Moderate 07/31/16 03:06 Macrocytosis Slight 07/31/16 03:06 PT 11.1 sec (9.0-12.0) 08/03/16 04:45 INR 1.1 (<1.1) 08/03/16 04:45 APTT 27.8 sec (22.0-30.0) 08/03/16 04:45 D-Dimer 0.99 mg/L FEU (<0.60) H 07/30/16 16:13 Sample Site JEAN-PIERRE 08/02/16 08:10 ABG pH 7.51 (7.35-7.45) H 08/02/16 08:10 ABG pCO2 27 mmHg (35-45) L 08/02/16 08:10 ABG pO2 83 mmHg (83-108) 08/02/16 08:10 ABG HCO3 22 mmol/L (21-25) 08/02/16 08:10 ABG Total CO2 22 mmol/L (19-24) 08/02/16 08:10 ABG O2 Saturation 97.0 % (94-97) 08/02/16 08:10 ABG Base Excess -1.1 mmol/L 08/02/16 08:10 FiO2 50 % 08/02/16 08:10 Sodium 141 mmol/L (137-145) 08/06/16 05:00 Potassium 5.1 mmol/L (3.5-5.1) 08/06/16 05:00 Chloride 105 mmol/L (98-107) 08/06/16 05:00 Carbon Dioxide 14 mmol/L (22-30) L 08/06/16 05:00 Anion Gap 22 mmol/L 08/06/16 05:00 BUN 118 mg/dL (9-20) H* 08/06/16 05:00 Creatinine 9.10 mg/dL (0.66-1.25) H* 08/06/16 05:00 Est GFR (MDRD) Af Amer 7 (>60 ml/min/1.73 sqM) 08/06/16 05:00 Est GFR (MDRD) Non-Af 6 (>60 ml/min/1.73 sqM) 08/06/16 05:00 Glucose 90 mg/dL (74-99) 08/06/16 05:00 POC Glucose (mg/dL) 102 mg/dL (75-99) H 08/06/16 12:07 POC Glu Application Development Team Lead ID Katalina Sgeal 08/06/16 12:[address] Glu mg/dL 105 mg/dL 07/31/16 03:06 Hemoglobin A1c 5.3 % (4.2-6.1) 07/31/16 03:06 Osmolality 320 mosm/kg (280-301) H 07/31/16 03:06 Plasma Lactic Acid Brandon 4.1 mmol/L (0.7-2.0) H* 07/31/16 21:37 Calcium 8.3 mg/dL (8.4-10.2) L 08/06/16 05:00 Phosphorus 10.1 mg/dL (2.5-4.5) H* 08/06/16 05:00 Magnesium 3.2 mg/dL (1.6-2.3) H 08/06/16 05:00 Total Bilirubin 0.8 mg/dL (0.2-1.3) 08/06/16 05:00 AST 21 U/L (17-59) 08/06/16 05:00 ALT 30 U/L (21-72) 08/06/16 05:00 Alkaline Phosphatase 93 U/L (38-126) 08/06/16 05:00 Total Creatine Kinase 48 U/L (55-170) L 07/30/16 22:50 CK-MB (CK-2) 1.4 ng/mL (0.0-2.4) 07/30/16 22:50 CK-MB (CK-2) Rel Index 2.9 07/30/16 22:50 Troponin I 0.027 ng/mL (0.000-0.034) 07/31/16 08:25 NT-Pro-B Natriuret Pep 94 pg/mL 07/30/16 10:33 Total Protein 4.9 g/dL (6.3-8.2) L 08/06/16 05:00 Albumin 2.5 g/dL (3.5-5.0) L 08/06/16 05:00 Triglycerides 97 mg/dL (<150) 08/04/16 15:00 Cholesterol 98 mg/dL (<200) 08/04/16 15:00 LDL Cholesterol, Calc 60 mg/dL (0-99) 08/04/16 15:00 HDL Cholesterol 19 mg/dL (40-60) L 08/04/16 15:00 Homocysteine 7.02 umol/L (4.00-14.00) 08/04/16 15:20 Cortisol 82 ug/dL 07/30/16 22:38 Urine Color Light Yellow 07/30/16 23:50 Urine Appearance Clear (Clear) 07/30/16 23:50 Urine pH 5.0 (5.0-8.0) 07/30/16 23:50 Ur Specific [place] 1.007 (1.001-1.035) 07/30/16 23:50 Urine Protein 1+ (Negative) H 07/30/16 23:50 Urine Glucose (UA) Negative (Negative) 07/30/16 23:50 Urine Ketones Negative (Negative) 07/30/16 23:50 Urine Blood Trace (Negative) H 07/30/16 23:50 Urine Nitrite Negative (Negative) 07/30/16 23:50 Urine Bilirubin Negative (Negative) 07/30/16 23:50 Urine Urobilinogen <2.0 mg/dL (<2.0) 07/30/16 23:50 Ur Leukocyte Esterase Negative (Negative) 07/30/16 23:50 Urine RBC 2 /hpf (0-5) 07/30/16 23:50 Calcium Oxalate Crystal /hpf (None) 07/30/16 23:50 Salicylates <1.0 mg/dL 07/31/16 03:06 Urine Opiates Screen Not Detected (NotDetected) 07/30/16 23:50 Ur Oxycodone Screen Not Detected (NotDetected) 07/30/16 23:50 Urine Methadone Screen Not Detected (NotDetected) 07/30/16 23:50 Ur Propoxyphene Screen Not Detected (NotDetected) 07/30/16 23:50 Ur Barbiturates Screen Not Detected (NotDetected) 07/30/16 23:50 U Tricyclic Antidepress Not Detected (NotDetected) 07/30/16 23:50 Ur Phencyclidine Scrn Not Detected (NotDetected) 07/30/16 23:50 Ur Amphetamines Screen Not Detected (NotDetected) 07/30/16 23:50 U Methamphetamines Scrn Not Detected (NotDetected) 07/30/16 23:50 U Benzodiazepines Scrn Not Detected (NotDetected) 07/30/16 23:50 Urine Cocaine Screen Not Detected (NotDetected) 07/30/16 23:50 U Marijuana (THC) Screen Not Detected (NotDetected) 07/30/16 23:50 Ethylene Glycol Negative mg/dL (Negative) 07/31/16 08:25 Serum Alcohol <10 mg/dL 07/30/16 22:38 Ethyl Alcohol Screen Negative mg/dL (Negative) 07/31/16 18:45 Methyl Alcohol, Qual Negative mg/dL (Negative) 07/31/16 18:45 Isopropyl Alc, Qual Negative mg/dL (Negative) 07/31/16 18:45 Acetone, Qual Negative mg/dL (Negative) 07/31/16 18:45 Hep Bs Antigen Negative 08/03/16 04:45 Hep Bs Antibody Negative (Negative) 08/03/16 04:45 Hep B Core Total Ab Non-Reactive (Non-Reactive) 08/03/16 04:45 Blood Type O Positive 07/31/16 03:06 Blood Type Recheck No 07/31/16 03:06 Antibody Screen NEGATIVE 07/31/16 03:06 Spec Expiration Date 08/03/2016 - 23007/31/16 03:06 Microbiology 07/30/16 22:38 Blood Blood Culture - Final No Growth after 144 hours 07/31/16 05:00 Sputum Gram Stain - Final 07/31/16 05:00 Sputum Sputum Culture - Final Jerilyn albicans 07/30/16 23:50 Urine,Catheterized Urine Culture - Final Assessment and Plan (1) Ischemia, bowel Narrative/Plan: 76-year-old male presents to Hospital with altered mental status. A profound acidosis that is now improved. Is receiving dialysis for his acute renal failure. Etiology of the profound acidosis is thought to be organ dysfunction to his bowel with transient ischemic event that is improved. No evidence of any bloody stools are noted at this time. Patient has had improvement but does have the acute renal failure receiving renal replacement therapy . Antibiotic therapy has been directed for treatment of ischemic colitis and potential pneumonia with Zosyn and levofloxacin while cultures are process. The sputum for Jerilyn reveals evidence of oropharyngeal contamination. Patient is extubated and showing improvement. However does have the ongoing renal failure with ongoing renal replacement therapy. X-ray continue to show ongoing volume overload but no new pulmonic infiltrations are seen. Patient had extensive leukocytosis at admission that is now improved as his acidosis and respiratory failure have improved. 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 Anticoagulation is being utilized. Status: Acute (2) Acute renal failure Status: Acute (3) Metabolic acidosis Status: Acute
[2016-08-06] MEDS: LEVOFLOXACIN 250MG-D5W PMX 250 MG in DEXTROSE/WATER 1 50ML.BAG IVPB SCH (20:20)
[2016-08-06 20:22] LABS: Glucose,Whole Blood 77 mg/dL (75-99)
[2016-08-06] MEDS: TEMAZEPAM 7.5 MG CAP PO PRN (20:22)
--- NOTE | 2016-08-06 20:27 | PN ---
DATE OF SERVICE: 08/06/2016 This 76 -year-old gentleman was admitted with acute metabolic and lactic acidosis also had change in mental status. The patient also had pontine stroke on the CAT scan. The patient has chronic obstructive pulmonary disease, multiple other medical problems, including acute renal failure, which is new onset, multifactorial, acute tubular necrosis. Patient started on hemodialysis. Creatinine is still elevated. Patient is still confused as mentioned earlier. Diffuse weakness, left more than the right is also reported. PAST MEDICAL HISTORY: Reviewed. REVIEW OF SYSTEMS: CARDIOVASCULAR: No angina or palpitations. RESPIRATORY: As mentioned earlier. Occasional cough. GASTROINTESTINAL: No nausea or vomiting. GENITOURINARY: No dysuria. CENTRAL NERVOUS SYSTEM: As mentioned earlier. Current Medications are reviewed and include: 1. Duoneb q.i.d. and p.r.n. 2. Cordarone 200 mg p.o. daily. 3. Eliquis 2.5 mg b.i.d. 4. Ecotrin 81 mg p.o. daily. 5. Folic acid 1 mg p.o. daily. 6. Humalog 7. Levaquin 250 q24 hours. 8. Lopressor 50 mg p.o. b.i.d. 9. Multivitamins one p.o. daily. 10. Narcan 0.2 q.2 p.r.n. 11. Zofran 4 mg q.6 p.r.n. 12. Protonix 40 mg b.i.d. 14. Zosyn 3.375 IV b.i.d. 15. Renvela 800 mg p.o. t.i.d. 16. Restoril 7.5 q.h.s. 17. Vitamin B1 100 mg p.o. daily. PHYSICAL EXAMINATION: The patient is alert and oriented times one. Pulse 62, blood pressure 140/60, respirations 24, pulse ox is 95% on room air. HEENT: Conjunctivae normal. Oral mucosa moist. NECK: No jugular venous distention. No carotid bruit. No lymph node enlargement. CARDIOVASCULAR: S1, S2, muffled. No S3, no S4. RESPIRATORY: Breath sounds diminished at the bases. Bilateral scattered rhonchi and crackles. ABDOMEN: Soft, obese, nontender. No mass palpable. LEGS: No edema. No swelling. CENTRAL NERVOUS SYSTEM: Higher functions as mentioned earlier, mild diffuse weakness present. Moves all four limbs in all directions. No focal motor or sensory deficits. LYMPHATICS: No lymph nodes palpable in the neck, axillae or groin. SKIN: No ulcer, rash or bleeding. Minimal increased weakness in the left upper limb present. LABS: WBC is 13.9, hemoglobin 10.6. Creatinine is 9.10. Phosphorus is 10.1. Albumin is 2.5. ASSESSMENT: 1. Acute metabolic and lactic acidosis with acute hypoxic respiratory failure, possibly secondary to sepsis and undetermined etiology possibly aspiration pneumonia, present on admission. 2. Change in mental status, possibly acute, metabolic encephalopathy, toxic encephalopathy, multifactorial. 3. Possible acute pontine infarct with bilateral weakness, left more than the right. 4. Chronic obstructive pulmonary disease, acute exacerbation. 5. Acute renal failure, possibly acute tubular necrosis, multifactorial, newly started hemodialysis. 6. Hypernatremia secondary to dehydration. 7. Severe metabolic acidosis as well as lactic acidosis, present on admission. 8. Hyperchloremia. 9. Increased MCV. 10. Atrial fibrillation, paroxysmal. 11. History of diverticulitis. 12. History of depression, not otherwise specified. 13. Remote history of nicotine dependence, metabolic encephalopathy previously. 14. FULL CODE. 15. Gait dysfunction. RECOMMENDATIONS AND DISCUSSION: In this 76 -year-old gentleman who presented with multiple complex medical issues, being closely monitored in the ICU, hemodialysis being continued as mentioned earlier. The patient had multiple complex medical issues especially involving the neurological system. At this time, the family reports the patient evaluation ECF rehab. I had a detailed discussion with family, understands and agrees. Further recommendations to follow. We will continue to follow with multiple consultants and currently we will also follow with empiric antibiotics also. Guarded prognosis. Further recommendations to follow. MTDD
[2016-08-07 04:49] LABS: Basophils # (A) 0.1 k/uL (0-0.2); Basophils % (A) 1 %; CH 31.5; CHCM 34.3; Eosinophils # (A) 0.2 k/uL (0-0.7); Eosinophils % (A) 1 %; HCT 31.6 % (39.0-53.0); HGB 10.6 gm/dL (13.0-17.5); Luc # (Auto) 0.39; Luc % (Auto) 3; Lymphocytes # (A) 0.7 k/uL (1.0-4.8); Lymphocytes % (A) 6 %; MCH 30.9 pg (25.0-35.0); MCHC 33.5 g/dL (31.0-37.0); MCV 92.3 fL (80.0-100.0); Mean Platelet Volume 8.1; Monocytes # (A) 0.5 k/uL (0-1.0); Monocytes % (A) 4 %; Neutrophils # (A) 10.4 k/uL (1.3-7.7); Neutrophils % (A) 85 %; RBC 3.42 m/uL (4.30-5.90); RDW 14.4 % (11.5-15.5); WBC 12.2 k/uL (3.8-10.6); WBC (Perox) 13.15
[2016-08-07 05:00] LABS: Calcium 8.3 mg/dL (8.4-10.2); Magnesium 2.6 mg/dL (1.6-2.3); Total Bilirubin 0.9 mg/dL (0.2-1.3); Total Protein 5.1 g/dL (6.3-8.2)
[2016-08-07 08:10] LABS: Glucose,Whole Blood 103 mg/dL (75-99)
[2016-08-07] MEDS: METOPROLOL TARTRATE 50 MG TAB PO SCH (08:15)
[2016-08-07] MEDS: SEVELAMER 800 MG TAB PO SCH ×2 (08:15→13:05)
[2016-08-07] MEDS: ASPIRIN 81 MG CHEW PO SCH (08:15)
[2016-08-07] MEDS: APIXABAN 2.5 MG TABLET PO SCH (08:15)
[2016-08-07] MEDS: PIPERACILLIN-TAZOBACTAM 3.375 GM in DEXTROSE/WATER 1 50ML.BAG IVPB SCH (08:15)
[2016-08-07] MEDS: AMIODARONE 200 MG TAB PO SCH (08:15)
[2016-08-07] MEDS: INSULIN LISPRO (humaLOG) 300 UNIT/3 ML VIAL SQ SCH ×2 (08:16→13:05)
[2016-08-07 08:19] VITALS: BP 148/68; PULSE 69; RESP 22; TEMP 97.9
[2016-08-07] MEDS ORDERED: PANTOPRAZOLE 40 MG TABLET PO SCH (09:00)
--- NOTE | 2016-08-07 09:57 | P.PN ---
Subjective Patient seen in follow-up for acute kidney injury. His baseline creatinine is near 1 and was elevated at 1.5 on admission. It peaked at 6 this admission and he has been hemodialysis dependent. He remains oliguric. He was extubated on August 02. He is currently sitting up in chair. Denies active chest pain or shortness of breath. Oral intake is fair. Vital signs are stable. General: The patient appeared well nourished and normally developed. HEENT: Head exam is unremarkable. Neck is without jugular venous distension. LUNGS: Rhonchi at bases Breath sounds decreased. HEART: Rate and Rhythm are regular. First and second heart sounds normal. No murmurs, rubs or gallops. ABDOMEN: Abdominal exam reveals normal bowel sounds. Non-tender and non- distended. No evidence of peritonitis. EXTREMITITES: No clubbing, cyanosis, or edema. Objective - Vital Signs Vital signs: Vital Signs Temp 97.9 F 08/07/16 07:00 Pulse 69 08/07/16 07:00 Resp 22 08/07/16 07:00 BP 148/68 08/07/16 07:00 Pulse Ox 93 L 08/07/16 07:31 Intake & Output 08/06/16 08/07/16 08/07/16 18:59 06:59 18:59 Intake Total 340 820 Output Total 0 0 0 Balance 340 820 0 Weight 97.2 kg 91.8 kg Intake: IV 50 50 Piperacillin-Tazobactam 3 50 50 .375 gm In Dextrose/Water 1 50ml.bag @ 12.5 mls/hr IVPB Q12HR [facility] Rx#: [id number] Intake, IV Titration 50 50 Amount Levofloxacin 250Mg-D5w 50 Pmx 250 mg In Dextrose/ Water 1 50ml.bag @ 50 mls /hr IVPB Q24H [facility] Rx#: [id number] Sodium Chloride 0.9% 1, 50 000 ml @ 50 mls/hr IV . Q20H [facility] Rx#:[id number] Oral 240 720 Output: Urine 0 0 0 Other: Voiding Method Incontinent Incontinent # Bowel Movements 2 1 ABP, PAP, CO, CI - Last Documented Arterial Blood Pressure 150/58 - Labs CBC & Chem 7: 08/07/16 04:09 08/07/16 04:09 Labs: Abnormal Lab Results - Last 24 Hours (Table) 08/06/16 08/07/16 08/07/16 Range/Units 12:07 04:09 04:09 WBC 12.2 H (3.8-10.6) k/uL RBC 3.42 L (4.30-5.90) m/uL Hgb 10.6 L (13.0-17.5) gm/dL Hct 31.6 L (39.0-53.0) % Neutrophils # 10.4 H (1.3-7.7) k/uL Lymphocytes # 0.7 L (1.0-4.8) k/uL Carbon Dioxide 18 L (22-30) mmol/L BUN 93 H* (9-20) mg/dL Creatinine 7.10 H* (0.66-1.25) mg/dL Glucose 100 H (74-99) mg/dL POC Glucose (mg/dL) 102 H (75-99) mg/dL Calcium 8.3 L (8.4-10.2) mg/dL Phosphorus 7.0 H (2.5-4.5) mg/dL Magnesium 2.6 H (1.6-2.3) mg/dL Total Protein 5.1 L (6.3-8.2) g/dL Albumin 2.6 L (3.5-5.0) g/dL 08/07/16 Range/Units 08:08 WBC (3.8-10.6) k/uL RBC (4.30-5.90) m/uL Hgb (13.0-17.5) gm/dL Hct (39.0-53.0) % Neutrophils # (1.3-7.7) k/uL Lymphocytes # (1.0-4.8) k/uL Carbon Dioxide (22-30) mmol/L BUN (9-20) mg/dL Creatinine (0.66-1.25) mg/dL Glucose (74-99) mg/dL POC Glucose (mg/dL) 103 H (75-99) mg/dL Calcium (8.4-10.2) mg/dL Phosphorus (2.5-4.5) mg/dL Magnesium (1.6-2.3) mg/dL Total Protein (6.3-8.2) g/dL Albumin (3.5-5.0) g/dL Assessment and Plan Plan: Assessment: #1. Oliguric acute kidney injury secondary to ischemic ATN secondary to hemodynamic instability as well as emesis. Baseline creatinine is 1. Currently hemodialysis dependent on a Saturday schedule. Urinalysis is quite benign and there is no evidence of hydronephrosis noted on CAT scan. Alcohol levels noted to be negative. #2. Severe metabolic acidosis secondary to acute kidney injury and lactic acidosis. Blood sugars are stable. No evidence of alcohol toxicities. #3. Atrial fibrillation. Now rate controlled. #4. Lactic acidosis most likely due to hypoperfusion. No evidence of hypoxia or ischemic bowel findings on CAT scan. #5. Hyperkalemia secondary to acute kidney injury and metabolic acidosis. Improved. #6. Hypernatremia secondary to lack of oral water intake and dehydration. Resolved. #7. Hyperphosphatemia secondary to acute kidney injury. Plan: Hemodialysis tomorrow with goal 2 L ultrafiltration. Maintain Renvela with meals. No evidence of renal recovery at this time. Will discontinue femoral catheter and request vascular surgery to place a long-term access for hemodialysis - scheduled for today. Encourage oral intake. Avoid nephrotoxic agents and hypotensive episodes. Start oral sodium bicarbonate supplementation. Will get case filler on board to help facilitate outpatient hemodialysis.
[2016-08-07] MEDS ORDERED: SODIUM BICARBONATE TAB 650 MG TAB PO SCH (10:00)
--- NOTE | 2016-08-07 10:45 | P.PN ---
Subjective Principal diagnosis: Acute respiratory failure with acute metabolic lactic acidosis. This is a 76-year-old white male with history of multiple medical problems including severe depression, previous multiple suicidal attempts, chronic atrial fibrillation, diverticulosis, anxiety, patient presented to the ER yesterday with mostly symptoms of acute slurred speech and dizziness. His was concerned, and she brought him into the ER. CT of the brain was unremarkable. Echocardiogram was done and results are pending. However shortly after the patient arrived to the cardiac floor, he was noted to have increased shortness of breath, and he was showing significant metabolic acidosis /lactic acidosis based on his ABG. Patient was transferred to the ICU, and a genny You was notified about his ABG, I recommended immediate intubation of the patient. Patient was intubated, placed on mechanical ventilation, and he went on to develop worsening metabolic lactic acidosis. Hence I raised the possibility of ischemic bowel, abdominal sepsis, salicylate overdose, ethylene glycol toxicity, however I was mostly concerned about the possibility of bowel ischemia and abdominal sepsis. Patient had a CT of the abdomen and pelvis yesterday, and this was done with oral contrast, it showed some perinephric stranding, but no evidence of changes in the bowel to suggest ischemia. Upon arrival to the ICU, a nasogastric tube was placed because his abdomen was distended, and there was a significant amount of coffee-ground material suctioned from the stomach. Hemoglobin was noted to be 12.8, 2 g lower compared to admission hemoglobin. His lactic acid was as high as 10 yesterday, but it is 5.7 today. Patient was given multiple fluid boluses he received almost 5 L of fluids overnight. Patient was placed on a sodium bicarb drip, broad-spectrum antibiotics, urine was sent for calcium oxalate crystals, ethylene glycol level was ordered, salicylate level was ordered, however his osmolar gap was noted to be minimal, hence that practically rules out the possibility of ethylene glycol toxicity. In the meantime the patient remains on antibiotics, bronchodilators, sodium bicarb drip, and fluids. He was seen by nephrology on consultation, general surgery on consultation, and he is to be seen by infectious disease on consultation. Cultures at this point remain negative. And workup is still pending. Patient did not demonstrate any hemodynamic instability throughout the whole process, he never demonstrated any hypoxia during this process, urine output is very poor, hoping it will improve as we correct his metabolic acidosis. And I will suggest possibly a Lasix challenge was acidosis improves. Labs this morning were reviewed WBC count is down from 28-17.0. His ABG showed significant improvement with a pO2 of 109 pCO2 of 27 pH of 7.29 remind you his pH was less than 7 before intubation. Bicarb level this morning was 7 BUN is 27 creatinine is 3.20 blood sugar is 226. Measured serum osmolality was 320, calculated serum osmolality was 316. Lactic acid is down this morning to 5.7. Salicylate level was less than 1.0, and drug screen was negative. The urinalysis is relatively unremarkable and no evidence of pyuria or bacteriuria. The echocardiogram was also unremarkable, no evidence of thrombus. CT of the brain was unremarkable carotid Doppler was also unremarkable. Patient was reevaluated today on 08/01/2016, he remains hemodynamically stable, not requiring any pressors. Remains on mechanical ventilation, his rate was cut down to 14, tidal volume remains at 500, FiO2 is down to 50%. PEEP is at 5. ABG this morning showed a pO2 of 95 pCO2 of 33 pH of 7.50 hence the patient will be off bicarb drip today. And this was discontinued. CBC is relatively unremarkable hemoglobin is 11.0. His renal profile shows significant worsening with a BUN up to 46 and creatinine is 5.53. Patient remains oliguric and no response to Lasix challenges. Hence he is being considered for dialysis as per nephrology on the case. Briefly, the patient was given a sedation holiday, and he seemed to be very appropriate, and no focal neurologic deficit was noted while he was off propofol. I plan to eventually weaned and extubated the patient, however I would like his renal status to be addressed prior to any extubation trial since the patient is oliguric. Cultures remain negative. Sputum only showed some Jerilyn. But cultures are negative so far. I am still convinced that the patient must have had an episode of ischemic bowel related to his atrial fibrillation, may have also showered his kidneys with small tiny emboli. Patient is now on Lovenox, at a modified dose because of his renal status and because of his episode of upper GI bleeding. Could not fully heparinize the patient. Reevaluated today on 08/02/2016, patient remains on mechanical ventilation, hemodynamically stable, not requiring any pressors, ventilator settings remained the same, he is on 50% FiO2 with a PEEP of 5,ABG showed a pO2 of 83 pCO2 of 27 pH of 7.51. Chest x-ray showed minimal interstitial edema and atelectasis. CBC is relatively unremarkable, hemoglobin is 10.8.renal profile is worsening BUN is 47 creatinine is 6.0, patient received one hemodialysis yesterday.only 500 mL of fluid were removed. Patient remains sedated on propofol, however I plan to discontinue propofol, wake of the patient, given a weaning trial, and possibly extubate. Patient was reevaluated today on 08/03/2016, he was extubated yesterday uneventfully, however he remains on a nonrebreather mask, and O2 saturation is marginal. His chest x-ray showed mild congestive changes hence the patient will likely be dialyzed and ultrafiltrate it today. Patient is awake, alert, knows where he is, but he is confused to time. And date. Chest x-ray as noted above.labs WBC count is 11 hemoglobin 10.7 electrolytes are normal bicarb is 19 BUN is 53 creatinine is 5.61. Reevaluated today on 08/04/2016, patient is doing relatively well, tolerated extubation well over the last 2 days, he is presently on nasal cannula, and yesterday he underwent dialysis were in 1.5 L of fluids were removed. WBC count is 14.7 today hemoglobin is 10.5 BUN is 53 creatinine is 5.10. Patient seems to have on iron gap metabolic acidosis most likely secondary to his renal failure at this point. Blood cultures remain negative so far. Patient was reevaluated today on 08/05/2016 basically about the same, presently on nasal cannula, patient is not in any form of distress. Chest x-ray showed evidence of interstitial edema, nephrology is not planning dialysis today but he will likely have dialysis and ultrafiltration tomorrow. CT of the chest which was ordered yesterday by neurology showed a new pontine infarct which was not present on his initial CT when he presented with mental status change. Neurology is recommending adding a low-dose antiplatelet, and at this point I have no objection to this. Patient did have 1 episode of coffee-ground material via nasogastric tube, there is a relative contraindication to anticoagulation therapy, but I believe at this point the benefits outweigh the risks. Patient is on a relatively small dose of Lovenox at this point. I think adding antiplatelet therapy or adding eliquis is not a bad idea at this point. And I have no objection to this. I will go ahead and start the patient on eliquis 2.5 mg twice a day, and I will discontinue Lovenox. The patient was seen again today in follow-up 08/06/2016. He is awake and alert sitting up in the chair at the bedside. He is somewhat disoriented to place and time and is requesting to go home. He pulled out his IV. He was found to have a new pontine infarct and was initiated on Eliquis yesterday. The patient has improved as far as his pulmonary status is concerned. Today's chest x-ray kidneys to show some bilateral infiltrates and effusions with some mild congestive heart failure. He is maintaining good O2 saturations in the 90s on room air. He has a 0.9 at 50 MLS per hour. He is receiving hemodialysis and the plan is for Hemo-Cath insertion. The patient is seen again today 08/07/2016 in follow-up in the intensive care unit as a medical overflow. He is awake and alert. He is restless and adamant that he is going home. The plan was for permacath insertion today and the patient is now unclear what he wants to do. His son is at the bedside and we are waiting for his to come in to help make further decisions. He denies any worsening shortness of breath, cough or congestion. He's been up ambulating with physical therapy. No acute distress. Objective - Vital Signs Vital signs: Vital Signs Temp 97.9 F 08/07/16 07:00 Pulse 69 08/07/16 07:00 Resp 22 08/07/16 07:00 BP 148/68 08/07/16 07:00 Pulse Ox 93 L 08/07/16 07:31 Intake & Output 08/06/16 08/07/16 08/07/16 18:59 06:59 18:59 Intake Total 340 820 Output Total 0 0 0 Balance 340 820 0 Weight 97.2 kg 91.8 kg Intake: IV 50 50 Piperacillin-Tazobactam 3 50 50 .375 gm In Dextrose/Water 1 50ml.bag @ 12.5 mls/hr IVPB Q12HR [facility] Rx#: [id number] Intake, IV Titration 50 50 Amount Levofloxacin 250Mg-D5w 50 Pmx 250 mg In Dextrose/ Water 1 50ml.bag @ 50 mls /hr IVPB Q24H [facility] Rx#: [id number] Sodium Chloride 0.9% 1, 50 000 ml @ 50 mls/hr IV . Q20H [facility] Rx#:[id number] Oral 240 720 Output: Urine 0 0 0 Other: Voiding Method Incontinent Incontinent # Bowel Movements 2 1 ABP, PAP, CO, CI - Last Documented Arterial Blood Pressure 150/58 - Exam GENERAL EXAM: Alert, comfortable in no apparent distress. HEAD: Normocephalic. EYES: Normal reaction of pupils, equal size. NOSE: Clear with pink turbinates. THROAT: No erythema or exudates. NECK: No masses, no JVD. CHEST: No chest wall deformity. LUNGS: Equal air entry with crackles in the bilateral posterior bases. Diminished. CVS: S1 and S2 normal with no audible murmurs, regular rhythm. ABDOMEN: No hepatosplenomegaly, normal bowel sounds, no guarding or rigidity. Extremities: There is trace peripheral edema. No clubbing, no cyanosis. Peripheral pulses are intact. - Labs CBC & Chem 7: 08/07/16 04:09 08/07/16 04:09 Labs: Abnormal Lab Results - Last 24 Hours (Table) 08/06/16 08/07/16 08/07/16 Range/Units 12:07 04:09 04:09 WBC 12.2 H (3.8-10.6) k/uL RBC 3.42 L (4.30-5.90) m/uL Hgb 10.6 L (13.0-17.5) gm/dL Hct 31.6 L (39.0-53.0) % Neutrophils # 10.4 H (1.3-7.7) k/uL Lymphocytes # 0.7 L (1.0-4.8) k/uL Carbon Dioxide 18 L (22-30) mmol/L BUN 93 H* (9-20) mg/dL Creatinine 7.10 H* (0.66-1.25) mg/dL Glucose 100 H (74-99) mg/dL POC Glucose (mg/dL) 102 H (75-99) mg/dL Calcium 8.3 L (8.4-10.2) mg/dL Phosphorus 7.0 H (2.5-4.5) mg/dL Magnesium 2.6 H (1.6-2.3) mg/dL Total Protein 5.1 L (6.3-8.2) g/dL Albumin 2.6 L (3.5-5.0) g/dL 08/07/16 Range/Units 08:08 WBC (3.8-10.6) k/uL RBC (4.30-5.90) m/uL Hgb (13.0-17.5) gm/dL Hct (39.0-53.0) % Neutrophils # (1.3-7.7) k/uL Lymphocytes # (1.0-4.8) k/uL Carbon Dioxide (22-30) mmol/L BUN (9-20) mg/dL Creatinine (0.66-1.25) mg/dL Glucose (74-99) mg/dL POC Glucose (mg/dL) 103 H (75-99) mg/dL Calcium (8.4-10.2) mg/dL Phosphorus (2.5-4.5) mg/dL Magnesium (1.6-2.3) mg/dL Total Protein (6.3-8.2) g/dL Albumin (3.5-5.0) g/dL Assessment and Plan Plan: Impression: 1 acute respiratory failure secondary to severe metabolic, lactic acidosis, exact etiology is not clear, but still suspect ischemic bowel or abdominal sepsis. Salicylate poisoning and ethylene glycol poisoning is practically ruled out based on the initial studies done. 2 chronic atrial fibrillation, presently rate seems to be well- controlled.eliquis was added 3 acute presentation of TIA/CVA with negative workup upon presentation. Follow- up CT of the brain showed pontine infarct which is relatively new 4 severe lactic acidosis, most likely secondary to sepsis or transient bowel ischemia. 5 acute kidney injury secondary to sepsis. This is also associated with oliguria 6 history of depression and previous suicidal attempts. 7 coffee-ground material via nasogastric tube most likely secondary to erosive gastritis , patient is presently on Lovenox subcu. 8 acute pontine infarct Plan: The patient was seen and evaluated by Dr. Whitfield. The patient remains stable from the pulmonary standpoint. We will await further instruction from the patient and family regarding the plan of care. He is quite adamant that he is going home today. In the interim, we'll continue with bronchodilators he remains on IV Levaquin and Zosyn. We'll continue to follow.
--- NOTE | 2016-08-07 13:02 | P.DS ---
Providers Date of admission: 07/30/16 15:46 Attending physician: Luis Low Consults: 07/30/16 19:31 Consult Physician Urgent Consulting Provider: Valery Allen Consult Reason/Comments: shortness of breath Do you want consulting provider notified?: Yes 07/30/16 23:44 Consult Physician Stat Consulting Provider: Abhijit Yuen Consult Reason/Comments: Possible ischemic bowel Do you want consulting provider notified?: Yes 07/31/16 05:38 Consult Physician Urgent Consulting Provider: Hans Fitzgerald Consult Reason/Comments: Sepsis Do you want consulting provider notified?: Yes 07/31/16 05:39 Consult Physician Urgent Consulting Provider: Katty Schmitz Consult Reason/Comments: Elevated BUN/CR Do you want consulting provider notified?: Yes 08/01/16 10:05 Consult Physician Stat Consulting Provider: Sheng Gao Consult Reason/Comments: insertion of a temporary hemodialysis catheter Do you want consulting provider notified?: Yes Primary care physician: Paula Dominique MD Hospital Course: His is a 76-year-old gentleman with history of multiple medical problems with multiple admissions to the hospital comes in with acute slurred speech and dizziness. Patient apparently has had multiple suicidal attempts in the past. Patient was noted to have a infarct in the pontine region. Patient does have a history of a chronic atrial fibrillation. Patient was triaged to the intensive care unit due to significant metabolic acidosis thereafter was placed on mechanical ventilator. Patient had significant lactic acidosis there was some concern over ischemic bowel. Also some concern over salicylate poisoning as well. Patient had a long stay in the hospital, was titrated off the ventilator. Patient was thereafter maintained on amiodarone and Crixivan for anticoagulation in regards to his atrial fibrillation. Patient apparently continued to have significant symptoms. I took over the care on the day of his discharge. Patient apparently had multiple discussions with his family and the agreement was to take the patient home with hospice. The goals of care have been changed to keeping the patient comfortable only. On the day of discharge Gen. appearance patient does not appear to make eye contact does not appear to be in distress Lungs crackles diffusely Heart irregular in nature no murmurs appreciated Abdomen soft nontender no organomegaly lower extremity no edema noted Neurologically moves all 4 extremities. Discharge diagnoses #1 acute hypoxic respiratory failure #2 severe metabolic acidosis with underlying lactic acidosis. #3 chronic atrial fibrillation #4 acute several vascular accident of the pontine region #5 acute kidney injury likely secondary to above #6 severe sepsis #7 history of major depression #8 history of hypertension Plan disposition pt be discharged home hospice is consulted Patient Condition at Discharge: Serious Plan - Discharge Summary New Discharge Prescriptions: LORazepam ORAL CONC [Ativan Intensol] 2 mg PO BID #60 ml MORPHINE ORAL SOLN 20mg/mL [Roxanol Oral Soln Conc 20MG/ML] 10 mg PO Q4H PRN # 100 ml PRN Reason: Breakthrough Pain Scopolamine 1.5MG/72Hr Patch [TransDerm Scop] 1 patch TRANSDERM Q72H #10 patch Discharge Medication List ALPRAZolam [Xanax] 0.5 mg PO QID 09/19/15 [History] LORazepam ORAL CONC [Ativan Intensol] 2 mg PO BID #60 ml 08/07/16 [Rx] MORPHINE ORAL SOLN 20mg/mL [Roxanol Oral Soln Conc 20MG/ML] 10 mg PO Q4H PRN # 100 ml 08/07/16 [Rx] Scopolamine 1.5MG/72Hr Patch [TransDerm Scop] 1 patch TRANSDERM Q72H #10 patch 08/07/16 [Rx] Follow up Appointment(s)/Referral(s): Paula Dominique MD [Primary Care Provider] - 1-2 days Discharge Disposition: HOME WITH HOSPICE
[2016-08-07] MEDS: FOLIC ACID 1 MG TAB PO SCH (13:04)
[2016-08-07] MEDS: MULTIVITAMINS, THERA 1 EACH TAB PO SCH (13:04)
[2016-08-07] MEDS: THIAMINE 100 MG TAB PO SCH (13:04)
--- NOTE | 2016-08-07 21:45 | P.PN ---
Subjective Principal diagnosis: Sepsis this is a 76-year-old male with past history of atrial fibrillation, diverticulitis, anxiety and depression. Patient apparently has had previous attempts at suicide by [address], cutting wrists, jumping and [place] and overdosing on sleeping pills. Patient was brought in to the emergency center due to slurred speech, right side feeling funny, Phalen's off and confusion. Patient was found to be afebrile. Pulse was 125-152 with atrial fibrillation with rapid ventricular response, hypertensive, tachypneic, leukocytosis initially at 13 and then eros to 28 and repeat was 17, acute renal failure with BUN of 23 and creatinine 3.1, severe lactic acidosis with lactic acid of 8.1 with repeat of 10. Electrolyte abnormalities with hypernatremia, hyperchloremia and hyperkalemia. Anion gap was 32. Troponin 2 was negative. Urine drug screen was negative and alcohol level was less than 10. Patient underwent initial chest x-ray that showed no acute process. CAT scan of the brain was done 2 which did show remote ischemic white matter changes, soft tissue nodule. Carotid ultrasound showed 50-70% right internal carotid stenosis and 50% on the left. CAT scan of the abdomen and pelvis without contrast showed bilateral perinephric stranding and small retroperitoneal fluid. No renal obstruction or stones. Consider infection. Diverticulosis without acute diverticulitis. Bibasilar lung atelectasis or consolidation with air space disease and possible infection. Last evening patient had a large coffee ground emesis and developed respiratory failure requiring intubation. He has been oliguric. He has been seen by Dr. Aceves for possible bowel ischemia or acute gastritis. NG tube is in place. Other consultants are neurology, cardiology, honey producer, nephrology. Echocardiogram is pending. Sputum, urine and blood cultures are all status received. At this time, Dr. Allen spoke with the family regarding reason for the severe acidosis and family are going home to check grouch for items that he could have taken before arrival. According to the patient's , he does not talk about depression but just plain does not talk and can go weeks without talking to her in the same home. Patient has hemodialysis. Tolerating that well. Not having significant hypotension. Acidosis is improved. Family and patient have decided to enter hospice, does not want hemodialysis Objective - Vital Signs Vital signs: Vital Signs Temp 97.9 F 08/07/16 07:00 Pulse 69 08/07/16 07:00 Resp 22 08/07/16 07:00 BP 148/68 08/07/16 07:00 Pulse Ox 93 L 08/07/16 07:31 Intake & Output 08/07/16 08/07/16 08/08/16 06:59 18:59 06:59 Intake Total 820 Output Total 0 0 Balance 820 0 Weight 91.8 kg Intake: IV 50 Piperacillin-Tazobactam 3 50 .375 gm In Dextrose/Water 1 50ml.bag @ 12.5 mls/hr IVPB Q12HR [facility] Rx#: [id number] Intake, IV Titration 50 Amount Levofloxacin 250Mg-D5w 50 Pmx 250 mg In Dextrose/ Water 1 50ml.bag @ 50 mls /hr IVPB Q24H [facility] Rx#: [id number] Oral 720 Output: Urine 0 0 Other: Voiding Method Incontinent # Bowel Movements 1 1 ABP, PAP, CO, CI - Last Documented Arterial Blood Pressure 150/58 - Exam Gen: This is a 76-year-old male. He has been extubated seems to be comfortable HEENT: Head is atraumatic, normocephalic. Pupils equal, round. Sclerae is anicteric. oral mucous membranes are moist. No oral lesions are seen NECK: Supple. No JVD. No lymphadenopathy. No thyromegaly. LUNGS: Clear to auscultation but diminished bilaterally. No intercostal retractions. HEART: irregular rate and rhythm. No murmur. ABDOMEN: Soft. Bowel sounds are present. No masses. No tenderness. Brody catheter in place with small amount of urine output. EXTREMITIES: No pedal edema. SCDs in place bilaterally. NEUROLOGICAL: Patient is awake but not he had a good historian. Answers questions with only a simple 1 word answer. Appears slightly less irritable - Labs CBC & Chem 7: 08/07/16 04:09 08/07/16 04:09 Labs: Abnormal Lab Results - Last 24 Hours (Table) 08/07/16 08/07/16 08/07/16 Range/Units 04:09 04:09 08:08 WBC 12.2 H (3.8-10.6) k/uL RBC 3.42 L (4.30-5.90) m/uL Hgb 10.6 L (13.0-17.5) gm/dL Hct 31.6 L (39.0-53.0) % Neutrophils # 10.4 H (1.3-7.7) k/uL Lymphocytes # 0.7 L (1.0-4.8) k/uL Carbon Dioxide 18 L (22-30) mmol/L BUN 93 H* (9-20) mg/dL Creatinine 7.10 H* (0.66-1.25) mg/dL Glucose 100 H (74-99) mg/dL POC Glucose (mg/dL) 103 H (75-99) mg/dL Calcium 8.3 L (8.4-10.2) mg/dL Phosphorus 7.0 H (2.5-4.5) mg/dL Magnesium 2.6 H (1.6-2.3) mg/dL Total Protein 5.1 L (6.3-8.2) g/dL Albumin 2.6 L (3.5-5.0) g/dL Laboratory Results WBC 12.2 k/uL (3.8-10.6) H 08/07/16 04:09 RBC 3.42 m/uL (4.30-5.90) L 08/07/16 04:09 Hgb 10.6 gm/dL (13.0-17.5) L 08/07/16 04:09 Hct 31.6 % (39.0-53.0) L 08/07/16 04:09 MCV 92.3 fL (80.0-100.0) 08/07/16 04:09 MCH 30.9 pg (25.0-35.0) 08/07/16 04:09 MCHC 33.5 g/dL (31.0-37.0) 08/07/16 04:09 RDW 14.4 % (11.5-15.5) 08/07/16 04:09 Plt Count 170 k/uL (150-450) 08/07/16 04:09 Neutrophils % 85 % 08/07/16 04:09 Lymphocytes % 6 % 08/07/16 04:09 Monocytes % 4 % 08/07/16 04:09 Eosinophils % 1 % 08/07/16 04:09 Basophils % 1 % 08/07/16 04:09 Neutrophils # 10.4 k/uL (1.3-7.7) H 08/07/16 04:09 Lymphocytes # 0.7 k/uL (1.0-4.8) L 08/07/16 04:09 Monocytes # 0.5 k/uL (0-1.0) 08/07/16 04:09 Eosinophils # 0.2 k/uL (0-0.7) 08/07/16 04:09 Basophils # 0.1 k/uL (0-0.2) 08/07/16 04:09 Hypochromasia Moderate 07/31/16 03:06 Macrocytosis Slight 07/31/16 03:06 PT 11.1 sec (9.0-12.0) 08/03/16 04:45 INR 1.1 (<1.1) 08/03/16 04:45 APTT 27.8 sec (22.0-30.0) 08/03/16 04:45 D-Dimer 0.99 mg/L FEU (<0.60) H 07/30/16 16:13 Sample Site [place] 08/02/16 08:10 ABG pH 7.51 (7.35-7.45) H 08/02/16 08:10 ABG pCO2 27 mmHg (35-45) L 08/02/16 08:10 ABG pO2 83 mmHg (83-108) 08/02/16 08:10 ABG HCO3 22 mmol/L (21-25) 08/02/16 08:10 ABG Total CO2 22 mmol/L (19-24) 08/02/16 08:10 ABG O2 Saturation 97.0 % (94-97) 08/02/16 08:10 ABG Base Excess -1.1 mmol/L 08/02/16 08:10 FiO2 50 % 08/02/16 08:10 Sodium 142 mmol/L (137-145) 08/07/16 04:09 Potassium 5.0 mmol/L (3.5-5.1) 08/07/16 04:09 Chloride 103 mmol/L (98-107) 08/07/16 04:09 Carbon Dioxide 18 mmol/L (22-30) L 08/07/16 04:09 Anion Gap 21 mmol/L 08/07/16 04:09 BUN 93 mg/dL (9-20) H* 08/07/16 04:09 Creatinine 7.10 mg/dL (0.66-1.25) H* 08/07/16 04:09 Est GFR (MDRD) Af Amer 9 (>60 ml/min/1.73 sqM) 08/07/16 04:09 Est GFR (MDRD) Non-Af 8 (>60 ml/min/1.73 sqM) 08/07/16 04:09 Glucose 100 mg/dL (74-99) H 08/07/16 04:09 POC Glucose (mg/dL) 103 mg/dL (75-99) H 08/07/16 08:08 POC Glu Neon Glass Bender ID Katalnia Segal 08/07/16 08:[address] Glu mg/dL 105 mg/dL 07/31/16 03:06 Hemoglobin A1c 5.3 % (4.2-6.1) 07/31/16 03:06 Osmolality 320 mosm/kg (280-301) H 07/31/16 03:06 Plasma Lactic Acid [place] 4.1 mmol/L (0.7-2.0) H* 07/31/16 21:37 Calcium 8.3 mg/dL (8.4-10.2) L 08/07/16 04:09 Phosphorus 7.0 mg/dL (2.5-4.5) H 08/07/16 04:09 Magnesium 2.6 mg/dL (1.6-2.3) H 08/07/16 04:09 Total Bilirubin 0.9 mg/dL (0.2-1.3) 08/07/16 04:09 AST 34 U/L (17-59) 08/07/16 04:09 ALT 35 U/L (21-72) 08/07/16 04:09 Alkaline Phosphatase 104 U/L (38-126) 08/07/16 04:09 Total Creatine Kinase 48 U/L (55-170) L 07/30/16 22:50 CK-MB (CK-2) 1.4 ng/mL (0.0-2.4) 07/30/16 22:50 CK-MB (CK-2) Rel Index 2.9 07/30/16 22:50 Troponin I 0.027 ng/mL (0.000-0.034) 07/31/16 08:25 NT-Pro-B Natriuret Pep 94 pg/mL 07/30/16 10:33 Total Protein 5.1 g/dL (6.3-8.2) L 08/07/16 04:09 Albumin 2.6 g/dL (3.5-5.0) L 08/07/16 04:09 Triglycerides 97 mg/dL (<150) 08/04/16 15:00 Cholesterol 98 mg/dL (<200) 08/04/16 15:00 LDL Cholesterol, Calc 60 mg/dL (0-99) 08/04/16 15:00 HDL Cholesterol 19 mg/dL (40-60) L 08/04/16 15:00 Homocysteine 7.02 umol/L (4.00-14.00) 08/04/16 15:20 Cortisol 82 ug/dL 07/30/16 22:38 Urine Color Light Yellow 07/30/16 23:50 Urine Appearance Clear (Clear) 07/30/16 23:50 Urine pH 5.0 (5.0-8.0) 07/30/16 23:50 Ur Specific [place] 1.007 (1.001-1.035) 07/30/16 23:50 Urine Protein 1+ (Negative) H 07/30/16 23:50 Urine Glucose (UA) Negative (Negative) 07/30/16 23:50 Urine Ketones Negative (Negative) 07/30/16 23:50 Urine Blood Trace (Negative) H 07/30/16 23:50 Urine Nitrite Negative (Negative) 07/30/16 23:50 Urine Bilirubin Negative (Negative) 07/30/16 23:50 Urine Urobilinogen <2.0 mg/dL (<2.0) 07/30/16 23:50 Ur Leukocyte Esterase Negative (Negative) 07/30/16 23:50 Urine RBC 2 /hpf (0-5) 07/30/16 23:50 Calcium Oxalate Crystal /hpf (None) 07/30/16 23:50 Salicylates <1.0 mg/dL 07/31/16 03:06 Urine Opiates Screen Not Detected (NotDetected) 07/30/16 23:50 Ur Oxycodone Screen Not Detected (NotDetected) 07/30/16 23:50 Urine Methadone Screen Not Detected (NotDetected) 07/30/16 23:50 Ur Propoxyphene Screen Not Detected (NotDetected) 07/30/16 23:50 Ur Barbiturates Screen Not Detected (NotDetected) 07/30/16 23:50 U Tricyclic Antidepress Not Detected (NotDetected) 07/30/16 23:50 Ur Phencyclidine Scrn Not Detected (NotDetected) 07/30/16 23:50 Ur Amphetamines Screen Not Detected (NotDetected) 07/30/16 23:50 U Methamphetamines Scrn Not Detected (NotDetected) 07/30/16 23:50 U Benzodiazepines Scrn Not Detected (NotDetected) 07/30/16 23:50 Urine Cocaine Screen Not Detected (NotDetected) 07/30/16 23:50 U Marijuana (THC) Screen Not Detected (NotDetected) 07/30/16 23:50 Ethylene Glycol Negative mg/dL (Negative) 07/31/16 08:25 Serum Alcohol <10 mg/dL 07/30/16 22:38 Ethyl Alcohol Screen Negative mg/dL (Negative) 07/31/16 18:45 Methyl Alcohol, Qual Negative mg/dL (Negative) 07/31/16 18:45 Isopropyl Alc, Qual Negative mg/dL (Negative) 07/31/16 18:45 Acetone, Qual Negative mg/dL (Negative) 07/31/16 18:45 Hep Bs Antigen Negative 08/03/16 04:45 Hep Bs Antibody Negative (Negative) 08/03/16 04:45 Hep B Core Total Ab Non-Reactive (Non-Reactive) 08/03/16 04:45 Blood Type O Positive 07/31/16 03:06 Blood Type Recheck No 07/31/16 03:06 Antibody Screen NEGATIVE 07/31/16 03:06 Spec Expiration Date 08/03/2016 - 68207/31/16 03:06 Microbiology 07/30/16 22:38 Blood Blood Culture - Final No Growth after 144 hours 07/31/16 05:00 Sputum Gram Stain - Final 07/31/16 05:00 Sputum Sputum Culture - Final Jerilyn albicans 07/30/16 23:50 Urine,Catheterized Urine Culture - Final Assessment and Plan (1) Ischemia, bowel Narrative/Plan: 76-year-old male presents to Hospital with altered mental status. A profound acidosis that is now improved. Is receiving dialysis for his acute renal failure. Etiology of the profound acidosis is thought to be organ dysfunction to his bowel with transient ischemic event that is improved. No evidence of any bloody stools are noted at this time. Patient has had improvement but does have the acute renal failure receiving renal replacement therapy . Antibiotic therapy has been directed for treatment of ischemic colitis and potential pneumonia with Zosyn and levofloxacin while cultures are process. The sputum for Jerilyn reveals evidence of oropharyngeal contamination. Patient is extubated and showing improvement. However does have the ongoing renal failure with ongoing renal replacement therapy. X-ray continue to show ongoing volume overload but no new pulmonic infiltrations are seen. Patient had extensive leukocytosis at admission that is now improved as his acidosis and respiratory failure have improved. 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 Patent being discharged to hospice at home Status: Acute (2) Acute renal failure Status: Acute (3) Metabolic acidosis Status: Acute
== END 2016-08-07 15:37 | disposition hospice, home (50) | DRG 871 ==
LOC: EC 10:13 → 6SEL 15:46 → 6ICU 20:15
PROVIDERS: ADMIT Hospitalist; ATTEND Hospitalist
PROC: 5A1945Z Respiratory Ventilation, 24-96 Consecutive Hours (ICD-10-PCS; principal; 2016-07-30)
PROC: 0BH17EZ Insertion of Endotracheal Airway into Trachea, Via Natural or Artificial Opening (ICD-10-PCS; 2016-07-30)
PROC: 03HB33Z Insertion of Infusion Device into Right Radial Artery, Percutaneous Approach (ICD-10-PCS; 2016-07-31)
PROC: 5A1D60Z (ICD-10-PCS; 2016-08-01)
PROC: 02HV33Z Insertion of Infusion Device into Superior Vena Cava, Percutaneous Approach (ICD-10-PCS; 2016-08-01)
PROC: 02H633Z Insertion of Infusion Device into Right Atrium, Percutaneous Approach (ICD-10-PCS; 2016-08-03)
DX: A41.9 Sepsis, unspecified organism (principal); J96.01 Acute respiratory failure with hypoxia; N17.0 Acute kidney failure with tubular necrosis; I63.9 Cerebral infarction, unspecified; J69.0 Pneumonitis due to inhalation of food and vomit; G93.41 Metabolic encephalopathy; K29.01 Acute gastritis with bleeding; N18.6 End stage renal disease; I13.2 Hypertensive heart and chronic kidney disease with heart failure and with stage 5 chronic kidney disease, or end stage renal disease; E87.0 Hyperosmolality and hypernatremia; K55.9 Vascular disorder of intestine, unspecified; E87.4 Mixed disorder of acid-base balance; J44.1 Chronic obstructive pulmonary disease with (acute) exacerbation; I48.0 Paroxysmal atrial fibrillation; E86.0 Dehydration; E87.8 Other disorders of electrolyte and fluid balance, not elsewhere classified; E83.39 Other disorders of phosphorus metabolism; E87.5 Hyperkalemia; F32.9 Major depressive disorder, single episode, unspecified; F41.9 Anxiety disorder, unspecified; I48.2 Chronic atrial fibrillation; I50.9 Heart failure, unspecified; I65.23 Occlusion and stenosis of bilateral carotid arteries; K57.90 Diverticulosis of intestine, part unspecified, without perforation or abscess without bleeding; R65.20 Severe sepsis without septic shock; I49.3 Ventricular premature depolarization; R26.9 Unspecified abnormalities of gait and mobility; R32 Unspecified urinary incontinence; Z79.82 Long term (current) use of aspirin; Z79.899 Other long term (current) drug therapy; Z87.891 Personal history of nicotine dependence
CPT/HCPCS: 36415; 36600; 70450; 71010; 74176; 80048; 80053; 80061; 80306; 80320; 81001; 82009; 82533; 82550; 82553; 82805; 83036; 83090; 83520; 83605; 83735; 83880; 83930; 84100; 84484; 84600; 85025; 85379; 85610; 85730; 86704; 86706; 86850; 86900; 86901; 87040; 87070; 87086; 87205; 87340; 90935; 93005; 93306; 93880; 94002; 94003; 94640; 95816; 96365; 96366; 96375; 96376; 99291